=== PATIENT | male | born 1930 | race Caucasian/White ===

== ENCOUNTER 2016-10-07 19:33 | Inpatient (IN) | payer MEDICARE, OTHER ==
[2016-10-07] MEDS ORDERED: SODIUM CHLORIDE 0.9% 500 ML IV STA (20:38)
[2016-10-07] MEDS ORDERED: ACETAMINOPHEN TAB 500 MG TAB PO STA (20:38)
[2016-10-07] MEDS ORDERED: SODIUM CHLORIDE 0.9% 1,000 ML IV STA (20:38)
--- NOTE | 2016-10-07 20:42 | ED ---
General Adult HPI - General Source: patient, family, RN notes reviewed Mode of arrival: ambulatory Limitations: no limitations <Tj Vera - Last Filed: 10/08/16 00:39> <Brayan Jc - Last Filed: 10/08/16 06:24> - General Chief complaint: Nausea/Vomiting/Diarrhea Stated complaint: Abd Pain Time Seen by Provider: 10/07/16 20:34 - History of Present Illness Initial comments: Patient 86-year-old male who presents emergency room today with chief complaint of cough congestion over the past week. Does not that he's had fevers. States is not taking are Tylenol. Patient admits that is also had some nausea vomiting. Patient states she no longer feeling nauseated at this time. He does with sputum production with his cough. States his blood sugars and blood pressure is also been elevated at home. Patient denies any other complaints at this time. He denies any pain. Patient denies any recent shortness of breath, chest pain, back pain, numbness or tingling, dysuria or hematuria, constipation or diarrhea, headaches or visual changes, or any other complaints. (Tj Vera) - Related Data Home Medications Medication Instructions Recorded Confirmed Acetaminophen/Diphenhydramine 1 tab PO HS 10/07/16 10/07/16 [Tylenol PM 500-25mg] Clopidogrel Bisulfate [Plavix] 75 mg PO DAILY 10/07/16 10/07/16 Furosemide [Lasix] 40 mg PO DAILY 10/07/16 10/07/16 Gabapentin 600 mg PO TID 10/07/16 10/07/16 Insulin NPH Human Isophane 20 unit SQ BID 10/07/16 10/07/16 [NovoLIN N] LORazepam [Ativan] 1 mg PO HS 10/07/16 10/07/16 Losartan [Cozaar] 50 mg PO DAILY 10/07/16 10/07/16 Lovastatin [Mevacor] 40 mg PO DAILY 10/07/16 10/07/16 Potassium Chloride [Klor-Con 10] 10 meq PO BID 10/07/16 10/07/16 metFORMIN HCL [Glucophage] 500 mg PO BID 10/07/16 10/07/16 Allergies Allergy/AdvReac Type Severity Reaction Status Date / Time No Known Allergies Allergy Verified 10/07/16 21:53 Review of Systems ROS Other: All systems not noted in ROS Statement are negative. <Tj Vera - Last Filed: 10/08/16 00:39> ROS Other: All systems not noted in ROS Statement are negative. <HareshclaudiaBrayan Talya - Last Filed: 10/08/16 06:24> ROS Statement: Those systems with pertinent positive or pertinent negative responses have been documented in the HPI. Past Medical History Past Medical History: Diabetes Mellitus, Hypertension History of Any Multi-Drug Resistant Organisms: None Reported Past Surgical History: Bowel Resection, Prostate Surgery Additional Past Surgical History / Comment(s): brain tumor removed Past Psychological History: No Psychological Hx Reported Smoking Status: Never smoker Past Alcohol Use History: None Reported Past Drug Use History: None Reported <Tj Vera - Last Filed: 10/08/16 00:39> General Exam Limitations: no limitations <Tj Vera - Last Filed: 10/08/16 00:39> <HareshclaudiaBrayan Talya - Last Filed: 10/08/16 06:24> - General Exam Comments Initial Comments: General: The patient is awake and alert, in no distress, and does not appear acutely ill. Eye: Pupils are equal, round and reactive to light, extra-ocular movements are intact. No nystagmus. There is normal conjunctiva bilaterally. No signs of icterus. Ears, nose, mouth and throat: There are moist mucous membranes and no oral lesions. Neck: The neck is supple, there is no tenderness or JVD. Cardiovascular: There is a regular rate and rhythm. No murmur, rub or gallop is appreciated. Respiratory: Lungs are clear to auscultation, respirations are non-labored, breath sounds are equal. No wheezes, stridor, rales, or rhonchi. Gastrointestinal: Soft, non-distended, non-tender abdomen without masses or organomegaly noted. There is no rebound or guarding present. No CVA tenderness. Bowel sounds are unremarkable. Musculoskeletal: Normal ROM, no tenderness. Strength 5/5. Sensation intact. Pulses equal bilaterally 2+. Neurological: A&O x 3. CN II-XII intact, There are no obvious motor or sensory deficits. Coordination appears grossly intact. Speech is normal. Skin: Skin is warm and dry and no rashes or lesions are noted. Psychiatric: Cooperative, appropriate mood & affect, normal judgment. (Tj Vera) Medical Decision Making - Lab Data Result diagrams: 10/07/16 21:10 10/07/16 21:10 <Tj Vera - Last Filed: 10/08/16 00:39> - Lab Data Result diagrams: 10/07/16 21:10 10/07/16 21:10 <Brayan Jc - Last Filed: 10/08/16 06:24> - Medical Decision Making Patient reexamined at this time shows no signs of distress. Patient's labs been reviewed. His ultrasound reviewed and shows evidence for cholecystitis. Patient will be administered on antibiotics. Patient's wear the plan states understanding. (Tj Vera) 86-year-old male presenting with fever, nausea and some vomiting. Patient and his family does state he has been coughing ,cough is productive.. Chest x-ray shows no focal pneumonia. Temperature was 102.5. There is no right upper quadrant tenderness, however his liver enzymes and alkaline phosphatase are mildly elevated. Ultrasound is obtained to evaluate for gallbladder infection. There is cholelithiasis with gallbladder wall thickening, no pericholecystic fluid. Exam is not consistent with acute cholecystitis. No elevation in bilirubin, no concern for ascending cholangitis at this time. Given the history of fever and cough this may be early Pneumonia. Patient will be admitted with IV antibiotics and general surgery placed on consult. (Brayan Jc) - Lab Data Lab Results 10/07/16 10/07/16 10/07/16 Range/Units 21:10 21:10 21:10 WBC 11.2 H (3.8-10.6) k/uL RBC 4.05 L (4.30-5.90) m/uL Hgb 13.0 (13.0-17.5) gm/dL Hct 38.9 L (39.0-53.0) % MCV 96.1 (80.0-100.0) fL MCH 32.2 (25.0-35.0) pg MCHC 33.5 (31.0-37.0) g/dL RDW 13.3 (11.5-15.5) % Plt Count 294 (150-450) k/uL Neutrophils % 85 % Lymphocytes % 6 % Monocytes % 5 % Eosinophils % 0 % Basophils % 0 % Neutrophils # 9.6 H (1.3-7.7) k/uL Lymphocytes # 0.7 L (1.0-4.8) k/uL Monocytes # 0.6 (0-1.0) k/uL Eosinophils # 0.1 (0-0.7) k/uL Basophils # 0.0 (0-0.2) k/uL PT 10.6 (9.0-12.0) sec INR 1.0 (<1.2) APTT 20.4 L (22.0-30.0) sec Sodium 136 L (137-145) mmol/L Potassium 4.2 (3.5-5.1) mmol/L Chloride 98 (98-107) mmol/L Carbon Dioxide 24 (22-30) mmol/L Anion Gap 14 mmol/L BUN 23 H (9-20) mg/dL Creatinine 1.01 (0.66-1.25) mg/dL Est GFR (MDRD) Af Amer >60 (>60 ml/min/1.73 sqM) Est GFR (MDRD) Non-Af >60 (>60 ml/min/1.73 sqM) Glucose 235 H (74-99) mg/dL Calcium 9.2 (8.4-10.2) mg/dL Total Bilirubin 1.0 (0.2-1.3) mg/dL AST 275 H (17-59) U/L ALT 151 H (21-72) U/L Alkaline Phosphatase 167 H (38-126) U/L Total Protein 6.9 (6.3-8.2) g/dL Albumin 3.7 (3.5-5.0) g/dL Urine Color Urine Appearance (Clear) Urine pH (5.0-8.0) Ur Specific [place] (1.001-1.035) Urine Protein (Negative) Urine Glucose (UA) (Negative) Urine Ketones (Negative) Urine Blood (Negative) Urine Nitrite (Negative) Urine Bilirubin (Negative) Urine Urobilinogen (<2.0) mg/dL Ur Leukocyte Esterase (Negative) Urine RBC (0-5) /hpf Urine WBC (0-5) /hpf Hyaline Casts (0-2) /lpf Urine Mucus (None) /hpf Acetone, Qual Negative (Negative) 10/07/16 Range/Units 22:35 WBC (3.8-10.6) k/uL RBC (4.30-5.90) m/uL Hgb (13.0-17.5) gm/dL Hct (39.0-53.0) % MCV (80.0-100.0) fL MCH (25.0-35.0) pg MCHC (31.0-37.0) g/dL RDW (11.5-15.5) % Plt Count (150-450) k/uL Neutrophils % % Lymphocytes % % Monocytes % % Eosinophils % % Basophils % % Neutrophils # (1.3-7.7) k/uL Lymphocytes # (1.0-4.8) k/uL Monocytes # (0-1.0) k/uL Eosinophils # (0-0.7) k/uL Basophils # (0-0.2) k/uL PT (9.0-12.0) sec INR (<1.2) APTT (22.0-30.0) sec Sodium (137-145) mmol/L Potassium (3.5-5.1) mmol/L Chloride (98-107) mmol/L Carbon Dioxide (22-30) mmol/L Anion Gap mmol/L BUN (9-20) mg/dL Creatinine (0.66-1.25) mg/dL Est GFR (MDRD) Af Amer (>60 ml/min/1.73 sqM) Est GFR (MDRD) Non-Af (>60 ml/min/1.73 sqM) Glucose (74-99) mg/dL Calcium (8.4-10.2) mg/dL Total Bilirubin (0.2-1.3) mg/dL AST (17-59) U/L ALT (21-72) U/L Alkaline Phosphatase (38-126) U/L Total Protein (6.3-8.2) g/dL Albumin (3.5-5.0) g/dL Urine Color Yellow Urine Appearance Turbid (Clear) Urine pH 5.5 (5.0-8.0) Ur Specific [place] 1.016 (1.001-1.035) Urine Protein 1+ H (Negative) Urine Glucose (UA) Negative (Negative) Urine Ketones Negative (Negative) Urine Blood Small H (Negative) Urine Nitrite Negative (Negative) Urine Bilirubin Negative (Negative) Urine Urobilinogen 4.0 (<2.0) mg/dL Ur Leukocyte Esterase Negative (Negative) Urine RBC 1 (0-5) /hpf Urine WBC <1 (0-5) /hpf Hyaline Casts 1 (0-2) /lpf Urine Mucus Rare H (None) /hpf Acetone, Qual (Negative) Disposition Time of Disposition: 00:40 <Tj eVra - Last Filed: 10/08/16 00:39> <Brayan Jc - Last Filed: 10/08/16 06:24> Clinical Impression: Acute cholecystitis Disposition: ADMITTED IP TO THIS HOSP Condition: Stable
--- NOTE | 2016-10-07 21:15 | XR ---
EXAMINATION TYPE: XR chest 2V DATE OF EXAM: 10/07/2016 COMPARISON: NONE HISTORY: Nausea and dizziness TECHNIQUE: Frontal and lateral views of the chest are obtained. FINDINGS: Heart is normal. Thoracic aorta is atheromatous. Lungs are clear of infiltrate. There is n o heart failure. There is no pleural effusion. Bony thorax appears intact. IMPRESSION: No active cardiopulmonary disease.
[2016-10-07 21:30] LABS: Basophils % (A) 0 %; CH 32.6; CHCM 34.1; Eosinophils # (A) 0.1 k/uL (0-0.7); Eosinophils % (A) 0 %; HCT 38.9 % (39.0-53.0); HDW 2.34; Luc # (Auto) 0.35; Luc % (Auto) 3; Lymphocytes # (A) 0.7 k/uL (1.0-4.8); Lymphocytes % (A) 6 %; MCH 32.2 pg (25.0-35.0); MCHC 33.5 g/dL (31.0-37.0); MCV 96.1 fL (80.0-100.0); Mean Platelet Volume 8.1; Monocytes # (A) 0.6 k/uL (0-1.0); Monocytes % (A) 5 %; Neutrophils # (A) 9.6 k/uL (1.3-7.7); Neutrophils % (A) 85 %; RBC 4.05 m/uL (4.30-5.90); RDW 13.3 % (11.5-15.5); WBC 11.2 k/uL (3.8-10.6); WBC (Perox) 11.27
[2016-10-07 21:40] LABS: ALT 151 U/L (21-72); AST 275 U/L (17-59); Alkaline Phosphatase 167 U/L (38-126); Anion Gap 14 mmol/L; Blood Urea Nitrogen 23 mg/dL (9-20); Calcium 9.2 mg/dL (8.4-10.2); Carbon Dioxide 24 mmol/L (22-30); Chloride 98 mmol/L (98-107); Glucose 235 mg/dL (74-99); Non-African American GFR(MDRD) >60 (>60 ml/min/1.73 sqM); Potassium 4.2 mmol/L (3.5-5.1); Sodium 136 mmol/L (137-145); Total Protein 6.9 g/dL (6.3-8.2)
[2016-10-07 21:46] LABS: Prothrombin Time 10.6 sec (9.0-12.0)
[2016-10-07 21:47] LABS: Partial Thromboplastin Time 20.4 sec (22.0-30.0)
[2016-10-07 22:50] LABS: Appearance,Urine Turbid (Clear); Bilirubin,Urine Negative (Negative); Glucose,Urine (UA) Negative (Negative); Ketones,Urine Negative (Negative); Leukocyte Esterase,Urine Negative (Negative); Mucus,Urine Rare /hpf; Nitrite,Urine Negative (Negative); PH, Urine 5.5 (5.0-8.0); Particle Count 39182; Protein,Urine 1+ (Negative); RBC,Urine 1 /hpf (0-5); Specific Gravity,Urine 1.016 (1.001-1.035); UA Billing (MACRO vs. MICRO) MICRO; WBC,Urine <1 /hpf (0-5)
--- NOTE | 2016-10-08 00:28 | US ---
EXAM: US Abdomen Complete CLINICAL HISTORY: Reason: Pain TECHNIQUE: Real-time ultrasound of the abdomen (complete) with image documentation. COMPARISON: No relevant prior studies available. FINDINGS: Liver: Unremarkable. No mass. No intrahepatic bile duct dilation. Gallbladder: Distended GB with multiple gallstones. Gallbladder wall is thickened to 6 mm. No evidence of pericholecystic fluid. Common bile duct: No biliary dilatation. Common duct is 5 mm in diameter. No stones. Pancreas: Unremarkable as visualized. Kidneys: Right kidney contains a 5.7 cm simple cyst in the upper pole. No stones. No hydronephrosis. Spleen: Unremarkable. No splenomegaly. Aorta: Unremarkable. No aneurysm. Inferior vena cava: Unremarkable. Free fluid: No free fluid. IMPRESSION: Cholelithiasis with gallbladder wall thickening. No evidence of pericholecystic fluid or sonographic Flores sign. Findings are equivocal for cholecystitis. Correlate clinically. Need for HIDA scan may be determined clinically.
[2016-10-08] MEDS ORDERED: metroNIDAZOLE-NS PMX 500 MG in SALINE 1 100ML.BAG IVPB STA (00:39)
[2016-10-08] MEDS ORDERED: HYDROmorphone 1 MG/ML 1 ML SYRINGE IV PRN (00:41)
[2016-10-08] MEDS ORDERED: ONDANSETRON 4 MG/2 ML VIAL IVP PRN (00:41)
[2016-10-08] MEDS ORDERED: NALOXONE 0.4 MG/ML 1 ML VIAL IV PRN (00:41)
[2016-10-08 02:08] VITALS: BMI 23.9
[2016-10-08 03:14] LABS: Glucose,Whole Blood 161 mg/dL (75-99)
[2016-10-08] MEDS: ACETAMINOPHEN IV (For NPO) 1,000 MG in EMPTY BAG 1 BAG IVPB SCH ×3 (07:12→17:43)
[2016-10-08 07:35] LABS: Glucose,Whole Blood 138 mg/dL (75-99)
[2016-10-08] MEDS: INSULIN LISPRO (humaLOG) 300 UNIT/3 ML VIAL SQ SCH ×4 (08:05→21:01)
[2016-10-08 09:02] LABS: Hemoglobin A1C 7.1 % (4.2-6.1)
[2016-10-08] MEDS: metroNIDAZOLE-NS PMX 500 MG in SALINE 1 100ML.BAG IVPB SCH ×3 (09:11→23:15)
[2016-10-08 11:23] LABS: Glucose,Whole Blood 146 mg/dL (75-99)
--- NOTE | 2016-10-08 13:31 | P.HPIM ---
History of Present Illness H&P Date: 10/08/16 Chief Complaint: Fevers 86-year-old gentleman with history of CAD comes in the hospital with intractable abdominal pain nausea and inability to tolerate any liquids or solids for the last few days. States is good health 5 days ago suddenly noted to have chills fevers and intermittent episodes of abdominal pain. Patient was seen in the emergency room was noted to have a high fever and ultrasound of the abdomen was done which showed some inflammation around the gallbladder Patient has a history of prostate cancer and colon cancer status post resection Today patient states that he's been feeling significantly better denies having any abdominal pain except for his chronic pain around his incision site No chest pain or difficulty breathing urinary urgency or frequency is reported. In the ER patient was noted to have an elevated white count. Review of Systems All systems: negative (Noted in HPI) Past Medical History Past Medical History: Cancer, Diabetes Mellitus, Hearing Disorder / Deafness, Hypertension Additional Past Medical History / Comment(s): cholonocsopy , equilibrium off since brain surgery History of Any Multi-Drug Resistant Organisms: None Reported Past Surgical History: Bowel Resection, Prostate Surgery Additional Past Surgical History / Comment(s): brain tumor removed 1996. colon cancer with colon removal Past Anesthesia/Blood Transfusion Reactions: No Reported Reaction Past Psychological History: No Psychological Hx Reported Smoking Status: Never smoker Past Alcohol Use History: None Reported Past Drug Use History: None Reported - Past Family History Father History Unknown: Yes Medications and Allergies Home Medications Medication Instructions Recorded Confirmed Type Acetaminophen/Diphenhydramine 1 tab PO HS 10/07/16 10/07/16 History [Tylenol PM 500-25mg] Clopidogrel Bisulfate [Plavix] 75 mg PO DAILY 10/07/16 10/07/16 History Furosemide [Lasix] 40 mg PO DAILY 10/07/16 10/07/16 History Gabapentin 600 mg PO TID 10/07/16 10/07/16 History Insulin NPH Human Isophane 20 unit SQ BID 10/07/16 10/07/16 History [NovoLIN N] LORazepam [Ativan] 1 mg PO HS 10/07/16 10/07/16 History Losartan [Cozaar] 50 mg PO DAILY 10/07/16 10/07/16 History Lovastatin [Mevacor] 40 mg PO DAILY 10/07/16 10/07/16 History Potassium Chloride [Klor-Con 10] 10 meq PO BID 10/07/16 10/07/16 History metFORMIN HCL [Glucophage] 500 mg PO BID 10/07/16 10/07/16 History Allergies Allergy/AdvReac Type Severity Reaction Status Date / Time No Known Allergies Allergy Verified 10/07/16 21:53 Physical Exam Vitals: Vital Signs Temp Pulse Pulse Resp BP BP Pulse Ox 10/08/16 08:00 72 18 10/08/16 07:00 98.3 F 72 18 124/69 96 10/08/16 01:30 63 10/08/16 01:12 98.7 F 68 18 95/65 95 10/08/16 01:10 97.1 F L 64 16 93/55 93 L 10/08/16 00:42 98.4 F 70 18 95/54 94 L 10/07/16 22:40 16 10/07/16 19:38 102.5 F H 109 H 18 132/61 96 Intake and Output 10/07/16 10/08/16 10/08/16 22:59 06:59 14:59 Intake Total 500 625 Output Total 201 Balance 500 424 Intake: IV 500 [id number] 1,000 mg In 500 Sodium Chloride 0.9% 50 ml @ 100 mls/hr IVPB Q24HR GHAZALA Rx#:[id number] Intake, IV Titration 625 Amount Sodium Chloride 0.9% 1, 525 000 ml @ 75 mls/hr IV . [id number] STA Rx#:[id number]-NS PMX 500 100 mg In Saline 1 100ml.bag @ 100 mls/hr IVPB Q8HR GHAZALA Rx#:[id number] Output: Urine 200 Urine/Stool Mix 1 Other: Voiding Method Urinal Urinal Diaper # Voids 1 1 Weight 77.111 kg 75.75 kg Physical exam Gen. appearance oriented 3 in no distress Neck is supple no JVD Lungs good air entry clear to auscultation no rhonchi or wheezing Heart S1-S2 heard regular rate and rhythm no murmurs appreciated Abdomen is soft nontender no organomegaly bowel sounds are intact exam is pretty benign Neurologically cranial nerves II-12 grossly intact no focal motor or sensory deficits noted Skin no abnormalities appreciated Results CBC & Chem 7: 10/07/16 21:10 10/07/16 21:10 Labs: Abnormal Lab Results - Last 24 Hours (Table) 10/07/16 10/07/16 10/07/16 Range/Units 21:10 21:10 21:10 WBC 11.2 H (3.8-10.6) k/uL RBC 4.05 L (4.30-5.90) m/uL Hct 38.9 L (39.0-53.0) % Neutrophils # 9.6 H (1.3-7.7) k/uL Lymphocytes # 0.7 L (1.0-4.8) k/uL APTT 20.4 L (22.0-30.0) sec Sodium 136 L (137-145) mmol/L BUN 23 H (9-20) mg/dL Glucose 235 H (74-99) mg/dL POC Glucose (mg/dL) (75-99) mg/dL Hemoglobin A1c (4.2-6.1) % AST 275 H (17-59) U/L ALT 151 H (21-72) U/L Alkaline Phosphatase 167 H (38-126) U/L Urine Protein (Negative) Urine Blood (Negative) Urine Mucus (None) /hpf 10/07/16 10/07/16 10/08/16 Range/Units 21:10 22:35 03:12 WBC (3.8-10.6) k/uL RBC (4.30-5.90) m/uL Hct (39.0-53.0) % Neutrophils # (1.3-7.7) k/uL Lymphocytes # (1.0-4.8) k/uL APTT (22.0-30.0) sec Sodium (137-145) mmol/L BUN (9-20) mg/dL Glucose (74-99) mg/dL POC Glucose (mg/dL) 161 H (75-99) mg/dL Hemoglobin A1c 7.1 H (4.2-6.1) % AST (17-59) U/L ALT (21-72) U/L Alkaline Phosphatase (38-126) U/L Urine Protein 1+ H (Negative) Urine Blood Small H (Negative) Urine Mucus Rare H (None) /hpf 10/08/16 10/08/16 Range/Units 07:03 11:21 WBC (3.8-10.6) k/uL RBC (4.30-5.90) m/uL Hct (39.0-53.0) % Neutrophils # (1.3-7.7) k/uL Lymphocytes # (1.0-4.8) k/uL APTT (22.0-30.0) sec Sodium (137-145) mmol/L BUN (9-20) mg/dL Glucose (74-99) mg/dL POC Glucose (mg/dL) 138 H 146 H (75-99) mg/dL Hemoglobin A1c (4.2-6.1) % AST (17-59) U/L ALT (21-72) U/L Alkaline Phosphatase (38-126) U/L Urine Protein (Negative) Urine Blood (Negative) Urine Mucus (None) /hpf Thrombosis Risk Factor Assmnt - Choose All That Apply Any of the Below Risk Factors Present?: Yes Other Risk Factors: Yes Each Risk Factor Represents 2 Points: Malignancy Each Risk Factor Represents 3 Points: Age 75 years or older Other congenital or acquired thrombophilia - If yes, enter type in comment: No Thrombosis Risk Factor Assessment Total Risk Factor Score: 5 Thrombosis Risk Factor Assessment Level: High Risk Assessment and Plan Plan: #1. Fever of unknown origin suspect a viral etiology versus cholecystitis #2 history of CAD #3 diabetes most type II #4 essential hypertension #5 dyslipidemia #6. History of colon cancer #7 history of prostate cancer #8 dysplastic nevus Plan Patient be monitored clinically. We'll restart diet. Patient has been on Plavix we'll discontinue Plavix and start the patient on aspirin 81 mg Restart home medications Discussed the case with general surgeon patient may be considered to be treated conservatively as patient is already on Plavix may benefit from having a HIDA scan an outpatient basis and an nonemergent cholecystectomy to be done at that time.
[2016-10-08] MEDS: ASPIRIN 81 MG CHEW PO SCH (15:20)
[2016-10-08] MEDS: ATORVASTATIN 10 MG TAB PO SCH (15:20)
[2016-10-08] MEDS: metFORMIN 500 MG TAB PO SCH ×2 (15:20→17:42)
[2016-10-08] MEDS: LOSARTAN 50 MG TAB PO SCH (15:20)
[2016-10-08] MEDS: POTASSIUM CHLORIDE ER 10 MEQ TAB.ER.PRT PO SCH ×2 (15:20→21:01)
[2016-10-08] MEDS: GABAPENTIN 300 MG CAP PO SCH ×2 (15:24→21:01)
--- NOTE | 2016-10-08 15:53 | P.GSCN ---
History of Present Illness Consult date: 10/08/16 Reason for Consult: rule out cholecystitis History of present illness: 86-year-old male presents to the emergency department complaining of abdominal pain and nausea. He states that this pain started a few hours prior before presentation. he stated that the pain was mostly in the right upper quadrant. He states no emesis at this time. On current exam the patient states that his abdominal pain has resolved. Denies any current nausea. He is tolerating a clear liquid diet at this time. he denies any change in bowel function. No additional complaints at this time. he denies any fevers, chills, chest pain, shortness of breath at this time. Past Medical History Past Medical History: Cancer, Diabetes Mellitus, Hearing Disorder / Deafness, Hypertension Additional Past Medical History / Comment(s): cholonocsopy , equilibrium off since brain surgery History of Any Multi-Drug Resistant Organisms: None Reported Past Surgical History: Bowel Resection, Prostate Surgery Additional Past Surgical History / Comment(s): brain tumor removed 1996. colon cancer with colon removal Past Anesthesia/Blood Transfusion Reactions: No Reported Reaction Past Psychological History: No Psychological Hx Reported Smoking Status: Never smoker Past Alcohol Use History: None Reported Past Drug Use History: None Reported - Past Family History Father History Unknown: Yes Medications and Allergies Home Medications Medication Instructions Recorded Confirmed Type Acetaminophen/Diphenhydramine 1 tab PO HS 10/07/16 10/07/16 History [Tylenol PM 500-25mg] Clopidogrel Bisulfate [Plavix] 75 mg PO DAILY 10/07/16 10/07/16 History Furosemide [Lasix] 40 mg PO DAILY 10/07/16 10/07/16 History Gabapentin 600 mg PO TID 10/07/16 10/07/16 History Insulin NPH Human Isophane 20 unit SQ BID 10/07/16 10/07/16 History [NovoLIN N] LORazepam [Ativan] 1 mg PO HS 10/07/16 10/07/16 History Losartan [Cozaar] 50 mg PO DAILY 10/07/16 10/07/16 History Lovastatin [Mevacor] 40 mg PO DAILY 10/07/16 10/07/16 History Potassium Chloride [Klor-Con 10] 10 meq PO BID 10/07/16 10/07/16 History metFORMIN HCL [Glucophage] 500 mg PO BID 10/07/16 10/07/16 History Allergies Allergy/AdvReac Type Severity Reaction Status Date / Time No Known Allergies Allergy Verified 10/07/16 21:53 Surgical - Exam Osteopathic Statement: *. No significant issues noted on an osteopathic structural exam other than those noted in the History and Physical/Consult. Vital Signs Temp Pulse Resp BP Pulse Ox 102.5 F H 109 H 18 132/61 96 10/07/16 19:38 10/07/16 19:38 10/07/16 19:38 10/07/16 19:38 10/07/16 19:38 - General well nourished, no distress, no pain - Eyes PERRL, normal ocular movement - Neck no masses, trachea midline, no lymphadectomy - Respiratory normal expansion, normal respiratory effort, clear to auscultation - Cardiovascular Rhythm: regular Heart Sounds: normal: S1, S2 - Abdomen Abdomen: soft, non tender, no guarding, no rigid, no rebound, no distended - Integumentary no rash - Neurologic normal coordination, normal sensation - Musculoskeletal normal gait - Psychiatric oriented to time, oriented to person, oriented to place Results - Labs 10/07/16 21:10 10/07/16 21:10 Abnormal Lab Results - Last 24 Hours (Table) 10/07/16 10/07/16 10/07/16 Range/Units 21:10 21:10 21:10 WBC 11.2 H (3.8-10.6) k/uL RBC 4.05 L (4.30-5.90) m/uL Hct 38.9 L (39.0-53.0) % Neutrophils # 9.6 H (1.3-7.7) k/uL Lymphocytes # 0.7 L (1.0-4.8) k/uL APTT 20.4 L (22.0-30.0) sec Sodium 136 L (137-145) mmol/L BUN 23 H (9-20) mg/dL Glucose 235 H (74-99) mg/dL POC Glucose (mg/dL) (75-99) mg/dL Hemoglobin A1c (4.2-6.1) % AST 275 H (17-59) U/L ALT 151 H (21-72) U/L Alkaline Phosphatase 167 H (38-126) U/L Urine Protein (Negative) Urine Blood (Negative) Urine Mucus (None) /hpf 10/07/16 10/07/16 10/08/16 Range/Units 21:10 22:35 03:12 WBC (3.8-10.6) k/uL RBC (4.30-5.90) m/uL Hct (39.0-53.0) % Neutrophils # (1.3-7.7) k/uL Lymphocytes # (1.0-4.8) k/uL APTT (22.0-30.0) sec Sodium (137-145) mmol/L BUN (9-20) mg/dL Glucose (74-99) mg/dL POC Glucose (mg/dL) 161 H (75-99) mg/dL Hemoglobin A1c 7.1 H (4.2-6.1) % AST (17-59) U/L ALT (21-72) U/L Alkaline Phosphatase (38-126) U/L Urine Protein 1+ H (Negative) Urine Blood Small H (Negative) Urine Mucus Rare H (None) /hpf 10/08/16 10/08/16 Range/Units 07:03 11:21 WBC (3.8-10.6) k/uL RBC (4.30-5.90) m/uL Hct (39.0-53.0) % Neutrophils # (1.3-7.7) k/uL Lymphocytes # (1.0-4.8) k/uL APTT (22.0-30.0) sec Sodium (137-145) mmol/L BUN (9-20) mg/dL Glucose (74-99) mg/dL POC Glucose (mg/dL) 138 H 146 H (75-99) mg/dL Hemoglobin A1c (4.2-6.1) % AST (17-59) U/L ALT (21-72) U/L Alkaline Phosphatase (38-126) U/L Urine Protein (Negative) Urine Blood (Negative) Urine Mucus (None) /hpf Microbiology - Last 24 Hours (Table) 10/07/16 22:35 Urine Culture - Preliminary Urine,Voided Diabetes panel 10/07/16 10/07/16 Range/Units 21:10 21:10 Sodium 136 L (137-145) mmol/L Potassium 4.2 (3.5-5.1) mmol/L Chloride 98 (98-107) mmol/L Carbon Dioxide 24 (22-30) mmol/L BUN 23 H (9-20) mg/dL Creatinine 1.01 (0.66-1.25) mg/dL Glucose 235 H (74-99) mg/dL Hemoglobin A1c 7.1 H (4.2-6.1) % Calcium 9.2 (8.4-10.2) mg/dL AST 275 H (17-59) U/L ALT 151 H (21-72) U/L Alkaline Phosphatase 167 H (38-126) U/L Total Protein 6.9 (6.3-8.2) g/dL Albumin 3.7 (3.5-5.0) g/dL Calcium panel 10/07/16 Range/Units 21:10 Calcium 9.2 (8.4-10.2) mg/dL Albumin 3.7 (3.5-5.0) g/dL Pituitary panel 10/07/16 Range/Units 21:10 Sodium 136 L (137-145) mmol/L Potassium 4.2 (3.5-5.1) mmol/L Chloride 98 (98-107) mmol/L Carbon Dioxide 24 (22-30) mmol/L BUN 23 H (9-20) mg/dL Creatinine 1.01 (0.66-1.25) mg/dL Glucose 235 H (74-99) mg/dL Calcium 9.2 (8.4-10.2) mg/dL Adrenal panel 10/07/16 Range/Units 21:10 Sodium 136 L (137-145) mmol/L Potassium 4.2 (3.5-5.1) mmol/L Chloride 98 (98-107) mmol/L Carbon Dioxide 24 (22-30) mmol/L BUN 23 H (9-20) mg/dL Creatinine 1.01 (0.66-1.25) mg/dL Glucose 235 H (74-99) mg/dL Calcium 9.2 (8.4-10.2) mg/dL Total Bilirubin 1.0 (0.2-1.3) mg/dL AST 275 H (17-59) U/L ALT 151 H (21-72) U/L Alkaline Phosphatase 167 H (38-126) U/L Total Protein 6.9 (6.3-8.2) g/dL Albumin 3.7 (3.5-5.0) g/dL - Imaging US - abdomen: report reviewed (gallbladder ultrasound reviewed. Gallstones noted. Mild wall thickening noted at 6 mm. No pericholecystic fluid no evidence of inflammation.) Assessment and Plan (1) Acute cholecystitis Status: Acute Plan: 86-year-old male with right upper quadrant pain that has resolved. This is likely secondary to symptomatic cholelithiasis. at this point due to his resolve symptoms I recommend continued medical care with antibiotics. Discussed the case with admitting service and plan for outpatient HIDA if necessary. if at that point a obstruction is noted an elective cholecystectomy can be planned. At this point it is okay for the patient to begin a clear liquid diet and advance as tolerated. We will hold Plavix at this time due to possibility of surgery in the near future. Thank you for this consultation. I look forward to providing in this patient's care.
[2016-10-08 17:16] LABS: Glucose,Whole Blood 178 mg/dL (75-99)
[2016-10-08 20:48] LABS: Glucose,Whole Blood 148 mg/dL (75-99)
[2016-10-09 07:03] LABS: Glucose,Whole Blood 171 mg/dL (75-99)
[2016-10-09 07:45] VITALS: RESP 18
[2016-10-09 08:02] LABS: Basophils % (A) 0 %; CH 32.3; Eosinophils # (A) 0.1 k/uL (0-0.7); Eosinophils % (A) 1 %; HCT 32.8 % (39.0-53.0); HDW 2.32; HGB 10.4 gm/dL (13.0-17.5); Luc # (Auto) 0.41; Luc % (Auto) 4; Lymphocytes # (A) 1.2 k/uL (1.0-4.8); Lymphocytes % (A) 13 %; MCH 31.3 pg (25.0-35.0); MCHC 31.8 g/dL (31.0-37.0); MCV 98.5 fL (80.0-100.0); Mean Platelet Volume 7.9; Monocytes # (A) 0.6 k/uL (0-1.0); Monocytes % (A) 6 %; Neutrophils % (A) 75 %; RBC 3.33 m/uL (4.30-5.90); RDW 13.2 % (11.5-15.5); WBC 9.3 k/uL (3.8-10.6); WBC (Perox) 10.13
[2016-10-09 08:25] LABS: ALT 74 U/L (21-72); AST 55 U/L (17-59); Alkaline Phosphatase 100 U/L (38-126); Anion Gap 11 mmol/L; Blood Urea Nitrogen 18 mg/dL (9-20); Calcium 8.7 mg/dL (8.4-10.2); Carbon Dioxide 22 mmol/L (22-30); Chloride 102 mmol/L (98-107); Glucose 183 mg/dL (74-99); Non-African American GFR(MDRD) >60 (>60 ml/min/1.73 sqM); Potassium 4.2 mmol/L (3.5-5.1); Sodium 135 mmol/L (137-145); Total Bilirubin 0.6 mg/dL (0.2-1.3); Total Protein 5.5 g/dL (6.3-8.2)
[2016-10-09] MEDS: LOSARTAN 50 MG TAB PO SCH (08:42)
[2016-10-09] MEDS: GABAPENTIN 300 MG CAP PO SCH (08:43)
[2016-10-09] MEDS: ASPIRIN 81 MG CHEW PO SCH (08:43)
[2016-10-09] MEDS: POTASSIUM CHLORIDE ER 10 MEQ TAB.ER.PRT PO SCH (08:43)
[2016-10-09] MEDS: ATORVASTATIN 10 MG TAB PO SCH (08:43)
[2016-10-09] MEDS: INSULIN LISPRO (humaLOG) 300 UNIT/3 ML VIAL SQ SCH ×2 (08:43→13:01)
[2016-10-09] MEDS: metFORMIN 500 MG TAB PO SCH (08:43)
[2016-10-09 11:06] LABS: Glucose,Whole Blood 154 mg/dL (75-99)
[2016-10-09] MEDS: metroNIDAZOLE-NS PMX 500 MG in SALINE 1 100ML.BAG IVPB SCH (11:38)
--- NOTE | 2016-10-09 12:18 | P.PN ---
Subjective 86yo M was seen and examined at bedside. No acute events overnight. He states he tolerated his regular diet with no abdominal pain. No nausea and vomiting. He has no complaints. Denies fevers, chills, chest pain, SOB. Objective - Vital Signs Vital signs: Vital Signs Temp 98.9 F 10/09/16 07:00 Pulse 66 10/09/16 07:00 Resp 18 10/09/16 07:00 BP 119/61 10/09/16 07:00 Pulse Ox 92 L 10/09/16 07:00 Intake & Output 10/08/16 10/09/16 10/09/16 18:59 06:59 18:59 Intake Total 625 575 Output Total 201 200 250 Balance 424 375 -250 Intake: IV 50 cefTRIAXone 1,000 mg In 50 Sodium Chloride 0.9% 50 ml @ 100 mls/hr IVPB Q24HR [facility] Rx#:[id number] Intake, IV Titration 625 525 Amount Sodium Chloride 0.9% 1, 525 525 000 ml @ 75 mls/hr IV . [id number] [facility] Rx#:[id number] metroNIDAZOLE-NS PMX 500 100 mg In Saline 1 100ml.bag @ 100 mls/hr IVPB Q8HR [facility] Rx#:[id number] Output: Urine 200 200 250 Urine/Stool Mix 1 Other: Voiding Method Bedside Commode Bedside Commode Urinal Urinal Diaper Diaper # Voids 1 1 # Bowel Movements 1 - Constitutional General appearance: Present: cooperative, no acute distress - EENT Eyes: Present: EOMI, PERRLA ENT: Present: normal oropharynx - Neck Neck: Present: normal ROM - Respiratory Details: no difficulty with respiration Respiratory: left: CTA - Cardiovascular Rhythm: regular Heart sounds: normal: S1, S2 - Gastrointestinal General gastrointestinal: Present: normal bowel sounds. Absent: distended, hepatomegaly, organomegaly, tenderness - Neurologic Neurologic: Present: CNII-XII intact - Musculoskeletal Musculoskeletal: Present: gait normal. Absent: generalized weakness - Psychiatric Psychiatric: Present: A&O x's 3, intact judgment & insight - Labs CBC & Chem 7: 10/09/16 07:23 10/09/16 07:23 Labs: Abnormal Lab Results - Last 24 Hours (Table) 10/08/16 10/08/16 10/09/16 Range/Units 17:12 20:45 07:01 RBC (4.30-5.90) m/uL Hgb (13.0-17.5) gm/dL Hct (39.0-53.0) % Sodium (137-145) mmol/L Glucose (74-99) mg/dL POC Glucose (mg/dL) 178 H 148 H 171 H (75-99) mg/dL ALT (21-72) U/L Total Protein (6.3-8.2) g/dL Albumin (3.5-5.0) g/dL 10/09/16 10/09/16 10/09/16 Range/Units 07:23 07:23 11:00 RBC 3.33 L (4.30-5.90) m/uL Hgb 10.4 L (13.0-17.5) gm/dL Hct 32.8 L (39.0-53.0) % Sodium 135 L (137-145) mmol/L Glucose 183 H (74-99) mg/dL POC Glucose (mg/dL) 154 H (75-99) mg/dL ALT 74 H (21-72) U/L Total Protein 5.5 L (6.3-8.2) g/dL Albumin 2.9 L (3.5-5.0) g/dL Microbiology - Last 24 Hours (Table) 10/07/16 21:10 Blood Culture - Preliminary Blood No Growth after 24 hours 10/07/16 22:35 Urine Culture - Preliminary Urine,Voided Assessment and Plan (1) Acute cholecystitis Status: Acute Plan: - Reviewed labs, liver enzymes improving, ebcs improving - Continue abx - f/u outpatient to discuss HIDA and possible surgery - stable for DC surgically
--- NOTE | 2016-10-09 14:01 | P.DS ---
Providers Date of admission: 10/08/16 00:44 Attending physician: Jodee Dai Consults: 10/08/16 00:41 Consult Physician Stat Consulting Provider: Miguel Saez Consult Reason/Comments: Acute cholecystitis Do you want consulting provider notified?: Yes Primary care physician: Stated None Hospital Course: 86-year-old gentleman with history of CAD comes in the hospital with intractable abdominal pain nausea and inability to tolerate any liquids or solids for the last few days. States is good health 5 days ago suddenly noted to have chills fevers and intermittent episodes of abdominal pain. Patient was seen in the emergency room was noted to have a high fever and ultrasound of the abdomen was done which showed some inflammation around the gallbladder Patient has a history of prostate cancer and colon cancer status post resection Today patient states that he's been feeling significantly better denies having any abdominal pain except for his chronic pain around his incision site No chest pain or difficulty breathing urinary urgency or frequency is reported. In the ER patient was noted to have an elevated white count. Physical exam Gen. appearance oriented 3 in no distress Neck is supple no JVD Lungs good air entry clear to auscultation no rhonchi or wheezing Heart S1-S2 heard regular rate and rhythm no murmurs appreciated Abdomen is soft nontender no organomegaly bowel sounds are intact exam is pretty benign Neurologically cranial nerves II-12 grossly intact no focal motor or sensory deficits noted Skin no abnormalities appreciated Assessment and Plan Plan: #1. Fever of unknown origin suspect a viral etiology versus cholecystitis #2 history of CAD #3 diabetes mellitus type II #4 essential hypertension #5 dyslipidemia #6. History of colon cancer #7 history of prostate cancer #8 dysplastic nevus dc on aspirin 81mg, has had PCI over 15 yrs ago dc home on augmentin for 7 days followup with gen. surgery for out. pt HIDA and poss surgery thereafter Patient Condition at Discharge: Stable Plan - Discharge Summary New Discharge Prescriptions: New Aspirin [Children's Aspirin] 81 mg PO DAILY #30 tab.chew Amoxic-Pot Clav 875-125Mg [Augmentin 875-125] 1 tab PO Q12HR #14 tablet Continue metFORMIN HCL [Glucophage] 500 mg PO BID Losartan [Cozaar] 50 mg PO DAILY Acetaminophen/Diphenhydramine [Tylenol PM 500-25mg] 1 tab PO HS Potassium Chloride [Klor-Con 10] 10 meq PO BID Lovastatin [Mevacor] 40 mg PO DAILY Furosemide [Lasix] 40 mg PO DAILY LORazepam [Ativan] 1 mg PO HS Insulin NPH Human Isophane [NovoLIN N] 20 unit SQ BID Gabapentin 600 mg PO TID Discontinued Clopidogrel Bisulfate [Plavix] 75 mg PO DAILY Discharge Medication List Acetaminophen/Diphenhydramine [Tylenol PM 500-25mg] 1 tab PO HS 10/07/16 [ History] Furosemide [Lasix] 40 mg PO DAILY 10/07/16 [History] Gabapentin 600 mg PO TID 10/07/16 [History] Insulin NPH Human Isophane [NovoLIN N] 20 unit SQ BID 10/07/16 [History] LORazepam [Ativan] 1 mg PO HS 10/07/16 [History] Losartan [Cozaar] 50 mg PO DAILY 10/07/16 [History] Lovastatin [Mevacor] 40 mg PO DAILY 10/07/16 [History] Potassium Chloride [Klor-Con 10] 10 meq PO BID 10/07/16 [History] metFORMIN HCL [Glucophage] 500 mg PO BID 10/07/16 [History] Amoxic-Pot Clav 875-125Mg [Augmentin 875-125] 1 tab PO Q12HR #14 tablet [Rx] Aspirin [Children's Aspirin] 81 mg PO DAILY #30 tab.chew 10/09/16 [Rx] Follow up Appointment(s)/Referral(s): None,Stated [Primary Care Provider] - 1-2 days (patient encouraged to follow up with a primary physician when he chooses one) Miguel Saez DO [Doctor of Osteopathic Medicine] - 10/14/16 2:45 pm (To discuss HIDA and possible surgery for your gallbladder) Patient Instructions/Handouts: Aspirin (By mouth), Cholecystitis (GEN) Discharge Disposition: HOME SELF-CARE
[2016-10-09 14:55] VITALS: BP 128/64; PULSE 59; TEMP 98.2
[2016-10-10] MEDS ORDERED: metroNIDAZOLE 500 MG TAB PO SCH (09:00)
== END 2016-10-09 16:16 | disposition home health service (06) | DRG 446 ==
LOC: EC 19:33 → 5MS5E 10-08 00:44
PROVIDERS: ADMIT Hospitalist; ATTEND Hospitalist
DX: K80.00 Calculus of gallbladder with acute cholecystitis without obstruction (principal); E11.9 Type 2 diabetes mellitus without complications; I10 Essential (primary) hypertension; B34.9 Viral infection, unspecified; E78.5 Hyperlipidemia, unspecified; G89.29 Other chronic pain; H91.90 Unspecified hearing loss, unspecified ear; I25.10 Atherosclerotic heart disease of native coronary artery without angina pectoris; D23.9 Other benign neoplasm of skin, unspecified; Z79.4 Long term (current) use of insulin; Z79.899 Other long term (current) drug therapy; Z79.02 Long term (current) use of antithrombotics/antiplatelets; Z85.038 Personal history of other malignant neoplasm of large intestine; Z85.46 Personal history of malignant neoplasm of prostate
CPT/HCPCS: 36415; 71020; 76705; 80053; 81001; 82009; 83036; 85025; 85610; 85730; 87040; 87086; 96361; 96374; 99285

== ENCOUNTER 2016-10-17 06:36 | Inpatient (IN) | payer MEDICARE ==
[~2016-10-17 06:36] MED LIST: DEXAMETHASONE SOD PHOSPHATE 10 MG/ML 1 ML VIAL IV ONE; LIDOCAINE 1% 20 ML VIAL (10MG/ML) FOR IV START INTRADERMA PRN; MIDAZOLAM 2 MG/2 ML VIAL IV PRN; ONDANSETRON 4 MG/2 ML VIAL IVP ONE; Pre Op ABX Message 1 EACH MISC MISCELLANE ONE; SCOPOLAMINE 1.5MG/72HR PATCH TRANSDERM ONE
[2016-10-17 07:07] LABS: Glucose,Whole Blood 94 mg/dL (75-99)
[2016-10-17] MEDS: LACTATED RINGERS 1,000 ML IV SCH ×3 (07:13→16:55)
[2016-10-17] MEDS ORDERED: HEPARIN SODIUM,PORCINE 5,000 UNIT/ML 1 ML VIAL SQ STA (07:30)
[2016-10-17] MEDS ORDERED: BUPIVACAINE-EPI 0.5%-1:200,000 10 ML VIAL SQ ONE (07:32)
[2016-10-17] MEDS ORDERED: ePHEDrine SULFATE/0.9% NACL/PF 50 MG/5 ML SYRINGE IV ONE (07:32)
[2016-10-17] MEDS ORDERED: LIDOCAINE 1% INJ 10MG/ML (20 ML MDV) ONE (07:32)
[2016-10-17] MEDS ORDERED: GLYCOPYRROLATE 0.2 MG/ML 2 ML VIAL ONE (07:32)
[2016-10-17] MEDS ORDERED: SUCCINYLCHOLINE CHLORIDE 100 MG/5 ML SYR IV ONE (07:32)
[2016-10-17] MEDS ORDERED: ROCURONIUM BROMIDE 10 MG/ML 10 ML VIAL IV ONE (07:32)
[2016-10-17] MEDS ORDERED: HYDROmorphone (PF) 1 MG/ML ONE (07:32)
[2016-10-17] MEDS ORDERED: PROPOFOL 10 MG/ML 20 ML VIAL IV ONE (07:32)
[2016-10-17] MEDS ORDERED: NEOSTIGMINE 1 MG/ML 10 ML VIAL ONE (07:32)
[2016-10-17] MEDS ORDERED: fentaNYL (PF) 50 MCG/ML 2 ML AMP ONE (07:32)
[2016-10-17 07:38] LABS: Bilirubin, Delta 0.3 mg/dL (0.0-0.2); Total Bilirubin 0.5 mg/dL (0.2-1.3); Total Protein 6.7 g/dL (6.3-8.2)
[2016-10-17] MEDS ORDERED: SODIUM CHLORIDE 0.9% 50 ML with ceFAZolin 2,000 MG IV ONE ×2 (07:42)
[2016-10-17] MEDS ORDERED: LACTATED RINGERS 1,000 ML IV ONE ×3 (08:47→13:34)
[2016-10-17] MEDS: HYDROmorphone 1 MG/ML 1 ML SYRINGE IVP PRN ×4 (12:15→20:03)
[2016-10-17] MEDS ORDERED: ONDANSETRON 4 MG/2 ML VIAL IVP ONE (12:30)
[2016-10-17 13:01] LABS: Glucose,Whole Blood 172 mg/dL (75-99)
[2016-10-17 13:27] LABS: Glucose,Whole Blood 164 mg/dL (75-99)
[2016-10-17] MEDS ORDERED: ONDANSETRON 4 MG/2 ML VIAL IVP PRN (13:34)
[2016-10-17] MEDS ORDERED: NALOXONE 0.4 MG/ML 1 ML VIAL IV PRN (13:34)
[2016-10-17 14:22] LABS: Basophils % (A) 0 %; CH 30.5; CHCM 31.6; Eosinophils % (A) 0 %; HCT 35.8 % (39.0-53.0); HDW 2.31; HGB 11.7 gm/dL (13.0-17.5); Luc # (Auto) 0.25; Luc % (Auto) 1; Lymphocytes % (A) 4 %; MCH 31.9 pg (25.0-35.0); MCHC 32.8 g/dL (31.0-37.0); MCV 97.2 fL (80.0-100.0); Mean Platelet Volume 6.6; Monocytes # (A) 0.8 k/uL (0-1.0); Monocytes % (A) 3 %; Neutrophils # (A) 20.7 k/uL (1.3-7.7); Neutrophils % (A) 91 %; RBC 3.68 m/uL (4.30-5.90); RDW 12.4 % (11.5-15.5); WBC 22.8 k/uL (3.8-10.6); WBC (Perox) 22.45
--- NOTE | 2016-10-17 14:45 | P.CNPUL ---
History of Present Illness Consult date: 10/17/16 History of present illness: This is an 86-year-old male patient who presented to the emergency department approximately one week ago complaining of abdominal pain and nausea. The patient's pain was mostly in the right upper quadrant. On examination the patient was quite benign and she end up tolerating clear liquids well without any change in his bowel habits. Further investigation within ultrasound of the abdomen showed gallstones and mild gallbladder wall thickening without any pericholecystic fluid or evidence of inflammation. As such the patient was seen by general surgery and he was thought to have symptomatic cholelithiasis. The patient was started on medical treatment with antibiotics and the patient was discharged home, and the patient was brought back today for a cholecystectomy which turned out to be an open cholecystectomy. Postop, the patient was moved to the intensive care unit for further monitoring. He is awake. He is alert. He has a COURTNEY drain in the right upper quadrant. A Levy catheter is to be inserted. Hemodynamically stable. Review of Systems 4 point review of system was done and the positive findings are almost above history of present illness Past Medical History Past Medical History: Coronary Artery Disease (CAD), Cancer, Diabetes Mellitus, Deep Vein Thrombosis (DVT), Hearing Disorder / Deafness, Hypertension, Osteoarthritis (OA), Prostate Disorder Additional Past Medical History / Comment(s): Colon cancer 1997 post colectomy, prostate cancer treated by radiation therapy and local seed implants, brain tumor with previous [employer] surgery in 1996, peripheral neuropathy involving the lower extremities, cholelithiasis/symptomatic, coronary artery disease, diabetes mellitus, impaired hearing, osteoarthritis, hypertension, previous history of DVT currently on no anticoagulants. History of Any Multi-Drug Resistant Organisms: None Reported Past Surgical History: Bowel Resection, Heart Catheterization With Stent, Prostate Surgery Additional Past Surgical History / Comment(s): Cardiac catheterization with insertion of coronary stents, bowel resection for colon cancer, resection of brain tumor in 1996, insertion of prostate radiation seed for brachytherapy Past Anesthesia/Blood Transfusion Reactions: No Reported Reaction Date of Last Stent Placement:: 1997 Smoking Status: Never smoker - Past Family History Father History Unknown: Yes Medications and Allergies Home Medications Medication Instructions Recorded Confirmed Type Acetaminophen/Diphenhydramine 1 tab PO HS 10/07/16 10/17/16 History [Tylenol PM 500-25mg] Furosemide [Lasix] 40 mg PO DAILY 10/07/16 10/17/16 History Gabapentin 600 mg PO TID 10/07/16 10/17/16 History Insulin NPH Human Isophane 20 unit SQ BID 10/07/16 10/17/16 History [NovoLIN N] LORazepam [Ativan] 1 mg PO HS 10/07/16 10/17/16 History Losartan [Cozaar] 50 mg PO DAILY 10/07/16 10/17/16 History Lovastatin [Mevacor] 40 mg PO DAILY 10/07/16 10/17/16 History Potassium Chloride [Klor-Con 10] 10 meq PO BID 10/07/16 10/17/16 History metFORMIN HCL [Glucophage] 500 mg PO BID 10/07/16 10/17/16 History Amoxic-Pot Clav 875-125Mg 1 tab PO Q12HR #14 tablet 10/09/16 10/17/16 Rx [Augmentin 875-125] Aspirin [Children's Aspirin] 81 mg PO DAILY #30 tab.chew 10/09/16 10/17/16 Rx Clopidogrel Bisulfate [Plavix] 75 mg PO DAILY 10/15/16 10/17/16 History Allergies Allergy/AdvReac Type Severity Reaction Status Date / Time No Known Allergies Allergy Verified 10/17/16 06:50 Physical Exam Vitals: Vital Signs Temp Pulse Resp BP Pulse Ox 10/17/16 13:00 77 16 116/79 99 10/17/16 12:45 79 16 119/76 99 10/17/16 12:30 82 16 126/70 100 10/17/16 12:15 79 16 119/65 100 10/17/16 12:00 78 16 123/63 100 10/17/16 11:45 80 16 120/65 99 10/17/16 11:33 97.3 F L 77 14 119/68 98 10/17/16 07:31 98.4 F 69 18 132/72 98 Intake and Output 10/16/16 10/17/16 10/17/16 22:59 06:59 14:59 Intake Total 2350 Output Total 50 Balance 2300 Intake: IV 2350 Output: Estimated Blood Loss 50 Results The patient appeared well nourished and normally developed. Vital signs as documented. Head exam is unremarkable. No scleral icterus or corneal arcus noted. Neck is without jugular venous distension, thyromegaly, or carotid bruits. Carotid upstrokes are brisk bilaterally. Lungs are clear to auscultation and percussion. Cardiac exam reveals the PMI to be normally sized and situated. Rhythm is regular. First and second heart sounds normal. No murmurs, rubs or gallops. Abdominal exam reveals absent bowel sounds and the patient has a COURTNEY drain in the right upper quadrant. The surgical wound site over the right upper quadrant areas dry clean and intact. No direct tenderness. No rebound tenderness. No guarding. Organs cannot be accurately palpated to this point.. Extremities are nonedematous and both femoral and pedal pulses are normal. Patient is awake and alert and following commands and answering questions appropriately. - Laboratory Findings CBC and BMP: 10/17/16 14:05 Abnormal lab findings: Abnormal Labs 10/17/16 10/17/16 10/17/16 07:05 12:58 13:26 POC Glucose (mg/dL) 172 H 164 H Delta Bilirubin 0.3 H AST 78 H ALT 78 H Assessment and Plan Plan: Assessment 1 symptomatic cholelithiasis, status post open cholecystectomy and the patient is postop day #0. The patient was also found to have abdominal adhesions that were lysed during the surgery. Hemodynamically stable. Adequate pain control is been provided. 2 remote history of colon cancer back in 1997 post colectomy 3 prostate cancer was treated by brachytherapy 4 [employer] tumor status post brain tumor resection 1996 5 peripheral neuropathy 6 diabetes mellitus 7 coronary artery disease previous coronary intervention and stenting 8 impaired hearing 9 hypertension 10 previous history of DVT currently on no anticoagulants 11 degenerative arthritis Plan Continue IV fluids with lactated Ringer at the rate of 125 mL an hour. Dilaudid for pain control. Keep the patient nothing by mouth for now. IV Protonix for GI prophylaxis. Provide the patient incentive spirometer. Obtain labs including CBC and complete metabolic profile. Humalog insulin per sliding scale for blood sugar control. Rest of the outpatient medication will be stopped. We'll continue to follow make further recommendations based on his progress.
[2016-10-17 14:56] LABS: Anion Gap 14 mmol/L; Blood Urea Nitrogen 20 mg/dL (9-20); Calcium 9.3 mg/dL (8.4-10.2); Carbon Dioxide 18 mmol/L (22-30); Chloride 105 mmol/L (98-107); Glucose 183 mg/dL (74-99); Non-African American GFR(MDRD) >60 (>60 ml/min/1.73 sqM); Potassium 5.2 mmol/L (3.5-5.1); Sodium 137 mmol/L (137-145)
[2016-10-17 15:39] LABS: Glucose,Whole Blood 188 mg/dL (75-99)
[2016-10-17] MEDS: HEPARIN SODIUM,PORCINE 5,000 UNIT/ML 1 ML VIAL SQ SCH (15:39)
[2016-10-17] MEDS: INSULIN LISPRO (humaLOG) 300 UNIT/3 ML VIAL SQ SCH ×2 (15:39→18:08)
--- NOTE | 2016-10-17 17:46 | P.CONS ---
History of Present Illness - Reason for Consult Consult date: 10/17/16 blood sugar management - Chief Complaint post surgical patient - History of Present Illness 86-year-old male with past medical history significant for coronary artery disease status post stents, colon cancer, and prostate cancer. Patient is currently seen in the intensive care unit post open cholecystectomy medicine one was consult for diabetes management. Patient history goes back to one week ago when he presented to [facility] with acute complaint of abdominal pain he was evaluated then and was found to have cholelithiasis and thought to be symptomatic without clear evidence of acute cholecystitis. General surgery evaluated the patient's and recommendations were to treat conservatively and perform a HIDA scan as now patient for further recommendations. Upon follow-up general surgery recommended laparoscopic cholecystectomy. Patient is presented to the hospital electively this time for lap madisyn however in the OR patient was found to have a lot of adhesions from prior surgeries for which it was converted to open cholecystectomy and adhesolysis. Surgery seems to be uneventful with no immediate complications observed. Patient was admitted to the intensive care unit for closer monitoring postsurgery. Patient is currently seen in the intensive care unit he reports that he feels extremely tired postoperatively and due to receiving pain medications he asked to get some rest for now. However he reported that he follows up with Dr. Dickens his PCP, and he currently uses as a mixture of insulin and metformin at home for management of his diabetes. Otherwise patient is denying any chest pain or trouble breathing reports some abdominal pain at site of surgery. Patient is also complaining of discomfort due to the NG tube. Patient did not have advanced directives or a wishing well, however he was able to name his daughter Hollie Zavala to be has a advocating case he loses the capacity of making decisions. Patient condition was discussed with his nurse, case was also discussed with Dr. Romero. Review of Systems Constitutional: Patient reports no fever, no chills Eyes: Patient reports no visual changes, no eye pain ENT: Patient reports no ear pain. admits to chronic decrease hearing , now with sore throat and irritation from NGtube Cardiovascular: Patient reports no chest pain, no exertional dyspnea, no peripheral leg edema, no orthopnea Respiratory:Patient reports no cough, no wheezing, no shortness of breath Gastrointestinal: Patient reports no diarrhea, no constipation Genitourinary: Patient reports no dysuria, no hematuria. but admits to frequent urination Musculoskeletal: Patient reports no muscle pain, no joint pain Endocrine: Patient reports no heat intolerance, no cold intolerance, no excessive thirst Neurological: Patient reports no focal neurologic deficits, no weakness, no numbness, no tingling Hem/Lymphatic: Patient reports no bleeding tendency, no bruising, no swollen lymph glands Allergic/Immun: Patient reports no recent allergic reactions Skin: Patient reports no rashes, no pruritis, no ulcers Past Medical History Past Medical History: Coronary Artery Disease (CAD), Cancer, Diabetes Mellitus, Deep Vein Thrombosis (DVT), Hearing Disorder / Deafness, Hypertension, Osteoarthritis (OA), Prostate Disorder Additional Past Medical History / Comment(s): Colon cancer 1997 post colectomy, prostate cancer treated by radiation therapy and local seed implants, brain tumor with previous [employer] surgery in 1996, peripheral neuropathy involving the lower extremities, cholelithiasis/symptomatic, coronary artery disease, diabetes mellitus, impaired hearing, osteoarthritis, hypertension, previous history of DVT currently on no anticoagulants. History of Any Multi-Drug Resistant Organisms: None Reported Past Surgical History: Bowel Resection, Heart Catheterization With Stent, Prostate Surgery Additional Past Surgical History / Comment(s): Cardiac catheterization with insertion of coronary stents 15 years ago , bowel resection for colon cancer, resection of brain tumor in 1996, insertion of prostate radiation seed for brachytherapy Past Anesthesia/Blood Transfusion Reactions: No Reported Reaction Date of Last Stent Placement:: 1997 Smoking Status: Never smoker - Past Family History Father History Unknown: Yes Medications and Allergies Home Medications and Allergies Comment(s): reviewed Home Medications Medication Instructions Recorded Confirmed Type Acetaminophen/Diphenhydramine 1 tab PO HS 10/07/16 10/17/16 History [Tylenol PM 500-25mg] Furosemide [Lasix] 40 mg PO DAILY 10/07/16 10/17/16 History Gabapentin 600 mg PO TID 10/07/16 10/17/16 History Insulin NPH Human Isophane 20 unit SQ BID 10/07/16 10/17/16 History [NovoLIN N] LORazepam [Ativan] 1 mg PO HS 10/07/16 10/17/16 History Losartan [Cozaar] 50 mg PO DAILY 10/07/16 10/17/16 History Lovastatin [Mevacor] 40 mg PO DAILY 10/07/16 10/17/16 History Potassium Chloride [Klor-Con 10] 10 meq PO BID 10/07/16 10/17/16 History metFORMIN HCL [Glucophage] 500 mg PO BID 10/07/16 10/17/16 History Amoxic-Pot Clav 875-125Mg 1 tab PO Q12HR #14 tablet 10/09/16 10/17/16 Rx [Augmentin 875-125] Aspirin [Children's Aspirin] 81 mg PO DAILY #30 tab.chew 10/09/16 10/17/16 Rx Clopidogrel Bisulfate [Plavix] 75 mg PO DAILY 10/15/16 10/17/16 History Allergies Allergy/AdvReac Type Severity Reaction Status Date / Time No Known Allergies Allergy Verified 10/17/16 06:50 Physical Exam Vitals: Vital Signs Temp Pulse Resp BP Pulse Ox 10/17/16 13:00 77 16 116/79 99 10/17/16 12:45 79 16 119/76 99 10/17/16 12:30 82 16 126/70 100 10/17/16 12:15 79 16 119/65 100 10/17/16 12:00 78 16 123/63 100 10/17/16 11:45 80 16 120/65 99 10/17/16 11:33 97.3 F L 77 14 119/68 98 10/17/16 07:31 98.4 F 69 18 132/72 98 Intake and Output 10/17/16 10/17/16 10/17/16 06:59 14:59 22:59 Intake Total 2350 Output Total 50 Balance 2300 Intake: IV 2350 Output: Estimated Blood Loss 50 Constitutional: No acute distress, conversant, pleasant, NG tube in place to low intermittent wall suction Eyes: Anicteric sclerae, moist conjunctiva, no lid-lag Pupils equal 1-2 mm bilaterally (patient on narcotics IV) reactive to light ENMT: NC/AT Oropharynx with crusted blood, no active bleeding. Neck: Supple, FROM, no masses, or JVD No carotid bruits No thyromegaly Lungs: Good breath sounds, slightly diminished over the right lung base Normal respiratory effort, no accessory muscle use Cardiovascular: Heart regular in rate and rhythm, No murmurs, gallops, or rubs No peripheral edema Abdominal: Soft , slightly tender to deep palpation, COURTNEY drain in place, surgical dressing looks dry and clean. Bowel sounds are negative could not examine for hepatomegally or spleenomegally post surgical abdomen No palpable mass No abdominal wall hernia noted no potter catheter Skin: Normal temperature, tone, texture, turgor No induration No subcutaneous nodules No rash, lesions No ulcers Extremities: No digital cyanosis No clubbing Pedal pulses intact and symmetrical Radial pulses intact and symmetrical No calf tenderness Psychiatric: Alert and oriented to person, place Appropriate affect fair judgment Neuro Muscles Strength grossly intact throughout Sensation to light touch grossly present throughout No focal sensory deficits Lymphatics: no palpable cervical or supraclavicular , or inguinal lymph nodes Results Results: labs reviewed CBC & Chem 7: 10/17/16 14:05 10/17/16 14:05 Labs: Abnormal Lab Results - Last 24 Hours (Table) 10/17/16 10/17/16 10/17/16 Range/Units 07:05 12:58 13:26 WBC (3.8-10.6) k/uL RBC (4.30-5.90) m/uL Hgb (13.0-17.5) gm/dL Hct (39.0-53.0) % Plt Count (150-450) k/uL Neutrophils # (1.3-7.7) k/uL Potassium (3.5-5.1) mmol/L Carbon Dioxide (22-30) mmol/L Glucose (74-99) mg/dL POC Glucose (mg/dL) 172 H 164 H (75-99) mg/dL Delta Bilirubin 0.3 H (0.0-0.2) mg/dL AST 78 H (17-59) U/L ALT 78 H (21-72) U/L 10/17/16 10/17/16 Range/Units 14:05 14:05 WBC 22.8 H (3.8-10.6) k/uL RBC 3.68 L (4.30-5.90) m/uL Hgb 11.7 L (13.0-17.5) gm/dL Hct 35.8 L (39.0-53.0) % Plt Count 460 H (150-450) k/uL Neutrophils # 20.7 H (1.3-7.7) k/uL Potassium 5.2 H (3.5-5.1) mmol/L Carbon Dioxide 18 L (22-30) mmol/L Glucose 183 H (74-99) mg/dL POC Glucose (mg/dL) (75-99) mg/dL Delta Bilirubin (0.0-0.2) mg/dL AST (17-59) U/L ALT (21-72) U/L Assessment and Plan (1) Status post cholecystectomy Status: Acute (2) Diabetes mellitus Status: Acute (3) DVT prophylaxis Status: Acute (4) History of colon cancer Status: Acute (5) History of prostate cancer Status: Acute (6) CAD (coronary artery disease) Status: Acute (7) Hypertension Status: Acute Plan: post open madisyn POD # zero management per surgical team pain control drain care insert potter catheter to monitor I/Os hyperglycemia continue with insulin sliding scale q6 hours while NPO, and then ACHS when taking PO intake Hold syd acting insulin due to NPO status, then resume once patient starts PO intake Plavix and Aspirin on hold post operatively, resume when OK with surgery , last Coronary art stent was 15 years ago DVT PPX on heparin sc GI PPx with PPI blood pressure controlled Incentive spirometry monitor labs hemoglobin, renal and liver function Thank you for allowing us to participate in the care of this patient. We will continue to follow up along with your. Do not hesitate to contact us with questions. Someone can be reached from the [facility] [place] hospitalist group at all hours of the day at [phone].
[2016-10-17 18:03] LABS: Glucose,Whole Blood 182 mg/dL (75-99)
[2016-10-17] MEDS: metroNIDAZOLE-NS PMX 500 MG in SALINE 1 100ML.BAG IVPB SCH (18:37)
--- NOTE | 2016-10-17 18:48 | P.OP ---
Date of Procedure: 10/17/16 Preoperative Diagnosis: Chronic cholecystitis Postoperative Diagnosis: Chronic cholecystitis, purulent cholecystitis, cholecystogastric fistula Procedure(s) Performed: Laparoscopic cholecystectomy converted to open cholecystectomy, extensive lysis of adhesions, repair of gastrotomy with a modified Fareed patch Implants: None Anesthesia: DUANE Surgeon: Miguel Saez Senior Systems Developer #1: Po Umana Estimated Blood Loss (ml): 50 Pathology: other (Gallbladder) Condition: stable Disposition: ICU Indications for Procedure: This is an 86-year-old male that initially presented approximately 1 week ago to the emergency department complaining of abdominal pain. At this time he had an ultrasound performed that showed a gallbladder wall thickening with cholelithiasis. During his admission his abdominal pain improved and he was discharged with plan for outpatient laparoscopic cholecystectomy after cardiac clearance along with plan to hold anticoagulation. After stress test was performed, acceptable cardiac risk was deemed. Today the patient presents for laparoscopic cholecystectomy Operative Findings: 1. Extensive adhesions throughout abdominal cavity 2. Densely adhered gallbladder to abdominal wall, stomach and duodenum 3. Cholecystogastric fistula Description of Procedure: The patient was brought into the operating suite placed in supine position on the operating table. The patient underwent sedation by the anesthesia department and underwent endotracheal intubation. The patient was then prepped and draped in regular sterile fashion. A room timeout was performed and everybody was in agreement. A 5 mm incision was made in the left upper quadrant 2 fingerbreadths below the costal margin. The laparoscope was used to enter the abdomen using a Visiport. Once access was gained in to the abdomen pneumoperitoneum was achieved. The laparoscope was used to view the entire abdomen was clear that the patient had an extensive amount of adhesions of omentum, small bowel, colon, stomach to the abdominal wall. A second 5 mm port was then placed in the left lower quadrant. Extensive lysis of adhesion was performed using both sharp and electrocautery dissection. This revealed a right upper quadrant had a gallbladder, duodenum and stomach densely adhered to one another. Blunt dissection was used to attempt to dissect the gallbladder from these adhesions. The gallbladder was able to be removed from the duodenum. Attempt was made from the lateral to medial direction to free the gallbladder from its dense adhesion to the stomach. At this point it was noted that a fistula was possible. After attempts to free the gallbladder from its surrounding structures for over 2 hours it was decided to convert to an open procedure. A subcostal right abdominal incision was made. Dissection was carried to the fascia the fascia was incised dissection was carried to the peritoneum and the peritoneum was incised. This point the gallbladder was clearly visualized and was retracted laterally. Blunt dissection was used to free the gallbladder from its surrounding adhesions. It was clear that a fistula existed between the gallbladder and the stomach at this time. Dissection was made to transect this fistula. Dissection was carried towards the proximal gallbladder with a revelation of the cystic duct. This area was clamped and a 2-0 silk suture was used to tie off the cystic duct. The bladder was then handed off as specimen. The transection of the previous mentioned fistula revealed a gastrotomy. Multiple 2-0 silk sutures were used to primarily close the gastrotomy. A portion of omentum was then placed over the primary repair. The omentum was secured in place over the repair and Fareed patch fashion with 2-0 silk sutures. Site of the NG tube was confirmed. Hemostasis was maintained. Corey was used in the liver bed. COURTNEY drain was placed within this cavity. This was secured to one of the 5 mm port sites. The fascial layer was then closed in a running fashion using a PDS suture. Skin was closed using skin page. All skin incisions were then closed using skin page. The patient tolerated the procedure well was extubated and was sent to the ICU in stable condition.
[2016-10-17] MEDS ORDERED: SODIUM CHLORIDE 0.9% 1,000 ML IV ONE (23:10)
[2016-10-17] MEDS ORDERED: LACTATED RINGERS 1,000 ML IV SCH (23:15)
[2016-10-18] MEDS: HYDROmorphone 1 MG/ML 1 ML SYRINGE IVP PRN ×5 (00:02→23:59)
[2016-10-18] MEDS: HEPARIN SODIUM,PORCINE 5,000 UNIT/ML 1 ML VIAL SQ SCH ×4 (00:04→23:39)
[2016-10-18 00:07] LABS: Glucose,Whole Blood 201 mg/dL (75-99)
[2016-10-18] MEDS: INSULIN LISPRO (humaLOG) 300 UNIT/3 ML VIAL SQ SCH ×5 (00:07→23:39)
[2016-10-18] MEDS: metroNIDAZOLE-NS PMX 500 MG in SALINE 1 100ML.BAG IVPB SCH ×4 (00:21→23:41)
[2016-10-18 05:28] LABS: Basophils % (A) 0 %; CH 31.8; CHCM 32.7; Eosinophils % (A) 0 %; HCT 30.9 % (39.0-53.0); HDW 2.36; Luc % (Auto) 2; Lymphocytes # (A) 1.1 k/uL (1.0-4.8); Lymphocytes % (A) 6 %; MCH 30.8 pg (25.0-35.0); MCHC 31.6 g/dL (31.0-37.0); MCV 97.4 fL (80.0-100.0); Mean Platelet Volume 7.2; Monocytes # (A) 0.8 k/uL (0-1.0); Monocytes % (A) 4 %; Neutrophils # (A) 17.8 k/uL (1.3-7.7); Neutrophils % (A) 89 %; RBC 3.17 m/uL (4.30-5.90); RDW 13.1 % (11.5-15.5); WBC 20.1 k/uL (3.8-10.6); WBC (Perox) 20.58
[2016-10-18 05:34] LABS: HGB 9.8 gm/dL (13.0-17.5)
[2016-10-18 05:39] LABS: ALT 66 U/L (21-72); AST 82 U/L (17-59); Alkaline Phosphatase 61 U/L (38-126); Anion Gap 8 mmol/L; Bilirubin, Delta 0.2 mg/dL (0.0-0.2); Blood Urea Nitrogen 20 mg/dL (9-20); Calcium 8.9 mg/dL (8.4-10.2); Carbon Dioxide 25 mmol/L (22-30); Chloride 103 mmol/L (98-107); Glucose 190 mg/dL (74-99); Magnesium 1.5 mg/dL (1.6-2.3); Non-African American GFR(MDRD) >60 (>60 ml/min/1.73 sqM); Phosphorous 4.1 mg/dL (2.5-4.5); Sodium 136 mmol/L (137-145); Total Bilirubin 0.4 mg/dL (0.2-1.3); Total Protein 5.3 g/dL (6.3-8.2)
[2016-10-18 05:45] LABS: Potassium 5.5 mmol/L (3.5-5.1)
[2016-10-18 06:11] LABS: Glucose,Whole Blood 187 mg/dL (75-99)
[2016-10-18] MEDS ORDERED: Magnesium Replacement Protocol 1 EACH MISC MISCELLANE PRN (06:22)
[2016-10-18] MEDS: MAGNESIUM SULFATE-D5W PMX 1 GM in DEXTROSE/WATER 1 100ML.BAG IVPB SCH ×2 (06:54→09:51)
[2016-10-18] MEDS: SODIUM CHLORIDE 0.9% 1,000 ML IV SCH ×2 (07:17→15:55)
--- NOTE | 2016-10-18 07:28 | P.PN ---
Subjective Principal diagnosis: Chronic Cholecystitis Cholecystogastric fistula s/p Lap converted to open cholecystectomy, modified sonam patch repair Recent seen and examined at bedside. Nursing staff at bedside. Only acute issue overnight was decrease in urine output. The patient did respond to 1 L bolus. Pain is well-controlled. COURTNEY output of approximately 60 mL's - serosanguinous. Attempted to ambulate yesterday. He states he is still feeling low energy. He denies any bowel function. He denies any nausea or vomiting. NG tube is in place. Objective - Vital Signs Vital signs: Vital Signs Temp 98.3 F 10/18/16 04:00 Pulse 91 10/18/16 07:00 Resp 20 10/18/16 07:00 BP 133/75 10/18/16 07:00 Pulse Ox 94 L 10/18/16 07:00 Intake & Output 10/17/16 10/18/16 10/18/16 18:59 06:59 18:59 Intake Total 2850 2325 225 Output Total 400 455 55 Balance 2450 1870 170 Weight 76 kg 75.8 kg Intake: IV 2350 2225 225 Lactated Ringers 1,000 ml 1125 125 @ 125 mls/hr IV .Q8H ONE Rx#:[id number] Magnesium Sulfate-D5w Pmx 100 1 gm In Dextrose/Water 1 100ml.bag @ 100 mls/hr IVPB Q1H [facility] Rx#: [id number] Sodium Chloride 0.9% 1, 1000 000 ml @ 999 mls/hr IV . Q1H1M [facility] Rx#:[id number] metroNIDAZOLE-NS PMX 500 100 mg In Saline 1 100ml.bag @ 100 mls/hr IVPB Q8HR [facility] Rx#:[id number] Intake, IV Titration 500 100 Amount Lactated Ringers 1,000 ml 500 @ 125 mls/hr IV .Q8H [facility] Rx#:[id number] metroNIDAZOLE-NS PMX 500 100 mg In Saline 1 100ml.bag @ 100 mls/hr IVPB Q8HR [facility] Rx#:[id number] Output: Drainage 50 70 25 Right 50 70 25 Urine 300 385 30 Estimated Blood Loss 50 Other: Voiding Method Indwelling Catheter Indwelling Catheter - Constitutional General appearance: Present: average body habitus, cooperative, no acute distress - EENT EENT Comment(s): NG tube in place Eyes: Present: EOMI, PERRLA, normal appearance. Absent: scleral icterus ENT: Present: hearing grossly normal, normal oropharynx - Neck Neck: Present: normal ROM. Absent: lymphadenopathy - Respiratory Details: No difficulty with respiration - Cardiovascular Rhythm: regular Heart sounds: normal: S1, S2 - Gastrointestinal Gastrointestinal Comment(s): Incision sites clean dry and intact. Appropriate tenderness. Nondistended. General gastrointestinal: Present: decreased bowel sounds. Absent: distended - Integumentary Integumentary: Present: normal, normal turgor. Absent: cyanotic, flushed - Musculoskeletal Musculoskeletal: Present: generalized weakness - Psychiatric Psychiatric: Present: A&O x's 3, appropriate affect, intact judgment & insight - Labs CBC & Chem 7: 10/18/16 05:06 10/18/16 05:06 Labs: Abnormal Lab Results - Last 24 Hours (Table) 10/17/16 10/17/16 10/17/16 Range/Units 07:05 12:58 13:26 WBC (3.8-10.6) k/uL RBC (4.30-5.90) m/uL Hgb (13.0-17.5) gm/dL Hct (39.0-53.0) % Plt Count (150-450) k/uL Neutrophils # (1.3-7.7) k/uL Sodium (137-145) mmol/L Potassium (3.5-5.1) mmol/L Carbon Dioxide (22-30) mmol/L Glucose (74-99) mg/dL POC Glucose (mg/dL) 172 H 164 H (75-99) mg/dL Magnesium (1.6-2.3) mg/dL Delta Bilirubin 0.3 H (0.0-0.2) mg/dL AST 78 H (17-59) U/L ALT 78 H (21-72) U/L Total Protein (6.3-8.2) g/dL Albumin (3.5-5.0) g/dL 10/17/16 10/17/16 10/17/16 Range/Units 14:05 14:05 15:38 WBC 22.8 H (3.8-10.6) k/uL RBC 3.68 L (4.30-5.90) m/uL Hgb 11.7 L (13.0-17.5) gm/dL Hct 35.8 L (39.0-53.0) % Plt Count 460 H (150-450) k/uL Neutrophils # 20.7 H (1.3-7.7) k/uL Sodium (137-145) mmol/L Potassium 5.2 H (3.5-5.1) mmol/L Carbon Dioxide 18 L (22-30) mmol/L Glucose 183 H (74-99) mg/dL POC Glucose (mg/dL) 188 H (75-99) mg/dL Magnesium (1.6-2.3) mg/dL Delta Bilirubin (0.0-0.2) mg/dL AST (17-59) U/L ALT (21-72) U/L Total Protein (6.3-8.2) g/dL Albumin (3.5-5.0) g/dL 10/17/16 10/18/16 10/18/16 Range/Units 18:02 00:06 05:06 WBC 20.1 H (3.8-10.6) k/uL RBC 3.17 L (4.30-5.90) m/uL Hgb 9.8 L D (13.0-17.5) gm/dL Hct 30.9 L (39.0-53.0) % Plt Count 519 H (150-450) k/uL Neutrophils # 17.8 H (1.3-7.7) k/uL Sodium (137-145) mmol/L Potassium (3.5-5.1) mmol/L Carbon Dioxide (22-30) mmol/L Glucose (74-99) mg/dL POC Glucose (mg/dL) 182 H 201 H (75-99) mg/dL Magnesium (1.6-2.3) mg/dL Delta Bilirubin (0.0-0.2) mg/dL AST (17-59) U/L ALT (21-72) U/L Total Protein (6.3-8.2) g/dL Albumin (3.5-5.0) g/dL 10/18/16 10/18/16 Range/Units 05:06 06:08 WBC (3.8-10.6) k/uL RBC (4.30-5.90) m/uL Hgb (13.0-17.5) gm/dL Hct (39.0-53.0) % Plt Count (150-450) k/uL Neutrophils # (1.3-7.7) k/uL Sodium 136 L (137-145) mmol/L Potassium 5.5 H (3.5-5.1) mmol/L Carbon Dioxide (22-30) mmol/L Glucose 190 H (74-99) mg/dL POC Glucose (mg/dL) 187 H (75-99) mg/dL Magnesium 1.5 L (1.6-2.3) mg/dL Delta Bilirubin (0.0-0.2) mg/dL AST 82 H (17-59) U/L ALT (21-72) U/L Total Protein 5.3 L (6.3-8.2) g/dL Albumin 2.7 L (3.5-5.0) g/dL Assessment and Plan (1) Status post cholecystectomy Status: Acute Plan: Continue ICU care Continue NG tube Continue antibiotics Continue pulmonary toilet with incentive spirometry Continue Levy Continue IV fluids Continue nothing by mouth Out of bed to chair PT/OT
[2016-10-18] MEDS: PANTOPRAZOLE 40 MG/10 ML VIAL IV SCH (09:52)
[2016-10-18 12:20] LABS: Glucose,Whole Blood 210 mg/dL (75-99)
--- NOTE | 2016-10-18 14:44 | XR ---
EXAMINATION TYPE: XR chest 1V portable DATE OF EXAM: 10/18/2016 COMPARISON: 10/07/2016 HISTORY: Shortness of breath TECHNIQUE: Single frontal view of the chest is obtained. FINDINGS: NG tube noted. There are subsegmental changes at both lung bases with tiny effusion. No pn eumothorax. Atherosclerotic change of the aorta. There is to be a drain overlying the right upper bhanu drant abdomen with surgical page. IMPRESSION: 1. Bilateral lower lobe subsegmental atelectasis with tiny effusions. 2. Subcutaneous emphysema on the left with no sizable pneumothorax correlate clinically.
[2016-10-18 16:20] LABS: Appearance,Urine Clear (Clear); Bilirubin,Urine Negative (Negative); Glucose,Urine (UA) 3+ (Negative); Granular Casts,Urine 4 /lpf (0); Leukocyte Esterase,Urine Small (Negative); Mucus,Urine Rare /hpf; Nitrite,Urine Negative (Negative); PH, Urine 5.5 (5.0-8.0); Particle Count 7011; Protein,Urine 1+ (Negative); RBC,Urine 90 /hpf (0-5); Specific Gravity,Urine 1.024 (1.001-1.035); UA Billing (MACRO vs. MICRO) MICRO; Urobilinogen,Urine <2.0 mg/dL (<2.0); WBC,Urine 12 /hpf (0-5)
[2016-10-18 16:55] LABS: Ketones,Urine 2+ (Negative)
--- NOTE | 2016-10-18 17:28 | P.PN ---
Subjective This is an 86-year-old male patient who presented to the emergency department approximately one week ago complaining of abdominal pain and nausea. The patient's pain was mostly in the right upper quadrant. On examination the patient was quite benign and she end up tolerating clear liquids well without any change in his bowel habits. Further investigation within ultrasound of the abdomen showed gallstones and mild gallbladder wall thickening without any pericholecystic fluid or evidence of inflammation. As such the patient was seen by general surgery and he was thought to have symptomatic cholelithiasis. The patient was started on medical treatment with antibiotics and the patient was discharged home, and the patient was brought back today for a cholecystectomy which turned out to be an open cholecystectomy. Postop, the patient was moved to the intensive care unit for further monitoring. He is awake. He is alert. He has a COURTNEY drain in the right upper quadrant. A Levy catheter is to be inserted. Hemodynamically stable. The patient was seen again today 10/18/2016 in follow-up in the intensive care unit. He is awake and alert in no acute distress. He is status post laparoscopic cholecystectomy converted to open cholecystectomy, extensive lysis of adhesions, repair of gastrotomy with a modified Fareed patch. This is postoperative day #1. He is currently sitting up in the chair at the bedside. He denies any worsening shortness of breath, cough or congestion. His chest x- ray does show bilateral lower lobe subsegmental atelectasis with tiny effusions. There is also some subcutaneous emphysema on the left with no sizable pneumothorax. He is maintaining good O2 saturations in the mid 90s on 3 L/m per nasal cannula. He is afebrile. Hemodynamically stable. His abdominal dressing is dry and intact. The COURTNEY drain remains in place and there is some bile colored fluid noted in it. Objective - Vital Signs Vital signs: Vital Signs Temp 98.1 F 10/18/16 16:00 Pulse 88 10/18/16 17:00 Resp 20 10/18/16 17:00 BP 145/71 10/18/16 17:00 Pulse Ox 94 L 10/18/16 17:00 Intake & Output 10/17/16 10/18/16 10/18/16 18:59 06:59 18:59 Intake Total 2850 2325 1725 Output Total 400 455 395 Balance 2450 1870 1330 Weight 76 kg 75.8 kg Intake: IV 2350 2225 1725 Lactated Ringers 1,000 ml 1125 375 @ 125 mls/hr IV .Q8H [facility] Rx#:[id number] Magnesium Sulfate-D5w Pmx 200 1 gm In Dextrose/Water 1 100ml.bag @ 100 mls/hr IVPB Q1H [facility] Rx#: [id number] Sodium Chloride 0.9% 1, 1000 1000 000 ml @ 999 mls/hr IV . Q1H1M [facility] Rx#:[id number] cefTRIAXone 1,000 mg In 50 Sodium Chloride 0.9% 50 ml @ 100 mls/hr IVPB Q24HR [facility] Rx#:[id number] metroNIDAZOLE-NS PMX 500 100 100 mg In Saline 1 100ml.bag @ 100 mls/hr IVPB Q8HR [facility] Rx#:[id number] Intake, IV Titration 500 100 Amount Lactated Ringers 1,000 ml 500 @ 125 mls/hr IV .Q8H [facility] Rx#:[id number] metroNIDAZOLE-NS PMX 500 100 mg In Saline 1 100ml.bag @ 100 mls/hr IVPB Q8HR [facility] Rx#:[id number] Output: Drainage 50 70 60 Right 50 70 60 Urine 300 385 335 Estimated Blood Loss 50 Other: Voiding Method Indwelling Catheter Indwelling Catheter Indwelling Catheter - Exam The patient appeared well nourished and normally developed. Vital signs as documented. Head exam is unremarkable. No scleral icterus or corneal arcus noted. Neck is without jugular venous distension, thyromegaly, or carotid bruits. Carotid upstrokes are brisk bilaterally. Lungs are clear to auscultation and percussion. Cardiac exam reveals the PMI to be normally sized and situated. Rhythm is regular. First and second heart sounds normal. No murmurs, rubs or gallops. Abdominal exam reveals absent bowel sounds and the patient has a COURTNEY drain in the right upper quadrant. The surgical wound site over the right upper quadrant areas dry clean and intact. No direct tenderness. No rebound tenderness. No guarding. Organs cannot be accurately palpated to this point.. Extremities are nonedematous and both femoral and pedal pulses are normal. Patient is awake and alert and following commands and answering questions appropriately. - Labs CBC & Chem 7: 10/18/16 05:06 10/18/16 05:06 Labs: Abnormal Lab Results - Last 24 Hours (Table) 10/17/16 10/18/16 10/18/16 Range/Units 18:02 00:06 05:06 WBC 20.1 H (3.8-10.6) k/uL RBC 3.17 L (4.30-5.90) m/uL Hgb 9.8 L D (13.0-17.5) gm/dL Hct 30.9 L (39.0-53.0) % Plt Count 519 H (150-450) k/uL Neutrophils # 17.8 H (1.3-7.7) k/uL Sodium (137-145) mmol/L Potassium (3.5-5.1) mmol/L Glucose (74-99) mg/dL POC Glucose (mg/dL) 182 H 201 H (75-99) mg/dL Magnesium (1.6-2.3) mg/dL AST (17-59) U/L Total Protein (6.3-8.2) g/dL Albumin (3.5-5.0) g/dL Urine Protein (Negative) Urine Glucose (UA) (Negative) Urine Ketones (Negative) Urine Blood (Negative) Ur Leukocyte Esterase (Negative) Urine RBC (0-5) /hpf Urine WBC (0-5) /hpf Hyaline Casts (0-2) /lpf Urine Mucus (None) /hpf 10/18/16 10/18/16 10/18/16 Range/Units 05:06 06:08 12:18 WBC (3.8-10.6) k/uL RBC (4.30-5.90) m/uL Hgb (13.0-17.5) gm/dL Hct (39.0-53.0) % Plt Count (150-450) k/uL Neutrophils # (1.3-7.7) k/uL Sodium 136 L (137-145) mmol/L Potassium 5.5 H (3.5-5.1) mmol/L Glucose 190 H (74-99) mg/dL POC Glucose (mg/dL) 187 H 210 H (75-99) mg/dL Magnesium 1.5 L (1.6-2.3) mg/dL AST 82 H (17-59) U/L Total Protein 5.3 L (6.3-8.2) g/dL Albumin 2.7 L (3.5-5.0) g/dL Urine Protein (Negative) Urine Glucose (UA) (Negative) Urine Ketones (Negative) Urine Blood (Negative) Ur Leukocyte Esterase (Negative) Urine RBC (0-5) /hpf Urine WBC (0-5) /hpf Hyaline Casts (0-2) /lpf Urine Mucus (None) /hpf 10/18/16 Range/Units 15:50 WBC (3.8-10.6) k/uL RBC (4.30-5.90) m/uL Hgb (13.0-17.5) gm/dL Hct (39.0-53.0) % Plt Count (150-450) k/uL Neutrophils # (1.3-7.7) k/uL Sodium (137-145) mmol/L Potassium (3.5-5.1) mmol/L Glucose (74-99) mg/dL POC Glucose (mg/dL) (75-99) mg/dL Magnesium (1.6-2.3) mg/dL AST (17-59) U/L Total Protein (6.3-8.2) g/dL Albumin (3.5-5.0) g/dL Urine Protein 1+ H (Negative) Urine Glucose (UA) 3+ H (Negative) Urine Ketones 2+ H (Negative) Urine Blood Moderate H (Negative) Ur Leukocyte Esterase Small H (Negative) Urine RBC 90 H (0-5) /hpf Urine WBC 12 H (0-5) /hpf Hyaline Casts 4 H (0-2) /lpf Urine Mucus Rare H (None) /hpf Assessment and Plan Plan: Assessment 1 symptomatic cholelithiasis, status post laparoscopic cholecystectomy converted to open cholecystectomy, extensive lysis of adhesions, repair of gastrectomy with a modified Fareed patch. This is postoperative day #1. There is some noted biliary drainage in the COURTNEY drain some concern regarding possible biliary leak. 2 postoperative atelectasis as an expected outcome of surgery with some left chest subcutaneous emphysema of unclear etiology. 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 Romero. His chest x-ray and labs were reviewed. We will continue with his current medications including antibiotics in the form of ceftriaxone along with metronidazole. He remains on heparin subcutaneous for DVT prophylaxis. Continue Protonix for GI prophylaxis. His pain is well managed. He is working well with the incentive spirometer. We will increase his activity as tolerated. We'll continue to monitor him here closely for another 24 hours in the intensive care unit. We' ll continue to follow.
--- NOTE | 2016-10-18 17:38 | P.PN ---
Subjective Principal diagnosis: Diabetes &Medical management post cholecystectomy Day 3 Post Op Visit s/p Open cholecystectomy and adhesions lysis Allert ,complaining of incisional abdomenal pain. No reported fever,chills, chest pain or SOB.No arrhythmias on the monitor His I/O's , medications and labs were reviewed In summary , he is an 86-year-old male with past medical history significant for coronary artery disease status post stents under f/u in [place] , colon cancer 1997, and prostate cancer s/p seed radiation therapy. Patient is currently seen in the intensive care unit post open cholecystectomy medicine one was consult for diabetes management. Patient history goes back to one week ago when he presented to [facility] with acute complaint of abdominal pain he He was evaluated by general surgery who recommended laparoscopic cholecystectomy. However, in the OR patient was found to have a lot of adhesions from prior surgeries for which it was converted to open cholecystectomy and adhesolysis. Surgery seems to be uneventful with no immediate complications observed. Patient was admitted to the intensive care unit for closer monitoring post surgery. Patient is currently seen in the intensive care unit and he reports that he feels better today with some abdomenal pain . Otherwise patient is denying any chest pain or trouble breathing reports some abdominal pain at site of surgery. Patient is also complaining of discomfort due to the NG tube. Patient did not have advanced directives or a wishing well, however he was able to name his daughter Hollie ShahSauk to be has a advocating case he loses the capacity of making decisions. Patient condition was discussed with his nurse, case was also discussed with the patient. His WBC's count is high and will check for any other source of infection. Review of Systems Constitutional: Patient reports no fever, no chills Eyes: Patient reports no visual changes, no eye pain ENT: Patient reports no ear pain. admits to chronic decrease hearing , now with sore throat and irritation from NGtube Cardiovascular: Patient reports no chest pain, no exertional dyspnea, no peripheral leg edema, no orthopnea Respiratory:Patient reports no cough, no wheezing, no shortness of breath Gastrointestinal: Patient reports no diarrhea, no constipation Genitourinary: Patient reports no dysuria, no hematuria. but admits to frequent urination Musculoskeletal: Patient reports no muscle pain, no joint pain Endocrine: Patient reports no heat intolerance, no cold intolerance, no excessive thirst Neurological: Patient reports no focal neurologic deficits, no weakness, no numbness, no tingling Hem/Lymphatic: Patient reports no bleeding tendency, no bruising, no swollen lymph glands Allergic/Immun: Patient reports no recent allergic reactions Skin: Patient reports no rashes, no pruritis, no ulcers Objective - Vital Signs Vital signs: Vital Signs Temp 98.4 F 10/18/16 12:00 Pulse 88 10/18/16 15:00 Resp 16 10/18/16 15:00 BP 140/74 10/18/16 15:00 Pulse Ox 93 L 10/18/16 15:00 Intake & Output 10/17/16 10/18/16 10/18/16 18:59 06:59 18:59 Intake Total 2850 2325 1725 Output Total 400 455 395 Balance 2450 1870 1330 Weight 76 kg 75.8 kg Intake: IV 2350 2225 1725 Lactated Ringers 1,000 ml 1125 375 @ 125 mls/hr IV .Q8H [facility] Rx#:[id number] Magnesium Sulfate-D5w Pmx 200 1 gm In Dextrose/Water 1 100ml.bag @ 100 mls/hr IVPB Q1H [facility] Rx#: [id number] Sodium Chloride 0.9% 1, 1000 1000 000 ml @ 999 mls/hr IV . Q1H1M [facility] Rx#:[id number] cefTRIAXone 1,000 mg In 50 Sodium Chloride 0.9% 50 ml @ 100 mls/hr IVPB Q24HR [facility] Rx#:[id number] metroNIDAZOLE-NS PMX 500 100 100 mg In Saline 1 100ml.bag @ 100 mls/hr IVPB Q8HR [facility] Rx#:[id number] Intake, IV Titration 500 100 Amount Lactated Ringers 1,000 ml 500 @ 125 mls/hr IV .Q8H [facility] Rx#:[id number] metroNIDAZOLE-NS PMX 500 100 mg In Saline 1 100ml.bag @ 100 mls/hr IVPB Q8HR [facility] Rx#:[id number] Output: Drainage 50 70 60 Right 50 70 60 Urine 300 385 335 Estimated Blood Loss 50 Other: Voiding Method Indwelling Catheter Indwelling Catheter Indwelling Catheter - Exam Constitutional: No acute distress, conversant, pleasant Eyes: Anicteric sclerae, moist conjunctiva, no lid-lag PERRLA ENMT: NC/AT Oropharynx clear, no erythema, exudates Neck: Supple, FROM, no masses, or JVD No carotid bruits No thyromegaly Lungs:Clear to auscultion Clear to percussion Normal respiratory effort, no accessory muscle use Cardiovascular:Heart regular in rate and rhythm, No murmurs, gallops, or rubs No peripheral edema Abdominal: tender at site of Sx , no guarding, rebound or rigidity Abdomen moving with respiration. Diminished bowel sounds No hepatomegaly, No splenomegaly No palpable mass No abdominal wall hernia noted Skin: Normal temperature, tone, texture, turgor No induration No subcutaneous nodules No rash, lesions No ulcers Extremities: No digital cyanosis No clubbing Pedal pulses intact and symmetrical Radial pulses intact and symmetrical Normal gait and station No calf tenderness Psychiatric: Alert and oriented to person, place and time Appropriate affect Intact judgement Neuro: Muscles Strength 5/5 in all 4 extremities Sensation to light touch grossly present throughout Cranial nerves II-XII grossly intact No focal sensory deficits - Labs CBC & Chem 7: 10/18/16 05:06 10/18/16 05:06 Labs: Abnormal Lab Results - Last 24 Hours (Table) 10/17/16 10/18/16 10/18/16 Range/Units 18:02 00:06 05:06 WBC 20.1 H (3.8-10.6) k/uL RBC 3.17 L (4.30-5.90) m/uL Hgb 9.8 L D (13.0-17.5) gm/dL Hct 30.9 L (39.0-53.0) % Plt Count 519 H (150-450) k/uL Neutrophils # 17.8 H (1.3-7.7) k/uL Sodium (137-145) mmol/L Potassium (3.5-5.1) mmol/L Glucose (74-99) mg/dL POC Glucose (mg/dL) 182 H 201 H (75-99) mg/dL Magnesium (1.6-2.3) mg/dL AST (17-59) U/L Total Protein (6.3-8.2) g/dL Albumin (3.5-5.0) g/dL Urine Protein (Negative) Urine Glucose (UA) (Negative) Urine Ketones (Negative) Urine Blood (Negative) Ur Leukocyte Esterase (Negative) Urine RBC (0-5) /hpf Urine WBC (0-5) /hpf Hyaline Casts (0-2) /lpf Urine Mucus (None) /hpf 10/18/16 10/18/16 10/18/16 Range/Units 05:06 06:08 12:18 WBC (3.8-10.6) k/uL RBC (4.30-5.90) m/uL Hgb (13.0-17.5) gm/dL Hct (39.0-53.0) % Plt Count (150-450) k/uL Neutrophils # (1.3-7.7) k/uL Sodium 136 L (137-145) mmol/L Potassium 5.5 H (3.5-5.1) mmol/L Glucose 190 H (74-99) mg/dL POC Glucose (mg/dL) 187 H 210 H (75-99) mg/dL Magnesium 1.5 L (1.6-2.3) mg/dL AST 82 H (17-59) U/L Total Protein 5.3 L (6.3-8.2) g/dL Albumin 2.7 L (3.5-5.0) g/dL Urine Protein (Negative) Urine Glucose (UA) (Negative) Urine Ketones (Negative) Urine Blood (Negative) Ur Leukocyte Esterase (Negative) Urine RBC (0-5) /hpf Urine WBC (0-5) /hpf Hyaline Casts (0-2) /lpf Urine Mucus (None) /hpf 10/18/16 Range/Units 15:50 WBC (3.8-10.6) k/uL RBC (4.30-5.90) m/uL Hgb (13.0-17.5) gm/dL Hct (39.0-53.0) % Plt Count (150-450) k/uL Neutrophils # (1.3-7.7) k/uL Sodium (137-145) mmol/L Potassium (3.5-5.1) mmol/L Glucose (74-99) mg/dL POC Glucose (mg/dL) (75-99) mg/dL Magnesium (1.6-2.3) mg/dL AST (17-59) U/L Total Protein (6.3-8.2) g/dL Albumin (3.5-5.0) g/dL Urine Protein 1+ H (Negative) Urine Glucose (UA) 3+ H (Negative) Urine Ketones 2+ H (Negative) Urine Blood Moderate H (Negative) Ur Leukocyte Esterase Small H (Negative) Urine RBC 90 H (0-5) /hpf Urine WBC 12 H (0-5) /hpf Hyaline Casts 4 H (0-2) /lpf Urine Mucus Rare H (None) /hpf Assessment and Plan (1) CAD (coronary artery disease) Narrative/Plan: Normal CAD status post stents 12 years ago 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 [place] He was on Plavix and aspirin as antiplatelet therapy and will need a cardiology consultation for further advice initiating these medications also to establish with a armor reconnaissance vehicle driver Will obtain an echocardiogram to assess left ventricular function Avoid overhydration and monitor fluid intake and output Pro BNP CXR requested Status: Chronic (2) DVT prophylaxis Status: Acute (3) Diabetes mellitus Narrative/Plan: Blood sugar is under reasonable control on insulin and metformin We will continue blood sugar monitoring and insulin sliding scale Status: Acute (4) History of colon cancer Narrative/Plan: reated and in remission since 1997 Status: Resolved (5) History of prostate cancer Narrative/Plan: Status post seed radiation therapy in remission Status: Resolved (6) Hypertension Narrative/Plan: Under good control We will continue current therapy Status: Acute (7) Status post cholecystectomy Narrative/Plan: Postoperative day 3 after open cholecystectomy 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 labs Status: Acute Time with Patient: Less than 30
[2016-10-18 18:51] LABS: Glucose,Whole Blood 209 mg/dL (75-99)
[2016-10-18] MEDS ORDERED: SODIUM CHLORIDE 0.9% 1,000 ML IV ONE (22:14)
[2016-10-18 23:23] LABS: Glucose,Whole Blood 181 mg/dL (75-99)
[2016-10-19] MEDS: SODIUM CHLORIDE 0.9% 1,000 ML IV SCH ×2 (03:23→05:50)
[2016-10-19] MEDS: HYDROmorphone 1 MG/ML 1 ML SYRINGE IVP PRN (03:23)
[2016-10-19] MEDS ORDERED: SODIUM CHLORIDE 0.9% 1,000 ML IV ONE (04:01)
[2016-10-19 04:51] LABS: Basophils % (A) 0 %; CH 31.5; CHCM 32.1; Eosinophils % (A) 0 %; HCT 26.6 % (39.0-53.0); HDW 2.37; HGB 8.5 gm/dL (13.0-17.5); Luc # (Auto) 0.28; Luc % (Auto) 2; Lymphocytes % (A) 6 %; MCH 31.4 pg (25.0-35.0); MCHC 31.9 g/dL (31.0-37.0); MCV 98.5 fL (80.0-100.0); Mean Platelet Volume 7.5; Monocytes # (A) 0.6 k/uL (0-1.0); Monocytes % (A) 4 %; Neutrophils % (A) 89 %; RDW 12.9 % (11.5-15.5); WBC 17.9 k/uL (3.8-10.6); WBC (Perox) 18.41
[2016-10-19 05:03] LABS: ALT 57 U/L (21-72); AST 47 U/L (17-59); Alkaline Phosphatase 60 U/L (38-126); Anion Gap 7 mmol/L; Bilirubin, Delta 0.2 mg/dL (0.0-0.2); Blood Urea Nitrogen 16 mg/dL (9-20); Calcium 8.2 mg/dL (8.4-10.2); Carbon Dioxide 24 mmol/L (22-30); Chloride 107 mmol/L (98-107); Glucose 184 mg/dL (74-99); Magnesium 1.9 mg/dL (1.6-2.3); Non-African American GFR(MDRD) >60 (>60 ml/min/1.73 sqM); Phosphorous 2.6 mg/dL (2.5-4.5); Potassium 4.9 mmol/L (3.5-5.1); Sodium 138 mmol/L (137-145); Total Bilirubin 0.2 mg/dL (0.2-1.3); Total Protein 4.8 g/dL (6.3-8.2)
[2016-10-19 05:44] LABS: Glucose,Whole Blood 165 mg/dL (75-99)
[2016-10-19] MEDS: INSULIN LISPRO (humaLOG) 300 UNIT/3 ML VIAL SQ SCH ×4 (05:49→23:58)
[2016-10-19] MEDS: MAGNESIUM SULFATE-D5W PMX 1 GM in DEXTROSE/WATER 1 100ML.BAG IVPB SCH ×2 (05:49→06:50)
--- NOTE | 2016-10-19 07:16 | XR ---
EXAMINATION TYPE: XR chest 1V portable DATE OF EXAM: 10/19/2016 CLINICAL HISTORY: Difficulty breathing and CHF progress study. TECHNIQUE: Single AP portable upright view of the chest is obtained. COMPARISON: Chest x-ray from one day earlier FINDINGS: A nasogastric tube is stable in appearance. Cardiac silhouette size is stable and upper li mits of normal with atherosclerotic and ectatic thoracic aorta. There is chronic parenchymal change w ith developing right basilar atelectasis and/or infiltrate. Left lung is predominantly clear currentl y. No large pleural effusion or pneumothorax seen bilaterally. Subcutaneous emphysema near left scapu la is redemonstrated. Osseous structures are intact. IMPRESSION: More prominent patchy right basilar atelectasis and/or infiltrate. Stable left-sided subc utaneous emphysema noted.
[2016-10-19] MEDS: LACTATED RINGERS 1,000 ML IV SCH ×2 (07:17→21:01)
[2016-10-19] MEDS: HEPARIN SODIUM,PORCINE 5,000 UNIT/ML 1 ML VIAL SQ SCH ×3 (09:19→23:58)
[2016-10-19] MEDS: PANTOPRAZOLE 40 MG/10 ML VIAL IV SCH (09:23)
[2016-10-19] MEDS: metroNIDAZOLE-NS PMX 500 MG in SALINE 1 100ML.BAG IVPB SCH ×3 (09:41→23:58)
[2016-10-19] MEDS: FLUCONAZOLE IN NACL,ISO-OSM 400 MG in SALINE 1 200ML.BAG IVPB SCH (11:00)
--- NOTE | 2016-10-19 11:42 | XR ---
EXAMINATION TYPE: XR chest 1V portable DATE OF EXAM: 10/19/2016 CLINICAL HISTORY: Central line placement TECHNIQUE: Single AP portable frontal view of the chest is obtained. COMPARISON: Chest x-ray from earlier today FINDINGS: There is new left-sided subclavian central venous catheter with tip in SVC. There is stabl e nasogastric tube. Cardiac silhouette size is stable and upper limits of normal with atherosclerotic thoracic aorta. There is chronic parenchymal change with patchy bibasilar atelectasis and/or infiltr ate. Small right pleural effusion may be present. No sizable pneumothorax is seen after central line placement. Osseous structures are intact. Subcutaneous emphysema near left scapula is redemonstrated. IMPRESSION: No sizable pneumothorax after central line placement.
--- NOTE | 2016-10-19 12:34 | P.PN ---
Subjective This is an 86-year-old male patient who presented to the emergency department approximately one week ago complaining of abdominal pain and nausea. The patient's pain was mostly in the right upper quadrant. On examination the patient was quite benign and she end up tolerating clear liquids well without any change in his bowel habits. Further investigation within ultrasound of the abdomen showed gallstones and mild gallbladder wall thickening without any pericholecystic fluid or evidence of inflammation. As such the patient was seen by general surgery and he was thought to have symptomatic cholelithiasis. The patient was started on medical treatment with antibiotics and the patient was discharged home, and the patient was brought back today for a cholecystectomy which turned out to be an open cholecystectomy. Postop, the patient was moved to the intensive care unit for further monitoring. He is awake. He is alert. He has a COURTNEY drain in the right upper quadrant. A Levy catheter is to be inserted. Hemodynamically stable. The patient was seen again today 10/18/2016 in follow-up in the intensive care unit. He is awake and alert in no acute distress. He is status post laparoscopic cholecystectomy converted to open cholecystectomy, extensive lysis of adhesions, repair of gastrotomy with a modified Fareed patch. This is postoperative day #1. He is currently sitting up in the chair at the bedside. He denies any worsening shortness of breath, cough or congestion. His chest x- ray does show bilateral lower lobe subsegmental atelectasis with tiny effusions. There is also some subcutaneous emphysema on the left with no sizable pneumothorax. He is maintaining good O2 saturations in the mid 90s on 3 L/m per nasal cannula. He is afebrile. Hemodynamically stable. His abdominal dressing is dry and intact. The COURTNEY drain remains in place and there is some bile colored fluid noted in it. On 2016 the patient is being seen in follow-up. The patient is post open cholecystectomy, lysis of adhesions, repair of a gastric wall with a modified Fareed patch. The patient is postop day #2. The COURTNEY drain is putting out bilious material and this has been confirmed on several occasions. Based on this a biliary leak is suspected. Despite this, the liver function tests remains within normal limits. The patient is not acting toxic. No nausea no vomiting. NG tube is in place and output is minimal. No flatus or bowel movements yet. No abdominal pain or distention. No tenderness. The patient had some limited change in mental status yesterday however this morning it is much more alert and awake. The patient is also receiving Dilaudid for pain control. The patient is on combination of Rocephin and Flagyl. The patient is hemodynamically stable. The patient experienced some lower urine output earlier which improved with fluids and the patient was given a total of 2 L of IV fluid boluses yesterday. He is on a lactated Ringer solution. Objective - Vital Signs Vital signs: Vital Signs Temp 98 F 10/19/16 12:00 Pulse 88 10/19/16 12:00 Resp 12 10/19/16 12:00 BP 136/76 10/19/16 12:00 Pulse Ox 96 10/19/16 12:00 Intake & Output 10/18/16 10/19/16 10/19/16 18:59 06:59 18:59 Intake Total 1850 3300 350 Output Total 470 495 210 Balance 1380 2805 140 Weight 76.1 kg Intake: IV 1850 3300 350 Lactated Ringers 1,000 ml 375 @ 125 mls/hr IV .Q8H [facility] Rx#:[id number] Lactated Ringers 1,000 ml 300 @ 75 mls/hr IV .[id number] [facility] Rx#:[id number] Magnesium Sulfate-D5w Pmx 200 1 gm In Dextrose/Water 1 100ml.bag @ 100 mls/hr IVPB Q1H [facility] Rx#: [id number] Magnesium Sulfate-D5w Pmx 200 1 gm In Dextrose/Water 1 100ml.bag @ 100 mls/hr IVPB Q1H [facility] Rx#: [id number] Sodium Chloride 0.9% 1, 500 000 ml @ 125 mls/hr IV . Q8H [facility] Rx#:[id number] Sodium Chloride 0.9% 1, 1125 500 000 ml @ 999 mls/hr IV . Q1H1M [facility] Rx#:[id number] Sodium Chloride 0.9% 1, 1000 000 ml @ 999 mls/hr IV . Q1H1M [facility] Rx#:[id number] Sodium Chloride 0.9% 1, 1000 000 ml @ 999 mls/hr IV . Q1H1M [facility] Rx#:[id number] cefTRIAXone 1,000 mg In 50 50 Sodium Chloride 0.9% 50 ml @ 100 mls/hr IVPB Q24HR [facility] Rx#:[id number] metroNIDAZOLE-NS PMX 500 100 100 mg In Saline 1 100ml.bag @ 100 mls/hr IVPB Q8HR [facility] Rx#:[id number] Output: Drainage 95 120 40 Right 95 Right Abdomen 120 40 Urine 375 375 170 Other: Voiding Method Indwelling Catheter Indwelling Catheter Indwelling Catheter - Exam Head exam was generally normal. There was no scleral icterus or corneal arcus. Mucous membranes were moist.Neck was supple and without jugular venous distension, thyromegaly, or carotid bruits. Carotids were easily palpable bilaterally. There was no adenopathy. Lung sounds are diminished otherwise clear.Lungs were clear to auscultation and percussion, and with normal diaphragmatic excursion. No wheezes or rales were noted. Cardiac exam revealed the PMI to be normally situated and sized. The rhythm was regular and no extrasystoles were noted during several minutes of auscultation. The first and second heart sounds were normal and physiologic splitting of the second heart sound was noted. There were no murmurs, rubs, clicks, or gallops. Abdomen is soft. No direct tenderness no rebound tenderness. No guarding. Bowel sounds are hypoactive. COURTNEY drain is in place. Output has been about 80 mL since earlier this morning. Bowel sounds are hypoactive.Examination of the extremities revealed easily palpable radial, femoral and pedal pulses. There was no cyanosis, clubbing or edema. Neurologically the patient is or 85 and there is no focal neurological deficit. - Labs CBC & Chem 7: 10/19/16 04:20 10/19/16 04:20 Labs: Abnormal Lab Results - Last 24 Hours (Table) 10/18/16 10/18/16 10/18/16 Range/Units 15:50 18:50 23:20 WBC (3.8-10.6) k/uL RBC (4.30-5.90) m/uL Hgb (13.0-17.5) gm/dL Hct (39.0-53.0) % Neutrophils # (1.3-7.7) k/uL Glucose (74-99) mg/dL POC Glucose (mg/dL) 209 H 181 H (75-99) mg/dL Calcium (8.4-10.2) mg/dL Total Protein (6.3-8.2) g/dL Albumin (3.5-5.0) g/dL Urine Protein 1+ H (Negative) Urine Glucose (UA) 3+ H (Negative) Urine Ketones 2+ H (Negative) Urine Blood Moderate H (Negative) Ur Leukocyte Esterase Small H (Negative) Urine RBC 90 H (0-5) /hpf Urine WBC 12 H (0-5) /hpf Hyaline Casts 4 H (0-2) /lpf Urine Mucus Rare H (None) /hpf 10/19/16 10/19/16 10/19/16 Range/Units 04:20 04:20 05:42 WBC 17.9 H (3.8-10.6) k/uL RBC 2.70 L (4.30-5.90) m/uL Hgb 8.5 L (13.0-17.5) gm/dL Hct 26.6 L (39.0-53.0) % Neutrophils # 16.0 H (1.3-7.7) k/uL Glucose 184 H (74-99) mg/dL POC Glucose (mg/dL) 165 H (75-99) mg/dL Calcium 8.2 L (8.4-10.2) mg/dL Total Protein 4.8 L (6.3-8.2) g/dL Albumin 2.3 L (3.5-5.0) g/dL Urine Protein (Negative) Urine Glucose (UA) (Negative) Urine Ketones (Negative) Urine Blood (Negative) Ur Leukocyte Esterase (Negative) Urine RBC (0-5) /hpf Urine WBC (0-5) /hpf Hyaline Casts (0-2) /lpf Urine Mucus (None) /hpf Assessment and Plan Plan: Assessment 1 symptomatic cholelithiasis, status post open cholecystectomy and the patient is postop day #2. 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 NG tube is in place. Hemodynamically stable however there is increased up with of bilious liquid from the COURTNEY drain. Rule out underlying biliary leak. 2 remote history of colon cancer back in 1997 post colectomy 3 prostate cancer was treated by brachytherapy 4 [employer] tumor status post brain tumor resection 1996 5 peripheral neuropathy 6 diabetes mellitus 7 coronary artery disease previous coronary intervention and stenting 8 impaired hearing 9 hypertension 10 previous history of DVT currently on no anticoagulants 11 degenerative arthritis 12 leukocytosis secondary to above 13 NPO the patient has an NG tube in place for now. Plan Continue IV fluids with lactated Ringer at the rate of 75 mL an hour. Continue Rocephin. Continue Flagyl. Diflucan was added due to concern of gastric perforation. We will incidental triple-lumen catheter and initiate TPN for nutritional support. We will obtain a HIDA scan with concern of the biliary leak. We'll consult GI. Surgeries on the case. We'll continue to follow this patient closely and monitor the output from the COURTNEY drain. Is a high concern of a biliary leak. We'll follow.
--- NOTE | 2016-10-19 12:41 | P.PN ---
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 Patient did well overnight no complaints he sitting up in his chair today minimal abdominal pain. He has no nausea vomiting. Afebrile. He has no other complaints at this time. He did begin to have a bilious drainage from his COURTNEY drain yesterday afternoon and evening which is continued today. Objective - Vital Signs Vital signs: Vital Signs Temp 98 F 10/19/16 12:00 Pulse 88 10/19/16 12:00 Resp 12 10/19/16 12:00 BP 136/76 10/19/16 12:00 Pulse Ox 96 10/19/16 12:00 Intake & Output 10/18/16 10/19/16 10/19/16 18:59 06:59 18:59 Intake Total 1850 3300 350 Output Total 470 495 210 Balance 1380 2805 140 Weight 76.1 kg Intake: IV 1850 3300 350 Lactated Ringers 1,000 ml 375 @ 125 mls/hr IV .Q8H [facility] Rx#:[id number] Lactated Ringers 1,000 ml 300 @ 75 mls/hr IV .[id number] [facility] Rx#:[id number] Magnesium Sulfate-D5w Pmx 200 1 gm In Dextrose/Water 1 100ml.bag @ 100 mls/hr IVPB Q1H [facility] Rx#: [id number] Magnesium Sulfate-D5w Pmx 200 1 gm In Dextrose/Water 1 100ml.bag @ 100 mls/hr IVPB Q1H [facility] Rx#: [id number] Sodium Chloride 0.9% 1, 500 000 ml @ 125 mls/hr IV . Q8H [facility] Rx#:[id number] Sodium Chloride 0.9% 1, 1125 500 000 ml @ 999 mls/hr IV . Q1H1M [facility] Rx#:[id number] Sodium Chloride 0.9% 1, 1000 000 ml @ 999 mls/hr IV . Q1H1M [facility] Rx#:[id number] Sodium Chloride 0.9% 1, 1000 000 ml @ 999 mls/hr IV . Q1H1M [facility] Rx#:[id number] cefTRIAXone 1,000 mg In 50 50 Sodium Chloride 0.9% 50 ml @ 100 mls/hr IVPB Q24HR [facility] Rx#:[id number] metroNIDAZOLE-NS PMX 500 100 100 mg In Saline 1 100ml.bag @ 100 mls/hr IVPB Q8HR [facility] Rx#:[id number] Output: Drainage 95 120 40 Right 95 Right Abdomen 120 40 Urine 375 375 170 Other: Voiding Method Indwelling Catheter Indwelling Catheter Indwelling Catheter - Constitutional General appearance: Present: average body habitus, cooperative - Respiratory Details: Nonlabored breathing. - Cardiovascular Rhythm: regular - Gastrointestinal Gastrointestinal Comment(s): Abdomen is soft nontender nondistended. Incisions are clean dry and intact. COURTNEY drain has bilious output in the COURTNEY. - Integumentary Integumentary Comment(s): No clubbing cyanosis edema. - Psychiatric Psychiatric: Present: A&O x's 3 - Labs CBC & Chem 7: 10/19/16 04:20 10/19/16 04:20 Labs: Abnormal Lab Results - Last 24 Hours (Table) 10/18/16 10/18/16 10/18/16 Range/Units 15:50 18:50 23:20 WBC (3.8-10.6) k/uL RBC (4.30-5.90) m/uL Hgb (13.0-17.5) gm/dL Hct (39.0-53.0) % Neutrophils # (1.3-7.7) k/uL Glucose (74-99) mg/dL POC Glucose (mg/dL) 209 H 181 H (75-99) mg/dL Calcium (8.4-10.2) mg/dL Total Protein (6.3-8.2) g/dL Albumin (3.5-5.0) g/dL Urine Protein 1+ H (Negative) Urine Glucose (UA) 3+ H (Negative) Urine Ketones 2+ H (Negative) Urine Blood Moderate H (Negative) Ur Leukocyte Esterase Small H (Negative) Urine RBC 90 H (0-5) /hpf Urine WBC 12 H (0-5) /hpf Hyaline Casts 4 H (0-2) /lpf Urine Mucus Rare H (None) /hpf 10/19/16 10/19/16 10/19/16 Range/Units 04:20 04:20 05:42 WBC 17.9 H (3.8-10.6) k/uL RBC 2.70 L (4.30-5.90) m/uL Hgb 8.5 L (13.0-17.5) gm/dL Hct 26.6 L (39.0-53.0) % Neutrophils # 16.0 H (1.3-7.7) k/uL Glucose 184 H (74-99) mg/dL POC Glucose (mg/dL) 165 H (75-99) mg/dL Calcium 8.2 L (8.4-10.2) mg/dL Total Protein 4.8 L (6.3-8.2) g/dL Albumin 2.3 L (3.5-5.0) g/dL Urine Protein (Negative) Urine Glucose (UA) (Negative) Urine Ketones (Negative) Urine Blood (Negative) Ur Leukocyte Esterase (Negative) Urine RBC (0-5) /hpf Urine WBC (0-5) /hpf Hyaline Casts (0-2) /lpf Urine Mucus (None) /hpf Assessment and Plan Plan: Assessment and plan: Postop day 2 from 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 Patient began having bilious output of his COURTNEY drain yesterday afternoon. He is currently stable at this time and given the amount of inflammation and poor nutritional status this finding was expected. At this time it is unclear whether the bile was draining from the gastric repair or possibly a duct of Luschka or the biliary tree. We will obtain a HIDA scan to further evaluate the biliary tree. The COURTNEY drain will remain as it is controlling the bilious output. The patient is on Rocephin and Flagyl for antibiotic coverage and Diflucan was added for prophylaxis if it is a gastric leak. HIDA is negative for any leak we' ll obtain upper GI exam. If the HIDA scan is positive I would recommend controlling the drainage with the COURTNEY drain and waiting for ERCP secondary to the recent gastric repair. This plan was discussed with surgical phlebotomist prn along with placing central access for TPN. Time with Patient: Greater than 30
--- NOTE | 2016-10-19 13:40 | NM ---
"EXAMINATION TYPE: NM hepatobiliary wo EF DATE OF EXAM: 10/19/2016 COMPARISON: Limited Abdominal ultrasound October 07, 2016 HISTORY: Pain rule out biliary leak after open cholecystectomy October 17. Patient has bilious drainin g COURTNEY drainage catheter. TECHNIQUE: After the intravenous administration of 5.3 mCi Tc 99m Mebrofenin hepatobiliary scintigrap hy is performed. Immediate images post injection. FINDINGS: There is satisfactory excretion of tracer by the liver. The small bowel activity is noted within 25 m inutes. Gallbladder uptake is not identified consistent with history of cholecystectomy. On more elvi yed phased images seen best on 45 to 60 minute images there is linear uptake extending inferiorly to the right consistent with abnormal uptake through COURTNEY drainage catheter. No free spillage of contrast into peritoneal cavity is identified. IMPRESSION: Abnormal study with radiotracer uptake into COURTNEY drainage catheter confirmed. A Yellow message has been communicated to Tonya Romero via the [employer] | Critical Result s ystem on 10/19/2016 1:37 PM, Message ID [id number]."
--- NOTE | 2016-10-19 13:59 | P.PN ---
Subjective Principal diagnosis: Diabetes &Medical management post cholecystectomy Day 4 Post Op Visit s/p Open cholecystectomy and adhesions lysis Allert ,complaining of incisional abdomenal pain. No reported fever,chills, chest pain or SOB.No arrhythmias on the monitor The COURTNEY drain is putting out bilious material with suspected biliary leak. HIDA scan is being arranged . No toxic symptoms No nausea no vomiting. NG tube is in place and output is minimal. Denied passing flatus or bowel movements . The patient had some limited change in mental status yesterday however this morning it is much more alert and awake. The patient is also receiving Dilaudid for pain control. The patient is on combination of Rocephin and Flagyl. The patient experienced some lower urine output earlier which improved with fluids and the patient was given a total of 2 L of IV fluid boluses yesterday. He is on a lactated Ringer solution. His I/O's , medications and labs were reviewed U/A suggested ? UTI and +ve Ketones His TPM feedind will be innitiated today His Blood sugar control is adequate WBC count declined In summary , he is an 86-year-old male with past medical history significant for coronary artery disease status post stents under f/u in [place] , colon cancer 1997, and prostate cancer s/p seed radiation therapy. Patient is currently seen in the intensive care unit post open cholecystectomy medicine one was consult for diabetes management. Patient history goes back to one week ago when he presented to [facility] with acute complaint of abdominal pain he He was evaluated by general surgery who recommended laparoscopic cholecystectomy. However, in the OR patient was found to have a lot of adhesions from prior surgeries for which it was converted to open cholecystectomy and adhesolysis. Surgery seems to be uneventful with no immediate complications observed. Patient was admitted to the intensive care unit for closer monitoring post surgery. Patient is currently seen in the intensive care unit and he reports that he feels better today with some abdomenal pain . Otherwise patient is denying any chest pain or trouble breathing reports some abdominal pain at site of surgery. Patient is also complaining of discomfort due to the NG tube. Patient did not have advanced directives or a wishing well, however he was able to name his daughter Hollie ShahClarendon to be has a advocating case he loses the capacity of making decisions. Patient condition was discussed with his nurse, case was also discussed with the patient. Review of Systems Constitutional: Patient reports no fever, no chills Eyes: Patient reports no visual changes, no eye pain ENT: Patient reports no ear pain. admits to chronic decrease hearing , now with sore throat and irritation from NGtube Cardiovascular: Patient reports no chest pain, no exertional dyspnea, no peripheral leg edema, no orthopnea Respiratory:Patient reports no cough, no wheezing, no shortness of breath Gastrointestinal: Patient reports no diarrhea, no constipation Genitourinary: Patient reports no dysuria, no hematuria. but admits to frequent urination Musculoskeletal: Patient reports no muscle pain, no joint pain Endocrine: Patient reports no heat intolerance, no cold intolerance, no excessive thirst Neurological: Patient reports no focal neurologic deficits, no weakness, no numbness, no tingling Hem/Lymphatic: Patient reports no bleeding tendency, no bruising, no swollen lymph glands Allergic/Immun: Patient reports no recent allergic reactions Skin: Patient reports no rashes, no pruritis, no ulcers Objective - Vital Signs Vital signs: Vital Signs Temp 98 F 10/19/16 12:00 Pulse 88 10/19/16 12:00 Resp 12 10/19/16 12:22 BP 136/76 10/19/16 12:00 Pulse Ox 96 10/19/16 12:00 Intake & Output 10/18/16 10/19/16 10/19/16 18:59 06:59 18:59 Intake Total 1850 3300 425 Output Total 470 495 275 Balance 1380 2805 150 Weight 76.1 kg Intake: IV 1850 3300 425 Lactated Ringers 1,000 ml 375 @ 125 mls/hr IV .Q8H [facility] Rx#:[id number] Lactated Ringers 1,000 ml 375 @ 75 mls/hr IV .[id number] [facility] Rx#:[id number] Magnesium Sulfate-D5w Pmx 200 1 gm In Dextrose/Water 1 100ml.bag @ 100 mls/hr IVPB Q1H [facility] Rx#: [id number] Magnesium Sulfate-D5w Pmx 200 1 gm In Dextrose/Water 1 100ml.bag @ 100 mls/hr IVPB Q1H [facility] Rx#: [id number] Sodium Chloride 0.9% 1, 500 000 ml @ 125 mls/hr IV . Q8H [facility] Rx#:[id number] Sodium Chloride 0.9% 1, 1125 500 000 ml @ 999 mls/hr IV . Q1H1M [facility] Rx#:[id number] Sodium Chloride 0.9% 1, 1000 000 ml @ 999 mls/hr IV . Q1H1M [facility] Rx#:[id number] Sodium Chloride 0.9% 1, 1000 000 ml @ 999 mls/hr IV . Q1H1M [facility] Rx#:[id number] cefTRIAXone 1,000 mg In 50 50 Sodium Chloride 0.9% 50 ml @ 100 mls/hr IVPB Q24HR [facility] Rx#:[id number] metroNIDAZOLE-NS PMX 500 100 100 mg In Saline 1 100ml.bag @ 100 mls/hr IVPB Q8HR [facility] Rx#:[id number] Output: Drainage 95 120 40 Right 95 Right Abdomen 120 40 Urine 375 375 235 Other: Voiding Method Indwelling Catheter Indwelling Catheter Indwelling Catheter - Exam Constitutional: No acute distress, conversant, pleasant Eyes: Anicteric sclerae, moist conjunctiva, no lid-lag PERRLA ENMT: NC/AT Oropharynx clear, no erythema, exudates Neck: Supple, FROM, no masses, or JVD No carotid bruits No thyromegaly Lungs:Clear to auscultion Clear to percussion Normal respiratory effort, no accessory muscle use Cardiovascular:Heart regular in rate and rhythm, No murmurs, gallops, or rubs No peripheral edema Abdominal: tender at site of Sx , no guarding, rebound or rigidity Abdomen moving with respiration. Diminished bowel sounds No hepatomegaly, No splenomegaly No palpable mass No abdominal wall hernia noted Skin: Normal temperature, tone, texture, turgor No induration No subcutaneous nodules No rash, lesions No ulcers Extremities: No digital cyanosis No clubbing Pedal pulses intact and symmetrical Radial pulses intact and symmetrical Normal gait and station No calf tenderness Psychiatric: Alert and oriented to person, place and time Appropriate affect Intact judgement Neuro: Muscles Strength 5/5 in all 4 extremities Sensation to light touch grossly present throughout Cranial nerves II-XII grossly intact No focal sensory deficits - Labs CBC & Chem 7: 10/19/16 04:20 10/19/16 04:20 Labs: Abnormal Lab Results - Last 24 Hours (Table) 10/18/16 10/18/16 10/18/16 Range/Units 15:50 18:50 23:20 WBC (3.8-10.6) k/uL RBC (4.30-5.90) m/uL Hgb (13.0-17.5) gm/dL Hct (39.0-53.0) % Neutrophils # (1.3-7.7) k/uL Glucose (74-99) mg/dL POC Glucose (mg/dL) 209 H 181 H (75-99) mg/dL Calcium (8.4-10.2) mg/dL Total Protein (6.3-8.2) g/dL Albumin (3.5-5.0) g/dL Urine Protein 1+ H (Negative) Urine Glucose (UA) 3+ H (Negative) Urine Ketones 2+ H (Negative) Urine Blood Moderate H (Negative) Ur Leukocyte Esterase Small H (Negative) Urine RBC 90 H (0-5) /hpf Urine WBC 12 H (0-5) /hpf Hyaline Casts 4 H (0-2) /lpf Urine Mucus Rare H (None) /hpf 10/19/16 10/19/16 10/19/16 Range/Units 04:20 04:20 05:42 WBC 17.9 H (3.8-10.6) k/uL RBC 2.70 L (4.30-5.90) m/uL Hgb 8.5 L (13.0-17.5) gm/dL Hct 26.6 L (39.0-53.0) % Neutrophils # 16.0 H (1.3-7.7) k/uL Glucose 184 H (74-99) mg/dL POC Glucose (mg/dL) 165 H (75-99) mg/dL Calcium 8.2 L (8.4-10.2) mg/dL Total Protein 4.8 L (6.3-8.2) g/dL Albumin 2.3 L (3.5-5.0) g/dL Urine Protein (Negative) Urine Glucose (UA) (Negative) Urine Ketones (Negative) Urine Blood (Negative) Ur Leukocyte Esterase (Negative) Urine RBC (0-5) /hpf Urine WBC (0-5) /hpf Hyaline Casts (0-2) /lpf Urine Mucus (None) /hpf Assessment and Plan (1) CAD (coronary artery disease) Narrative/Plan: Normal CAD status post stents 12 years ago 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 [place] He was on Plavix and aspirin as antiplatelet therapy and will need a cardiology consultation for further advice initiating these medications also to establish with a motel operator Will obtain an echocardiogram to assess left ventricular function Avoid overhydration and monitor fluid intake and output CXR : Clear Status: Chronic (2) DVT prophylaxis Status: Acute (3) Diabetes mellitus Narrative/Plan: Blood sugar is under reasonable control on insulin and metformin U/A was +ve for ketones : will check sKetones We will continue blood sugar monitoring and insulin sliding scale Status: Acute (4) History of colon cancer Narrative/Plan: reated and in remission since 1997 Status: Resolved (5) History of prostate cancer Narrative/Plan: Status post seed radiation therapy in remission Status: Resolved (6) Hypertension Narrative/Plan: Under good control We will continue current therapy Status: Acute (7) Status post cholecystectomy Narrative/Plan: Postoperative day 4 after open cholecystectomy 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 UTI , on appropriate AB's will send urine for C/S Status: Acute Plan: Will evaluate for DKA Propably ketones are related to no nutrition TPN started today Check sKetones will f/u Time with Patient: Less than 30
[2016-10-19] MEDS ORDERED: FUROSEMIDE 10 MG/ML 2 ML VIAL IV ONE (14:00)
[2016-10-19 14:12] LABS: Glucose,Whole Blood 221 mg/dL (75-99)
[2016-10-19] MEDS: cloNIDine 0.1 MG/24HR PATCH 1 PATCH PATCH TRANSDERM SCH (14:13)
--- NOTE | 2016-10-19 15:02 | P.PN ---
Progress Note - Text Discussed findings of HIDA with radiologist, as expected the COURTNEY shows bile draining. There is no free collection in the abdomen so the COURTNEY is adequately draining the bile. Source of bile leak is unknown at this time, bile enters the small bowel on HIDA at 20-25 minutes and does not enter drain until 40-45 minutes. Due to recent gastric repair I would not recommend ERCP at this time. Continue to drain with COURTNEY and start TPN for nutrition. If still draining in several days will plan on upper GI to better localize leak and rule out gastric source.
--- NOTE | 2016-10-19 16:26 | CONS ---
CONSULTATION Mr. Zain Lou is an 86-year-old gentleman who has a history of gallstone disease and had cholecystitis and was brought in for surgery. At this time he is pain free. No angina-like symptoms. No undue shortness of breath. Sitting up comfortably in a chair, n.p.o. with NG tube. His blood pressure is high at 194 mmHg. Pulseless. REVIEW OF SYSTEMS: Currently no fevers, chills, or rigors. No cough expectoration. He has no nausea or vomiting. He does have back pain. No hematuria or dysuria. No recent strokes or seizures. PAST HISTORY: Diabetes, hypertension, coronary artery disease, coronary stenting almost 15 years back. SOCIAL HISTORY: Nonsmoker. No alcohol use. MEDICATIONS: Medications at home include Plavix, Lasix, gabapentin, insulin, losartan, lovastatin, potassium and metformin. ALLERGIES: No known drug allergies. PHYSICAL EXAMINATION: On examination, his blood pressure is elevated at 140 mmHg systolic. Pulse rate in the 70s. He is in sinus rhythm. Head and neck examination are normal. Heart sounds were soft. No murmurs or gallops. Breath sounds are reduced bilaterally. No crackles. Extremities are warm. No edema. IMPRESSION: 1. Known coronary artery disease status post coronary stenting almost 15 years back on Plavix and aspirin. 2. Hypertension. Blood pressure is elevated at this time. He has been unable to take his medications. 3. Diabetes on insulin. SUGGEST: While he is n.p.o. I would treated him with clonidine patch and once he is able to take oral he can start his home medications which include Plavix, Lasix, losartan, lovastatin and oral potassium. 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 I will also get a 12-lead ECG on him and a 2D echo. MMODL / IJN: [id number] /
--- NOTE | 2016-10-19 17:20 | PCN ---
PROCEDURE NOTE TRIPLE LUMEN CATHETER PLACEMENT: INDICATION: Hemodynamic monitoring/Intravenous access. Indication for the insertion of the line is IV access, TPN. DESCRIPTION OF THE PROCEDURE: Time-out was completed verifying correct patient, procedure, site, positioning, and implant(s) or special equipment if applicable. The patient was placed in a dependent position appropriate for triple lumen catheter placement based on the vein to be cannulated. The patients right neck was prepped and draped in sterile fashion. 1% Lidocaine was used to anesthetize the surrounding skin area. A triple lumen 9F Cordis catheter was introduced into the internal jugular vein using Seldinger technique. The catheter was threaded smoothly over the guide wire and appropriate blood return was obtained. Each lumen of the catheter was evacuated of air and flushed with sterile saline. The catheter was then sutured in place to the skin and a sterile dressing applied. Perfusion to the extremity distal to the point of catheter insertion was checked and found to be adequate. This procedure was done on the right side. No bedside complications. No bleeding. No pneumothorax. MMODL / IJN: [id number] /
[2016-10-19 17:57] LABS: Glucose,Whole Blood 186 mg/dL (75-99)
[2016-10-19 23:54] LABS: Glucose,Whole Blood 154 mg/dL (75-99)
[2016-10-20 04:35] LABS: Basophils % (A) 0 %; CH 30.1; CHCM 31.7; Eosinophils % (A) 0 %; HCT 25.7 % (39.0-53.0); HDW 2.45; HGB 8.3 gm/dL (13.0-17.5); Hypochromasia Slight; Luc % (Auto) 1; Lymphocytes # (A) 1.1 k/uL (1.0-4.8); Lymphocytes % (A) 7 %; MCHC 32.4 g/dL (31.0-37.0); MCV 95.5 fL (80.0-100.0); Mean Platelet Volume 6.7; Monocytes # (A) 0.5 k/uL (0-1.0); Monocytes % (A) 3 %; Neutrophils # (A) 14.5 k/uL (1.3-7.7); Neutrophils % (A) 89 %; RBC 2.69 m/uL (4.30-5.90); RDW 12.6 % (11.5-15.5); WBC 16.3 k/uL (3.8-10.6); WBC (Perox) 16.54
[2016-10-20 04:48] LABS: ALT 46 U/L (21-72); AST 35 U/L (17-59); Alkaline Phosphatase 67 U/L (38-126); Anion Gap 11 mmol/L; Bilirubin, Delta 0.3 mg/dL (0.0-0.2); Blood Urea Nitrogen 14 mg/dL (9-20); Calcium 8.3 mg/dL (8.4-10.2); Carbon Dioxide 21 mmol/L (22-30); Chloride 107 mmol/L (98-107); Glucose 160 mg/dL (74-99); Magnesium 1.9 mg/dL (1.6-2.3); Non-African American GFR(MDRD) >60 (>60 ml/min/1.73 sqM); Phosphorous 2.3 mg/dL (2.5-4.5); Potassium 3.8 mmol/L (3.5-5.1); Sodium 139 mmol/L (137-145); Total Bilirubin 0.4 mg/dL (0.2-1.3)
[2016-10-20] MEDS ORDERED: Phosphorus Replacement Protoco 1 EACH MISC MISCELLANE PRN (05:20)
[2016-10-20] MEDS ORDERED: POTASSIUM PHOSPHATE 10 MMOL in SODIUM CHLORIDE 0.9% 100 ML IV ONE (05:20)
[2016-10-20 05:43] LABS: Glucose,Whole Blood 148 mg/dL (75-99)
[2016-10-20] MEDS: INSULIN LISPRO (humaLOG) 300 UNIT/3 ML VIAL SQ SCH ×4 (05:57→23:33)
[2016-10-20] MEDS: MAGNESIUM SULFATE-D5W PMX 1 GM in DEXTROSE/WATER 1 100ML.BAG IVPB SCH ×2 (05:57→07:00)
--- NOTE | 2016-10-20 07:44 | XR ---
EXAMINATION TYPE: XR chest 1V portable DATE OF EXAM: 10/20/2016 CLINICAL HISTORY: Difficulty breathing progress study. TECHNIQUE: Single AP portable upright view of the chest is obtained. COMPARISON: Chest x-ray from one day earlier and older studies. FINDINGS: There is stable nasogastric tube and left-sided subclavian central venous catheter. Cardia c silhouette size is stable and upper limits of normal with atherosclerotic thoracic aorta. There is chronic parenchymal change with patchy bibasilar atelectasis. No new infiltrate is seen. Small right pleural effusion may be present and is felt stable. Osseous structures are intact. Subcutaneous emphy sema near left scapula remains present. IMPRESSION: Overall stable findings, chronic parenchymal change with suspected small bilateral pleu ral effusions and patchy bibasilar atelectasis all redemonstrated.
[2016-10-20] MEDS: PANTOPRAZOLE 40 MG/10 ML VIAL IV SCH (08:34)
[2016-10-20] MEDS: HEPARIN SODIUM,PORCINE 5,000 UNIT/ML 1 ML VIAL SQ SCH ×3 (08:34→23:28)
[2016-10-20] MEDS: metroNIDAZOLE-NS PMX 500 MG in SALINE 1 100ML.BAG IVPB SCH ×3 (08:34→23:28)
--- NOTE | 2016-10-20 09:17 | P.PN ---
Subjective This is an 86-year-old male patient who presented to the emergency department approximately one week ago complaining of abdominal pain and nausea. The patient's pain was mostly in the right upper quadrant. On examination the patient was quite benign and she end up tolerating clear liquids well without any change in his bowel habits. Further investigation within ultrasound of the abdomen showed gallstones and mild gallbladder wall thickening without any pericholecystic fluid or evidence of inflammation. As such the patient was seen by general surgery and he was thought to have symptomatic cholelithiasis. The patient was started on medical treatment with antibiotics and the patient was discharged home, and the patient was brought back today for a cholecystectomy which turned out to be an open cholecystectomy. Postop, the patient was moved to the intensive care unit for further monitoring. He is awake. He is alert. He has a COURTNEY drain in the right upper quadrant. A Levy catheter is to be inserted. Hemodynamically stable. The patient was seen again today 10/18/2016 in follow-up in the intensive care unit. He is awake and alert in no acute distress. He is status post laparoscopic cholecystectomy converted to open cholecystectomy, extensive lysis of adhesions, repair of gastrotomy with a modified Fareed patch. This is postoperative day #1. He is currently sitting up in the chair at the bedside. He denies any worsening shortness of breath, cough or congestion. His chest x- ray does show bilateral lower lobe subsegmental atelectasis with tiny effusions. There is also some subcutaneous emphysema on the left with no sizable pneumothorax. He is maintaining good O2 saturations in the mid 90s on 3 L/m per nasal cannula. He is afebrile. Hemodynamically stable. His abdominal dressing is dry and intact. The COURTNEY drain remains in place and there is some bile colored fluid noted in it. On 10/19/2016 the patient is being seen in follow-up. The patient is post open cholecystectomy, lysis of adhesions, repair of a gastric wall with a modified Fareed patch. The patient is postop day #2. The COURTNEY drain is putting out bilious material and this has been confirmed on several occasions. Based on this a biliary leak is suspected. Despite this, the liver function tests remains within normal limits. The patient is not acting toxic. No nausea no vomiting. NG tube is in place and output is minimal. No flatus or bowel movements yet. No abdominal pain or distention. No tenderness. The patient had some limited change in mental status yesterday however this morning it is much more alert and awake. The patient is also receiving Dilaudid for pain control. The patient is on combination of Rocephin and Flagyl. The patient is hemodynamically stable. The patient experienced some lower urine output earlier which improved with fluids and the patient was given a total of 2 L of IV fluid boluses yesterday. He is on a lactated Ringer solution. On 10/20/2016 the patient is being seen in follow-up. The patient has post open cholecystectomy and the patient is postop day #3. There is an obvious biliary leak as the patient has produced around 480 mL of drainage since yesterday from the COURTNEY drain. The HIDA scan was completed and there is evidence of tracer uptake within the COURTNEY drain consistent with a biliary leak. Gen. surgery and gastroesophageal are both aware. ERCP will be indicated later stage once the patient is further recovered and the Fareed patch that was placed on the stomach is well-healed. The patient has an NG tube in place. Output is minimal. Liver function tests are not elevated. A triple lumen catheter was inserted and the patient was started on a TPN for nutritional support. Electrodes are all stable. Function is stable. The patient is afebrile. The patient is covered with broad-spectrum antibiotics with a combination of Rocephin, metronidazole and Diflucan. No bowel activity yet. Urine output is adequate for now. The patient is also on IV fluids with lactated Ringer at the rate of 75 mL an hour. Objective - Vital Signs Vital signs: Vital Signs Temp 98.8 F 10/20/16 08:00 Pulse 82 10/20/16 08:00 Resp 22 10/20/16 08:00 BP 163/87 10/20/16 08:00 Pulse Ox 95 10/20/16 08:00 Intake & Output 10/19/16 10/20/16 10/20/16 18:59 06:59 18:59 Intake Total 1195 1300 170 Output Total 1445 995 150 Balance -250 305 20 Weight 73.2 kg Intake: IV 1195 1300 170 0.9 120 200 20 Lactated Ringers 1,000 ml 825 900 @ 75 mls/hr IV .[id number] [facility] Rx#:[id number] Magnesium Sulfate-D5w Pmx 100 100 1 gm In Dextrose/Water 1 100ml.bag @ 100 mls/hr IVPB Q1H [facility] Rx#: [id number] Potassium Phosphate 10 50 mmol In Sodium Chloride 0 .9% 100 ml @ 50 mls/hr IV ONCE ONE Rx#:[id number] cefTRIAXone 1,000 mg In 50 Sodium Chloride 0.9% 50 ml @ 100 mls/hr IVPB Q24HR [facility] Rx#:[id number] metroNIDAZOLE-NS PMX 500 200 100 mg In Saline 1 100ml.bag @ 100 mls/hr IVPB Q8HR [facility] Rx#:[id number] Output: Drainage 400 430 Right Abdomen 400 430 Urine 1045 565 150 Other: Voiding Method Indwelling Catheter Indwelling Catheter - Exam Head exam was generally normal. There was no scleral icterus or corneal arcus. Mucous membranes were moist.Neck was supple and without jugular venous distension, thyromegaly, or carotid bruits. Carotids were easily palpable bilaterally. There was no adenopathy. Lung sounds are diminished otherwise clear.Lungs were clear to auscultation and percussion, and with normal diaphragmatic excursion. No wheezes or rales were noted. Cardiac exam revealed the PMI to be normally situated and sized. The rhythm was regular and no extrasystoles were noted during several minutes of auscultation. The first and second heart sounds were normal and physiologic splitting of the second heart sound was noted. There were no murmurs, rubs, clicks, or gallops. Abdomen is soft. No direct tenderness no rebound tenderness. No guarding. Bowel sounds are hypoactive. COURTNEY drain is in place. Output has been about 480 mL from the COURTNEY drain.. Bowel sounds are hypoactive.Examination of the extremities revealed easily palpable radial, femoral and pedal pulses. There was no cyanosis, clubbing or edema. Neurologically the patient is or 0A3 and there is no focal neurological deficit. - Labs CBC & Chem 7: 10/20/16 04:15 10/20/16 04:15 Labs: Abnormal Lab Results - Last 24 Hours (Table) 10/19/16 10/19/16 10/19/16 Range/Units 14:11 17:56 23:53 WBC (3.8-10.6) k/uL RBC (4.30-5.90) m/uL Hgb (13.0-17.5) gm/dL Hct (39.0-53.0) % Neutrophils # (1.3-7.7) k/uL Carbon Dioxide (22-30) mmol/L Creatinine (0.66-1.25) mg/dL Glucose (74-99) mg/dL POC Glucose (mg/dL) 221 H 186 H 154 H (75-99) mg/dL Calcium (8.4-10.2) mg/dL Phosphorus (2.5-4.5) mg/dL Delta Bilirubin (0.0-0.2) mg/dL Total Protein (6.3-8.2) g/dL Albumin (3.5-5.0) g/dL 10/20/16 10/20/16 10/20/16 Range/Units 04:15 04:15 05:41 WBC 16.3 H (3.8-10.6) k/uL RBC 2.69 L (4.30-5.90) m/uL Hgb 8.3 L (13.0-17.5) gm/dL Hct 25.7 L (39.0-53.0) % Neutrophils # 14.5 H (1.3-7.7) k/uL Carbon Dioxide 21 L (22-30) mmol/L Creatinine 0.60 L (0.66-1.25) mg/dL Glucose 160 H (74-99) mg/dL POC Glucose (mg/dL) 148 H (75-99) mg/dL Calcium 8.3 L (8.4-10.2) mg/dL Phosphorus 2.3 L (2.5-4.5) mg/dL Delta Bilirubin 0.3 H (0.0-0.2) mg/dL Total Protein 5.0 L (6.3-8.2) g/dL Albumin 2.4 L (3.5-5.0) g/dL Assessment and Plan Plan: Assessment 1 symptomatic cholelithiasis, status post open cholecystectomy and the patient is postop day #3. 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 NG tube is in place. The HIDA scan is considerable biliary leak. ERCP Will follow at the later stage. Despite the biliary, the patient is hemodynamically stable, no signs of any toxicity or abdominal pain or into abdominal sepsis at this point. Surgical wound site is clean. 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 Plan Continue IV fluids with lactated Ringer at the rate of 75 mL an hour. Continue Rocephin, Flagyl and Diflucan. Keep the NG tube in place. Initiate TPN for nutritional support. Monitor electrolytes. Monitor hemodynamics. Incentive spirometer. ERCP at a later stage. We'll follow. May transfer to a surgical floor if the patient continues to be stable.
[2016-10-20] MEDS: FLUCONAZOLE IN NACL,ISO-OSM 400 MG in SALINE 1 200ML.BAG IVPB SCH (10:11)
--- NOTE | 2016-10-20 12:11 | P.PN ---
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 Patient did well overnight no complaints. Still having bilious output out of his COURTNEY drain. No fevers or chills. He denies having any abdominal pain. Objective - Vital Signs Vital signs: Vital Signs Temp 98.2 F 10/20/16 11:14 Pulse 100 10/20/16 11:14 Resp 16 10/20/16 11:14 BP 182/90 10/20/16 11:14 Pulse Ox 96 10/20/16 11:14 Intake & Output 10/19/16 10/20/16 10/20/16 18:59 06:59 18:59 Intake Total 1195 1300 360 Output Total 1445 995 470 Balance -250 305 -110 Weight 73.2 kg 76.1 kg Intake: IV 1195 1300 360 0.9 120 200 60 Lactated Ringers 1,000 ml 825 900 150 @ 40 mls/hr IV .Q24H [facility] Rx#:[id number] Magnesium Sulfate-D5w Pmx 100 100 1 gm In Dextrose/Water 1 100ml.bag @ 100 mls/hr IVPB Q1H [facility] Rx#: [id number] Potassium Phosphate 10 50 mmol In Sodium Chloride 0 .9% 100 ml @ 50 mls/hr IV ONCE ONE Rx#:[id number] cefTRIAXone 1,000 mg In 50 Sodium Chloride 0.9% 50 ml @ 100 mls/hr IVPB Q24HR [facility] Rx#:[id number] metroNIDAZOLE-NS PMX 500 200 100 mg In Saline 1 100ml.bag @ 100 mls/hr IVPB Q8HR [facility] Rx#:[id number] Output: Drainage 400 430 120 Right Abdomen 400 430 120 Urine 1045 565 350 Other: Voiding Method Indwelling Catheter Indwelling Catheter Indwelling Catheter - Constitutional General appearance: Present: cooperative - EENT Eyes: Present: anicteric sclerae - Respiratory Details: Nonlabored breathing. - Cardiovascular Rhythm: regular - Gastrointestinal Gastrointestinal Comment(s): Soft and nondistended nontender. Incisions clean dry and intact. COURTNEY drain with bilious output. - Psychiatric Psychiatric: Present: A&O x's 3 - Labs CBC & Chem 7: 10/20/16 04:15 10/20/16 04:15 Labs: Abnormal Lab Results - Last 24 Hours (Table) 10/19/16 10/19/16 10/19/16 Range/Units 14:11 17:56 23:53 WBC (3.8-10.6) k/uL RBC (4.30-5.90) m/uL Hgb (13.0-17.5) gm/dL Hct (39.0-53.0) % Neutrophils # (1.3-7.7) k/uL Carbon Dioxide (22-30) mmol/L Creatinine (0.66-1.25) mg/dL Glucose (74-99) mg/dL POC Glucose (mg/dL) 221 H 186 H 154 H (75-99) mg/dL Calcium (8.4-10.2) mg/dL Phosphorus (2.5-4.5) mg/dL Delta Bilirubin (0.0-0.2) mg/dL Total Protein (6.3-8.2) g/dL Albumin (3.5-5.0) g/dL 10/20/16 10/20/16 10/20/16 Range/Units 04:15 04:15 05:41 WBC 16.3 H (3.8-10.6) k/uL RBC 2.69 L (4.30-5.90) m/uL Hgb 8.3 L (13.0-17.5) gm/dL Hct 25.7 L (39.0-53.0) % Neutrophils # 14.5 H (1.3-7.7) k/uL Carbon Dioxide 21 L (22-30) mmol/L Creatinine 0.60 L (0.66-1.25) mg/dL Glucose 160 H (74-99) mg/dL POC Glucose (mg/dL) 148 H (75-99) mg/dL Calcium 8.3 L (8.4-10.2) mg/dL Phosphorus 2.3 L (2.5-4.5) mg/dL Delta Bilirubin 0.3 H (0.0-0.2) mg/dL Total Protein 5.0 L (6.3-8.2) g/dL Albumin 2.4 L (3.5-5.0) g/dL - Imaging and Cardiology Chest x-ray: report reviewed, image reviewed Assessment and Plan Plan: Assessment and plan: Postop day 3 from 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 Patient has continued output out of COURTNEY drain which is bilious. HIDA scan yesterday showed uptake into COURTNEY drain. Plan is to obtain Gastrografin upper GI to verify no leak from gastric repair tomorrow. Maintain NG tube and COURTNEY drain. HIDA scan showed no collection of bile outside of the biliary tree indicating that the COURTNEY drain was draining all of the leaked bile and preventing biloma. Had a lengthy discussion with Dr. Zuluaga regarding timing of ERCP. With respect to the recent gastric repair we will maintain COURTNEY drain which is controlling the leak and performed ERCP when the gastric repair stabilized. The patient had central line placed and TPN was started today. This is all discussed with the patient at length and he stated that he understood and agreed with the plan.
[2016-10-20] MEDS: LACTATED RINGERS 1,000 ML IV SCH ×3 (13:19→23:28)
[2016-10-20 13:25] LABS: Glucose,Whole Blood 180 mg/dL (75-99)
[2016-10-20] MEDS ORDERED: LACTATED RINGERS 1,000 ML IV ONE (13:30)
[2016-10-20] MEDS: MVI, ADULT NO.4 WITH VIT K 10 ML, TRACE (CONC-1ML/DOSE) 1 ML in AMINO ACID 5%-D15W+LYTE... IV SCH ×3 (13:30)
--- NOTE | 2016-10-20 14:53 | P.PN ---
Subjective Principal diagnosis: Diabetes &Medical management post cholecystectomy Day 5 Post Op Visit s/p Open cholecystectomy and adhesions lysis Alert ,complaining of incisional abdomenal pain. No reported fever,chills,chest pain or SOB.No arrhythmias on the monitor The COURTNEY drain is putting out bilious material with biliary leak. No toxic symptoms . C/O nausea But no no vomiting. NG tube is in place and output is minimal. Denied passing flatus or bowel movements . Not Confused today . On Dilaudid for pain control. The patient is on combination of Rocephin and Flagyl. His I/O's , medications and labs were reviewed U/A suggested ? UTI and +ve Ketones Blood ketones were positive but with normal Anion Gap ,most likely related to starvation and TPN started I will increase IV fluids today His Blood sugar control is adequate WBC count declined In summary , he is an 86-year-old male with past medical history significant for coronary artery disease status post stents under f/u in [place] , colon cancer 1997, and prostate cancer s/p seed radiation therapy. Patient is currently seen in the intensive care unit post open cholecystectomy medicine one was consult for diabetes management. Patient history goes back to one week ago when he presented to [facility] with acute complaint of abdominal pain he He was evaluated by general surgery who recommended laparoscopic cholecystectomy. However, in the OR patient was found to have a lot of adhesions from prior surgeries for which it was converted to open cholecystectomy and adhesolysis. Surgery seems to be uneventful with no immediate complications observed. Patient was admitted to the intensive care unit for closer monitoring post surgery. Patient is currently seen in the intensive care unit and he reports that he feels better today with some abdomenal pain . Otherwise patient is denying any chest pain or trouble breathing reports some abdominal pain at site of surgery. Patient is also complaining of discomfort due to the NG tube. Patient did not have advanced directives or a wishing well, however he was able to name his daughter Hollie [place] to be has a advocating case he loses the capacity of making decisions. Patient condition was discussed with his nurse, case was also discussed with the patient. Review of Systems Constitutional: Patient reports no fever, no chills Eyes: Patient reports no visual changes, no eye pain ENT: Patient reports no ear pain. admits to chronic decrease hearing , now with sore throat and irritation from NGtube Cardiovascular: Patient reports no chest pain, no exertional dyspnea, no peripheral leg edema, no orthopnea Respiratory:Patient reports no cough, no wheezing, no shortness of breath Gastrointestinal: Patient reports no diarrhea, no constipation Genitourinary: Patient reports no dysuria, no hematuria. but admits to frequent urination Musculoskeletal: Patient reports no muscle pain, no joint pain Endocrine: Patient reports no heat intolerance, no cold intolerance, no excessive thirst Neurological: Patient reports no focal neurologic deficits, no weakness, no numbness, no tingling Hem/Lymphatic: Patient reports no bleeding tendency, no bruising, no swollen lymph glands Allergic/Immun: Patient reports no recent allergic reactions Skin: Patient reports no rashes, no pruritis, no ulcers Objective - Vital Signs Vital signs: Vital Signs Temp 97.8 F 10/20/16 14:41 Pulse 75 10/20/16 14:41 Resp 16 10/20/16 14:41 BP 185/86 10/20/16 14:41 Pulse Ox 93 L 10/20/16 14:41 Intake & Output 10/19/16 10/20/16 10/20/16 18:59 06:59 18:59 Intake Total 1195 1300 440 Output Total 1445 995 470 Balance -250 305 -30 Weight 73.2 kg 76.1 kg Intake: IV 1195 1300 440 0.9 120 200 60 Lactated Ringers 1,000 ml 825 900 230 @ 40 mls/hr IV .Q24H [facility] Rx#:[id number] Magnesium Sulfate-D5w Pmx 100 100 1 gm In Dextrose/Water 1 100ml.bag @ 100 mls/hr IVPB Q1H [facility] Rx#: [id number] Potassium Phosphate 10 50 mmol In Sodium Chloride 0 .9% 100 ml @ 50 mls/hr IV ONCE ONE Rx#:[id number] cefTRIAXone 1,000 mg In 50 Sodium Chloride 0.9% 50 ml @ 100 mls/hr IVPB Q24HR [facility] Rx#:[id number] metroNIDAZOLE-NS PMX 500 200 100 mg In Saline 1 100ml.bag @ 100 mls/hr IVPB Q8HR [facility] Rx#:[id number] Output: Drainage 400 430 120 Right Abdomen 400 430 120 Urine 1045 565 350 Other: Voiding Method Indwelling Catheter Indwelling Catheter Indwelling Catheter - Exam Constitutional: No acute distress, conversant, pleasant Eyes: Anicteric sclerae, moist conjunctiva, no lid-lag PERRLA ENMT: NC/AT Oropharynx clear, no erythema, exudates Neck: Supple, FROM, no masses, or JVD No carotid bruits No thyromegaly Lungs:Clear to auscultion Clear to percussion Normal respiratory effort, no accessory muscle use Cardiovascular:Heart regular in rate and rhythm, No murmurs, gallops, or rubs No peripheral edema Abdominal: tender at site of Sx , no guarding, rebound or rigidity Abdomen moving with respiration. Diminished bowel sounds No hepatomegaly, No splenomegaly No palpable mass No abdominal wall hernia noted COURTNEY drain : significant Bile drainage Skin: Normal temperature, tone, texture, turgor No induration No subcutaneous nodules No rash, lesions No ulcers Extremities: No digital cyanosis No clubbing Pedal pulses intact and symmetrical Radial pulses intact and symmetrical Normal gait and station No calf tenderness Psychiatric: Alert and oriented to person, place and time Appropriate affect Intact judgement Neuro: Muscles Strength 5/5 in all 4 extremities Sensation to light touch grossly present throughout Cranial nerves II-XII grossly intact No focal sensory deficits - Labs CBC & Chem 7: 10/20/16 04:15 10/20/16 04:15 Labs: Abnormal Lab Results - Last 24 Hours (Table) 10/19/16 10/19/16 10/20/16 Range/Units 17:56 23:53 04:15 WBC (3.8-10.6) k/uL RBC (4.30-5.90) m/uL Hgb (13.0-17.5) gm/dL Hct (39.0-53.0) % Neutrophils # (1.3-7.7) k/uL Carbon Dioxide 21 L (22-30) mmol/L Creatinine 0.60 L (0.66-1.25) mg/dL Glucose 160 H (74-99) mg/dL POC Glucose (mg/dL) 186 H 154 H (75-99) mg/dL Calcium 8.3 L (8.4-10.2) mg/dL Phosphorus 2.3 L (2.5-4.5) mg/dL Delta Bilirubin 0.3 H (0.0-0.2) mg/dL Total Protein 5.0 L (6.3-8.2) g/dL Albumin 2.4 L (3.5-5.0) g/dL 10/20/16 10/20/16 10/20/16 Range/Units 04:15 05:41 13:24 WBC 16.3 H (3.8-10.6) k/uL RBC 2.69 L (4.30-5.90) m/uL Hgb 8.3 L (13.0-17.5) gm/dL Hct 25.7 L (39.0-53.0) % Neutrophils # 14.5 H (1.3-7.7) k/uL Carbon Dioxide (22-30) mmol/L Creatinine (0.66-1.25) mg/dL Glucose (74-99) mg/dL POC Glucose (mg/dL) 148 H 180 H (75-99) mg/dL Calcium (8.4-10.2) mg/dL Phosphorus (2.5-4.5) mg/dL Delta Bilirubin (0.0-0.2) mg/dL Total Protein (6.3-8.2) g/dL Albumin (3.5-5.0) g/dL Assessment and Plan (1) CAD (coronary artery disease) Narrative/Plan: Normal CAD status post stents 12 years ago on the floor by a section leader and machine 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 in [place] He was on Plavix and aspirin as antiplatelet therapy and will need a cardiology consultation for further advice initiating these medications also to establish with a section leader and machine setter Will obtain an echocardiogram to assess left ventricular function Avoid overhydration and monitor fluid intake and output CXR : Clear Status: Chronic (2) DVT prophylaxis Status: Acute (3) Diabetes mellitus Narrative/Plan: Blood sugar is under reasonable control on insulin and metformin U/A was +ve for ketones : Blood ketones were positive but with normal Anion Gap ,most likely related to starvation and TPN started I will increase IV fluids today His Blood sugar control is adequate WBC count declined We will continue blood sugar monitoring and insulin sliding scale Status: Acute (4) History of colon cancer Narrative/Plan: reated and in remission since 1997 Status: Resolved (5) History of prostate cancer Narrative/Plan: Status post seed radiation therapy in remission Status: Resolved (6) Hypertension Narrative/Plan: Under good control We will continue current therapy Status: Acute (7) Status post cholecystectomy Narrative/Plan: Postoperative day 4 after open cholecystectomy Found to have madisyn- gastric fistula and adhesions status post lysis Blood ketones were positive but with normal Anion Gap ,most likely related to starvation and TPN started I will increase IV fluids today His Blood sugar control is adequate WBC count declined TPN will be started Status: Acute (8) Leukoaraiosis Narrative/Plan: Etiology is probably reactive to surgery Need to rule out other etiologies like infection will get a urine analysis and a chest x-ray he is currently on Rocephin and Flagyl as antibiotics CXR : Negative U/A : ? UTI , on appropriate AB's urine for C/S : Pending results Status: Acute Plan: Blood ketones were positive but with normal Anion Gap ,most likely related to starvation and TPN started I will increase IV fluids today His Blood sugar control is adequate WBC count declined Propably ketones are related to no nutrition TPN started will f/u
--- NOTE | 2016-10-20 15:09 | CONS ---
CONSULTATION DATE OF SERVICE: 10/20/2016 REASON FOR CONSULTATION: Post cholecystectomy bile leak. HISTORY OF PRESENT ILLNESS: The patient is an 86-year-old pleasant white male who was admitted to the hospital with acute onset of severe epigastric pain and subsequently was diagnosed with cholelithiasis. 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 He underwent open cholecystectomy with repair of gastric fistula. He had a COURTNEY drain placed and postop day #2 he started having significant amount of bile drainage from the COURTNEY drain. He had a HIDA scan done yesterday that did show evidence of a bile leak and hence we are consulted for possible ERCP. The patient remains in the ICU. He denies any complaints. He still has some abdominal pain. Has an NG tube in place. Currently remains n.p.o. No fever, chills or night sweats. PAST MEDICAL HISTORY: Is significant for diabetes mellitus, hypertension, hypercholesterolemia, coronary artery disease. MEDICATIONS AT HOME: Glucophage, potassium chloride, Mevacor, Cozaar, Ativan, NovoLog, gabapentin, Lasix, Plavix, aspirin and Tylenol. ALLERGIES: None. SOCIAL HISTORY: No smoking or alcohol use. REVIEW OF SYSTEMS: CARDIOPULMONARY: No chest pain, shortness of breath. GENITOURINARY: No dysuria, no hematuria. MUSCULOSKELETAL: Unremarkable. SKIN: Unremarkable. ENDOCRINE; Unremarkable. PSYCHIATRIC: Unremarkable. NEUROLOGIC: Unremarkable. ENT: Vision unremarkable. CONSTITUTIONAL: No recent weight loss. PAST SURGICAL HISTORY: Colon cancer for which he underwent colon resection in 1997, history of prostate cancer treated by radiation, coronary artery disease status post stent placement. PHYSICAL EXAMINATION: He appears comfortable. No apparent distress. VITAL SIGNS: Stable. Blood pressure is 163/87, pulse rate 82, temperature 98.8. HEENT: Unremarkable. Conjunctivae pink. Sclerae anicteric. Oral cavity, no lesions. NECK: No JVD or lymph node enlargement. CHEST: Clear to auscultation. HEART: Regular rate and rhythm. ABDOMEN: Soft, it was slightly distended. There was tenderness at the site of surgery. Bowel sounds are positive. No organomegaly. EXTREMITIES: No pedal edema. SKIN: No rashes. NEURO: He is alert and oriented x3. No focal deficits. The COURTNEY drain in right lower quadrant had a total of 480 mL of the bile output in the last 24 hours. LABORATORY DATA: Labs from today, WBC 16.3, hemoglobin 8.3, platelets are normal. Basic metabolic panel is within normal limits. IMPRESSION: This is a patient who presented to the hospital with symptomatic cholelithiasis. He is status post open cholecystectomy and was noted to have cholecystogastric fistula for which he underwent repair of the gastric fistula as well as cholecystectomy. Presently in the ICU. Postop day #3. Has a COURTNEY drain in place which has significant bile leak and has approximately 480 mL of bilious material from the COURTNEY drain. HIDA scan done yesterday does confirm the presence of bile leak. The patient clinically remained stable. Presently on broad-spectrum antibiotics and doing well. RECOMMENDATIONS: I had a lengthy discussion with Dr. Arias about further management. At this time, given the recent surgery with repair of the cholecystogastric fistula, he may not be a candidate for an ERCP at this time. I will continue with conservative approach with broad-spectrum antibiotics and monitor the COURTNEY drain very closely. In the next 3-4 days if he continues to have a persistent drain, we can initially proceed with a Gastrografin scan to see if there is any evidence of leak at the site of the gastric fistula repair and if there is any concern ERCP safely at that time. We will follow him closely in the hospital setting. Thank you for the consultation. LIZETT / MARCO A: [phone] /
[2016-10-20] MEDS: HYDROmorphone 1 MG/ML 1 ML SYRINGE IVP PRN ×2 (15:56→23:37)
[2016-10-20 18:27] LABS: Glucose,Whole Blood 230 mg/dL (75-99)
[2016-10-20 23:49] LABS: Glucose,Whole Blood 217 mg/dL (75-99)
--- NOTE | 2016-10-21 03:19 | P.PN ---
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 Patient did well overnight no complaints. Still having bilious output out of his COURTNEY drain. No fevers or chills. He denies having any abdominal pain.resting well on floor out of ICU Objective - Vital Signs Vital signs: Vital Signs Temp 97.9 F 10/20/16 23:12 Pulse 78 10/20/16 23:12 Resp 16 10/20/16 23:12 BP 152/76 10/20/16 23:12 Pulse Ox 92 L 10/20/16 23:12 Intake & Output 10/20/16 10/20/16 10/21/16 06:59 18:59 06:59 Intake Total 1300 440 325 Output Total 995 590 820 Balance 305 -150 -495 Weight 73.2 kg 76.1 kg Intake: IV 1300 440 0.9 200 60 Lactated Ringers 1,000 ml 900 230 @ 40 mls/hr IV .Q24H G[facility]A Rx#:[id number] Magnesium Sulfate-D5w Pmx 100 100 1 gm In Dextrose/Water 1 100ml.bag @ 100 mls/hr IVPB Q1H G[facility]A Rx#: [id number] Potassium Phosphate 10 50 mmol In Sodium Chloride 0 .9% 100 ml @ 50 mls/hr IV ONCE ONE Rx#:[id number] metroNIDAZOLE-NS PMX 500 100 mg In Saline 1 100ml.bag @ 100 mls/hr IVPB Q8HR G[facility]A Rx#:[id number] Intake, IV Titration 325 Amount Lactated Ringers 1,000 ml 250 @ 100 mls/hr IV .Q10H ONE Rx#:[id number] Mvi, Adult No.4 with Vit 75 K 10 ml Trace (Conc-1Ml/ Dose) 1 ml In Amino Acid 5%-D15w+Lytes*E* 1,000 ml @ 100 mls/hr IV .BY DURATION GHAZALA Rx#: [id number] Output: Drainage 430 240 120 Right Abdomen 430 240 120 Urine 565 350 700 Other: Voiding Method Indwelling Catheter Indwelling Catheter Indwelling Catheter - Constitutional General appearance: Present: cooperative, no acute distress - EENT Eyes: Present: PERRLA - Respiratory Details: CTA B - Cardiovascular Rhythm: regular - Gastrointestinal Gastrointestinal Comment(s): S/NT/ND incisions C/D/I COURTNEY drain is bilious output - Integumentary Integumentary: Absent: calor, cellulitis, cyanotic - Psychiatric Psychiatric: Present: A&O x's 3 - Labs CBC & Chem 7: 10/20/16 04:15 10/20/16 04:15 Labs: Abnormal Lab Results - Last 24 Hours (Table) 10/20/16 10/20/16 10/20/16 Range/Units 04:15 04:15 05:41 WBC 16.3 H (3.8-10.6) k/uL RBC 2.69 L (4.30-5.90) m/uL Hgb 8.3 L (13.0-17.5) gm/dL Hct 25.7 L (39.0-53.0) % Neutrophils # 14.5 H (1.3-7.7) k/uL Carbon Dioxide 21 L (22-30) mmol/L Creatinine 0.60 L (0.66-1.25) mg/dL Glucose 160 H (74-99) mg/dL POC Glucose (mg/dL) 148 H (75-99) mg/dL Calcium 8.3 L (8.4-10.2) mg/dL Phosphorus 2.3 L (2.5-4.5) mg/dL Delta Bilirubin 0.3 H (0.0-0.2) mg/dL Total Protein 5.0 L (6.3-8.2) g/dL Albumin 2.4 L (3.5-5.0) g/dL 10/20/16 10/20/16 10/20/16 Range/Units 13:24 18:24 23:32 WBC (3.8-10.6) k/uL RBC (4.30-5.90) m/uL Hgb (13.0-17.5) gm/dL Hct (39.0-53.0) % Neutrophils # (1.3-7.7) k/uL Carbon Dioxide (22-30) mmol/L Creatinine (0.66-1.25) mg/dL Glucose (74-99) mg/dL POC Glucose (mg/dL) 180 H 230 H 217 H (75-99) mg/dL Calcium (8.4-10.2) mg/dL Phosphorus (2.5-4.5) mg/dL Delta Bilirubin (0.0-0.2) mg/dL Total Protein (6.3-8.2) g/dL Albumin (3.5-5.0) g/dL Microbiology - Last 24 Hours (Table) 10/19/16 13:39 Urine Culture - Preliminary Urine,Catheterized Assessment and Plan Plan: Assessment and plan: Postop day 4 from 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 Will consider gastrographin upper GI today. Cont COURTNEY/NGT/IV ABX Continue TPN
[2016-10-21] MEDS: INSULIN LISPRO (humaLOG) 300 UNIT/3 ML VIAL SQ SCH ×3 (05:56→18:13)
[2016-10-21 06:06] LABS: Glucose,Whole Blood 237 mg/dL (75-99)
[2016-10-21 07:02] LABS: CH 30.3; CHCM 31.3; HCT 27.2 % (39.0-53.0); HDW 2.53; HGB 8.6 gm/dL (13.0-17.5); Hypochromasia Slight; MCH 30.7 pg (25.0-35.0); MCHC 31.6 g/dL (31.0-37.0); MCV 97.2 fL (80.0-100.0); Mean Platelet Volume 7.1; RDW 12.8 % (11.5-15.5); WBC 10.5 k/uL (3.8-10.6)
[2016-10-21 07:16] LABS: ALT 39 U/L (21-72); AST 22 U/L (17-59); Alkaline Phosphatase 57 U/L (38-126); Anion Gap 7 mmol/L; Bilirubin, Delta 0.2 mg/dL (0.0-0.2); Blood Urea Nitrogen 14 mg/dL (9-20); Calcium 8.4 mg/dL (8.4-10.2); Carbon Dioxide 29 mmol/L (22-30); Chloride 104 mmol/L (98-107); Glucose 233 mg/dL (74-99); Non-African American GFR(MDRD) >60 (>60 ml/min/1.73 sqM); Phosphorous 2.2 mg/dL (2.5-4.5); Potassium 3.9 mmol/L (3.5-5.1); Sodium 140 mmol/L (137-145); Total Bilirubin 0.3 mg/dL (0.2-1.3); Total Protein 4.9 g/dL (6.3-8.2)
[2016-10-21] MEDS: HYDROmorphone 1 MG/ML 1 ML SYRINGE IVP PRN ×2 (08:44→16:18)
[2016-10-21] MEDS: HEPARIN SODIUM,PORCINE 5,000 UNIT/ML 1 ML VIAL SQ SCH ×2 (08:49→16:10)
[2016-10-21] MEDS: PANTOPRAZOLE 40 MG/10 ML VIAL IV SCH (08:50)
[2016-10-21] MEDS: metroNIDAZOLE-NS PMX 500 MG in SALINE 1 100ML.BAG IVPB SCH ×2 (08:50→16:18)
[2016-10-21] MEDS: FLUCONAZOLE IN NACL,ISO-OSM 400 MG in SALINE 1 200ML.BAG IVPB SCH (10:30)
--- NOTE | 2016-10-21 10:54 | P.PN ---
Subjective This is a pleasant 86-year-old gentleman with history of gallstone disease and cholecystitis was brought in for surgery. He has been nothing by mouth with an NG tube. Cardiology was consulted for blood pressure control. He was started on clonidine patch and blood pressure is better controlled 140s to 150 systolic. Upon examination he is resting in bed he denies current complaints of chest discomfort. Denies shortness of breath or chest pain. Objective - Vital Signs Vital signs: Vital Signs Temp 98.1 F 10/21/16 07:00 Pulse 96 10/21/16 07:00 Resp 16 10/21/16 07:00 BP 155/74 10/21/16 07:00 Pulse Ox 92 L 10/21/16 07:00 Intake & Output 10/20/16 10/21/16 10/21/16 18:59 06:59 18:59 Intake Total 440 325 Output Total 590 1390 Balance -150 -1065 Weight 76.1 kg Intake: IV 440 0.9 60 Lactated Ringers 1,000 ml 230 @ 40 mls/hr IV .Q24H [facility] Rx#:[id number] Magnesium Sulfate-D5w Pmx 100 1 gm In Dextrose/Water 1 100ml.bag @ 100 mls/hr IVPB Q1H [facility] Rx#: [id number] Potassium Phosphate 10 50 mmol In Sodium Chloride 0 .9% 100 ml @ 50 mls/hr IV ONCE ONE Rx#:[id number] Intake, IV Titration 325 Amount Lactated Ringers 1,000 ml 250 @ 100 mls/hr IV .Q10H ONE Rx#:[id number] Mvi, Adult No.4 with Vit 75 K 10 ml Trace (Conc-1Ml/ Dose) 1 ml In Amino Acid 5%-D15w+Lytes*E* 1,000 ml @ 100 mls/hr IV .BY DURATION GHAZALA Rx#: [id number] Oral 0 Output: Gastric Drainage 50 Drainage 240 240 Right Abdomen 240 240 Urine 350 1100 Other: Voiding Method Indwelling Catheter Indwelling Catheter - Exam PHYSICAL EXAMINATION: HEENT: Head is atraumatic, normocephalic. Pupils equal, round. Neck is supple. There is no elevated jugular venous pressure. HEART EXAMINATION: Heart sounds regular, S1 and S2 normal. No murmur or gallop heard. CHEST EXAMINATION: Lungs are clear to auscultation and precussion. No chest wall tenderness is noted on palpation or with deep breathing. ABDOMEN: Soft, nontender. Bowel sounds are hypoactive. No organomegaly noted. COURTNEY drain and NG tube noted. EXTREMITIES: 2+ peripheral pulses with no evidence of peripheral edema and no calf tenderness noted. NEUROLOGIC patient is awake, alert and oriented x3. . - Labs CBC & Chem 7: 10/21/16 06:23 10/21/16 06:23 Labs: Abnormal Lab Results - Last 24 Hours (Table) 10/20/16 10/20/16 10/20/16 Range/Units 13:24 18:24 23:32 RBC (4.30-5.90) m/uL Hgb (13.0-17.5) gm/dL Hct (39.0-53.0) % Creatinine (0.66-1.25) mg/dL Glucose (74-99) mg/dL POC Glucose (mg/dL) 180 H 230 H 217 H (75-99) mg/dL Phosphorus (2.5-4.5) mg/dL Total Protein (6.3-8.2) g/dL Albumin (3.5-5.0) g/dL 10/21/16 10/21/16 10/21/16 Range/Units 05:52 06:23 06:23 RBC 2.80 L (4.30-5.90) m/uL Hgb 8.6 L (13.0-17.5) gm/dL Hct 27.2 L (39.0-53.0) % Creatinine 0.60 L (0.66-1.25) mg/dL Glucose 233 H (74-99) mg/dL POC Glucose (mg/dL) 237 H (75-99) mg/dL Phosphorus 2.2 L (2.5-4.5) mg/dL Total Protein 4.9 L (6.3-8.2) g/dL Albumin 2.4 L (3.5-5.0) g/dL Microbiology - Last 24 Hours (Table) 10/19/16 13:39 Urine Culture - Preliminary Urine,Catheterized Assessment and Plan Plan: Assessment and plan #1 history of CAD status post coronary stenting 15 years ago #2 hypertension #3 diabetes #4 status post cholecystectomy gastric fistula repair with cholecystectomy From cardiology's perspective, continue clonidine patch will patient is nothing by mouth. Once patient is able to take oral we will see resume his home medications. 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 Patient was seen and examined.
[2016-10-21] MEDS ORDERED: POTASSIUM PHOSPHATE 10 MMOL in SODIUM CHLORIDE 0.9% 250 ML IV ONE (11:00)
[2016-10-21] MEDS: MAGNESIUM SULFATE-D5W PMX 1 GM in DEXTROSE/WATER 1 100ML.BAG IVPB SCH ×2 (12:24→13:20)
[2016-10-21] MEDS: FAT EMULSION 20% 250 ML IV SCH (12:45)
[2016-10-21 12:46] LABS: Glucose,Whole Blood 248 mg/dL (75-99)
--- NOTE | 2016-10-21 14:20 | ECHOF ---
Referral Reason:cad, htn MEASUREMENTS -------- HEIGHT: 177.8 cm WEIGHT: 75.7 kg BP: 136/76 RVIDd: 3.2 cm (< 3.3) IVSd: 0.9 cm (0.6 - 1.1) LVIDd: 3.9 cm (3.9 - 5.3) LVPWd: 1.2 cm (0.6 - 1.1) EDV(Teich): 66 ml IVSs: 1.4 cm LVIDs: 2.3 cm LVPWs: 1.7 cm %IVS Thck: 54 % ESV(Teich): 17 ml EF(Teich): 74 % %FS: 42 % SV(Teich): 49 ml LA Diam: 3.1 cm (2.7 - 3.8) LALs A4C: 5.8 cm LAAs A4C: 20.2 cm LAESV A-L A4C: 60 ml LAESV MOD A4C: 55 ml LALs A2C: 5.8 cm LAAs A2C: 17.4 cm LAESV A-L A2C: 45 ml LAESV MOD A2C: 42 ml LAESV(A-L): 52 ml LAESV Index (A-L): 26.66 ml/m Ao Diam: 3.4 cm (2.0 - 3.7) AV Cusp: 1.8 cm (1.5 - 2.6) MV EXCURSION: 15.488 mm (> 18.000) MV EF SLOPE: 46 mm/s (70 - 150) EPSS: 0.8 cm MV E Franky: 0.67 m/s MV DecT: 416 ms MV Dec Dillingham: 1.6 m/s MV A Franky: 1.03 m/s MV E/A Ratio: 0.65 MV PHT: 121 ms E/E': 9.64 E': 0.07 m/s AV Vmax: 1.52 m/s AV maxP.25 mmHg TR Vmax: 2.56 m/s TR maxP.23 mmHg RAP: 5.00 mmHg RVSP: 31.23 mmHg FINDINGS -------- Sinus rhythm. This was a technically good study. The left ventricular size is normal. There is borderline concentric left ventricular hypertrophy. Overall left ventricular systolic function is normal with, an EF between 55 - 60 %. The right ventricle is normal in size and function. Normal LA size by volume 22+/-6 ml/m2. The right atrium is normal in size. The aortic valve was not well visualized. Mild mitral regurgitation is present. Mild tricuspid regurgitation present. Right ventricular systolic pressure is normal at < 35 mmHg. The pulmonic valve was not well visualized. The aortic root size is normal. There is no pericardial effusion. CONCLUSIONS -------- 1. Sinus rhythm. 2. Mild mitral regurgitation is present. 3. Mild tricuspid regurgitation present. 4. Right ventricular systolic pressure is normal at < 35 mmHg. 5. The pulmonic valve was not well visualized. 6. The aortic root size is normal. 7. There is no pericardial effusion. 8. This was a technically good study. 9. The left ventricular size is normal. 10. There is borderline concentric left ventricular hypertrophy. 11. Overall left ventricular systolic function is normal with, an EF between 55 - 60 %. 12. The right ventricle is normal in size and function. 13. Normal LA size by volume 22+/-6 ml/m2. 14. The right atrium is normal in size. 15. The aortic valve was not well visualized. AUT[employer]BI[employer] BODY REPAIRER HELPER: Alina Perez RDCS
[2016-10-21] MEDS: 1: AMINO ACID 5%-D15W+LYTES*E* 1,000 ML 2: MVI, ADULT NO.4 WITH VIT K 10 ML, TRACE (CON IV SCH ×3 (14:39)
--- NOTE | 2016-10-21 15:13 | P.PN ---
Subjective This is an 86-year-old male patient who presented to the emergency department approximately one week ago complaining of abdominal pain and nausea. The patient's pain was mostly in the right upper quadrant. On examination the patient was quite benign and she end up tolerating clear liquids well without any change in his bowel habits. Further investigation within ultrasound of the abdomen showed gallstones and mild gallbladder wall thickening without any pericholecystic fluid or evidence of inflammation. As such the patient was seen by general surgery and he was thought to have symptomatic cholelithiasis. The patient was started on medical treatment with antibiotics and the patient was discharged home, and the patient was brought back today for a cholecystectomy which turned out to be an open cholecystectomy. Postop, the patient was moved to the intensive care unit for further monitoring. He is awake. He is alert. He has a COURTNEY drain in the right upper quadrant. A Levy catheter is to be inserted. Hemodynamically stable. The patient was seen again today 10/18/2016 in follow-up in the intensive care unit. He is awake and alert in no acute distress. He is status post laparoscopic cholecystectomy converted to open cholecystectomy, extensive lysis of adhesions, repair of gastrotomy with a modified Fareed patch. This is postoperative day #1. He is currently sitting up in the chair at the bedside. He denies any worsening shortness of breath, cough or congestion. His chest x- ray does show bilateral lower lobe subsegmental atelectasis with tiny effusions. There is also some subcutaneous emphysema on the left with no sizable pneumothorax. He is maintaining good O2 saturations in the mid 90s on 3 L/m per nasal cannula. He is afebrile. Hemodynamically stable. His abdominal dressing is dry and intact. The COURTNEY drain remains in place and there is some bile colored fluid noted in it. On 10/19/2016 the patient is being seen in follow-up. The patient is post open cholecystectomy, lysis of adhesions, repair of a gastric wall with a modified Fareed patch. The patient is postop day #2. The COURTNEY drain is putting out bilious material and this has been confirmed on several occasions. Based on this a biliary leak is suspected. Despite this, the liver function tests remains within normal limits. The patient is not acting toxic. No nausea no vomiting. NG tube is in place and output is minimal. No flatus or bowel movements yet. No abdominal pain or distention. No tenderness. The patient had some limited change in mental status yesterday however this morning it is much more alert and awake. The patient is also receiving Dilaudid for pain control. The patient is on combination of Rocephin and Flagyl. The patient is hemodynamically stable. The patient experienced some lower urine output earlier which improved with fluids and the patient was given a total of 2 L of IV fluid boluses yesterday. He is on a lactated Ringer solution. On 10/20/2016 the patient is being seen in follow-up. The patient has post open cholecystectomy and the patient is postop day #3. There is an obvious biliary leak as the patient has produced around 480 mL of drainage since yesterday from the COURTNEY drain. The HIDA scan was completed and there is evidence of tracer uptake within the COURTNEY drain consistent with a biliary leak. Gen. surgery and gastroesophageal are both aware. ERCP will be indicated later stage once the patient is further recovered and the Fareed patch that was placed on the stomach is well-healed. The patient has an NG tube in place. Output is minimal. Liver function tests are not elevated. A triple lumen catheter was inserted and the patient was started on a TPN for nutritional support. Electrodes are all stable. Function is stable. The patient is afebrile. The patient is covered with broad-spectrum antibiotics with a combination of Rocephin, metronidazole and Diflucan. No bowel activity yet. Urine output is adequate for now. The patient is also on IV fluids with lactated Ringer at the rate of 75 mL an hour. On 10/21/2016 the patient is postop day #4. She is on TPN for nutritional support. His COURTNEY drain is still draining bilious material in the order of 400 mL and this is considered to be consistent with biliary leak. No abdominal distention. No abdominal pain. No flatus. NG tube is in place. Resting comfortably in the chair. No nausea. No change in mental status to no fever or chills. He is on IV fluids lactated Ringer at the rate of 40 mL an hour. Objective - Vital Signs Vital signs: Vital Signs Temp 98.1 F 10/21/16 07:00 Pulse 100 10/21/16 08:00 Resp 16 10/21/16 08:00 BP 155/74 10/21/16 07:00 Pulse Ox 92 L 10/21/16 07:00 Intake & Output 10/20/16 10/21/16 10/21/16 18:59 06:59 18:59 Intake Total 440 325 500 Output Total 590 1390 175 Balance -150 -1065 325 Weight 76.1 kg Intake: IV 440 500 0.9 60 200 Lactated Ringers 1,000 ml 230 100 @ 40 mls/hr IV .Q24H [facility] Rx#:[id number] Magnesium Sulfate-D5w Pmx 100 1 gm In Dextrose/Water 1 100ml.bag @ 100 mls/hr IVPB Q1H [facility] Rx#: [id number] Potassium Phosphate 10 50 mmol In Sodium Chloride 0 .9% 100 ml @ 50 mls/hr IV ONCE ONE Rx#:[id number] cefTRIAXone 1,000 mg In 100 Sodium Chloride 0.9% 50 ml @ 100 mls/hr IVPB Q24HR [facility] Rx#:[id number] metroNIDAZOLE-NS PMX 500 100 mg In Saline 1 100ml.bag @ 100 mls/hr IVPB Q8HR [facility] Rx#:[id number] Intake, IV Titration 325 Amount Lactated Ringers 1,000 ml 250 @ 100 mls/hr IV .Q10H ONE Rx#:[id number] Mvi, Adult No.4 with Vit 75 K 10 ml Trace (Conc-1Ml/ Dose) 1 ml In Amino Acid 5%-D15w+Lytes*E* 1,000 ml @ 100 mls/hr IV .BY DURATION [facility]A Rx#: [id number] Oral 0 0 Output: Gastric Drainage 50 Drainage 240 240 175 Right Abdomen 240 240 175 Urine 350 1100 Other: Voiding Method Indwelling Catheter Indwelling Catheter Indwelling Catheter - Exam Head exam was generally normal. There was no scleral icterus or corneal arcus. Mucous membranes were moist.Neck was supple and without jugular venous distension, thyromegaly, or carotid bruits. Carotids were easily palpable bilaterally. There was no adenopathy. Lung sounds are diminished otherwise clear.Lungs were clear to auscultation and percussion, and with normal diaphragmatic excursion. No wheezes or rales were noted. Cardiac exam revealed the PMI to be normally situated and sized. The rhythm was regular and no extrasystoles were noted during several minutes of auscultation. The first and second heart sounds were normal and physiologic splitting of the second heart sound was noted. There were no murmurs, rubs, clicks, or gallops. Abdomen is soft. No direct tenderness no rebound tenderness. No guarding. Bowel sounds are hypoactive. COURTNEY drain is in place. Output has been about 480 mL from the COURTNEY drain.. Bowel sounds are hypoactive.Examination of the extremities revealed easily palpable radial, femoral and pedal pulses. There was no cyanosis, clubbing or edema. Neurologically the patient is or 0A3 and there is no focal neurological deficit. - Labs CBC & Chem 7: 10/21/16 06:23 10/21/16 06:23 Labs: Abnormal Lab Results - Last 24 Hours (Table) 10/20/16 10/20/16 10/21/16 Range/Units 18:24 23:32 05:52 RBC (4.30-5.90) m/uL Hgb (13.0-17.5) gm/dL Hct (39.0-53.0) % Creatinine (0.66-1.25) mg/dL Glucose (74-99) mg/dL POC Glucose (mg/dL) 230 H 217 H 237 H (75-99) mg/dL Phosphorus (2.5-4.5) mg/dL Total Protein (6.3-8.2) g/dL Albumin (3.5-5.0) g/dL 10/21/16 10/21/16 10/21/16 Range/Units 06:23 06:23 12:40 RBC 2.80 L (4.30-5.90) m/uL Hgb 8.6 L (13.0-17.5) gm/dL Hct 27.2 L (39.0-53.0) % Creatinine 0.60 L (0.66-1.25) mg/dL Glucose 233 H (74-99) mg/dL POC Glucose (mg/dL) 248 H (75-99) mg/dL Phosphorus 2.2 L (2.5-4.5) mg/dL Total Protein 4.9 L (6.3-8.2) g/dL Albumin 2.4 L (3.5-5.0) g/dL Microbiology - Last 24 Hours (Table) 10/19/16 13:39 Urine Culture - Final Urine,Catheterized Assessment and Plan Plan: Assessment 1 symptomatic cholelithiasis, status post open cholecystectomy and the patient is postop day #4. 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 NG tube is in place. The HIDA scan is considerable biliary leak. ERCP Will follow at the later stage. Despite the biliary, the patient is hemodynamically stable, no signs of any toxicity or abdominal pain or into abdominal sepsis at this point. Surgical wound site is clean. The patient is being followed up by general surgery. The patient on a surgical floor. He got moved out of the intensive care unit yesterday. 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 14 TPN for nutritional support Plan Continue IV fluids with lactated Ringer at the rate of 40mL an hour. Continue Rocephin, Flagyl and Diflucan. Keep the NG tube in place. Continue TPN for nutritional support. Monitor electrolytes. Monitor hemodynamics. Incentive spirometer. ERCP at a later stage. We'll follow.
--- NOTE | 2016-10-21 16:01 | PN ---
PROGRESS NOTE REQUESTING PHYSICIAN: Dr. 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 He has a COURTNEY drain in place that as having significant bile leak for the last 2 days. In the last 24 hours the total output was 480 mL. He does complain of some abdominal pain. He reports no fever, chills or night sweats. PHYSICAL EXAMINATION: Appears comfortable in no apparent distress. VITAL SIGNS: Stable. Blood pressure is 152/76, pulse is 78, temperature 97.9. HEENT examination is unremarkable. Conjunctivae pink. Sclerae anicteric. Oral cavity no lesions. Neck: No jugular venous distention or lymph node enlargement. Chest was clear to auscultation. HEART: Regular rate and rhythm. ABDOMEN: Soft. Tenderness in right upper quadrant. Bowel sounds are positive. No organomegaly. EXTREMITIES: No pedal edema. SKIN: No rashes. NEUROLOGIC: Alert and oriented x3. No focal deficits. LAB: WBC 10.5, hemoglobin 8.6, platelets are 416, AST, ALT and T bilirubin and alkaline phosphatase are within normal limits. 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 He has been having significant amount of bile leak and in the last 24 hours had approximately 480 mL of bilious material through the COURTNEY drain. He did have a HIDA scan that confirmed the presence of bile leak. Remains on broad-spectrum antibiotics and clinically is doing well and recovering gradually. RECOMMENDATIONS: 1. Continue with symptomatic and supportive care. 2. Continue antibiotics. 3. We will discuss with Dr. Saez tomorrow regarding further management. I think it would be appropriate to obtain an upper GI series/Gastrografin study to ensure complete healing of the gastric fistula prior proceeding to proceeding with an ERCP. For now we will follow him closely. Thank you for this consultation. MMODL / IJN: [id number] /
--- NOTE | 2016-10-21 16:05 | P.PN ---
Subjective Principal diagnosis: Diabetes &Medical management post cholecystectomy Day 6 Post Op Visit s/p Open cholecystectomy and adhesions lysis Alert ,complaining of incisional abdomenal pain. No reported fever,chills,chest pain or SOB.No arrhythmias on the monitor The COURTNEY drain is putting out bilious material with biliary leak. No toxic symptoms . He on TPN for nutritional support. His COURTNEY drain is still draining bilious material in the order of 400 mL and this is considered to be consistent with biliary leak. No abdominal distention. No abdominal pain. No flatus. NG tube is in place. Resting comfortably in the chair. No nausea. No change in mental status to no fever or chills. He is on IV fluids lactated Ringer at the rate of 40 mL an hour. The patient is on combination of Rocephin and Flagyl. His I/O's , medications and labs were reviewed U/A suggested ? UTI and +ve Ketones Blood ketones were positive but with normal Anion Gap ,most likely related to starvation and TPN started Still on IV fluids today His Blood sugar control is adequate but higher than yesterday due to TPN WBC count normalized In summary , he is an 86-year-old male with past medical history significant for coronary artery disease status post stents under f/u in [place] , colon cancer 1997, and prostate cancer s/p seed radiation therapy. Patient is currently seen in the intensive care unit post open cholecystectomy medicine one was consult for diabetes management. Patient history goes back to one week ago when he presented to [facility] with acute complaint of abdominal pain he He was evaluated by general surgery who recommended laparoscopic cholecystectomy. However, in the OR patient was found to have a lot of adhesions from prior surgeries for which it was converted to open cholecystectomy and adhesolysis. Surgery seems to be uneventful with no immediate complications observed. Patient was admitted to the intensive care unit for closer monitoring post surgery. Patient is currently seen in the intensive care unit and he reports that he feels better today with some abdomenal pain . Otherwise patient is denying any chest pain or trouble breathing reports some abdominal pain at site of surgery. Patient is also complaining of discomfort due to the NG tube. Patient did not have advanced directives or a wishing well, however he was able to name his daughter Hollie Tazewell to be has a advocating case he loses the capacity of making decisions. Patient condition was discussed with his nurse, case was also discussed with the patient. Review of Systems Constitutional: Patient reports no fever, no chills Eyes: Patient reports no visual changes, no eye pain ENT: Patient reports no ear pain. admits to chronic decrease hearing , now with sore throat and irritation from NGtube Cardiovascular: Patient reports no chest pain, no exertional dyspnea, no peripheral leg edema, no orthopnea Respiratory:Patient reports no cough, no wheezing, no shortness of breath Gastrointestinal: Patient reports no diarrhea, no constipation Genitourinary: Patient reports no dysuria, no hematuria. but admits to frequent urination Musculoskeletal: Patient reports no muscle pain, no joint pain Endocrine: Patient reports no heat intolerance, no cold intolerance, no excessive thirst Neurological: Patient reports no focal neurologic deficits, no weakness, no numbness, no tingling Hem/Lymphatic: Patient reports no bleeding tendency, no bruising, no swollen lymph glands Allergic/Immun: Patient reports no recent allergic reactions Skin: Patient reports no rashes, no pruritis, no ulcers Objective - Vital Signs Vital signs: Vital Signs Temp 98.1 F 10/21/16 07:00 Pulse 100 10/21/16 08:00 Resp 16 10/21/16 08:00 BP 155/74 10/21/16 07:00 Pulse Ox 92 L 10/21/16 07:00 Intake & Output 10/20/16 10/21/16 10/21/16 18:59 06:59 18:59 Intake Total 440 325 500 Output Total 590 1390 225 Balance -150 -1065 275 Weight 76.1 kg Intake: IV 440 500 0.9 60 200 Lactated Ringers 1,000 ml 230 100 @ 40 mls/hr IV .Q24H GHAZALA Rx#:[id number] Magnesium Sulfate-D5w Pmx 100 1 gm In Dextrose/Water 1 100ml.bag @ 100 mls/hr IVPB Q1H GHAZALA Rx#: [id number] Potassium Phosphate 10 50 mmol In Sodium Chloride 0 .9% 100 ml @ 50 mls/hr IV ONCE ONE Rx#:[id number] cefTRIAXone 1,000 mg In 100 Sodium Chloride 0.9% 50 ml @ 100 mls/hr IVPB Q24HR GHAZALA Rx#:[id number] metroNIDAZOLE-NS PMX 500 100 mg In Saline 1 100ml.bag @ 100 mls/hr IVPB Q8HR G[facility]A Rx#:[id number] Intake, IV Titration 325 Amount Lactated Ringers 1,000 ml 250 @ 100 mls/hr IV .Q10H ONE Rx#:[id number] Mvi, Adult No.4 with Vit 75 K 10 ml Trace (Conc-1Ml/ Dose) 1 ml In Amino Acid 5%-D15w+Lytes*E* 1,000 ml @ 100 mls/hr IV .[facility] Rx#: [id number] Oral 0 0 Output: Gastric Drainage 50 Drainage 240 240 225 Right Abdomen 240 240 225 Urine 350 1100 Other: Voiding Method Indwelling Catheter Indwelling Catheter Indwelling Catheter - Exam Constitutional: No acute distress, conversant, pleasant Eyes: Anicteric sclerae, moist conjunctiva, no lid-lag PERRLA ENMT: NC/AT Oropharynx clear, no erythema, exudates Neck: Supple, FROM, no masses, or JVD No carotid bruits No thyromegaly Lungs:Clear to auscultion Clear to percussion Normal respiratory effort, no accessory muscle use Cardiovascular:Heart regular in rate and rhythm, No murmurs, gallops, or rubs No peripheral edema Abdominal: tender at site of Sx , no guarding, rebound or rigidity Abdomen moving with respiration. Diminished bowel sounds No hepatomegaly, No splenomegaly No palpable mass No abdominal wall hernia noted COURTNEY drain : significant Bile drainage Skin: Normal temperature, tone, texture, turgor No induration No subcutaneous nodules No rash, lesions No ulcers Extremities: No digital cyanosis No clubbing Pedal pulses intact and symmetrical Radial pulses intact and symmetrical Normal gait and station No calf tenderness Psychiatric: Alert and oriented to person, place and time Appropriate affect Intact judgement Neuro: Muscles Strength 5/5 in all 4 extremities Sensation to light touch grossly present throughout Cranial nerves II-XII grossly intact No focal sensory deficits - Labs CBC & Chem 7: 10/21/16 06:23 10/21/16 06:23 Labs: Abnormal Lab Results - Last 24 Hours (Table) 10/20/16 10/20/16 10/21/16 Range/Units 18:24 23:32 05:52 RBC (4.30-5.90) m/uL Hgb (13.0-17.5) gm/dL Hct (39.0-53.0) % Creatinine (0.66-1.25) mg/dL Glucose (74-99) mg/dL POC Glucose (mg/dL) 230 H 217 H 237 H (75-99) mg/dL Phosphorus (2.5-4.5) mg/dL Total Protein (6.3-8.2) g/dL Albumin (3.5-5.0) g/dL 10/21/16 10/21/16 10/21/16 Range/Units 06:23 06:23 12:40 RBC 2.80 L (4.30-5.90) m/uL Hgb 8.6 L (13.0-17.5) gm/dL Hct 27.2 L (39.0-53.0) % Creatinine 0.60 L (0.66-1.25) mg/dL Glucose 233 H (74-99) mg/dL POC Glucose (mg/dL) 248 H (75-99) mg/dL Phosphorus 2.2 L (2.5-4.5) mg/dL Total Protein 4.9 L (6.3-8.2) g/dL Albumin 2.4 L (3.5-5.0) g/dL Microbiology - Last 24 Hours (Table) 10/19/16 13:39 Urine Culture - Final Urine,Catheterized Assessment and Plan (1) CAD (coronary artery disease) Narrative/Plan: Normal CAD status post stents 12 years ago on the floor by a science specialist in [place] He was on Plavix and aspirin as antiplatelet therapy and will need a cardiology consultation for further advice initiating these medications also to establish with a science specialist Will obtain an echocardiogram to assess left ventricular function Avoid overhydration and monitor fluid intake and output CXR : Clear Status: Chronic (2) DVT prophylaxis Status: Acute (3) Diabetes mellitus Narrative/Plan: Blood sugar is under reasonable control on insulin and metformin U/A was +ve for ketones : Blood ketones were positive but with normal Anion Gap ,most likely related to starvation and TPN started I will increase IV fluids today His Blood sugar control is adequate WBC count declined We will continue blood sugar monitoring and insulin sliding scale Status: Acute (4) History of colon cancer Narrative/Plan: reated and in remission since 1997 Status: Resolved (5) History of prostate cancer Narrative/Plan: Status post seed radiation therapy in remission Status: Resolved (6) Hypertension Status: Acute (7) Status post cholecystectomy Narrative/Plan: Postoperative day 5 after open cholecystectomy Found to have madisyn- gastric fistula and adhesions status post lysis Blood ketones were positive but with normal Anion Gap ,most likely related to starvation and TPN started I will increase IV fluids today His Blood sugar control is adequate WBC count declined TPN was started Repeat s Ketones in am Status: Acute (8) Leukoaraiosis Narrative/Plan: Etiology is probably reactive to surgery Need to rule out other etiologies like infection will get a urine analysis and a chest x-ray he is currently on Rocephin and Flagyl as antibiotics CXR : Negative U/A : ? UTI , on appropriate AB's urine for C/S : Negative Resolved WBC is WNL today Status: Acute Plan: Blood ketones were positive but with normal Anion Gap ,most likely related to starvation and TPN started I will increase IV fluids today His Blood sugar control is adequate WBC count declined Propably ketones are related to no nutrition TPN started Bile leak ? need for ERCP : Under surghical Care will f/u Time with Patient: Less than 30
[2016-10-21 18:09] LABS: Glucose,Whole Blood 267 mg/dL (75-99)
[2016-10-21 18:45] LABS: Magnesium 2.2 mg/dL (1.6-2.3); Potassium 3.8 mmol/L (3.5-5.1)
[2016-10-22 00:23] LABS: Glucose,Whole Blood 236 mg/dL (75-99)
[2016-10-22] MEDS: HYDROmorphone 1 MG/ML 1 ML SYRINGE IVP PRN ×2 (00:25→15:15)
[2016-10-22] MEDS: metroNIDAZOLE-NS PMX 500 MG in SALINE 1 100ML.BAG IVPB SCH ×3 (00:39→15:07)
[2016-10-22] MEDS: LACTATED RINGERS 1,000 ML IV SCH ×2 (00:39→13:45)
[2016-10-22] MEDS: HEPARIN SODIUM,PORCINE 5,000 UNIT/ML 1 ML VIAL SQ SCH ×3 (00:42→15:07)
[2016-10-22] MEDS: INSULIN LISPRO (humaLOG) 300 UNIT/3 ML VIAL SQ SCH ×5 (00:47→23:55)
[2016-10-22 06:03] LABS: Glucose,Whole Blood 210 mg/dL (75-99)
[2016-10-22 07:41] LABS: ALT 27 U/L (21-72); AST 24 U/L (17-59); Alkaline Phosphatase 45 U/L (38-126); Anion Gap 4 mmol/L; Bilirubin, Delta 0.3 mg/dL (0.0-0.2); Blood Urea Nitrogen 14 mg/dL (9-20); Calcium 8.1 mg/dL (8.4-10.2); Carbon Dioxide 29 mmol/L (22-30); Chloride 105 mmol/L (98-107); Glucose 210 mg/dL (74-99); Non-African American GFR(MDRD) >60 (>60 ml/min/1.73 sqM); Sodium 138 mmol/L (137-145); Total Bilirubin 0.4 mg/dL (0.2-1.3); Total Protein 4.9 g/dL (6.3-8.2)
[2016-10-22] MEDS: MVI, ADULT NO.4 WITH VIT K 10 ML, TRACE (CONC-1ML/DOSE) 1 ML in AMINO ACID 5%-D15W+LYTE... IV SCH ×3 (07:45)
[2016-10-22] MEDS: PANTOPRAZOLE 40 MG/10 ML VIAL IV SCH (07:45)
[2016-10-22 07:46] LABS: Potassium 4.1 mmol/L (3.5-5.1)
[2016-10-22 08:26] LABS: Phosphorous 2.4 mg/dL (2.5-4.5)
[2016-10-22 08:27] LABS: Magnesium 2.1 mg/dL (1.6-2.3)
[2016-10-22] MEDS ORDERED: POTASSIUM PHOSPHATE 10 MMOL in SODIUM CHLORIDE 0.9% 100 ML IV ONE (09:02)
[2016-10-22] MEDS: FLUCONAZOLE IN NACL,ISO-OSM 400 MG in SALINE 1 200ML.BAG IVPB SCH (09:45)
--- NOTE | 2016-10-22 09:56 | P.PN ---
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 COURTNEY draining bilious fluid. Upper GI series completed this morning results are pending. COURTNEY output greater than 400 mL 24 hours. Minimal abdominal discomfort. Afebrile. LFTs stable. Total bilirubin 0.4. Objective - Vital Signs Vital signs: Vital Signs Temp 97.6 F 10/22/16 07:00 Pulse 80 10/22/16 07:00 Resp 18 10/22/16 07:00 BP 172/78 10/22/16 07:00 Pulse Ox 90 L 10/22/16 07:35 Intake & Output 10/21/16 10/22/16 10/22/16 18:59 06:59 18:59 Intake Total 500 900 Output Total 345 1795 Balance 155 -895 Weight 76.1 kg Intake: IV 500 420 0.9 200 Lactated Ringers 1,000 ml 100 320 @ 40 mls/hr IV .Q24H [facility]A Rx#:[id number] cefTRIAXone 1,000 mg In 100 Sodium Chloride 0.9% 50 ml @ 100 mls/hr IVPB Q24HR G[facility]A Rx#:[id number] metroNIDAZOLE-NS PMX 500 100 100 mg In Saline 1 100ml.bag @ 100 mls/hr IVPB Q8HR G[facility]A Rx#:[id number] Intake, IV Titration 480 Amount Mvi, Adult No.4 with Vit 480 K 10 ml Trace (Conc-1Ml/ Dose) 1 ml In Amino Acid 5%-D15w+Lytes*E* 1,000 ml @ 30 mls/hr IV .Q24H [facility]A Rx#:[id number] Oral 0 Output: Gastric Drainage 30 200 Drainage 315 245 Right Abdomen 315 245 Urine 1350 Other: Voiding Method Indwelling Catheter Indwelling Catheter # Bowel Movements 0 - Exam General appearance: The patient is alert, oriented, in no acute distress. HET: Head is normocephalic and atraumatic. Pupils are equal and reactive. Oropharynx is clear without lesions. NGT pale bilious watery fluid. Neck: Supple without lymphadenopathy. Trachea midline. Heart: S1 S2. Regular rate and rhythm. Lungs: CTA bilaterally fine bibasilar crackles. Abdomen: Soft, COURTNEY with bilious fluid. Chevron incision page without erythema drainage. Mild tender RUQ, nondistended with bowel sounds. No peritoneal signs. No palpable organomegaly or masses. Extremities: Normal skin color and turgor. No cyanosis, rash, ulceration, clubbing, or edema. Radial and pedal pulses are 2/4 bilaterally. Levy chase urine. Neurological: No focal deficits. Strength and sensation are grossly intact. - Labs CBC & Chem 7: 10/21/16 06:23 10/22/16 06:56 Labs: Abnormal Lab Results - Last 24 Hours (Table) 10/21/16 10/21/16 10/22/16 Range/Units 12:40 18:08 00:21 Creatinine (0.66-1.25) mg/dL Glucose (74-99) mg/dL POC Glucose (mg/dL) 248 H 267 H 236 H (75-99) mg/dL Calcium (8.4-10.2) mg/dL Phosphorus (2.5-4.5) mg/dL Delta Bilirubin (0.0-0.2) mg/dL Total Protein (6.3-8.2) g/dL Albumin (3.5-5.0) g/dL 10/22/16 10/22/16 10/22/16 Range/Units 06:00 06:56 06:56 Creatinine 0.51 L (0.66-1.25) mg/dL Glucose 210 H (74-99) mg/dL POC Glucose (mg/dL) 210 H (75-99) mg/dL Calcium 8.1 L (8.4-10.2) mg/dL Phosphorus 2.4 L (2.5-4.5) mg/dL Delta Bilirubin 0.3 H (0.0-0.2) mg/dL Total Protein 4.9 L (6.3-8.2) g/dL Albumin 2.3 L (3.5-5.0) g/dL Microbiology - Last 24 Hours (Table) 10/19/16 13:39 Urine Culture - Final Urine,Catheterized Assessment and Plan (1) Bile leak Narrative/Plan: Status post open cholecystectomy cholecystogastric fistula status post repair Status: Acute Plan: . Continue with IV antibiotics. 2. Repeat upper GI results and discuss with general surgery. Possible ERCP biliary stent placement 24-48 hours if no evidence of extravasation. Assessment and plan a care discussed with Dr. Zuluaga
--- NOTE | 2016-10-22 10:21 | XR ---
EXAMINATION TYPE: XR chest 1V DATE OF EXAM: 10/22/2016 COMPARISON: Prior chest x-ray 10/20/2016 HISTORY: Shortness of breath TECHNIQUE: Single frontal view of the chest is obtained. FINDINGS: Left subclavian central venous catheter is stable, distal tip overlying the region of the superior vena cava. NG tube is in place, distal tip is overlying the midline likely within the stomac h. Surgical page present in the right upper quadrant. There are overlying cardiac leads. No eviden t pneumothorax, blunting of the costophrenic angle likely indicative of a small right pleural effusio n. Cardiac mediastinal silhouette, pulmonary vascularity and corey are stable. IMPRESSION: Small right pleural effusion. Tube and line as described.
[2016-10-22] MEDS: NITROGLYCERIN OINT 1 INCH/GM PACKET TOPICAL SCH ×2 (10:46→16:13)
--- NOTE | 2016-10-22 10:54 | FL ---
EXAMINATION TYPE: FL UGI DATE OF EXAM: 10/22/2016 COMPARISON: NONE HISTORY: Stomach perforation TECHNIQUE: A single contrast UGI study is performed. FINDINGS: Esophagus dilates to normal caliber. Contrast extends to the stomach in a normal manner. Na sogastric tube is present. Stomach is incompletely distended. Some mild fold hypertrophy is not exclu ded. Some extravasation of contrast adjacent to the Kevin-Chávez drain appears to be present. This is bes t visualized image 17 and 18. Contrast passes into the duodenum without hesitancy. Overhead radiograph was obtained demonstrating contrast extending towards the gall bladder bed fossa region. Report was called to the floor by Dr. Mcclain by telephone 1040 hours 10/22/2016 IMPRESSIONS: 1. Extravasation of contrast in what appears to be the level of the duodenal bulb or distal antrum of the stomach adjacent to the COURTNEY drain. 2. No additional areas of contrast extravasation.
[2016-10-22] MEDS ORDERED: METHYLENE BLUE 10 MG/ML 1 ML VIAL IRRIGATION ONE (11:49)
[2016-10-22 12:49] LABS: Glucose,Whole Blood 255 mg/dL (75-99)
[2016-10-22] MEDS ORDERED: hydrALAZINE HCL 20 MG/ML 1 ML VIAL IVP PRN (12:57)
--- NOTE | 2016-10-22 13:12 | P.PN ---
Subjective Principal diagnosis: Diabetes &Medical management post cholecystectomy Day 6 Post Op Visit s/p Open cholecystectomy and adhesions lysis No reported fever,chills,chest pain or SOB.No arrhythmias on the monitor The COURTNEY drain is still draining bilious material with biliary leak. No toxic symptoms . He on TPN for nutritional support. No abdominal distention or pain. No flatus. NG tube is in place. No nausea/ vomitting No change in mental status to no fever or chills. The patient is on combination of Rocephin and Flagyl. His I/O's , medications and labs were reviewed U/A suggested ? UTI and +ve Ketones Blood ketones were positive but with normal Anion Gap ,most likely related to starvation and TPN started Still on IV fluids today at total 70 ml/hr His Blood sugar control is adequate ,on TPN WBC count normalized In summary , he is an 86-year-old male with past medical history significant for coronary artery disease status post stents under f/u in [place] , colon cancer 1997, and prostate cancer s/p seed radiation therapy. Patient is currently seen in the intensive care unit post open cholecystectomy medicine one was consult for diabetes management. Patient history goes back to one week ago when he presented to [facility] with acute complaint of abdominal pain he He was evaluated by general surgery who recommended laparoscopic cholecystectomy. However, in the OR patient was found to have a lot of adhesions from prior surgeries for which it was converted to open cholecystectomy and adhesolysis. Surgery seems to be uneventful with no immediate complications observed. Patient was admitted to the intensive care unit for closer monitoring post surgery. Patient is currently seen in the intensive care unit and he reports that he feels better today with some abdomenal pain . Otherwise patient is denying any chest pain or trouble breathing reports some abdominal pain at site of surgery. Patient is also complaining of discomfort due to the NG tube. Patient did not have advanced directives or a wishing well, however he was able to name his daughter Hollie Fremont to be has a advocating case he loses the capacity of making decisions. Patient condition was discussed with his nurse, case was also discussed with the patient. Review of Systems Constitutional: Patient reports no fever, no chills Eyes: Patient reports no visual changes, no eye pain ENT: Patient reports no ear pain. admits to chronic decrease hearing , now with sore throat and irritation from NGtube Cardiovascular: Patient reports no chest pain, no exertional dyspnea, no peripheral leg edema, no orthopnea Respiratory:Patient reports no cough, no wheezing, no shortness of breath Gastrointestinal: Patient reports no diarrhea, no constipation Genitourinary: Patient reports no dysuria, no hematuria. but admits to frequent urination Musculoskeletal: Patient reports no muscle pain, no joint pain Endocrine: Patient reports no heat intolerance, no cold intolerance, no excessive thirst Neurological: Patient reports no focal neurologic deficits, no weakness, no numbness, no tingling Hem/Lymphatic: Patient reports no bleeding tendency, no bruising, no swollen lymph glands Allergic/Immun: Patient reports no recent allergic reactions Skin: Patient reports no rashes, no pruritis, no ulcers Objective - Vital Signs Vital signs: Vital Signs Temp 97.9 F 10/22/16 09:00 Pulse 75 10/22/16 09:00 Resp 18 10/22/16 09:00 BP 176/93 10/22/16 09:00 Pulse Ox 96 10/22/16 09:00 Intake & Output 10/21/16 10/22/16 10/22/16 18:59 06:59 18:59 Intake Total 500 900 Output Total 345 1795 235 Balance 155 -895 -235 Weight 76.1 kg Intake: IV 500 420 0.9 200 Lactated Ringers 1,000 ml 100 320 @ 40 mls/hr IV .Q24H GHAZALA Rx#:[id number] cefTRIAXone 1,000 mg In 100 Sodium Chloride 0.9% 50 ml @ 100 mls/hr IVPB Q24HR G[facility]A Rx#:[id number] metroNIDAZOLE-NS PMX 500 100 100 mg In Saline 1 100ml.bag @ 100 mls/hr IVPB Q8HR G[facility]A Rx#:[id number] Intake, IV Titration 480 Amount Mvi, Adult No.4 with Vit 480 K 10 ml Trace (Conc-1Ml/ Dose) 1 ml In Amino Acid 5%-D15w+Lytes*E* 1,000 ml @ 30 mls/hr IV .Q24H GHAZALA Rx#:[id number] Oral 0 Output: Gastric Drainage 30 200 Drainage 315 245 235 Right Abdomen 315 245 235 Urine 1350 Other: Voiding Method Indwelling Catheter Indwelling Catheter Indwelling Catheter # Bowel Movements 0 - Exam Constitutional: No acute distress, conversant, pleasant Eyes: Anicteric sclerae, moist conjunctiva, no lid-lag PERRLA ENMT: NC/AT Oropharynx clear, no erythema, exudates Neck: Supple, FROM, no masses, or JVD No carotid bruits No thyromegaly Lungs:Clear to auscultion Clear to percussion Normal respiratory effort, no accessory muscle use Cardiovascular:Heart regular in rate and rhythm, No murmurs, gallops, or rubs No peripheral edema Abdominal: tender at site of Sx , no guarding, rebound or rigidity Abdomen moving with respiration. Diminished bowel sounds No hepatomegaly, No splenomegaly No palpable mass No abdominal wall hernia noted COURTNEY drain : significant Bile drainage Skin: Normal temperature, tone, texture, turgor No induration No subcutaneous nodules No rash, lesions No ulcers Extremities: No digital cyanosis No clubbing Pedal pulses intact and symmetrical Radial pulses intact and symmetrical Normal gait and station No calf tenderness Psychiatric: Alert and oriented to person, place and time Appropriate affect Intact judgement Neuro: Muscles Strength 5/5 in all 4 extremities Sensation to light touch grossly present throughout Cranial nerves II-XII grossly intact No focal sensory deficits - Labs CBC & Chem 7: 10/21/16 06:23 10/22/16 06:56 Labs: Abnormal Lab Results - Last 24 Hours (Table) 10/21/16 10/22/16 10/22/16 Range/Units 18:08 00:21 06:00 Creatinine (0.66-1.25) mg/dL Glucose (74-99) mg/dL POC Glucose (mg/dL) 267 H 236 H 210 H (75-99) mg/dL Calcium (8.4-10.2) mg/dL Phosphorus (2.5-4.5) mg/dL Delta Bilirubin (0.0-0.2) mg/dL Total Protein (6.3-8.2) g/dL Albumin (3.5-5.0) g/dL 10/22/16 10/22/16 10/22/16 Range/Units 06:56 06:56 12:45 Creatinine 0.51 L (0.66-1.25) mg/dL Glucose 210 H (74-99) mg/dL POC Glucose (mg/dL) 255 H (75-99) mg/dL Calcium 8.1 L (8.4-10.2) mg/dL Phosphorus 2.4 L (2.5-4.5) mg/dL Delta Bilirubin 0.3 H (0.0-0.2) mg/dL Total Protein 4.9 L (6.3-8.2) g/dL Albumin 2.3 L (3.5-5.0) g/dL Microbiology - Last 24 Hours (Table) 10/19/16 13:39 Urine Culture - Final Urine,Catheterized Assessment and Plan (1) CAD (coronary artery disease) Narrative/Plan: Normal CAD status post stents 12 years ago on the floor by a hairspring vibrator in [place] He was on Plavix and aspirin as antiplatelet therapy . cardiology consultation for further advice initiating these medications also to establish with a hairspring vibrator : Reviewed echocardiogram : Normal left ventricular systolic function Avoid overhydration and monitor fluid intake and output CXR : Clear Status: Chronic (2) DVT prophylaxis Status: Acute (3) Diabetes mellitus Narrative/Plan: Blood sugar is under reasonable control on insulin and metformin U/A was +ve for ketones : Blood ketones were positive but with normal Anion Gap ,most likely related to starvation and TPN started S. Acetone today was Negative His Blood sugar control is adequate WBC count normalized We will continue blood sugar monitoring and insulin sliding scale Status: Acute (4) History of colon cancer Narrative/Plan: reated and in remission since 1997 Status: Resolved (5) History of prostate cancer Narrative/Plan: Status post seed radiation therapy in remission Status: Resolved (6) Hypertension Narrative/Plan: Under good control We will continue current therapy Status: Acute (7) Status post cholecystectomy Narrative/Plan: Postoperative day 5 after open cholecystectomy Found to have madisyn- gastric fistula and adhesions status post lysis WBC count declined TPN was started He had billous leak Upper GI series are being done today Under surgical care Medically stable Status: Acute (8) Leukoaraiosis Narrative/Plan: Etiology is probably reactive to surgery Need to rule out other etiologies like infection will get a urine analysis and a chest x-ray he is currently on Rocephin and Flagyl as antibiotics CXR : Negative U/A : ? UTI , on appropriate AB's urine for C/S : Negative Resolved WBC is WNL Status: Acute Plan: Blood ketones were negative today His Blood sugar control is adequate WBC count declined Propably ketones are related to no nutrition TPN started Bile leak , GI series ongoing today , ? need for ERCP : Under surghical Care will f/u
--- NOTE | 2016-10-22 13:33 | P.PN ---
Subjective This is an 86-year-old male patient who presented to the emergency department approximately one week ago complaining of abdominal pain and nausea. The patient's pain was mostly in the right upper quadrant. On examination the patient was quite benign and she end up tolerating clear liquids well without any change in his bowel habits. Further investigation within ultrasound of the abdomen showed gallstones and mild gallbladder wall thickening without any pericholecystic fluid or evidence of inflammation. As such the patient was seen by general surgery and he was thought to have symptomatic cholelithiasis. The patient was started on medical treatment with antibiotics and the patient was discharged home, and the patient was brought back today for a cholecystectomy which turned out to be an open cholecystectomy. Postop, the patient was moved to the intensive care unit for further monitoring. He is awake. He is alert. He has a COURTNEY drain in the right upper quadrant. A Levy catheter is to be inserted. Hemodynamically stable. The patient was seen again today 10/18/2016 in follow-up in the intensive care unit. He is awake and alert in no acute distress. He is status post laparoscopic cholecystectomy converted to open cholecystectomy, extensive lysis of adhesions, repair of gastrotomy with a modified Fareed patch. This is postoperative day #1. He is currently sitting up in the chair at the bedside. He denies any worsening shortness of breath, cough or congestion. His chest x- ray does show bilateral lower lobe subsegmental atelectasis with tiny effusions. There is also some subcutaneous emphysema on the left with no sizable pneumothorax. He is maintaining good O2 saturations in the mid 90s on 3 L/m per nasal cannula. He is afebrile. Hemodynamically stable. His abdominal dressing is dry and intact. The COURTNEY drain remains in place and there is some bile colored fluid noted in it. On 10/19/2016 the patient is being seen in follow-up. The patient is post open cholecystectomy, lysis of adhesions, repair of a gastric wall with a modified Fareed patch. The patient is postop day #2. The COURTNEY drain is putting out bilious material and this has been confirmed on several occasions. Based on this a biliary leak is suspected. Despite this, the liver function tests remains within normal limits. The patient is not acting toxic. No nausea no vomiting. NG tube is in place and output is minimal. No flatus or bowel movements yet. No abdominal pain or distention. No tenderness. The patient had some limited change in mental status yesterday however this morning it is much more alert and awake. The patient is also receiving Dilaudid for pain control. The patient is on combination of Rocephin and Flagyl. The patient is hemodynamically stable. The patient experienced some lower urine output earlier which improved with fluids and the patient was given a total of 2 L of IV fluid boluses yesterday. He is on a lactated Ringer solution. On 10/20/2016 the patient is being seen in follow-up. The patient has post open cholecystectomy and the patient is postop day #3. There is an obvious biliary leak as the patient has produced around 480 mL of drainage since yesterday from the COURTNEY drain. The HIDA scan was completed and there is evidence of tracer uptake within the COURTNEY drain consistent with a biliary leak. Gen. surgery and gastroesophageal are both aware. ERCP will be indicated later stage once the patient is further recovered and the Fareed patch that was placed on the stomach is well-healed. The patient has an NG tube in place. Output is minimal. Liver function tests are not elevated. A triple lumen catheter was inserted and the patient was started on a TPN for nutritional support. Electrodes are all stable. Function is stable. The patient is afebrile. The patient is covered with broad-spectrum antibiotics with a combination of Rocephin, metronidazole and Diflucan. No bowel activity yet. Urine output is adequate for now. The patient is also on IV fluids with lactated Ringer at the rate of 75 mL an hour. On 10/21/2016 the patient is postop day #4. She is on TPN for nutritional support. His COURTNEY drain is still draining bilious material in the order of 400 mL and this is considered to be consistent with biliary leak. No abdominal distention. No abdominal pain. No flatus. NG tube is in place. Resting comfortably in the chair. No nausea. No change in mental status to no fever or chills. He is on IV fluids lactated Ringer at the rate of 40 mL an hour. Patient is seen again today 10/22/2016 in follow-up on the regular surgical floor. This is postoperative day #5. He is currently resting fairly comfortably in bed. He denies any worsening shortness of breath. He does have a productive cough of pale yellow sputum. Today's chest x-ray reveals a small right pleural effusion. He is working well with the incentive spirometer. Nasogastric tube remains in place. He remains on TPN for nutritional support. Abdominal dressing is dry and intact. The COURTNEY drain continues to drain a significant amount of biliary substance. He was greater than 400 mL's out in the past 24 hours. An upper GI series this morning revealed extravasation of contrast at the level of the duodenal bulb or distal antrum of the stomach adjacent to the COURTNEY drain. No plans for ERCP at this time. He remains on ceftriaxone along with fluconazole and metronidazole per surgical services. Objective - Vital Signs Vital signs: Vital Signs Temp 97.9 F 10/22/16 09:00 Pulse 75 10/22/16 09:00 Resp 18 10/22/16 09:00 BP 176/93 10/22/16 09:00 Pulse Ox 96 10/22/16 09:00 Intake & Output 10/21/16 10/22/16 10/22/16 18:59 06:59 18:59 Intake Total 500 900 Output Total 345 1795 235 Balance 155 -895 -235 Weight 76.1 kg Intake: IV 500 420 0.9 200 Lactated Ringers 1,000 ml 100 320 @ 40 mls/hr IV .Q24H [facility] Rx#:[id number] cefTRIAXone 1,000 mg In 100 Sodium Chloride 0.9% 50 ml @ 100 mls/hr IVPB Q24HR [facility] Rx#:[id number] metroNIDAZOLE-NS PMX 500 100 100 mg In Saline 1 100ml.bag @ 100 mls/hr IVPB Q8HR [facility] Rx#:[id number] Intake, IV Titration 480 Amount Mvi, Adult No.4 with Vit 480 K 10 ml Trace (Conc-1Ml/ Dose) 1 ml In Amino Acid 5%-D15w+Lytes*E* 1,000 ml @ 30 mls/hr IV .Q24H [facility] Rx#:[id number] Oral 0 Output: Gastric Drainage 30 200 Drainage 315 245 235 Right Abdomen 315 245 235 Urine 1350 Other: Voiding Method Indwelling Catheter Indwelling Catheter Indwelling Catheter # Bowel Movements 0 - Exam Head exam was generally normal. There was no scleral icterus or corneal arcus. Mucous membranes were moist.Neck was supple and without jugular venous distension, thyromegaly, or carotid bruits. Carotids were easily palpable bilaterally. There was no adenopathy. Lung sounds are diminished otherwise clear.Lungs were clear to auscultation and percussion, and with normal diaphragmatic excursion. No wheezes or rales were noted. Cardiac exam revealed the PMI to be normally situated and sized. The rhythm was regular and no extrasystoles were noted during several minutes of auscultation. The first and second heart sounds were normal and physiologic splitting of the second heart sound was noted. There were no murmurs, rubs, clicks, or gallops. Abdomen is soft. No direct tenderness no rebound tenderness. No guarding. Bowel sounds are hypoactive. COURTNEY drain is in place. Output has been about 400 mL from the COURTNEY drain. Bowel sounds are hypoactive.Examination of the extremities revealed easily palpable radial, femoral and pedal pulses. There was no cyanosis, clubbing or edema. Neurologically the patient is or 0A3 and there is no focal neurological deficit. - Labs CBC & Chem 7: 10/21/16 06:23 10/22/16 06:56 Labs: Abnormal Lab Results - Last 24 Hours (Table) 10/21/16 10/22/16 10/22/16 Range/Units 18:08 00:21 06:00 Creatinine (0.66-1.25) mg/dL Glucose (74-99) mg/dL POC Glucose (mg/dL) 267 H 236 H 210 H (75-99) mg/dL Calcium (8.4-10.2) mg/dL Phosphorus (2.5-4.5) mg/dL Delta Bilirubin (0.0-0.2) mg/dL Total Protein (6.3-8.2) g/dL Albumin (3.5-5.0) g/dL 10/22/16 10/22/16 10/22/16 Range/Units 06:56 06:56 12:45 Creatinine 0.51 L (0.66-1.25) mg/dL Glucose 210 H (74-99) mg/dL POC Glucose (mg/dL) 255 H (75-99) mg/dL Calcium 8.1 L (8.4-10.2) mg/dL Phosphorus 2.4 L (2.5-4.5) mg/dL Delta Bilirubin 0.3 H (0.0-0.2) mg/dL Total Protein 4.9 L (6.3-8.2) g/dL Albumin 2.3 L (3.5-5.0) g/dL Microbiology - Last 24 Hours (Table) 10/19/16 13:39 Urine Culture - Final Urine,Catheterized Assessment and Plan Plan: Assessment 1 symptomatic cholelithiasis, status post laparoscopic cholecystectomy converted to open cholecystectomy, extensive lysis of adhesions, repair of gastrectomy with a modified Fareed patch. This is postoperative day #5. There is continued billous drainage from the COURTNEY drain. Upper GI series does reveal extravasation of contrast to what appears to be the level of the duodenal bulb or distal antrum of the stomach adjacent to the COURTNEY drain. 2 postoperative atelectasis as an expected outcome of surgery with some left chest subcutaneous emphysema of unclear etiology. 3 prostate cancer was treated by brachytherapy 4 [employer] tumor status post brain tumor resection 1996 5 peripheral neuropathy 6 diabetes mellitus 7 coronary artery disease previous coronary intervention and stenting 8 impaired hearing 9 hypertension 10 previous history of DVT currently on no anticoagulants 11 degenerative arthritis Plan The patient was seen and evaluated by Dr. Horner. His chest x-ray and labs were reviewed. Upper GI series reviewed. GI services is on the case. No plans for ERCP at this time. Nasogastric tube remains in place. COURTNEY drain remains in place. We will continue with his current medications including antibiotics in the form of ceftriaxone along with metronidazole and fluconazole per surgical services. He remains on heparin subcutaneous for DVT prophylaxis. Continue Protonix for GI prophylaxis. His pain is well managed. He is working well with the incentive spirometer. We will increase his activity as tolerated. We'll continue to follow.
--- NOTE | 2016-10-22 13:53 | P.PN ---
Subjective This is a pleasant 86-year-old gentleman who is postoperative cholecystectomy day #5. He had severe gallbladder disease with multiple adhesions and required an open procedure rather than laparoscopic. He is currently NPO with an NG tube in place. Surgery and GI are working together to rule out a bililary leak. He will possibly undergo a procedure this week to correct this. We are following this patient for optimal blood pressure control while he is NPO. Clonidine patch has been added to his regimen and is currently not working as effectively as we would like. He complains of increased abdominal pain at this time and prefers to lay flat for comfort. He c/o shortness of breath with exertion and is requiring oxygen at this time. Objective - Vital Signs Vital signs: Vital Signs Temp 97.9 F 10/22/16 09:00 Pulse 75 10/22/16 09:00 Resp 18 10/22/16 09:00 BP 176/93 10/22/16 09:00 Pulse Ox 96 10/22/16 09:00 Intake & Output 10/21/16 10/22/16 10/22/16 18:59 06:59 18:59 Intake Total 500 900 Output Total 345 1795 235 Balance 155 -895 -235 Weight 76.1 kg Intake: IV 500 420 0.9 200 Lactated Ringers 1,000 ml 100 320 @ 40 mls/hr IV .Q24H [facility] Rx#:[id number] cefTRIAXone 1,000 mg In 100 Sodium Chloride 0.9% 50 ml @ 100 mls/hr IVPB Q24HR [facility] Rx#:[id number] metroNIDAZOLE-NS PMX 500 100 100 mg In Saline 1 100ml.bag @ 100 mls/hr IVPB Q8HR [facility] Rx#:[id number] Intake, IV Titration 480 Amount Mvi, Adult No.4 with Vit 480 K 10 ml Trace (Conc-1Ml/ Dose) 1 ml In Amino Acid 5%-D15w+Lytes*E* 1,000 ml @ 30 mls/hr IV .Q24H [facility] Rx#:[id number] Oral 0 Output: Gastric Drainage 30 200 Drainage 315 245 235 Right Abdomen 315 245 235 Urine 1350 Other: Voiding Method Indwelling Catheter Indwelling Catheter Indwelling Catheter # Bowel Movements 0 - Exam GENERAL: Well-appearing, well-nourished and in no acute distress. NECK: Supple with mild JVD, no thyromegaly. LUNGS: Fine bibasilar rales, right greater than left. Respirations equal and unlabored. No wheezes or rhonchi. HEART: Regular rate and rhythm without murmurs, rubs or gallops. S1 and S2 heard. EXTREMITIES: Normal range of motion with mild bilateral lower extremity edema. No clubbing or cyanosis. Peripheral pulses intact and strong. - Labs CBC & Chem 7: 10/21/16 06:23 10/22/16 06:56 Labs: Abnormal Lab Results - Last 24 Hours (Table) 10/21/16 10/22/16 10/22/16 Range/Units 18:08 00:21 06:00 Creatinine (0.66-1.25) mg/dL Glucose (74-99) mg/dL POC Glucose (mg/dL) 267 H 236 H 210 H (75-99) mg/dL Calcium (8.4-10.2) mg/dL Phosphorus (2.5-4.5) mg/dL Delta Bilirubin (0.0-0.2) mg/dL Total Protein (6.3-8.2) g/dL Albumin (3.5-5.0) g/dL 10/22/16 10/22/16 10/22/16 Range/Units 06:56 06:56 12:45 Creatinine 0.51 L (0.66-1.25) mg/dL Glucose 210 H (74-99) mg/dL POC Glucose (mg/dL) 255 H (75-99) mg/dL Calcium 8.1 L (8.4-10.2) mg/dL Phosphorus 2.4 L (2.5-4.5) mg/dL Delta Bilirubin 0.3 H (0.0-0.2) mg/dL Total Protein 4.9 L (6.3-8.2) g/dL Albumin 2.3 L (3.5-5.0) g/dL Microbiology - Last 24 Hours (Table) 10/19/16 13:39 Urine Culture - Final Urine,Catheterized Assessment and Plan Plan: ASSESSMENT 1. Essential hypertension, uncontrolled in post-operative phase 2. Status post cholecystectomy with gastric fistula and repair 3. History of CAD with stenting 15 years ago in [place] 4. Diabetes mellitus 5. PLAN Add nitroglycerin patch and PRN hydralazine to better control blood pressure. Obtain chest xray to assess for heart failure. Recommend cautious fluid administration with TPN and antibiotics, LR may be discontinued. Nurse Practitioner note has been reviewed, I agree with a documented findings and plan of care. Patient was seen and examined.
[2016-10-22] MEDS: 1: AMINO ACID 5%-D15W+LYTES*E* 1,000 ML 2: MVI, ADULT NO.4 WITH VIT K 10 ML, TRACE (CON IV SCH ×9 (15:07→23:59)
[2016-10-22] MEDS ORDERED: LORazepam 2 MG/ML SYRINGE IV PRN (15:30)
--- NOTE | 2016-10-22 15:40 | P.PN ---
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 Nursing staff at bedside. Pain is well- controlled. COURTNEY output of approximately 130 mL's - bilious overnight. Up to chair yesterday. He states he is still feeling low energy. He denies any bowel function. He denies any nausea or vomiting. NG tube is in place. Objective - Vital Signs Vital signs: Vital Signs Temp 98.0 F 10/22/16 01:01 Pulse 74 10/22/16 01:01 Resp 17 10/22/16 01:01 BP 150/74 10/22/16 01:01 Pulse Ox 93 L 10/22/16 01:01 Intake & Output 10/21/16 10/21/16 10/22/16 06:59 18:59 06:59 Intake Total 325 500 240 Output Total 1390 345 785 Balance -1065 155 -545 Weight 76.1 kg Intake: IV 500 0.9 200 Lactated Ringers 1,000 ml 100 @ 40 mls/hr IV .Q24H [facility] Rx#:[id number] cefTRIAXone 1,000 mg In 100 Sodium Chloride 0.9% 50 ml @ 100 mls/hr IVPB Q24HR [facility] Rx#:[id number] metroNIDAZOLE-NS PMX 500 100 mg In Saline 1 100ml.bag @ 100 mls/hr IVPB Q8HR [facility] Rx#:[id number] Intake, IV Titration 325 240 Amount Lactated Ringers 1,000 ml 250 @ 100 mls/hr IV .Q10H [facility] Rx#:[id number] Mvi, Adult No.4 with Vit 75 K 10 ml Trace (Conc-1Ml/ Dose) 1 ml In Amino Acid 5%-D15w+Lytes*E* 1,000 ml @ 100 mls/hr IV .BY DURATION [facility] Rx#: [id number] Mvi, Adult No.4 with Vit 240 K 10 ml Trace (Conc-1Ml/ Dose) 1 ml In Amino Acid 5%-D15w+Lytes*E* 1,000 ml @ 30 mls/hr IV .Q24H [facility] Rx#:[id number] Oral 0 0 Output: Gastric Drainage 50 30 Drainage 240 315 85 Right Abdomen 240 315 85 Urine 1100 700 Other: Voiding Method Indwelling Catheter Indwelling Catheter Indwelling Catheter # Bowel Movements 0 - Constitutional General appearance: Present: cooperative, no acute distress. Absent: disheveled - EENT Eyes: Present: EOMI, PERRLA. Absent: scleral icterus ENT: Present: hearing grossly normal - Neck Neck: Present: normal ROM. Absent: lymphadenopathy - Respiratory Details: No difficulty with respirations - Cardiovascular Rhythm: regular Heart sounds: normal: S1, S2 - Gastrointestinal General gastrointestinal: Present: decreased bowel sounds, soft. Absent: distended, tenderness - Integumentary Integumentary: Present: normal turgor - Musculoskeletal Musculoskeletal: Present: generalized weakness - Psychiatric Psychiatric: Present: A&O x's 3, appropriate affect, intact judgment & insight - Labs CBC & Chem 7: 10/21/16 06:23 10/22/16 06:56 Labs: Abnormal Lab Results - Last 24 Hours (Table) 10/21/16 10/21/16 10/21/16 Range/Units 06:23 06:23 12:40 RBC 2.80 L (4.30-5.90) m/uL Hgb 8.6 L (13.0-17.5) gm/dL Hct 27.2 L (39.0-53.0) % Creatinine 0.60 L (0.66-1.25) mg/dL Glucose 233 H (74-99) mg/dL POC Glucose (mg/dL) 248 H (75-99) mg/dL Phosphorus 2.2 L (2.5-4.5) mg/dL Total Protein 4.9 L (6.3-8.2) g/dL Albumin 2.4 L (3.5-5.0) g/dL 10/21/16 10/22/16 10/22/16 Range/Units 18:08 00:21 06:00 RBC (4.30-5.90) m/uL Hgb (13.0-17.5) gm/dL Hct (39.0-53.0) % Creatinine (0.66-1.25) mg/dL Glucose (74-99) mg/dL POC Glucose (mg/dL) 267 H 236 H 210 H (75-99) mg/dL Phosphorus (2.5-4.5) mg/dL Total Protein (6.3-8.2) g/dL Albumin (3.5-5.0) g/dL Microbiology - Last 24 Hours (Table) 10/19/16 13:39 Urine Culture - Final Urine,Catheterized Assessment and Plan (1) Status post cholecystectomy Status: Acute Plan: Discussed the case with the patient and the patient's daughter, Hollie. Multiple studies have been conducted over the past 72 hours. HIDA scan revealed abnormal uptake by the COURTNEY drain, however with ease of entry into the duodenum within 25 minutes. Upper GI was performed this a.m. that reveals an extravasation most likely from the gastrotomy repair site. A bedside methylene blue test was performed which entails the patient drinking methylene blue mixed with water. Within 3 minutes the methylene blue was visible within the COURTNEY drain. With these results it seems that the biliary system is intact and the gastrotomy is leaking. At this time I will continue the NG tube, continue antibiotics, continue Levy, continue TPN and nothing by mouth at this time and treat as a gastric leak. The patient and his daughter, Hollie, agree with this plan.
[2016-10-22 18:10] LABS: Glucose,Whole Blood 205 mg/dL (75-99)
[2016-10-22 23:51] LABS: Glucose,Whole Blood 327 mg/dL (75-99)
[2016-10-23] MEDS ORDERED: OCTREOTIDE 200 MCG/ML 5 ML VIAL IVP SCH
[2016-10-23] MEDS: HEPARIN SODIUM,PORCINE 5,000 UNIT/ML 1 ML VIAL SQ SCH ×4 (00:05→23:18)
[2016-10-23] MEDS: metroNIDAZOLE-NS PMX 500 MG in SALINE 1 100ML.BAG IVPB SCH ×4 (00:05→23:21)
[2016-10-23] MEDS: OCTREOTIDE 100 MCG/ML INJ IVP SCH ×4 (00:10→23:12)
[2016-10-23] MEDS: 1: AMINO ACID 5%-D15W+LYTES*E* 1,000 ML 2: MVI, ADULT NO.4 WITH VIT K 10 ML, TRACE (CON IV SCH ×6 (04:05→14:11)
[2016-10-23 06:11] LABS: Glucose,Whole Blood 303 mg/dL (75-99)
[2016-10-23] MEDS: HYDROmorphone 1 MG/ML 1 ML SYRINGE IVP PRN ×2 (06:13→20:57)
[2016-10-23] MEDS: INSULIN LISPRO (humaLOG) 300 UNIT/3 ML VIAL SQ SCH ×4 (06:14→23:17)
[2016-10-23 06:57] LABS: Basophils % (A) 0 %; CH 30.5; CHCM 31.7; Eosinophils # (A) 0.1 k/uL (0-0.7); Eosinophils % (A) 1 %; HCT 25.6 % (39.0-53.0); HDW 2.63; HGB 8.3 gm/dL (13.0-17.5); Hypochromasia Slight; Luc # (Auto) 0.18; Luc % (Auto) 2; Lymphocytes # (A) 1.1 k/uL (1.0-4.8); Lymphocytes % (A) 12 %; MCH 31.3 pg (25.0-35.0); MCHC 32.4 g/dL (31.0-37.0); MCV 96.5 fL (80.0-100.0); Mean Platelet Volume 7.8; Monocytes # (A) 0.4 k/uL (0-1.0); Monocytes % (A) 5 %; Neutrophils # (A) 6.7 k/uL (1.3-7.7); Neutrophils % (A) 79 %; RBC 2.65 m/uL (4.30-5.90); RDW 13.8 % (11.5-15.5); WBC 8.4 k/uL (3.8-10.6); WBC (Perox) 9.05
[2016-10-23 07:11] LABS: ALT 29 U/L (21-72); AST 18 U/L (17-59); Alkaline Phosphatase 46 U/L (38-126); Anion Gap 6 mmol/L; Bilirubin, Delta 0.1 mg/dL (0.0-0.2); Blood Urea Nitrogen 14 mg/dL (9-20); Calcium 7.9 mg/dL (8.4-10.2); Carbon Dioxide 29 mmol/L (22-30); Chloride 103 mmol/L (98-107); Glucose 327 mg/dL (74-99); Non-African American GFR(MDRD) >60 (>60 ml/min/1.73 sqM); Potassium 3.9 mmol/L (3.5-5.1); Sodium 138 mmol/L (137-145); Total Bilirubin 0.2 mg/dL (0.2-1.3); Total Protein 4.5 g/dL (6.3-8.2)
[2016-10-23] MEDS ORDERED: BENZOCAINE SPRAY 1 SPRAY CAN ONE (08:08)
--- NOTE | 2016-10-23 08:40 | P.PN ---
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 Nursing staff at bedside. Pain is well- controlled. COURTNEY output of approximately 135 mL's - bilious overnight. Day shift was above 400cc. Up to chair yesterday. He states he passed flatus. He denies any nausea or vomiting. NG tube is in place. Objective - Vital Signs Vital signs: Vital Signs Temp 97.9 F 10/23/16 07:00 Pulse 62 10/23/16 07:00 Resp 18 10/23/16 07:00 BP 152/75 10/23/16 07:00 Pulse Ox 94 L 10/23/16 07:00 Intake & Output 10/22/16 10/23/16 10/23/16 18:59 06:59 18:59 Intake Total 900 1683.333 Output Total 655 2535 Balance 245 -851.667 Weight 76.1 kg Intake: IV 400 1220 0.9 200 Lactated Ringers 1,000 ml 320 @ 40 mls/hr IV .Q24H [facility] Rx#:[id number] TPN 800 cefTRIAXone 1,000 mg In 100 Sodium Chloride 0.9% 50 ml @ 100 mls/hr IVPB Q24HR [facility] Rx#:[id number] metroNIDAZOLE-NS PMX 500 100 100 mg In Saline 1 100ml.bag @ 100 mls/hr IVPB Q8HR [facility] Rx#:[id number] Intake, IV Titration 500 413.333 Amount Amino Acid 5%-D15w+Lytes* 300 E* 1,000 ml @ 100 mls/hr IV .BY DURATION [facility] Rx#: [id number] Mvi, Adult No.4 with Vit 413.333 K 10 ml Trace (Conc-1Ml/ Dose) 1 ml In Amino Acid 5%-D15w+Lytes*E* 1,000 ml @ 100 mls/hr IV .BY DURATION [facility] Rx#: [id number] Potassium Phosphate 10 100 mmol In Sodium Chloride 0 .9% 100 ml @ 50 mls/hr IV ONCE ONE Rx#:[id number] metroNIDAZOLE-NS PMX 500 100 mg In Saline 1 100ml.bag @ 100 mls/hr IVPB Q8HR [facility] Rx#:[id number] Oral 0 50 Output: Gastric Drainage 200 150 Drainage 455 385 Right Abdomen 455 385 Urine 2000 Other: Voiding Method Indwelling Catheter # Bowel Movements 0 - Constitutional General appearance: Present: cooperative, no acute distress - EENT Eyes: Present: EOMI, PERRLA ENT: Present: hearing grossly normal - Neck Neck: Present: normal ROM - Respiratory Details: No difficulty with respiration. - Cardiovascular Rhythm: regular Heart sounds: normal: S1, S2 - Gastrointestinal Gastrointestinal Comment(s): COURTNEY drain in place General gastrointestinal: Present: soft. Absent: distended, tenderness - Integumentary Integumentary: Present: normal turgor - Musculoskeletal Musculoskeletal: Present: generalized weakness - Psychiatric Psychiatric: Present: A&O x's 3, appropriate affect - Labs CBC & Chem 7: 10/23/16 06:43 10/23/16 06:43 Labs: Abnormal Lab Results - Last 24 Hours (Table) 10/22/16 10/22/16 10/22/16 Range/Units 12:45 18:07 23:50 RBC (4.30-5.90) m/uL Hgb (13.0-17.5) gm/dL Hct (39.0-53.0) % Creatinine (0.66-1.25) mg/dL Glucose (74-99) mg/dL POC Glucose (mg/dL) 255 H 205 H 327 H (75-99) mg/dL Calcium (8.4-10.2) mg/dL Total Protein (6.3-8.2) g/dL Albumin (3.5-5.0) g/dL 10/23/16 10/23/16 10/23/16 Range/Units 06:07 06:43 06:43 RBC 2.65 L (4.30-5.90) m/uL Hgb 8.3 L (13.0-17.5) gm/dL Hct 25.6 L (39.0-53.0) % Creatinine 0.57 L (0.66-1.25) mg/dL Glucose 327 H (74-99) mg/dL POC Glucose (mg/dL) 303 H (75-99) mg/dL Calcium 7.9 L (8.4-10.2) mg/dL Total Protein 4.5 L (6.3-8.2) g/dL Albumin 2.1 L (3.5-5.0) g/dL Assessment and Plan (1) Status post cholecystectomy Status: Acute Plan: Due to multiple tests that required oral intake yesterday, COURTNEY output above 400cc during day shift. Overnight COURTNEY output of 135cc. Added octreotide to decrease bilious output - after studies completed yesterday , more likely gastric leak Continue management with NPO/TPN/NGT. Appreciate medicine recs on glucose control. Discontinue Levy catheter today. Discussed the case with the patient and his daughter ,Sofia.
[2016-10-23] MEDS: NITROGLYCERIN OINT 1 INCH/GM PACKET TOPICAL SCH ×4 (09:05→23:18)
[2016-10-23] MEDS: PANTOPRAZOLE 40 MG/10 ML VIAL IV SCH (09:49)
--- NOTE | 2016-10-23 11:33 | P.PN ---
Subjective Principal diagnosis: Biliary leak Feels better today. Upper GI yesterday reported gastric leak. NG tube. TPN. Nothing by mouth. General surgery following closely. Methylene blue ink bedside exam yesterday. Methylene blue/bilious fluid in COURTNEY bulb. Afebrile. Objective - Vital Signs Vital signs: Vital Signs Temp 98 F 10/23/16 11:08 Pulse 69 10/23/16 11:08 Resp 18 10/23/16 11:08 BP 133/66 10/23/16 11:08 Pulse Ox 94 L 10/23/16 11:08 Intake & Output 10/22/16 10/23/16 10/23/16 18:59 06:59 18:59 Intake Total 900 1683.333 Output Total 655 2535 425 Balance 245 -851.667 -425 Weight 76.1 kg Intake: IV 400 1220 0.9 200 Lactated Ringers 1,000 ml 320 @ 40 mls/hr IV .Q24H [facility] Rx#:[id number] TPN 800 cefTRIAXone 1,000 mg In 100 Sodium Chloride 0.9% 50 ml @ 100 mls/hr IVPB Q24HR [facility] Rx#:[id number] metroNIDAZOLE-NS PMX 500 100 100 mg In Saline 1 100ml.bag @ 100 mls/hr IVPB Q8HR [facility] Rx#:[id number] Intake, IV Titration 500 413.333 Amount Amino Acid 5%-D15w+Lytes* 300 E* 1,000 ml @ 100 mls/hr IV .BY DURATION [facility] Rx#: [id number] Mvi, Adult No.4 with Vit 413.333 K 10 ml Trace (Conc-1Ml/ Dose) 1 ml In Amino Acid 5%-D15w+Lytes*E* 1,000 ml @ 100 mls/hr IV .BY DURATION [facility] Rx#: [id number] Potassium Phosphate 10 100 mmol In Sodium Chloride 0 .9% 100 ml @ 50 mls/hr IV ONCE ONE Rx#:[id number] metroNIDAZOLE-NS PMX 500 100 mg In Saline 1 100ml.bag @ 100 mls/hr IVPB Q8HR [facility] Rx#:[id number] Oral 0 50 Output: Gastric Drainage 200 150 Drainage 455 385 25 Right Abdomen 455 385 25 Urine 2000 400 Uretheral (Levy) 400 Other: Voiding Method Indwelling Catheter Toilet # Voids 1 # Bowel Movements 0 - Exam General appearance: The patient is alert, oriented, in no acute distress. HET: Head is normocephalic and atraumatic. Pupils are equal and reactive. Oropharynx is clear without lesions. NGT pale bilious watery fluid. Neck: Supple without lymphadenopathy. Trachea midline. Heart: S1 S2. Regular rate and rhythm. Lungs: CTA bilaterally fine bibasilar crackles. Abdomen: Soft, COURTNEY with methylene blue stained bilious fluid. Chevron incision page without erythema drainage. Mild tender RUQ, nondistended with bowel sounds. No peritoneal signs. No palpable organomegaly or masses. Extremities: Normal skin color and turgor. No cyanosis, rash, ulceration, clubbing, or edema. Radial and pedal pulses are 2/4 bilaterally. Levy chase urine. Neurological: No focal deficits. Strength and sensation are grossly intact. - Labs CBC & Chem 7: 10/23/16 06:43 10/23/16 06:43 Labs: Abnormal Lab Results - Last 24 Hours (Table) 10/22/16 10/22/16 10/22/16 Range/Units 12:45 18:07 23:50 RBC (4.30-5.90) m/uL Hgb (13.0-17.5) gm/dL Hct (39.0-53.0) % Creatinine (0.66-1.25) mg/dL Glucose (74-99) mg/dL POC Glucose (mg/dL) 255 H 205 H 327 H (75-99) mg/dL Calcium (8.4-10.2) mg/dL Total Protein (6.3-8.2) g/dL Albumin (3.5-5.0) g/dL 10/23/16 10/23/16 10/23/16 Range/Units 06:07 06:43 06:43 RBC 2.65 L (4.30-5.90) m/uL Hgb 8.3 L (13.0-17.5) gm/dL Hct 25.6 L (39.0-53.0) % Creatinine 0.57 L (0.66-1.25) mg/dL Glucose 327 H (74-99) mg/dL POC Glucose (mg/dL) 303 H (75-99) mg/dL Calcium 7.9 L (8.4-10.2) mg/dL Total Protein 4.5 L (6.3-8.2) g/dL Albumin 2.1 L (3.5-5.0) g/dL Assessment and Plan (1) Bile leak Narrative/Plan: Status post open cholecystectomy cholecystogastric fistula status post repair upper GI reported extravasation. Status: Acute Plan: 1. General surgery management. 2. ERCP not planned at this time. Continue supportive measures. We'll continue to follow. Assessment and plan a care discussed with Dr. Zuluaga
[2016-10-23 11:42] LABS: Glucose,Whole Blood 319 mg/dL (75-99)
--- NOTE | 2016-10-23 11:56 | P.PN ---
Subjective This is an 86-year-old male patient who presented to the emergency department approximately one week ago complaining of abdominal pain and nausea. The patient's pain was mostly in the right upper quadrant. On examination the patient was quite benign and she end up tolerating clear liquids well without any change in his bowel habits. Further investigation within ultrasound of the abdomen showed gallstones and mild gallbladder wall thickening without any pericholecystic fluid or evidence of inflammation. As such the patient was seen by general surgery and he was thought to have symptomatic cholelithiasis. The patient was started on medical treatment with antibiotics and the patient was discharged home, and the patient was brought back today for a cholecystectomy which turned out to be an open cholecystectomy. Postop, the patient was moved to the intensive care unit for further monitoring. He is awake. He is alert. He has a COURTNEY drain in the right upper quadrant. A Levy catheter is to be inserted. Hemodynamically stable. The patient was seen again today 10/18/2016 in follow-up in the intensive care unit. He is awake and alert in no acute distress. He is status post laparoscopic cholecystectomy converted to open cholecystectomy, extensive lysis of adhesions, repair of gastrotomy with a modified Fareed patch. This is postoperative day #1. He is currently sitting up in the chair at the bedside. He denies any worsening shortness of breath, cough or congestion. His chest x- ray does show bilateral lower lobe subsegmental atelectasis with tiny effusions. There is also some subcutaneous emphysema on the left with no sizable pneumothorax. He is maintaining good O2 saturations in the mid 90s on 3 L/m per nasal cannula. He is afebrile. Hemodynamically stable. His abdominal dressing is dry and intact. The COURTNEY drain remains in place and there is some bile colored fluid noted in it. On 10/19/2016 the patient is being seen in follow-up. The patient is post open cholecystectomy, lysis of adhesions, repair of a gastric wall with a modified Fareed patch. The patient is postop day #2. The COURTNEY drain is putting out bilious material and this has been confirmed on several occasions. Based on this a biliary leak is suspected. Despite this, the liver function tests remains within normal limits. The patient is not acting toxic. No nausea no vomiting. NG tube is in place and output is minimal. No flatus or bowel movements yet. No abdominal pain or distention. No tenderness. The patient had some limited change in mental status yesterday however this morning it is much more alert and awake. The patient is also receiving Dilaudid for pain control. The patient is on combination of Rocephin and Flagyl. The patient is hemodynamically stable. The patient experienced some lower urine output earlier which improved with fluids and the patient was given a total of 2 L of IV fluid boluses yesterday. He is on a lactated Ringer solution. On 10/20/2016 the patient is being seen in follow-up. The patient has post open cholecystectomy and the patient is postop day #3. There is an obvious biliary leak as the patient has produced around 480 mL of drainage since yesterday from the COURTNEY drain. The HIDA scan was completed and there is evidence of tracer uptake within the COURTNEY drain consistent with a biliary leak. Gen. surgery and gastroesophageal are both aware. ERCP will be indicated later stage once the patient is further recovered and the Fareed patch that was placed on the stomach is well-healed. The patient has an NG tube in place. Output is minimal. Liver function tests are not elevated. A triple lumen catheter was inserted and the patient was started on a TPN for nutritional support. Electrodes are all stable. Function is stable. The patient is afebrile. The patient is covered with broad-spectrum antibiotics with a combination of Rocephin, metronidazole and Diflucan. No bowel activity yet. Urine output is adequate for now. The patient is also on IV fluids with lactated Ringer at the rate of 75 mL an hour. On 10/21/2016 the patient is postop day #4. She is on TPN for nutritional support. His COURTNEY drain is still draining bilious material in the order of 400 mL and this is considered to be consistent with biliary leak. No abdominal distention. No abdominal pain. No flatus. NG tube is in place. Resting comfortably in the chair. No nausea. No change in mental status to no fever or chills. He is on IV fluids lactated Ringer at the rate of 40 mL an hour. Patient is seen again today 10/22/2016 in follow-up on the regular surgical floor. This is postoperative day #5. He is currently resting fairly comfortably in bed. He denies any worsening shortness of breath. He does have a productive cough of pale yellow sputum. Today's chest x-ray reveals a small right pleural effusion. He is working well with the incentive spirometer. Nasogastric tube remains in place. He remains on TPN for nutritional support. Abdominal dressing is dry and intact. The COURTNEY drain continues to drain a significant amount of biliary substance. He was greater than 400 mL's out in the past 24 hours. An upper GI series this morning revealed extravasation of contrast at the level of the duodenal bulb or distal antrum of the stomach adjacent to the COURTNEY drain. No plans for ERCP at this time. He remains on ceftriaxone along with fluconazole and metronidazole per surgical services. The patient was seen again today 10/23/2016 in follow-up on the surgical floor. He is currently sitting up in a chair at the bedside. He is awake and alert in no acute distress. He denies any worsening shortness of breath, cough or congestion. He is maintaining O2 saturations in the 90s on room air. Afebrile. No leukocytosis. Hemoglobin 8.3. He's been hemodynamically stable. He was found to have a gastric leak. The bilious drainage is approximately 135 mL. He's been initiated on octreotide. He denies any worsening abdominal discomfort. His abdomen remains soft. He is passing flatus. He is being nourished with TPN/lipids. He remains nothing by mouth with NG tube in place. Objective - Vital Signs Vital signs: Vital Signs Temp 98 F 10/23/16 11:08 Pulse 69 10/23/16 11:08 Resp 18 10/23/16 11:08 BP 133/66 10/23/16 11:08 Pulse Ox 94 L 10/23/16 11:08 Intake & Output 10/22/16 10/23/16 10/23/16 18:59 06:59 18:59 Intake Total 900 1683.333 Output Total 655 7065 425 Balance 245 -851.667 -425 Weight 76.1 kg Intake: IV 400 1220 0.9 200 Lactated Ringers 1,000 ml 320 @ 40 mls/hr IV .Q24H [facility] Rx#:[id number] TPN 800 cefTRIAXone 1,000 mg In 100 Sodium Chloride 0.9% 50 ml @ 100 mls/hr IVPB Q24HR [facility] Rx#:[id number] metroNIDAZOLE-NS PMX 500 100 100 mg In Saline 1 100ml.bag @ 100 mls/hr IVPB Q8HR [facility] Rx#:[id number] Intake, IV Titration 500 413.333 Amount Amino Acid 5%-D15w+Lytes* 300 E* 1,000 ml @ 100 mls/hr IV .BY DURATION [facility] Rx#: [id number] Mvi, Adult No.4 with Vit 413.333 K 10 ml Trace (Conc-1Ml/ Dose) 1 ml In Amino Acid 5%-D15w+Lytes*E* 1,000 ml @ 100 mls/hr IV .BY DURATION [facility] Rx#: [id number] Potassium Phosphate 10 100 mmol In Sodium Chloride 0 .9% 100 ml @ 50 mls/hr IV ONCE ONE Rx#:[id number] metroNIDAZOLE-NS PMX 500 100 mg In Saline 1 100ml.bag @ 100 mls/hr IVPB Q8HR [facility] Rx#:[id number] Oral 0 50 Output: Gastric Drainage 200 150 Drainage 455 385 25 Right Abdomen 455 385 25 Urine 2000 400 Uretheral (Levy) 400 Other: Voiding Method Indwelling Catheter Toilet # Voids 1 # Bowel Movements 0 - Exam Head exam was generally normal. Nasogastric tube secured in place. There was no scleral icterus or corneal arcus. Mucous membranes were moist. Neck was supple and without jugular venous distension, thyromegaly, or carotid bruits. Carotids were easily palpable bilaterally. There was no adenopathy. Lung sounds are diminished otherwise clear. No wheezes or rales were noted. Cardiac exam revealed the PMI to be normally situated and sized. The rhythm was regular and no extrasystoles were noted during several minutes of auscultation. The first and second heart sounds were normal and physiologic splitting of the second heart sound was noted. There were no murmurs, rubs, clicks, or gallops. Abdomen is soft. No direct tenderness no rebound tenderness. No guarding. Bowel sounds are hypoactive. Incision clean dry well approximated. COURTNEY drain is in place. Output has been about 135 mL from the COURTNEY drain. Bowel sounds are hypoactive. Examination of the extremities revealed easily palpable radial, femoral and pedal pulses. There was no cyanosis, clubbing or edema. Neurologically the patient is or 0A3 and there is no focal neurological deficit. - Labs CBC & Chem 7: 10/23/16 06:43 10/23/16 06:43 Labs: Abnormal Lab Results - Last 24 Hours (Table) 10/22/16 10/22/16 10/22/16 Range/Units 12:45 18:07 23:50 RBC (4.30-5.90) m/uL Hgb (13.0-17.5) gm/dL Hct (39.0-53.0) % Creatinine (0.66-1.25) mg/dL Glucose (74-99) mg/dL POC Glucose (mg/dL) 255 H 205 H 327 H (75-99) mg/dL Calcium (8.4-10.2) mg/dL Total Protein (6.3-8.2) g/dL Albumin (3.5-5.0) g/dL 10/23/16 10/23/16 10/23/16 Range/Units 06:07 06:43 06:43 RBC 2.65 L (4.30-5.90) m/uL Hgb 8.3 L (13.0-17.5) gm/dL Hct 25.6 L (39.0-53.0) % Creatinine 0.57 L (0.66-1.25) mg/dL Glucose 327 H (74-99) mg/dL POC Glucose (mg/dL) 303 H (75-99) mg/dL Calcium 7.9 L (8.4-10.2) mg/dL Total Protein 4.5 L (6.3-8.2) g/dL Albumin 2.1 L (3.5-5.0) g/dL 10/23/16 Range/Units 11:40 RBC (4.30-5.90) m/uL Hgb (13.0-17.5) gm/dL Hct (39.0-53.0) % Creatinine (0.66-1.25) mg/dL Glucose (74-99) mg/dL POC Glucose (mg/dL) 319 H (75-99) mg/dL Calcium (8.4-10.2) mg/dL Total Protein (6.3-8.2) g/dL Albumin (3.5-5.0) g/dL Assessment and Plan Plan: Assessment 1 symptomatic cholelithiasis, status post laparoscopic cholecystectomy converted to open cholecystectomy, extensive lysis of adhesions, repair of gastrectomy with a modified Fareed patch. This is postoperative day #6. There is continued billous drainage from the COURTNEY drain. Upper GI series does reveal extravasation of contrast to what appears to be the level of the duodenal bulb or distal antrum of the stomach adjacent to the COURTNEY drain. Octreotide has been added. 2 postoperative atelectasis as an expected outcome of surgery with some left chest subcutaneous emphysema of unclear etiology. 3 prostate cancer was treated by brachytherapy 4 [employer] tumor status post brain tumor resection 1996 5 peripheral neuropathy 6 diabetes mellitus 7 coronary artery disease previous coronary intervention and stenting 8 impaired hearing 9 hypertension 10 previous history of DVT currently on no anticoagulants 11 degenerative arthritis Plan The patient was seen and evaluated by Dr. Horner. He is stable from the pulmonary standpoint. Yesterday chest x-ray revealed a small right pleural effusion him on no other acute pulmonary processes. We've again encouraged the increased use of the incentive spirometer and cough and deep breathing exercises. He remains on heparin subcutaneous for DVT prophylaxis. Continue Protonix for GI prophylaxis. His pain is well managed. We will increase his activity as tolerated. We'll continue to follow.
--- NOTE | 2016-10-23 12:01 | P.PN ---
Subjective Principal diagnosis: Diabetes &Medical management post cholecystectomy Day 6 Post Op Visit s/p Open cholecystectomy and adhesions lysis, complicated by biliary leak No reported fever,chills,chest pain or SOB.No arrhythmias on the monitor His blood sugar are high today and will add insulin by pahrmacy to TPN The COURTNEY drain continues to drain a significant amount of biliary substance. He was greater than 400 mL's out in the past 24 hours. An upper GI series this morning revealed extravasation of contrast at the level of the duodenal bulb or distal antrum of the stomach adjacent to the COURTNEY drain. No plans for ERCP at this time. He remains on ceftriaxone along with fluconazole and metronidazole per surgical services. No toxic symptoms . He passed flatus No abdominal distention or pain. No flatus. NG tube is in place. No nausea / vomitting No change in mental status to no fever or chills. His I/O's , medications and labs were reviewed U/A suggested ? UTI and +ve Ketones Blood ketones were positive but with normal Anion Gap ,most likely related to starvation and TPN started Still on IV fluids today at total 70 ml/hr His Blood sugar control is adequate ,on TPN WBC count normalized In summary , he is an 86-year-old male with past medical history significant for coronary artery disease status post stents under f/u in [place] , colon cancer 1997, and prostate cancer s/p seed radiation therapy. Patient is currently seen in the intensive care unit post open cholecystectomy medicine one was consult for diabetes management. Patient history goes back to one week ago when he presented to [facility] with acute complaint of abdominal pain he He was evaluated by general surgery who recommended laparoscopic cholecystectomy. However, in the OR patient was found to have a lot of adhesions from prior surgeries for which it was converted to open cholecystectomy and adhesolysis. Surgery seems to be uneventful with no immediate complications observed. Patient was admitted to the intensive care unit for closer monitoring post surgery. Patient is currently seen in the intensive care unit and he reports that he feels better today with some abdomenal pain . Otherwise patient is denying any chest pain or trouble breathing reports some abdominal pain at site of surgery. Patient is also complaining of discomfort due to the NG tube. Patient did not have advanced directives or a wishing well, however he was able to name his daughter Hollie Big Stone to be has a advocating case he loses the capacity of making decisions. Patient condition was discussed with his nurse, case was also discussed with the patient. Review of Systems Constitutional: Patient reports no fever, no chills Eyes: Patient reports no visual changes, no eye pain ENT: Patient reports no ear pain. admits to chronic decrease hearing , now with sore throat and irritation from NGtube Cardiovascular: Patient reports no chest pain, no exertional dyspnea, no peripheral leg edema, no orthopnea Respiratory:Patient reports no cough, no wheezing, no shortness of breath Gastrointestinal: Patient reports no diarrhea, no constipation Genitourinary: Patient reports no dysuria, no hematuria. but admits to frequent urination Musculoskeletal: Patient reports no muscle pain, no joint pain Endocrine: Patient reports no heat intolerance, no cold intolerance, no excessive thirst Neurological: Patient reports no focal neurologic deficits, no weakness, no numbness, no tingling Hem/Lymphatic: Patient reports no bleeding tendency, no bruising, no swollen lymph glands Allergic/Immun: Patient reports no recent allergic reactions Skin: Patient reports no rashes, no pruritis, no ulcers Objective - Vital Signs Vital signs: Vital Signs Temp 97.9 F 10/23/16 07:00 Pulse 62 10/23/16 07:00 Resp 18 10/23/16 07:00 BP 152/75 10/23/16 07:00 Pulse Ox 94 L 10/23/16 07:00 Intake & Output 10/22/16 10/23/16 10/23/16 18:59 06:59 18:59 Intake Total 900 1683.333 Output Total 655 2535 425 Balance 245 -851.667 -425 Weight 76.1 kg Intake: IV 400 1220 0.9 200 Lactated Ringers 1,000 ml 320 @ 40 mls/hr IV .Q24H [facility] Rx#:[id number] TPN 800 cefTRIAXone 1,000 mg In 100 Sodium Chloride 0.9% 50 ml @ 100 mls/hr IVPB Q24HR [facility] Rx#:[id number] metroNIDAZOLE-NS PMX 500 100 100 mg In Saline 1 100ml.bag @ 100 mls/hr IVPB Q8HR [facility] Rx#:[id number] Intake, IV Titration 500 413.333 Amount Amino Acid 5%-D15w+Lytes* 300 E* 1,000 ml @ 100 mls/hr IV .BY DURATION [facility] Rx#: [id number] Mvi, Adult No.4 with Vit 413.333 K 10 ml Trace (Conc-1Ml/ Dose) 1 ml In Amino Acid 5%-D15w+Lytes*E* 1,000 ml @ 100 mls/hr IV .BY DURATION [facility] Rx#: [id number] Potassium Phosphate 10 100 mmol In Sodium Chloride 0 .9% 100 ml @ 50 mls/hr IV ONCE ONE Rx#:[id number] metroNIDAZOLE-NS PMX 500 100 mg In Saline 1 100ml.bag @ 100 mls/hr IVPB Q8HR [facility] Rx#:[id number] Oral 0 50 Output: Gastric Drainage 200 150 Drainage 455 385 25 Right Abdomen 455 385 25 Urine 2000 400 Uretheral (Levy) 400 Other: Voiding Method Indwelling Catheter # Bowel Movements 0 - Exam Constitutional: No acute distress, conversant, pleasant Eyes: Anicteric sclerae, moist conjunctiva, no lid-lag PERRLA ENMT: NC/AT Oropharynx clear, no erythema, exudates Neck: Supple, FROM, no masses, or JVD No carotid bruits No thyromegaly Lungs:Clear to auscultion Clear to percussion Normal respiratory effort, no accessory muscle use Cardiovascular:Heart regular in rate and rhythm, No murmurs, gallops, or rubs No peripheral edema Abdominal: tender at site of Sx , no guarding, rebound or rigidity Abdomen moving with respiration. Active bowel sounds No hepatomegaly, No splenomegaly No palpable mass No abdominal wall hernia noted COURTNEY drain : significant Bile drainage Skin: Normal temperature, tone, texture, turgor No induration No subcutaneous nodules No rash, lesions No ulcers Extremities: No digital cyanosis No clubbing Pedal pulses intact and symmetrical Radial pulses intact and symmetrical Normal gait and station No calf tenderness Psychiatric: Alert and oriented to person, place and time Appropriate affect Intact judgement Neuro: Muscles Strength 5/5 in all 4 extremities Sensation to light touch grossly present throughout Cranial nerves II-XII grossly intact No focal sensory deficits - Labs CBC & Chem 7: 10/23/16 06:43 10/23/16 06:43 Labs: Abnormal Lab Results - Last 24 Hours (Table) 10/22/16 10/22/16 10/22/16 Range/Units 12:45 18:07 23:50 RBC (4.30-5.90) m/uL Hgb (13.0-17.5) gm/dL Hct (39.0-53.0) % Creatinine (0.66-1.25) mg/dL Glucose (74-99) mg/dL POC Glucose (mg/dL) 255 H 205 H 327 H (75-99) mg/dL Calcium (8.4-10.2) mg/dL Total Protein (6.3-8.2) g/dL Albumin (3.5-5.0) g/dL 10/23/16 10/23/16 10/23/16 Range/Units 06:07 06:43 06:43 RBC 2.65 L (4.30-5.90) m/uL Hgb 8.3 L (13.0-17.5) gm/dL Hct 25.6 L (39.0-53.0) % Creatinine 0.57 L (0.66-1.25) mg/dL Glucose 327 H (74-99) mg/dL POC Glucose (mg/dL) 303 H (75-99) mg/dL Calcium 7.9 L (8.4-10.2) mg/dL Total Protein 4.5 L (6.3-8.2) g/dL Albumin 2.1 L (3.5-5.0) g/dL Assessment and Plan (1) CAD (coronary artery disease) Narrative/Plan: Normal CAD status post stents 12 years ago on the floor by a sales professional in [place] He was on Plavix and aspirin as antiplatelet therapy . cardiology consultation for further advice initiating these medications also to establish with a sales professional : Reviewed Echocardiogram : Normal left ventricular systolic function Avoid overhydration and monitor fluid intake and output CXR : Clear Stable, asymptomatic Status: Chronic (2) DVT prophylaxis Status: Acute (3) Diabetes mellitus Narrative/Plan: Blood ketones were positive but with normal Anion Gap ,most likely related to starvation and TPN started S. Acetone today was Negative His Blood sugar control is poor today B.Sugar > 300 Will add Insulin to TPN Consider lantus Insulin pm dose We will continue blood sugar monitoring and insulin sliding scale Status: Acute (4) History of colon cancer Narrative/Plan: reated and in remission since 1997 Status: Resolved (5) History of prostate cancer Narrative/Plan: Status post seed radiation therapy in remission Status: Resolved (6) Hypertension Narrative/Plan: Under fair control No active CHF clinicallly cardiology f/u appreciated , added NTG patch CXR : Negative We will continue current therapy Status: Acute (7) Status post cholecystectomy Narrative/Plan: Postoperative day 6 after open cholecystectomy 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 He was greater than 400 mL's out in the past 24 hours. An upper GI series this morning revealed extravasation of contrast at the level of the duodenal bulb or distal antrum of the stomach adjacent to the COURTNEY drain. No plans for ERCP at this time. Will continue on ceftriaxone along with fluconazole and metronidazole per surgical services. Status: Acute (8) Leukoaraiosis Narrative/Plan: Etiology is probably reactive to surgery Need to rule out other etiologies like infection will get a urine analysis and a chest x-ray he is currently on Rocephin and Flagyl as antibiotics CXR : Negative U/A : ? UTI , on appropriate AB's urine for C/S : Negative Resolved WBC is WNL Status: Resolved Plan: Blood ketones were negative today His Blood sugar control is adequate WBC count declined Propably ketones are related to no nutrition TPN started Bile leak , GI series ongoing today , ? need for ERCP : Under surghical Care will f/u
[2016-10-23] MEDS: FLUCONAZOLE IN NACL,ISO-OSM 400 MG in SALINE 1 200ML.BAG IVPB SCH (12:15)
[2016-10-23] MEDS: FAT EMULSION 20% 250 ML IV SCH (13:35)
[2016-10-23 14:12] LABS: Magnesium 1.9 mg/dL (1.6-2.3); Phosphorous 3.3 mg/dL (2.5-4.5)
--- NOTE | 2016-10-23 14:38 | P.PN ---
Subjective This is a pleasant 86-year-old gentleman who is postoperative cholecystectomy day #6. He had severe gallbladder disease with multiple adhesions and required an open procedure rather than laparoscopic. Yesterday he was found to have a biliary leak. He is currently NPO with an NG tube in place. We are following this patient for optimal blood pressure control while he is NPO. Nitroglycerin ointment has been added to his daily regimen as well as PRN hydralazine. His blood pressures have been under better control over the previous 24 hrs. Objective - Vital Signs Vital signs: Vital Signs Temp 98 F 10/23/16 11:08 Pulse 69 10/23/16 11:08 Resp 18 10/23/16 11:08 BP 133/66 10/23/16 11:08 Pulse Ox 94 L 10/23/16 11:08 Intake & Output 10/22/16 10/23/16 10/23/16 18:59 06:59 18:59 Intake Total 900 8299.856 7962 Output Total 655 2535 425 Balance 245 -851.667 586 Weight 76.1 kg Intake: IV 400 1220 0.9 200 Lactated Ringers 1,000 ml 320 @ 40 mls/hr IV .Q24H [facility] Rx#:[id number] TPN 800 cefTRIAXone 1,000 mg In 100 Sodium Chloride 0.9% 50 ml @ 100 mls/hr IVPB Q24HR [facility] Rx#:[id number] metroNIDAZOLE-NS PMX 500 100 100 mg In Saline 1 100ml.bag @ 100 mls/hr IVPB Q8HR [facility] Rx#:[id number] Intake, IV Titration 500 923.200 9688 Amount Amino Acid 5%-D15w+Lytes* 300 E* 1,000 ml @ 100 mls/hr IV .BY DURATION [facility] Rx#: [id number] Mvi, Adult No.4 with Vit 259.239 6024 K 10 ml Trace (Conc-1Ml/ Dose) 1 ml In Amino Acid 5%-D15w+Lytes*E* 1,000 ml @ 100 mls/hr IV .BY DURATION [facility] Rx#: [id number] Potassium Phosphate 10 100 mmol In Sodium Chloride 0 .9% 100 ml @ 50 mls/hr IV ONCE ONE Rx#:[id number] metroNIDAZOLE-NS PMX 500 100 mg In Saline 1 100ml.bag @ 100 mls/hr IVPB Q8HR [facility] Rx#:[id number] Oral 0 50 Output: Gastric Drainage 200 150 Drainage 455 385 25 Right Abdomen 455 385 25 Urine 2000 400 Uretheral (Levy) 400 Other: Voiding Method Indwelling Catheter Toilet # Voids 1 # Bowel Movements 0 - Exam GENERAL: Well-appearing, well-nourished and in no acute distress. NECK: Supple with no JVD, no thyromegaly. LUNGS: Clear to auscultation b/l. Respirations equal and unlabored. No wheezes , rales or rhonchi. HEART: Regular rate and rhythm without murmurs, rubs or gallops. S1 and S2 heard. EXTREMITIES: Normal range of motion with mild bilateral lower extremity edema. No clubbing or cyanosis. Peripheral pulses intact and strong. - Labs CBC & Chem 7: 10/23/16 06:43 10/23/16 06:43 Labs: Abnormal Lab Results - Last 24 Hours (Table) 10/22/16 10/22/16 10/23/16 Range/Units 18:07 23:50 06:07 RBC (4.30-5.90) m/uL Hgb (13.0-17.5) gm/dL Hct (39.0-53.0) % Creatinine (0.66-1.25) mg/dL Glucose (74-99) mg/dL POC Glucose (mg/dL) 205 H 327 H 303 H (75-99) mg/dL Calcium (8.4-10.2) mg/dL Total Protein (6.3-8.2) g/dL Albumin (3.5-5.0) g/dL 10/23/16 10/23/16 10/23/16 Range/Units 06:43 06:43 11:40 RBC 2.65 L (4.30-5.90) m/uL Hgb 8.3 L (13.0-17.5) gm/dL Hct 25.6 L (39.0-53.0) % Creatinine 0.57 L (0.66-1.25) mg/dL Glucose 327 H (74-99) mg/dL POC Glucose (mg/dL) 319 H (75-99) mg/dL Calcium 7.9 L (8.4-10.2) mg/dL Total Protein 4.5 L (6.3-8.2) g/dL Albumin 2.1 L (3.5-5.0) g/dL Assessment and Plan Plan: ASSESSMENT 1. Essential hypertension, uncontrolled in post-operative phase 2. Status post cholecystectomy with gastric fistula and repair 3. History of CAD with stenting 15 years ago in [place] 4. Diabetes mellitus 5. PLAN Continue current medication regimen. Once the pt is again tolerating oral intake he will transition back to his home medications for blood pressure control. Please feel free to call should you need further assistance. We will see the patient on an as needed basis. Nurse Practitioner note has been reviewed, I agree with a documented findings and plan of care. Patient was seen and examined.
[2016-10-23] MEDS: MAGNESIUM SULFATE-D5W PMX 1 GM in DEXTROSE/WATER 1 100ML.BAG IVPB SCH ×2 (18:16→20:58)
[2016-10-23 18:28] LABS: Glucose,Whole Blood 335 mg/dL (75-99)
[2016-10-23] MEDS ORDERED: BENZOCAINE SPRAY 1 SPRAY CAN MUCOUS MEM PRN (18:31)
[2016-10-23] MEDS: INSULIN GLARGINE 100 UNIT/ML 10 ML VIAL SQ SCH (20:58)
[2016-10-23 23:30] LABS: Glucose,Whole Blood 347 mg/dL (75-99)
[2016-10-24] MEDS: 1: AMINO ACID 5%-D15W+LYTES*E* 1,000 ML 2: MVI, ADULT NO.4 WITH VIT K 10 ML, TRACE (CON IV SCH ×6 (01:25→09:42)
[2016-10-24] MEDS: INSULIN LISPRO (humaLOG) 300 UNIT/3 ML VIAL SQ SCH ×3 (05:24→18:29)
[2016-10-24 05:41] LABS: Glucose,Whole Blood 323 mg/dL (75-99)
[2016-10-24 07:07] LABS: Basophils % (A) 0 %; CH 30.3; CHCM 31.5; Eosinophils # (A) 0.2 k/uL (0-0.7); Eosinophils % (A) 2 %; HCT 27.6 % (39.0-53.0); HDW 2.71; Hypochromasia Slight; Luc % (Auto) 2; Lymphocytes # (A) 1.3 k/uL (1.0-4.8); Lymphocytes % (A) 14 %; MCH 31.6 pg (25.0-35.0); MCHC 32.7 g/dL (31.0-37.0); MCV 96.8 fL (80.0-100.0); Mean Platelet Volume 7.5; Monocytes # (A) 0.5 k/uL (0-1.0); Monocytes % (A) 5 %; Neutrophils # (A) 7.6 k/uL (1.3-7.7); Neutrophils % (A) 77 %; RBC 2.85 m/uL (4.30-5.90); WBC 9.9 k/uL (3.8-10.6); WBC (Perox) 10.18
[2016-10-24 07:29] LABS: ALT 26 U/L (21-72); AST 18 U/L (17-59); Alkaline Phosphatase 47 U/L (38-126); Anion Gap 6 mmol/L; Bilirubin, Delta 0.2 mg/dL (0.0-0.2); Blood Urea Nitrogen 16 mg/dL (9-20); Carbon Dioxide 29 mmol/L (22-30); Chloride 103 mmol/L (98-107); Glucose 277 mg/dL (74-99); Magnesium 2.1 mg/dL (1.6-2.3); Non-African American GFR(MDRD) >60 (>60 ml/min/1.73 sqM); Phosphorous 3.1 mg/dL (2.5-4.5); Sodium 138 mmol/L (137-145); Total Bilirubin 0.2 mg/dL (0.2-1.3); Total Protein 4.7 g/dL (6.3-8.2)
[2016-10-24] MEDS: LACTATED RINGERS 1,000 ML IV SCH (07:55)
[2016-10-24] MEDS: PANTOPRAZOLE 40 MG/10 ML VIAL IV SCH (07:57)
[2016-10-24] MEDS: NITROGLYCERIN OINT 1 INCH/GM PACKET TOPICAL SCH ×2 (07:57→16:31)
[2016-10-24] MEDS: HEPARIN SODIUM,PORCINE 5,000 UNIT/ML 1 ML VIAL SQ SCH ×2 (07:57→16:31)
[2016-10-24] MEDS: metroNIDAZOLE-NS PMX 500 MG in SALINE 1 100ML.BAG IVPB SCH ×2 (07:57→16:31)
--- NOTE | 2016-10-24 08:37 | P.PN ---
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 Nursing staff at bedside. Pain is well- controlled. COURTNEY output of approximately 160 mL's - bilious over last 24 hours. Up to chair yesterday for most of the day and ambulated. Denies bowel function over the past 24h. He denies any nausea or vomiting. NG tube is in place. Objective - Vital Signs Vital signs: Vital Signs Temp 98.2 F 10/24/16 07:24 Pulse 69 10/24/16 07:24 Resp 16 10/24/16 01:48 BP 149/78 10/24/16 07:24 Pulse Ox 98 10/24/16 08:03 Intake & Output 10/23/16 10/24/16 10/24/16 18:59 06:59 18:59 Intake Total 3131 520 Output Total 1275 150 Balance 1856 370 Weight 76.1 kg Intake: IV 1120 320 Lactated Ringers 1,000 ml 320 320 @ 40 mls/hr IV .Q24H [facility] Rx#:[id number] TPN 800 Intake, IV Titration 2010 200 Amount Amino Acid 5%-D15w+Lytes* 1000 E* 1,000 ml @ 100 mls/hr IV .BY DURATION [facility] Rx#: [id number] Magnesium Sulfate-D5w Pmx 200 1 gm In Dextrose/Water 1 100ml.bag @ 100 mls/hr IVPB Q1H [facility] Rx#: [id number] Mvi, Adult No.4 with Vit 1011 K 10 ml Trace (Conc-1Ml/ Dose) 1 ml In Amino Acid 5%-D15w+Lytes*E* 1,000 ml @ 100 mls/hr IV .BY DURATION [facility] Rx#: [id number] Output: Drainage 75 150 Right Abdomen 75 150 Urine 1200 Uretheral (Levy) 400 Other: Voiding Method Toilet # Voids 1 - Constitutional General appearance: Present: cooperative, no acute distress - EENT Eyes: Present: anicteric sclerae, EOMI, PERRLA ENT: Present: hearing grossly normal - Neck Neck: Present: normal ROM - Respiratory Details: No Difficulty with respiration - Cardiovascular Rhythm: regular Heart sounds: normal: S1, S2 - Gastrointestinal Gastrointestinal Comment(s): Incision sites clean dry and intact, COURTNEY drain in place General gastrointestinal: Present: soft. Absent: distended, tenderness - Integumentary Integumentary: Present: normal turgor - Musculoskeletal Musculoskeletal: Present: generalized weakness - Psychiatric Psychiatric: Present: A&O x's 3 - Labs CBC & Chem 7: 10/24/16 06:45 10/24/16 06:45 Labs: Abnormal Lab Results - Last 24 Hours (Table) 10/23/16 10/23/16 10/23/16 Range/Units 11:40 18:24 23:16 RBC (4.30-5.90) m/uL Hgb (13.0-17.5) gm/dL Hct (39.0-53.0) % Creatinine (0.66-1.25) mg/dL Glucose (74-99) mg/dL POC Glucose (mg/dL) 319 H 335 H 347 H (75-99) mg/dL Calcium (8.4-10.2) mg/dL Total Protein (6.3-8.2) g/dL Albumin (3.5-5.0) g/dL 10/24/16 10/24/16 10/24/16 Range/Units 05:23 06:45 06:45 RBC 2.85 L (4.30-5.90) m/uL Hgb 9.0 L (13.0-17.5) gm/dL Hct 27.6 L (39.0-53.0) % Creatinine 0.60 L (0.66-1.25) mg/dL Glucose 277 H (74-99) mg/dL POC Glucose (mg/dL) 323 H (75-99) mg/dL Calcium 8.0 L (8.4-10.2) mg/dL Total Protein 4.7 L (6.3-8.2) g/dL Albumin 2.2 L (3.5-5.0) g/dL Assessment and Plan (1) Status post cholecystectomy Status: Acute Plan: Over last 24h COURTNEY output of 160cc. Greatly decreased from previous 24h. Still bilious. Continueoctreotide to decrease bilious output Continue management with NPO/TPN/NGT. Appreciate medicine recs on glucose control. Plan to replace subclavian central venous catheter with PICC line Patient is continuing to improve, discussed case with patient's family
[2016-10-24] MEDS: OCTREOTIDE 100 MCG/ML INJ IVP SCH ×2 (09:43→17:24)
--- NOTE | 2016-10-24 09:57 | P.PN ---
Subjective Principal diagnosis: s/p cholecystectomy Diabetes &Medical management post cholecystectomy POD#7 s/p Open cholecystectomy and adhesions lysis, complicated by biliary leak No abdominal distention or pain. No flatus. NG tube is in place. No nausea / vomiting, positive flatus, ambulates. NPO, on TPN and IV a/b. I/O's , medications and labs were reviewed His Blood sugar control is adequate ,on TPN WBC count normalized In summary , he is an 86-year-old male with past medical history significant for coronary artery disease status post stents under f/u in [place] , colon cancer 1997, and prostate cancer s/p seed radiation therapy. Patient is currently seen in the intensive care unit post open cholecystectomy medicine one was consult for diabetes management. Patient history goes back to one week ago when he presented to [facility] with acute complaint of abdominal pain he He was evaluated by general surgery who recommended laparoscopic cholecystectomy. However, in the OR patient was found to have a lot of adhesions from prior surgeries for which it was converted to open cholecystectomy and adhesolysis. He was found to have a fistula goiing to stomach. Surgery seems to be uneventful with no immediate complications observed. Patient was admitted to the intensive care unit for closer monitoring post surgery, now on medical/surgical floor. Objective - Vital Signs Vital signs: Vital Signs Temp 98.2 F 10/24/16 07:24 Pulse 69 10/24/16 07:24 Resp 16 10/24/16 01:48 BP 149/78 10/24/16 07:24 Pulse Ox 98 10/24/16 08:03 Intake & Output 10/23/16 10/24/16 10/24/16 18:59 06:59 18:59 Intake Total 3131 520 Output Total 1275 150 Balance 1856 370 Weight 76.1 kg Intake: IV 1120 320 Lactated Ringers 1,000 ml 320 320 @ 40 mls/hr IV .Q24H [facility] Rx#:[id number] TPN 800 Intake, IV Titration 2010 200 Amount Amino Acid 5%-D15w+Lytes* 1000 E* 1,000 ml @ 100 mls/hr IV .BY DURATION [facility] Rx#: [id number] Magnesium Sulfate-D5w Pmx 200 1 gm In Dextrose/Water 1 100ml.bag @ 100 mls/hr IVPB Q1H [facility] Rx#: [id number] Mvi, Adult No.4 with Vit 1011 K 10 ml Trace (Conc-1Ml/ Dose) 1 ml In Amino Acid 5%-D15w+Lytes*E* 1,000 ml @ 100 mls/hr IV .BY DURATION [facility] Rx#: [id number] Output: Drainage 75 150 Right Abdomen 75 150 Urine 1200 Uretheral (Levy) 400 Other: Voiding Method Toilet # Voids 1 - Constitutional General appearance: Present: average body habitus, cooperative, no acute distress - EENT Eyes: Present: EOMI, normal appearance - Neck Neck: Present: normal ROM. Absent: lymphadenopathy, rigidity, thyromegaly - Respiratory Respiratory: bilateral: CTA - Cardiovascular Rhythm: regular Heart sounds: normal: S1, S2 Abnormal Heart Sounds: Absent: systolic murmur, diastolic murmur, rub, S3 Gallop , S4 Gallop, click - Gastrointestinal General gastrointestinal: Present: normal bowel sounds, soft. Absent: tenderness - Integumentary Integumentary: Present: normal, normal turgor - Neurologic Neurologic: Present: CNII-XII intact. Absent: focal deficits - Psychiatric Psychiatric: Present: A&O x's 3, appropriate affect - Labs CBC & Chem 7: 10/24/16 06:45 10/24/16 06:45 Labs: Abnormal Lab Results - Last 24 Hours (Table) 10/23/16 10/23/16 10/23/16 Range/Units 11:40 18:24 23:16 RBC (4.30-5.90) m/uL Hgb (13.0-17.5) gm/dL Hct (39.0-53.0) % Creatinine (0.66-1.25) mg/dL Glucose (74-99) mg/dL POC Glucose (mg/dL) 319 H 335 H 347 H (75-99) mg/dL Calcium (8.4-10.2) mg/dL Total Protein (6.3-8.2) g/dL Albumin (3.5-5.0) g/dL 10/24/16 10/24/16 10/24/16 Range/Units 05:23 06:45 06:45 RBC 2.85 L (4.30-5.90) m/uL Hgb 9.0 L (13.0-17.5) gm/dL Hct 27.6 L (39.0-53.0) % Creatinine 0.60 L (0.66-1.25) mg/dL Glucose 277 H (74-99) mg/dL POC Glucose (mg/dL) 323 H (75-99) mg/dL Calcium 8.0 L (8.4-10.2) mg/dL Total Protein 4.7 L (6.3-8.2) g/dL Albumin 2.2 L (3.5-5.0) g/dL Assessment and Plan (1) Bile leak Status: Acute (2) Diabetes mellitus Status: Acute (3) Hypertension Status: Acute (4) Status post cholecystectomy Status: Acute (5) Acute cholecystitis Status: Acute (6) CAD (coronary artery disease) Status: Chronic Plan: Assessment and Plan: 1. Acute cholecystitis, s/p cholecystectomy with madisyn-gastric fistula and adhesions s/p lysis. POD#7. NPO, IVF, NGT, TPN. COURTNEY drain in place. Continue present treatment, discussed with Dr. Saez. 2. Hx of CAD, s/p stents placement years ago. Cardiology on board. continue current medications. 3. DM2-insulin sliding scale added yesterday, continue and monitor BG. 4. HTN-continue Hydralazine and Clonidine. 5. Hx of colon cancer-in remission. 6. Hx of prostate cancer, s/op seed radiation, in remission. 7. DVT prophylaxis.
[2016-10-24] MEDS: FLUCONAZOLE IN NACL,ISO-OSM 400 MG in SALINE 1 200ML.BAG IVPB SCH (11:10)
[2016-10-24 12:50] LABS: Glucose,Whole Blood 334 mg/dL (75-99)
[2016-10-24] MEDS: HYDROmorphone 1 MG/ML 1 ML SYRINGE IVP PRN (13:50)
--- NOTE | 2016-10-24 13:56 | P.PN ---
Subjective This is an 86-year-old male patient who presented to the emergency department approximately one week ago complaining of abdominal pain and nausea. The patient's pain was mostly in the right upper quadrant. On examination the patient was quite benign and she end up tolerating clear liquids well without any change in his bowel habits. Further investigation within ultrasound of the abdomen showed gallstones and mild gallbladder wall thickening without any pericholecystic fluid or evidence of inflammation. As such the patient was seen by general surgery and he was thought to have symptomatic cholelithiasis. The patient was started on medical treatment with antibiotics and the patient was discharged home, and the patient was brought back today for a cholecystectomy which turned out to be an open cholecystectomy. Postop, the patient was moved to the intensive care unit for further monitoring. He is awake. He is alert. He has a COURTNEY drain in the right upper quadrant. A Levy catheter is to be inserted. Hemodynamically stable. The patient was seen again today 10/18/2016 in follow-up in the intensive care unit. He is awake and alert in no acute distress. He is status post laparoscopic cholecystectomy converted to open cholecystectomy, extensive lysis of adhesions, repair of gastrotomy with a modified Fareed patch. This is postoperative day #1. He is currently sitting up in the chair at the bedside. He denies any worsening shortness of breath, cough or congestion. His chest x- ray does show bilateral lower lobe subsegmental atelectasis with tiny effusions. There is also some subcutaneous emphysema on the left with no sizable pneumothorax. He is maintaining good O2 saturations in the mid 90s on 3 L/m per nasal cannula. He is afebrile. Hemodynamically stable. His abdominal dressing is dry and intact. The COURTNEY drain remains in place and there is some bile colored fluid noted in it. On 10/19/2016 the patient is being seen in follow-up. The patient is post open cholecystectomy, lysis of adhesions, repair of a gastric wall with a modified Fareed patch. The patient is postop day #2. The COURTNEY drain is putting out bilious material and this has been confirmed on several occasions. Based on this a biliary leak is suspected. Despite this, the liver function tests remains within normal limits. The patient is not acting toxic. No nausea no vomiting. NG tube is in place and output is minimal. No flatus or bowel movements yet. No abdominal pain or distention. No tenderness. The patient had some limited change in mental status yesterday however this morning it is much more alert and awake. The patient is also receiving Dilaudid for pain control. The patient is on combination of Rocephin and Flagyl. The patient is hemodynamically stable. The patient experienced some lower urine output earlier which improved with fluids and the patient was given a total of 2 L of IV fluid boluses yesterday. He is on a lactated Ringer solution. On 10/20/2016 the patient is being seen in follow-up. The patient has post open cholecystectomy and the patient is postop day #3. There is an obvious biliary leak as the patient has produced around 480 mL of drainage since yesterday from the COURTNEY drain. The HIDA scan was completed and there is evidence of tracer uptake within the COURTNEY drain consistent with a biliary leak. Gen. surgery and gastroesophageal are both aware. ERCP will be indicated later stage once the patient is further recovered and the Farede patch that was placed on the stomach is well-healed. The patient has an NG tube in place. Output is minimal. Liver function tests are not elevated. A triple lumen catheter was inserted and the patient was started on a TPN for nutritional support. Electrodes are all stable. Function is stable. The patient is afebrile. The patient is covered with broad-spectrum antibiotics with a combination of Rocephin, metronidazole and Diflucan. No bowel activity yet. Urine output is adequate for now. The patient is also on IV fluids with lactated Ringer at the rate of 75 mL an hour. On 10/21/2016 the patient is postop day #4. She is on TPN for nutritional support. His COURTNEY drain is still draining bilious material in the order of 400 mL and this is considered to be consistent with biliary leak. No abdominal distention. No abdominal pain. No flatus. NG tube is in place. Resting comfortably in the chair. No nausea. No change in mental status to no fever or chills. He is on IV fluids lactated Ringer at the rate of 40 mL an hour. Patient is seen again today 10/22/2016 in follow-up on the regular surgical floor. This is postoperative day #5. He is currently resting fairly comfortably in bed. He denies any worsening shortness of breath. He does have a productive cough of pale yellow sputum. Today's chest x-ray reveals a small right pleural effusion. He is working well with the incentive spirometer. Nasogastric tube remains in place. He remains on TPN for nutritional support. Abdominal dressing is dry and intact. The COURTNEY drain continues to drain a significant amount of biliary substance. He was greater than 400 mL's out in the past 24 hours. An upper GI series this morning revealed extravasation of contrast at the level of the duodenal bulb or distal antrum of the stomach adjacent to the COURTNEY drain. No plans for ERCP at this time. He remains on ceftriaxone along with fluconazole and metronidazole per surgical services. The patient was seen again today 10/23/2016 in follow-up on the surgical floor. He is currently sitting up in a chair at the bedside. He is awake and alert in no acute distress. He denies any worsening shortness of breath, cough or congestion. He is maintaining O2 saturations in the 90s on room air. Afebrile. No leukocytosis. Hemoglobin 8.3. He's been hemodynamically stable. He was found to have a gastric leak. The bilious drainage is approximately 135 mL. He's been initiated on octreotide. He denies any worsening abdominal discomfort. His abdomen remains soft. He is passing flatus. He is being nourished with TPN/lipids. He remains nothing by mouth with NG tube in place. The patient is seen again today 10/24/2016 in follow-up on the surgical floor, postoperative day #7. He is currently sitting up in a chair at the bedside. He is awake and alert in no acute distress. He states his pain is well controlled. He denies any worsening shortness of breath, cough or congestion. He is currently maintaining good O2 saturations in the high 90s on 3 L/m per nasal cannula. His nasogastric tube remains in place, clamped. COURTNEY drain in place. He has not had a bowel movement thus far. He remains nothing by mouth. He is being nourished via TPN/lipids. No leukocytosis. Hemoglobin 9.0. Electrolytes and renal profile within normal limits. Objective - Vital Signs Vital signs: Vital Signs Temp 98.2 F 10/24/16 07:24 Pulse 69 10/24/16 07:24 Resp 16 10/24/16 01:48 BP 149/78 10/24/16 07:24 Pulse Ox 98 10/24/16 08:03 Intake & Output 10/23/16 10/24/16 10/24/16 18:59 06:59 18:59 Intake Total 3131 520 828.333 Output Total 1275 150 10 Balance 1856 370 818.333 Weight 76.1 kg Intake: IV 1120 320 Lactated Ringers 1,000 ml 320 320 @ 40 mls/hr IV .Q24H GHAZALA Rx#:[id number] TPN 800 Intake, IV Titration 2010 200 828.333 Amount Amino Acid 5%-D15w+Lytes* 1000 828.333 E* 1,000 ml @ 100 mls/hr IV .BY DURATION GHAZALA Rx#: [id number] Magnesium Sulfate-D5w Pmx 200 1 gm In Dextrose/Water 1 100ml.bag @ 100 mls/hr IVPB Q1H GHAZALA Rx#: [id number] Mvi, Adult No.4 with Vit 1011 K 10 ml Trace (Conc-1Ml/ Dose) 1 ml In Amino Acid 5%-D15w+Lytes*E* 1,000 ml @ 100 mls/hr IV .BY DURATION GHAZALA Rx#: [id number] Output: Drainage 75 150 10 Right Abdomen 75 150 10 Urine 1200 Uretheral (Levy) 400 Other: Voiding Method Toilet # Voids 1 - Exam Head exam was generally normal. Nasogastric tube secured in place. There was no scleral icterus or corneal arcus. Mucous membranes were moist. Neck was supple and without jugular venous distension, thyromegaly, or carotid bruits. Carotids were easily palpable bilaterally. There was no adenopathy. Lung sounds are diminished otherwise clear. No wheezes or rales were noted. Cardiac exam revealed the PMI to be normally situated and sized. The rhythm was regular and no extrasystoles were noted during several minutes of auscultation. The first and second heart sounds were normal and physiologic splitting of the second heart sound was noted. There were no murmurs, rubs, clicks, or gallops. Abdomen is soft. No direct tenderness no rebound tenderness. No guarding. Bowel sounds are hypoactive. Incision clean dry well approximated. COURTNEY drain is in place. Bilious output has been about 160 mL from the COURTNEY drain the past 24 hours. Bowel sounds are hypoactive. Examination of the extremities revealed easily palpable radial, femoral and pedal pulses. There was no cyanosis, clubbing or edema. Neurologically the patient is or AO3 and there is no focal neurological deficit. - Labs CBC & Chem 7: 10/24/16 06:45 10/24/16 06:45 Labs: Abnormal Lab Results - Last 24 Hours (Table) 10/23/16 10/23/16 10/24/16 Range/Units 18:24 23:16 05:23 RBC (4.30-5.90) m/uL Hgb (13.0-17.5) gm/dL Hct (39.0-53.0) % Creatinine (0.66-1.25) mg/dL Glucose (74-99) mg/dL POC Glucose (mg/dL) 335 H 347 H 323 H (75-99) mg/dL Calcium (8.4-10.2) mg/dL Total Protein (6.3-8.2) g/dL Albumin (3.5-5.0) g/dL 10/24/16 10/24/16 10/24/16 Range/Units 06:45 06:45 12:46 RBC 2.85 L (4.30-5.90) m/uL Hgb 9.0 L (13.0-17.5) gm/dL Hct 27.6 L (39.0-53.0) % Creatinine 0.60 L (0.66-1.25) mg/dL Glucose 277 H (74-99) mg/dL POC Glucose (mg/dL) 334 H (75-99) mg/dL Calcium 8.0 L (8.4-10.2) mg/dL Total Protein 4.7 L (6.3-8.2) g/dL Albumin 2.2 L (3.5-5.0) g/dL Assessment and Plan Plan: Assessment 1 symptomatic cholelithiasis, status post laparoscopic cholecystectomy converted to open cholecystectomy, extensive lysis of adhesions, repair of gastrectomy with a modified Fareed patch. This is postoperative day #7. There is continued billous drainage from the COURTNEY drain. Upper GI series does reveal extravasation of contrast to what appears to be the level of the duodenal bulb or distal antrum of the stomach adjacent to the COURTNEY drain. Octreotide had been added. 2 postoperative atelectasis as an expected outcome of surgery with some left chest subcutaneous emphysema of unclear etiology. 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 Horner. We've again encouraged the increased use of the incentive spirometer and cough and deep breathing exercises. He remains on heparin subcutaneous for DVT prophylaxis. Continue Protonix for GI prophylaxis. His pain is well managed. We will increase his activity as tolerated. We'll continue to follow.
[2016-10-24 18:23] LABS: Glucose,Whole Blood 308 mg/dL (75-99)
[2016-10-24] MEDS: INSULIN GLARGINE 100 UNIT/ML 10 ML VIAL SQ SCH (20:18)
[2016-10-25] MEDS: HEPARIN SODIUM,PORCINE 5,000 UNIT/ML 1 ML VIAL SQ SCH ×3 (00:16→16:37)
[2016-10-25] MEDS: INSULIN LISPRO (humaLOG) 300 UNIT/3 ML VIAL SQ SCH ×4 (00:16→17:47)
[2016-10-25] MEDS: NITROGLYCERIN OINT 1 INCH/GM PACKET TOPICAL SCH ×3 (00:16→17:47)
[2016-10-25] MEDS: metroNIDAZOLE-NS PMX 500 MG in SALINE 1 100ML.BAG IVPB SCH ×3 (00:17→16:36)
[2016-10-25] MEDS: OCTREOTIDE 100 MCG/ML INJ IVP SCH ×3 (00:17→17:46)
[2016-10-25 00:21] LABS: Glucose,Whole Blood 371 mg/dL (75-99)
[2016-10-25 05:32] LABS: Glucose,Whole Blood 296 mg/dL (75-99)
[2016-10-25] MEDS: 1: AMINO ACID 5%-D15W+LYTES*E* 1,000 ML 2: MVI, ADULT NO.4 WITH VIT K 10 ML, TRACE (CON IV SCH ×9 (05:44→15:08)
[2016-10-25 08:00] LABS: ALT 24 U/L (21-72); AST 16 U/L (17-59); Alkaline Phosphatase 47 U/L (38-126); Anion Gap 4 mmol/L; Bilirubin, Delta 0.1 mg/dL (0.0-0.2); Blood Urea Nitrogen 17 mg/dL (9-20); Calcium 7.8 mg/dL (8.4-10.2); Carbon Dioxide 31 mmol/L (22-30); Chloride 103 mmol/L (98-107); Glucose 248 mg/dL (74-99); Non-African American GFR(MDRD) >60 (>60 ml/min/1.73 sqM); Phosphorous 2.9 mg/dL (2.5-4.5); Potassium 4.4 mmol/L (3.5-5.1); Sodium 138 mmol/L (137-145); Total Bilirubin 0.2 mg/dL (0.2-1.3); Total Protein 4.6 g/dL (6.3-8.2)
[2016-10-25 08:20] LABS: Basophils % (A) 0 %; CH 30.6; CHCM 31.4; Eosinophils # (A) 0.3 k/uL (0-0.7); Eosinophils % (A) 2 %; HCT 27.6 % (39.0-53.0); HDW 2.73; HGB 8.8 gm/dL (13.0-17.5); Hypochromasia Slight; Luc # (Auto) 0.23; Luc % (Auto) 2; Lymphocytes # (A) 1.5 k/uL (1.0-4.8); Lymphocytes % (A) 14 %; MCH 31.4 pg (25.0-35.0); MCV 98.3 fL (80.0-100.0); Macrocytosis Slight; Mean Platelet Volume 7.9; Monocytes # (A) 0.5 k/uL (0-1.0); Monocytes % (A) 5 %; Neutrophils % (A) 76 %; RBC 2.81 m/uL (4.30-5.90); RDW 15.6 % (11.5-15.5); WBC 10.5 k/uL (3.8-10.6); WBC (Perox) 10.78
[2016-10-25] MEDS: PANTOPRAZOLE 40 MG/10 ML VIAL IV SCH (09:11)
[2016-10-25] MEDS ORDERED: INSULIN GLARGINE 100 UNIT/ML 10 ML VIAL SQ SCH (09:22)
[2016-10-25] MEDS ORDERED: INSULIN LISPRO (humaLOG) 300 UNIT/3 ML VIAL SQ SCH (09:30)
--- NOTE | 2016-10-25 10:16 | P.PN ---
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 No abdominal distention or pain. NG tube is in place, draining less. COURTNEY drain 110 cc, drainage is slowing down. No nausea/ vomiting, positive flatus, ambulated yesterday, sitting up in the chair today. Patient states he is feeling better. NPO, on TPN and IV a/b. BG is not well controlled. Objective - Vital Signs Vital signs: Vital Signs Temp 97.8 F 10/25/16 07:00 Pulse 94 10/25/16 07:00 Resp 18 10/25/16 07:00 BP 157/79 10/25/16 07:00 Pulse Ox 94 L 10/25/16 07:00 Intake & Output 10/24/16 10/25/16 10/25/16 18:59 06:59 18:59 Intake Total 323.467 9490 Output Total 590 710 830 Balance 056.382 4518 -830 Weight 80.2 kg Intake: IV 1120 0.9 800 Lactated Ringers 1,000 ml 320 @ 40 mls/hr IV .Q24H GHAZALA Rx#:[id number] Intake, IV Titration 071.519 1556 Amount Amino Acid 5%-D15w+Lytes* 965.903 1644 E* 1,000 ml @ 100 mls/hr IV .BY DURATION GHAZALA Rx#: [id number] Oral 50 Output: Drainage 190 110 30 Right Abdomen 190 110 30 Urine 400 600 800 Other: # Voids 1 3 - Exam General-no acute distress, sitting up in the chair. NGT in place. HEENT: normochephalic and atraumatic, sclerae anicteric, oral mucosa dry. Neck supple, no thyromegaly of lymphadenopathy, no JVD. Trachea midline. CV: normal S1/S2, RRR Chest: clear to auscultation b/l, good respiratory effort, no w/r/c Abdomen: soft, ND, positive BS in all 4 quadrants. Extr: no edema, clubbing or cyanosis, no calf tenderness. Skin: warm, dry and intact. - Labs CBC & Chem 7: 10/25/16 07:17 10/25/16 07:17 Labs: Abnormal Lab Results - Last 24 Hours (Table) 10/24/16 10/24/16 10/24/16 Range/Units 12:46 18:20 23:58 RBC (4.30-5.90) m/uL Hgb (13.0-17.5) gm/dL Hct (39.0-53.0) % RDW (11.5-15.5) % Neutrophils # (1.3-7.7) k/uL Carbon Dioxide (22-30) mmol/L Creatinine (0.66-1.25) mg/dL Glucose (74-99) mg/dL POC Glucose (mg/dL) 334 H 308 H 371 H (75-99) mg/dL Calcium (8.4-10.2) mg/dL AST (17-59) U/L Total Protein (6.3-8.2) g/dL Albumin (3.5-5.0) g/dL 10/25/16 10/25/16 10/25/16 Range/Units 05:26 07:17 07:17 RBC 2.81 L (4.30-5.90) m/uL Hgb 8.8 L (13.0-17.5) gm/dL Hct 27.6 L (39.0-53.0) % RDW 15.6 H (11.5-15.5) % Neutrophils # 8.0 H (1.3-7.7) k/uL Carbon Dioxide 31 H (22-30) mmol/L Creatinine 0.61 L (0.66-1.25) mg/dL Glucose 248 H (74-99) mg/dL POC Glucose (mg/dL) 296 H (75-99) mg/dL Calcium 7.8 L (8.4-10.2) mg/dL AST 16 L (17-59) U/L Total Protein 4.6 L (6.3-8.2) g/dL Albumin 2.1 L (3.5-5.0) g/dL Assessment and Plan (1) Bile leak Status: Acute (2) Diabetes mellitus Status: Acute (3) Hypertension Status: Acute (4) Status post cholecystectomy Status: Acute (5) Acute cholecystitis Status: Acute (6) CAD (coronary artery disease) Status: Chronic Plan: Assessment and plan: 1.cholelithiasis, status post laparoscopic cholecystectomy converted to open cholecystectomy with finding of madisyn-gastric fistula, gastrectomy with a modified Fareed patch and lysis of adhesions. POD#8. NPO, NGT in place, on TPN and IV a/b and Diflucan. 2. DM2-uncontrolled, will increase dose of basal insulin and switch ISS to higher coverage, monitor BG. 3. HX of CAD, stable. 4. PCM-continue TPN. 5. HTN-controlled, continue current meds. 6. DVT prophylaxis-per primary, patient has SCDs.
[2016-10-25 11:17] LABS: Glucose,Whole Blood 343 mg/dL (75-99)
[2016-10-25] MEDS: FAT EMULSION 20% 250 ML IV SCH (12:17)
[2016-10-25] MEDS: FLUCONAZOLE IN NACL,ISO-OSM 400 MG in SALINE 1 200ML.BAG IVPB SCH (12:17)
[2016-10-25] MEDS ORDERED: LIDOCAINE 2% INJ 20 MG/ML SQ ONE (13:32)
[2016-10-25 13:58] VITALS: BMI 25.3
--- NOTE | 2016-10-25 14:25 | P.PN ---
Subjective This is an 86-year-old male patient who presented to the emergency department approximately one week ago complaining of abdominal pain and nausea. The patient's pain was mostly in the right upper quadrant. On examination the patient was quite benign and she end up tolerating clear liquids well without any change in his bowel habits. Further investigation within ultrasound of the abdomen showed gallstones and mild gallbladder wall thickening without any pericholecystic fluid or evidence of inflammation. As such the patient was seen by general surgery and he was thought to have symptomatic cholelithiasis. The patient was started on medical treatment with antibiotics and the patient was discharged home, and the patient was brought back today for a cholecystectomy which turned out to be an open cholecystectomy. Postop, the patient was moved to the intensive care unit for further monitoring. He is awake. He is alert. He has a COURTNEY drain in the right upper quadrant. A Levy catheter is to be inserted. Hemodynamically stable. The patient was seen again today 10/18/2016 in follow-up in the intensive care unit. He is awake and alert in no acute distress. He is status post laparoscopic cholecystectomy converted to open cholecystectomy, extensive lysis of adhesions, repair of gastrotomy with a modified Fareed patch. This is postoperative day #1. He is currently sitting up in the chair at the bedside. He denies any worsening shortness of breath, cough or congestion. His chest x- ray does show bilateral lower lobe subsegmental atelectasis with tiny effusions. There is also some subcutaneous emphysema on the left with no sizable pneumothorax. He is maintaining good O2 saturations in the mid 90s on 3 L/m per nasal cannula. He is afebrile. Hemodynamically stable. His abdominal dressing is dry and intact. The COURTNEY drain remains in place and there is some bile colored fluid noted in it. On 10/19/2016 the patient is being seen in follow-up. The patient is post open cholecystectomy, lysis of adhesions, repair of a gastric wall with a modified Fareed patch. The patient is postop day #2. The COURTNEY drain is putting out bilious material and this has been confirmed on several occasions. Based on this a biliary leak is suspected. Despite this, the liver function tests remains within normal limits. The patient is not acting toxic. No nausea no vomiting. NG tube is in place and output is minimal. No flatus or bowel movements yet. No abdominal pain or distention. No tenderness. The patient had some limited change in mental status yesterday however this morning it is much more alert and awake. The patient is also receiving Dilaudid for pain control. The patient is on combination of Rocephin and Flagyl. The patient is hemodynamically stable. The patient experienced some lower urine output earlier which improved with fluids and the patient was given a total of 2 L of IV fluid boluses yesterday. He is on a lactated Ringer solution. On 10/20/2016 the patient is being seen in follow-up. The patient has post open cholecystectomy and the patient is postop day #3. There is an obvious biliary leak as the patient has produced around 480 mL of drainage since yesterday from the COURTNEY drain. The HIDA scan was completed and there is evidence of tracer uptake within the COURTNEY drain consistent with a biliary leak. Gen. surgery and gastroesophageal are both aware. ERCP will be indicated later stage once the patient is further recovered and the Fareed patch that was placed on the stomach is well-healed. The patient has an NG tube in place. Output is minimal. Liver function tests are not elevated. A triple lumen catheter was inserted and the patient was started on a TPN for nutritional support. Electrodes are all stable. Function is stable. The patient is afebrile. The patient is covered with broad-spectrum antibiotics with a combination of Rocephin, metronidazole and Diflucan. No bowel activity yet. Urine output is adequate for now. The patient is also on IV fluids with lactated Ringer at the rate of 75 mL an hour. On 10/21/2016 the patient is postop day #4. She is on TPN for nutritional support. His COURTNEY drain is still draining bilious material in the order of 400 mL and this is considered to be consistent with biliary leak. No abdominal distention. No abdominal pain. No flatus. NG tube is in place. Resting comfortably in the chair. No nausea. No change in mental status to no fever or chills. He is on IV fluids lactated Ringer at the rate of 40 mL an hour. Patient is seen again today 10/22/2016 in follow-up on the regular surgical floor. This is postoperative day #5. He is currently resting fairly comfortably in bed. He denies any worsening shortness of breath. He does have a productive cough of pale yellow sputum. Today's chest x-ray reveals a small right pleural effusion. He is working well with the incentive spirometer. Nasogastric tube remains in place. He remains on TPN for nutritional support. Abdominal dressing is dry and intact. The COURTNEY drain continues to drain a significant amount of biliary substance. He was greater than 400 mL's out in the past 24 hours. An upper GI series this morning revealed extravasation of contrast at the level of the duodenal bulb or distal antrum of the stomach adjacent to the COURTNEY drain. No plans for ERCP at this time. He remains on ceftriaxone along with fluconazole and metronidazole per surgical services. The patient was seen again today 10/23/2016 in follow-up on the surgical floor. He is currently sitting up in a chair at the bedside. He is awake and alert in no acute distress. He denies any worsening shortness of breath, cough or congestion. He is maintaining O2 saturations in the 90s on room air. Afebrile. No leukocytosis. Hemoglobin 8.3. He's been hemodynamically stable. He was found to have a gastric leak. The bilious drainage is approximately 135 mL. He's been initiated on octreotide. He denies any worsening abdominal discomfort. His abdomen remains soft. He is passing flatus. He is being nourished with TPN/lipids. He remains nothing by mouth with NG tube in place. The patient is seen again today 10/24/2016 in follow-up on the surgical floor, postoperative day #7. He is currently sitting up in a chair at the bedside. He is awake and alert in no acute distress. He states his pain is well controlled. He denies any worsening shortness of breath, cough or congestion. He is currently maintaining good O2 saturations in the high 90s on 3 L/m per nasal cannula. His nasogastric tube remains in place, clamped. COURTNEY drain in place. He has not had a bowel movement thus far. He remains nothing by mouth. He is being nourished via TPN/lipids. No leukocytosis. Hemoglobin 9.0. Electrolytes and renal profile within normal limits. The patient is seen again today 10/25/2016 in follow-up on the surgical floor. This is postoperative day #8. He is currently sitting up in a chair at the bedside. He is awake and alert in no acute distress. He denies any worsening shortness of breath, cough or congestion. He is maintaining good O2 saturations in the mid 90s on room air. Afebrile. He's been hemodynamically stable. Hemoglobin stable at 8.8. He continues to have drainage from the COURTNEY currently at about 110 MLS. Nasogastric tube remains in place. He is being nourished with TPN. Is to receive a PICC line today. Objective - Vital Signs Vital signs: Vital Signs Temp 97.8 F 10/25/16 07:00 Pulse 100 10/25/16 08:00 Resp 18 10/25/16 08:00 BP 157/79 10/25/16 07:00 Pulse Ox 94 L 10/25/16 07:00 Intake & Output 10/24/16 10/25/16 10/25/16 18:59 06:59 18:59 Intake Total 794.809 6681 Output Total 857 136 6337 Balance 587.551 7944 -1080 Weight 80.2 kg Intake: IV 1120 0.9 800 Lactated Ringers 1,000 ml 320 @ 40 mls/hr IV .Q24H [facility] Rx#:[id number] Intake, IV Titration 485.441 4953 Amount Amino Acid 5%-D15w+Lytes* 997.753 4853 E* 1,000 ml @ 100 mls/hr IV .BY DURATION [facility] Rx#: [id number] Oral 50 Output: Drainage 190 110 30 Right Abdomen 190 110 30 Urine 995 328 3765 Other: Voiding Method Urinal # Voids 1 3 - Exam Head exam was generally normal. Nasogastric tube secured in place. There was no scleral icterus or corneal arcus. Mucous membranes were moist. Neck was supple and without jugular venous distension, thyromegaly, or carotid bruits. Carotids were easily palpable bilaterally. There was no adenopathy. Lung sounds are diminished otherwise clear. No wheezes or rales were noted. Cardiac exam revealed the PMI to be normally situated and sized. The rhythm was regular and no extrasystoles were noted during several minutes of auscultation. The first and second heart sounds were normal and physiologic splitting of the second heart sound was noted. There were no murmurs, rubs, clicks, or gallops. Abdomen is soft. No direct tenderness no rebound tenderness. No guarding. Bowel sounds are hypoactive. Incision clean dry well approximated. COURTNEY drain is in place. Bilious output has been about 160 mL from the COURTNEY drain the past 24 hours. Bowel sounds are hypoactive. Examination of the extremities revealed easily palpable radial, femoral and pedal pulses. There was no cyanosis, clubbing or edema. Neurologically the patient is or AO3 and there is no focal neurological deficit. - Labs CBC & Chem 7: 10/25/16 07:17 10/25/16 07:17 Labs: Abnormal Lab Results - Last 24 Hours (Table) 10/24/16 10/24/16 10/25/16 Range/Units 18:20 23:58 05:26 RBC (4.30-5.90) m/uL Hgb (13.0-17.5) gm/dL Hct (39.0-53.0) % RDW (11.5-15.5) % Neutrophils # (1.3-7.7) k/uL Carbon Dioxide (22-30) mmol/L Creatinine (0.66-1.25) mg/dL Glucose (74-99) mg/dL POC Glucose (mg/dL) 308 H 371 H 296 H (75-99) mg/dL Calcium (8.4-10.2) mg/dL AST (17-59) U/L Total Protein (6.3-8.2) g/dL Albumin (3.5-5.0) g/dL 10/25/16 10/25/16 10/25/16 Range/Units 07:17 07:17 11:13 RBC 2.81 L (4.30-5.90) m/uL Hgb 8.8 L (13.0-17.5) gm/dL Hct 27.6 L (39.0-53.0) % RDW 15.6 H (11.5-15.5) % Neutrophils # 8.0 H (1.3-7.7) k/uL Carbon Dioxide 31 H (22-30) mmol/L Creatinine 0.61 L (0.66-1.25) mg/dL Glucose 248 H (74-99) mg/dL POC Glucose (mg/dL) 343 H (75-99) mg/dL Calcium 7.8 L (8.4-10.2) mg/dL AST 16 L (17-59) U/L Total Protein 4.6 L (6.3-8.2) g/dL Albumin 2.1 L (3.5-5.0) g/dL Assessment and Plan Plan: Assessment 1 symptomatic cholelithiasis, status post laparoscopic cholecystectomy converted to open cholecystectomy, extensive lysis of adhesions, repair of gastrectomy with a modified Fraeed patch. This is postoperative day #8. There is continued billous drainage from the COURTNEY drain. Upper GI series does reveal extravasation of contrast to what appears to be the level of the duodenal bulb or distal antrum of the stomach adjacent to the COURTNEY drain. Octreotide had been added. 2 postoperative atelectasis as an expected outcome of surgery with some left chest subcutaneous emphysema of unclear etiology. 3 prostate cancer was treated by brachytherapy 4 [employer] tumor status post brain tumor resection 1996 5 peripheral neuropathy 6 diabetes mellitus 7 coronary artery disease previous coronary intervention and stenting 8 impaired hearing 9 hypertension 10 previous history of DVT currently on no anticoagulants 11 degenerative arthritis Plan The patient was seen and evaluated by Dr. Horner. The patient remains stable from the pulmonary standpoint. We've again encouraged the increased use of the incentive spirometer and cough and deep breathing exercises. He remains on heparin subcutaneous for DVT prophylaxis. Continue Protonix for GI prophylaxis. His pain is well managed. Plan is for PICC line insertion today. He remains on TPN. We will increase his activity as tolerated. We'll continue to follow.
--- NOTE | 2016-10-25 14:40 | IR ---
EXAMINATION TYPE: IR cvc insert >=5 years DATE OF EXAM: 10/25/2016 COMPARISON: NONE CLINICAL HISTORY: Bile leak Needs long-term intravenous access for total parenteral nutrition, therap y. PROCEDURE: After informed consent, the skin overlying the right basilic vein was localized with ultrasound and n oted to be compressible and patent. An ultrasound image was obtained and submitted on the patient's chart. The overlying skin was prepped and draped and Lidocaine was used for local anesthesia. A ski n matheus was made with a scalpel. Access was gained to the vein under ultrasound guidance with a 21 ga uge needle and a 0.018 inch wire was advanced. Access site was dilated with Peel-Away sheath and cat heter tailored to the appropriate length and advanced such that the distal tip is at the cavoatrial j unction. Spot image was obtained verifying placement. Catheter was fixed to the skin with suture an d a sterile dressing was placed following hemostasis. Catheter was aspirated and flushed with saline . Patient was discharged in stable condition without complication. Maximal barrier technique is util ized. Ultrasound image is documented on the chart. Ultrasound used with sterile technique. Fluoro time and fluoroscopic images submitted to document procedure: 1.1 minutes fluoroscopy time, 10 8 intraoperative C-arm images document the procedure IMPRESSION: STATUS POST ULTRASOUND AND FLUOROSCOPIC GUIDED PICC LINE PLACEMENT, READY FOR USE. THIS PROCEDURE WAS PERFORMED BY THE UNDERSIGNED.
--- NOTE | 2016-10-25 16:31 | P.PN ---
Subjective Patient seen and examined at bedside. Nursing staff at bedside. Pain is well- controlled. COURTNEY output of approximately 70mL's - bilious over last 12 hours. Output continues to decrease. Ambulated and has been up to chair. Denies bowel function over the past 24h. He denies any nausea or vomiting. NG tube is in place. Objective - Vital Signs Vital signs: Vital Signs Temp 97.7 F 10/25/16 14:29 Pulse 66 10/25/16 14:29 Resp 16 10/25/16 14:29 BP 169/85 10/25/16 14:29 Pulse Ox 94 L 10/25/16 14:29 Intake & Output 10/24/16 10/25/16 10/25/16 18:59 06:59 18:59 Intake Total 307.070 6485 1990 Output Total 674 150 2597 Balance 689.619 4847 580 Weight 80.2 kg Intake: IV 1120 1050 0.9 800 Fluconazole in NaCl,Iso- 200 Osm 400 mg In Saline 1 200ml.bag @ 100 mls/hr IVPB DAILY [facility] Rx#: [id number] Lactated Ringers 1,000 ml 320 @ 40 mls/hr IV .Q24H [facility] Rx#:[id number] TPN 800 cefTRIAXone 1,000 mg In 50 Sodium Chloride 0.9% 50 ml @ 100 mls/hr IVPB Q24HR [facility] Rx#:[id number] Intake, IV Titration 336.752 3734 940 Amount Amino Acid 5%-D15w+Lytes* 067.013 6224 940 E* 1,000 ml @ 100 mls/hr IV .BY DURATION [facility] Rx#: [id number] Oral 50 Output: Drainage 190 110 110 Right Abdomen 190 110 110 Urine 324 382 0939 Other: Voiding Method Urinal # Voids 1 3 - Constitutional General appearance: Present: cooperative, no acute distress - EENT Eyes: Present: EOMI, PERRLA ENT: Present: hearing grossly normal - Neck Neck: Present: normal ROM - Respiratory Details: No difficulty with respiration - Cardiovascular Rhythm: regular Heart sounds: normal: S1, S2 - Gastrointestinal Gastrointestinal Comment(s): Soft, nontender, nondistended, incisions clean dry and intact, COURTNEY in place, NG tube in place - Integumentary Integumentary: Present: normal turgor - Musculoskeletal Musculoskeletal: Present: generalized weakness - Psychiatric Psychiatric: Present: A&O x's 3, appropriate affect - Labs CBC & Chem 7: 10/25/16 07:17 10/25/16 07:17 Labs: Abnormal Lab Results - Last 24 Hours (Table) 10/24/16 10/24/16 10/25/16 Range/Units 18:20 23:58 05:26 RBC (4.30-5.90) m/uL Hgb (13.0-17.5) gm/dL Hct (39.0-53.0) % RDW (11.5-15.5) % Neutrophils # (1.3-7.7) k/uL Carbon Dioxide (22-30) mmol/L Creatinine (0.66-1.25) mg/dL Glucose (74-99) mg/dL POC Glucose (mg/dL) 308 H 371 H 296 H (75-99) mg/dL Calcium (8.4-10.2) mg/dL AST (17-59) U/L Total Protein (6.3-8.2) g/dL Albumin (3.5-5.0) g/dL 10/25/16 10/25/16 10/25/16 Range/Units 07:17 07:17 11:13 RBC 2.81 L (4.30-5.90) m/uL Hgb 8.8 L (13.0-17.5) gm/dL Hct 27.6 L (39.0-53.0) % RDW 15.6 H (11.5-15.5) % Neutrophils # 8.0 H (1.3-7.7) k/uL Carbon Dioxide 31 H (22-30) mmol/L Creatinine 0.61 L (0.66-1.25) mg/dL Glucose 248 H (74-99) mg/dL POC Glucose (mg/dL) 343 H (75-99) mg/dL Calcium 7.8 L (8.4-10.2) mg/dL AST 16 L (17-59) U/L Total Protein 4.6 L (6.3-8.2) g/dL Albumin 2.1 L (3.5-5.0) g/dL Assessment and Plan (1) Status post cholecystectomy Status: Acute Plan: Over last 12h COURTNEY output of 70cc. Decreased from past 24 hours. Still bilious. Continue octreotide to decrease bilious output Continue management with NPO/TPN/NGT. Continue to sit in chair and continue to ambulate Appreciate medicine changes on glucose control. PICC line placed today Patient is continuing to improve, discussed case with patient's daughter, Hollie
[2016-10-25] MEDS: LACTATED RINGERS 1,000 ML IV SCH (16:58)
[2016-10-25 17:24] LABS: Glucose,Whole Blood 292 mg/dL (75-99)
[2016-10-25] MEDS: HYDROmorphone 1 MG/ML 1 ML SYRINGE IVP PRN (17:50)
[2016-10-25 23:59] LABS: Glucose,Whole Blood 324 mg/dL (75-99)
[2016-10-26] MEDS: NITROGLYCERIN OINT 1 INCH/GM PACKET TOPICAL SCH ×4 (00:01→23:45)
[2016-10-26] MEDS: INSULIN LISPRO (humaLOG) 300 UNIT/3 ML VIAL SQ SCH ×5 (00:01→23:44)
[2016-10-26] MEDS: HEPARIN SODIUM,PORCINE 5,000 UNIT/ML 1 ML VIAL SQ SCH ×4 (00:01→23:45)
[2016-10-26] MEDS: OCTREOTIDE 100 MCG/ML INJ IVP SCH ×4 (00:01→23:46)
[2016-10-26] MEDS: LACTATED RINGERS 1,000 ML IV SCH (00:05)
[2016-10-26] MEDS: 1: AMINO ACID 5%-D15W+LYTES*E* 1,000 ML 2: MVI, ADULT NO.4 WITH VIT K 10 ML, TRACE (CON IV SCH ×9 (00:23→19:39)
[2016-10-26] MEDS: metroNIDAZOLE-NS PMX 500 MG in SALINE 1 100ML.BAG IVPB SCH ×4 (01:10→23:46)
[2016-10-26 03:05] LABS: Basophils # (A) 0.1 k/uL (0-0.2); Basophils % (A) 0 %; CH 30.5; CHCM 31.2; Eosinophils # (A) 0.3 k/uL (0-0.7); Eosinophils % (A) 3 %; HCT 26.4 % (39.0-53.0); HDW 2.73; HGB 8.6 gm/dL (13.0-17.5); Hypochromasia Slight; Luc # (Auto) 0.33; Luc % (Auto) 3; Lymphocytes # (A) 1.9 k/uL (1.0-4.8); Lymphocytes % (A) 17 %; MCH 32.1 pg (25.0-35.0); MCHC 32.6 g/dL (31.0-37.0); MCV 98.6 fL (80.0-100.0); Macrocytosis Slight; Mean Platelet Volume 7.7; Monocytes # (A) 0.5 k/uL (0-1.0); Monocytes % (A) 4 %; Neutrophils # (A) 8.2 k/uL (1.3-7.7); Neutrophils % (A) 73 %; RBC 2.68 m/uL (4.30-5.90); RDW 15.7 % (11.5-15.5); WBC 11.3 k/uL (3.8-10.6); WBC (Perox) 11.48
[2016-10-26 03:37] LABS: ALT 22 U/L (21-72); AST 23 U/L (17-59); Alkaline Phosphatase 46 U/L (38-126); Anion Gap 4 mmol/L; Bilirubin, Delta 0.2 mg/dL (0.0-0.2); Blood Urea Nitrogen 17 mg/dL (9-20); Calcium 7.6 mg/dL (8.4-10.2); Carbon Dioxide 28 mmol/L (22-30); Chloride 101 mmol/L (98-107); Glucose 263 mg/dL (74-99); Magnesium 1.8 mg/dL (1.6-2.3); Non-African American GFR(MDRD) >60 (>60 ml/min/1.73 sqM); Potassium 4.2 mmol/L (3.5-5.1); Sodium 133 mmol/L (137-145); Total Bilirubin 0.2 mg/dL (0.2-1.3); Total Protein 4.6 g/dL (6.3-8.2)
[2016-10-26 05:43] LABS: Glucose,Whole Blood 276 mg/dL (75-99)
[2016-10-26] MEDS ORDERED: INSULIN GLARGINE 100 UNIT/ML 10 ML VIAL SQ ONE (07:15)
[2016-10-26] MEDS: PANTOPRAZOLE 40 MG/10 ML VIAL IV SCH (08:50)
--- NOTE | 2016-10-26 08:52 | P.PN ---
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 Nursing staff at bedside. Pain is well- controlled. COURTNEY output of approximately 80mL's - bilious over last 12 hours. Output per 24h 150mL. Currently up in chair. States he is having flatus. He denies any nausea or vomiting. NG tube fell out this AM per pt and nursing staff. Complains of a productive cough. Objective - Vital Signs Vital signs: Vital Signs Temp 98.4 F 10/26/16 07:00 Pulse 64 10/26/16 07:00 Resp 16 10/26/16 07:00 BP 165/86 10/26/16 07:00 Pulse Ox 96 10/26/16 07:00 Intake & Output 10/25/16 10/26/16 10/26/16 18:59 06:59 18:59 Intake Total 19890 Output Total 1410 80 Balance 580 1800 Weight 80.2 kg Intake: IV 1050 1820 Fluconazole in NaCl,Iso- 200 Osm 400 mg In Saline 1 200ml.bag @ 100 mls/hr IVPB DAILY [facility] Rx#: [id number] Lactated Ringers 1,000 ml 120 @ 40 mls/hr IV .Q24H [facility] Rx#:[id number] TPN 800 1600 cefTRIAXone 1,000 mg In 50 Sodium Chloride 0.9% 50 ml @ 100 mls/hr IVPB Q24HR [facility] Rx#:[id number] metroNIDAZOLE-NS PMX 500 100 mg In Saline 1 100ml.bag @ 100 mls/hr IVPB Q8HR [facility] Rx#:[id number] Intake, IV Titration 940 60 Amount Amino Acid 5%-D15w+Lytes* 940 E* 1,000 ml @ 100 mls/hr IV .BY DURATION [facility] Rx#: [id number] Fat Emulsion 20% 250 ml @ 60 20.833 mls/hr IV MoWeFr [facility] Rx#:[id number] Output: Drainage 110 80 Right Abdomen 110 80 Urine 1300 Other: Voiding Method Urinal Urinal # Voids 1 # Bowel Movements 0 - Constitutional General appearance: Present: cooperative, no acute distress, thin - EENT Eyes: Present: EOMI, PERRLA ENT: Present: hearing grossly normal - Neck Neck: Present: normal ROM - Respiratory Details: No difficulty with respiration - Cardiovascular Rhythm: regular Heart sounds: normal: S1, S2 - Gastrointestinal Gastrointestinal Comment(s): Soft, nontender, nondistended, no rebound, no guarding, COURTNEY in place - Integumentary Integumentary: Present: normal turgor - Musculoskeletal Musculoskeletal: Present: generalized weakness - Psychiatric Psychiatric: Present: A&O x's 3, appropriate affect - Labs CBC & Chem 7: 10/26/16 02:45 10/26/16 02:45 Labs: Abnormal Lab Results - Last 24 Hours (Table) 10/25/16 10/25/16 10/25/16 Range/Units 11:13 17:11 23:57 WBC (3.8-10.6) k/uL RBC (4.30-5.90) m/uL Hgb (13.0-17.5) gm/dL Hct (39.0-53.0) % RDW (11.5-15.5) % Neutrophils # (1.3-7.7) k/uL Sodium (137-145) mmol/L Creatinine (0.66-1.25) mg/dL Glucose (74-99) mg/dL POC Glucose (mg/dL) 343 H 292 H 324 H (75-99) mg/dL Calcium (8.4-10.2) mg/dL Total Protein (6.3-8.2) g/dL Albumin (3.5-5.0) g/dL 10/26/16 10/26/16 10/26/16 Range/Units 02:45 02:45 05:39 WBC 11.3 H (3.8-10.6) k/uL RBC 2.68 L (4.30-5.90) m/uL Hgb 8.6 L (13.0-17.5) gm/dL Hct 26.4 L (39.0-53.0) % RDW 15.7 H (11.5-15.5) % Neutrophils # 8.2 H (1.3-7.7) k/uL Sodium 133 L (137-145) mmol/L Creatinine 0.60 L (0.66-1.25) mg/dL Glucose 263 H (74-99) mg/dL POC Glucose (mg/dL) 276 H (75-99) mg/dL Calcium 7.6 L (8.4-10.2) mg/dL Total Protein 4.6 L (6.3-8.2) g/dL Albumin 2.0 L (3.5-5.0) g/dL Assessment and Plan (1) Status post cholecystectomy Status: Acute Plan: Over last 12h COURTNEY output of 80cc. 150cc from past 24 hours. Still bilious. Continue octreotide to decrease bilious output NGT has fallen out, pt uncomfortable with replacement, will leave out for today and evaluate COURTNEY output. Continue management with NPO/TPN. Continue to sit in chair and continue to ambulate Appreciate medicine changes on glucose control. PICC line in place Patient is continuing to improve, discussed case with patient's daughter, Hollie
[2016-10-26] MEDS ORDERED: OCTREOTIDE 200 MCG/ML 5 ML VIAL IVP ONE (09:30)
[2016-10-26] MEDS: FLUCONAZOLE IN NACL,ISO-OSM 400 MG in SALINE 1 200ML.BAG IVPB SCH (10:46)
--- NOTE | 2016-10-26 11:15 | P.PN ---
Subjective Principal diagnosis: s/p cholecystectomy Diabetes &Medical management post cholecystectomy POD#9 s/p Open cholecystectomy choledochogastric fistula. NG tube removed by patient this morning. COURTNEY drain 80 cc in the past 24 hours. Positive flatus, no BM yet. Ambulates. NPO, on TPN and IV a/b. Objective - Vital Signs Vital signs: Vital Signs Temp 98.4 F 10/26/16 07:00 Pulse 64 10/26/16 07:00 Resp 16 10/26/16 07:00 BP 165/86 10/26/16 07:00 Pulse Ox 96 10/26/16 07:00 Intake & Output 10/25/16 10/26/16 10/26/16 18:59 06:59 18:59 Intake Total 1989 2880 Output Total 1410 80 Balance 580 2800 Weight 80.2 kg Intake: IV 1050 1820 Fluconazole in NaCl,Iso- 200 Osm 400 mg In Saline 1 200ml.bag @ 100 mls/hr IVPB DAILY [facility] Rx#: [id number] Lactated Ringers 1,000 ml 120 @ 40 mls/hr IV .Q24H [facility] Rx#:[id number] TPN 800 1600 cefTRIAXone 1,000 mg In 50 Sodium Chloride 0.9% 50 ml @ 100 mls/hr IVPB Q24HR [facility] Rx#:[id number] metroNIDAZOLE-NS PMX 500 100 mg In Saline 1 100ml.bag @ 100 mls/hr IVPB Q8HR [facility] Rx#:[id number] Intake, IV Titration 940 1060 Amount Amino Acid 5%-D15w+Lytes* 940 1000 E* 1,000 ml @ 100 mls/hr IV .BY DURATION [facility] Rx#: [id number] Fat Emulsion 20% 250 ml @ 60 20.833 mls/hr IV MoWeFr [facility] Rx#:[id number] Output: Drainage 110 80 Right Abdomen 110 80 Urine 1300 Other: Voiding Method Urinal Urinal # Voids 1 # Bowel Movements 0 - Exam General-no acute distress, up in the chair. HEENT: normochephalic and atraumatic, sclerae anicteric, EOMI. Neck supple, no thyromegaly of lymphadenopathy. CV: normal S1/S2, RRR Chest: clear to auscultation b/l Abdomen: soft, ND, NT, positive BS Extr: no edema, clubbing or cyanosis, FROM. Skin: warm, dry and intact. - Labs CBC & Chem 7: 10/26/16 02:45 10/26/16 02:45 Labs: Abnormal Lab Results - Last 24 Hours (Table) 10/25/16 10/25/16 10/25/16 Range/Units 11:13 17:11 23:57 WBC (3.8-10.6) k/uL RBC (4.30-5.90) m/uL Hgb (13.0-17.5) gm/dL Hct (39.0-53.0) % RDW (11.5-15.5) % Neutrophils # (1.3-7.7) k/uL Sodium (137-145) mmol/L Creatinine (0.66-1.25) mg/dL Glucose (74-99) mg/dL POC Glucose (mg/dL) 343 H 292 H 324 H (75-99) mg/dL Calcium (8.4-10.2) mg/dL Total Protein (6.3-8.2) g/dL Albumin (3.5-5.0) g/dL 10/26/16 10/26/16 10/26/16 Range/Units 02:45 02:45 05:39 WBC 11.3 H (3.8-10.6) k/uL RBC 2.68 L (4.30-5.90) m/uL Hgb 8.6 L (13.0-17.5) gm/dL Hct 26.4 L (39.0-53.0) % RDW 15.7 H (11.5-15.5) % Neutrophils # 8.2 H (1.3-7.7) k/uL Sodium 133 L (137-145) mmol/L Creatinine 0.60 L (0.66-1.25) mg/dL Glucose 263 H (74-99) mg/dL POC Glucose (mg/dL) 276 H (75-99) mg/dL Calcium 7.6 L (8.4-10.2) mg/dL Total Protein 4.6 L (6.3-8.2) g/dL Albumin 2.0 L (3.5-5.0) g/dL Assessment and Plan (1) Bile leak Status: Acute (2) Diabetes mellitus Status: Acute (3) Hypertension Status: Acute (4) Status post cholecystectomy Status: Acute (5) Acute cholecystitis Status: Acute (6) CAD (coronary artery disease) Status: Chronic Plan: Assessment and plan: 1.cholelithiasis/chronic cholecystitis, s/p open cholecystectomy. POD#9. NPO, c/w TPN, IV a/b. 2. DM2-uncontrolled, BG in 260s, will increase Lantus to 14U qHS. 3. CAD, stable. 4. PCM-on TPN. 5. HTN-controlled. 6. DVT prophylaxis-per primary.
--- NOTE | 2016-10-26 11:42 | XR ---
EXAMINATION TYPE: XR chest 1V portable DATE OF EXAM: 10/26/2016 HISTORY: pneumonia. REFERENCE: Previous study dated 10/22/2016. FINDINGS: The patient is NG tube and left subclavian catheter been removed. There is slight enlargement of the patient's left-sided pleural effusion. The right-sided effusion is unchanged. Heart size upper limits of normal. There is increasing opacity adjacent to the right hear t border. This may represent a lower lobe infiltrate. IMPRESSION: 1. SMALL, BILATERAL EFFUSIONS, GREATER ON THE LEFT THAN THE RIGHT. 2. BORDERLINE CARDIOMEGALY. 3. I CANNOT EXCLUDE A DEVELOPING RIGHT LOWER LOBE INFILTRATE.
[2016-10-26] MEDS: MAGNESIUM SULFATE-D5W PMX 1 GM in DEXTROSE/WATER 1 100ML.BAG IVPB SCH ×2 (12:53→15:18)
[2016-10-26 13:31] LABS: Glucose,Whole Blood 293 mg/dL (75-99)
--- NOTE | 2016-10-26 13:48 | P.PN ---
Subjective This is an 86-year-old male patient who presented to the emergency department approximately one week ago complaining of abdominal pain and nausea. The patient's pain was mostly in the right upper quadrant. On examination the patient was quite benign and she end up tolerating clear liquids well without any change in his bowel habits. Further investigation within ultrasound of the abdomen showed gallstones and mild gallbladder wall thickening without any pericholecystic fluid or evidence of inflammation. As such the patient was seen by general surgery and he was thought to have symptomatic cholelithiasis. The patient was started on medical treatment with antibiotics and the patient was discharged home, and the patient was brought back today for a cholecystectomy which turned out to be an open cholecystectomy. Postop, the patient was moved to the intensive care unit for further monitoring. He is awake. He is alert. He has a COURTNEY drain in the right upper quadrant. A Levy catheter is to be inserted. Hemodynamically stable. The patient was seen again today 10/18/2016 in follow-up in the intensive care unit. He is awake and alert in no acute distress. He is status post laparoscopic cholecystectomy converted to open cholecystectomy, extensive lysis of adhesions, repair of gastrotomy with a modified Fareed patch. This is postoperative day #1. He is currently sitting up in the chair at the bedside. He denies any worsening shortness of breath, cough or congestion. His chest x- ray does show bilateral lower lobe subsegmental atelectasis with tiny effusions. There is also some subcutaneous emphysema on the left with no sizable pneumothorax. He is maintaining good O2 saturations in the mid 90s on 3 L/m per nasal cannula. He is afebrile. Hemodynamically stable. His abdominal dressing is dry and intact. The COURTNEY drain remains in place and there is some bile colored fluid noted in it. On 10/19/2016 the patient is being seen in follow-up. The patient is post open cholecystectomy, lysis of adhesions, repair of a gastric wall with a modified Fareed patch. The patient is postop day #2. The COURTNEY drain is putting out bilious material and this has been confirmed on several occasions. Based on this a biliary leak is suspected. Despite this, the liver function tests remains within normal limits. The patient is not acting toxic. No nausea no vomiting. NG tube is in place and output is minimal. No flatus or bowel movements yet. No abdominal pain or distention. No tenderness. The patient had some limited change in mental status yesterday however this morning it is much more alert and awake. The patient is also receiving Dilaudid for pain control. The patient is on combination of Rocephin and Flagyl. The patient is hemodynamically stable. The patient experienced some lower urine output earlier which improved with fluids and the patient was given a total of 2 L of IV fluid boluses yesterday. He is on a lactated Ringer solution. On 10/20/2016 the patient is being seen in follow-up. The patient has post open cholecystectomy and the patient is postop day #3. There is an obvious biliary leak as the patient has produced around 480 mL of drainage since yesterday from the COURTNEY drain. The HIDA scan was completed and there is evidence of tracer uptake within the COURTNEY drain consistent with a biliary leak. Gen. surgery and gastroesophageal are both aware. ERCP will be indicated later stage once the patient is further recovered and the Fareed patch that was placed on the stomach is well-healed. The patient has an NG tube in place. Output is minimal. Liver function tests are not elevated. A triple lumen catheter was inserted and the patient was started on a TPN for nutritional support. Electrodes are all stable. Function is stable. The patient is afebrile. The patient is covered with broad-spectrum antibiotics with a combination of Rocephin, metronidazole and Diflucan. No bowel activity yet. Urine output is adequate for now. The patient is also on IV fluids with lactated Ringer at the rate of 75 mL an hour. On 10/21/2016 the patient is postop day #4. She is on TPN for nutritional support. His COURTNEY drain is still draining bilious material in the order of 400 mL and this is considered to be consistent with biliary leak. No abdominal distention. No abdominal pain. No flatus. NG tube is in place. Resting comfortably in the chair. No nausea. No change in mental status to no fever or chills. He is on IV fluids lactated Ringer at the rate of 40 mL an hour. Patient is seen again today 10/22/2016 in follow-up on the regular surgical floor. This is postoperative day #5. He is currently resting fairly comfortably in bed. He denies any worsening shortness of breath. He does have a productive cough of pale yellow sputum. Today's chest x-ray reveals a small right pleural effusion. He is working well with the incentive spirometer. Nasogastric tube remains in place. He remains on TPN for nutritional support. Abdominal dressing is dry and intact. The COURTNEY drain continues to drain a significant amount of biliary substance. He was greater than 400 mL's out in the past 24 hours. An upper GI series this morning revealed extravasation of contrast at the level of the duodenal bulb or distal antrum of the stomach adjacent to the COURTNEY drain. No plans for ERCP at this time. He remains on ceftriaxone along with fluconazole and metronidazole per surgical services. The patient was seen again today 10/23/2016 in follow-up on the surgical floor. He is currently sitting up in a chair at the bedside. He is awake and alert in no acute distress. He denies any worsening shortness of breath, cough or congestion. He is maintaining O2 saturations in the 90s on room air. Afebrile. No leukocytosis. Hemoglobin 8.3. He's been hemodynamically stable. He was found to have a gastric leak. The bilious drainage is approximately 135 mL. He's been initiated on octreotide. He denies any worsening abdominal discomfort. His abdomen remains soft. He is passing flatus. He is being nourished with TPN/lipids. He remains nothing by mouth with NG tube in place. The patient is seen again today 10/24/2016 in follow-up on the surgical floor, postoperative day #7. He is currently sitting up in a chair at the bedside. He is awake and alert in no acute distress. He states his pain is well controlled. He denies any worsening shortness of breath, cough or congestion. He is currently maintaining good O2 saturations in the high 90s on 3 L/m per nasal cannula. His nasogastric tube remains in place, clamped. COURTNEY drain in place. He has not had a bowel movement thus far. He remains nothing by mouth. He is being nourished via TPN/lipids. No leukocytosis. Hemoglobin 9.0. Electrolytes and renal profile within normal limits. The patient is seen again today 10/25/2016 in follow-up on the surgical floor. This is postoperative day #8. He is currently sitting up in a chair at the bedside. He is awake and alert in no acute distress. He denies any worsening shortness of breath, cough or congestion. He is maintaining good O2 saturations in the mid 90s on room air. Afebrile. He's been hemodynamically stable. Hemoglobin stable at 8.8. He continues to have drainage from the COURTNEY currently at about 110 MLS. Nasogastric tube remains in place. He is being nourished with TPN. Is to receive a PICC line today. He is seen again today 10/26/2016 in follow-up on the surgical floor. This is postoperative day #9. He is currently sitting up in his chair at the bedside. He is awake and alert in no acute distress. He denies any worsening shortness of breath. He has a loose nonproductive cough. No chills or night sweats. His chest x-rays continues to show some small bilateral effusions left greater than right. There is some basilar atelectasis as well. Borderline cardiomegaly. He is maintaining O2 saturations in the upper 90s on 3 L/m per nasal cannula. He remains afebrile. White count 11.3. Hemoglobin 8.6. Unfortunately the patient inadvertently pulled out his nasogastric tube. Surgical services are aware. The plan is to leave it out and see how he does. He is passing flatus. No BM. COURTNEY drain continues with bilious fluid. He remains on octreotide. Objective - Vital Signs Vital signs: Vital Signs Temp 98.4 F 10/26/16 07:00 Pulse 64 10/26/16 08:00 Resp 16 10/26/16 08:00 BP 165/86 10/26/16 07:00 Pulse Ox 96 10/26/16 07:00 Intake & Output 10/25/16 10/26/16 10/26/16 18:59 06:59 18:59 Intake Total 19890 Output Total 1410 80 150 Balance 580 2800 -150 Weight 80.2 kg 80.2 kg Intake: IV 1050 1820 Fluconazole in NaCl,Iso- 200 Osm 400 mg In Saline 1 200ml.bag @ 100 mls/hr IVPB DAILY [facility] Rx#: [id number] Lactated Ringers 1,000 ml 120 @ 40 mls/hr IV .Q24H [facility] Rx#:[id number] TPN 800 1600 cefTRIAXone 1,000 mg In 50 Sodium Chloride 0.9% 50 ml @ 100 mls/hr IVPB Q24HR [facility] Rx#:[id number] metroNIDAZOLE-NS PMX 500 100 mg In Saline 1 100ml.bag @ 100 mls/hr IVPB Q8HR [facility] Rx#:[id number] Intake, IV Titration 940 1060 Amount Amino Acid 5%-D15w+Lytes* 940 1000 E* 1,000 ml @ 100 mls/hr IV .BY DURATION [facility] Rx#: [id number] Fat Emulsion 20% 250 ml @ 60 20.833 mls/hr IV MoWeFr [facility] Rx#:[id number] Output: Drainage 110 80 Right Abdomen 110 80 Urine 1300 150 Other: Voiding Method Urinal Urinal Urinal # Voids 1 # Bowel Movements 0 0 - Exam Head exam was generally normal. Nasogastric tube secured in place. There was no scleral icterus or corneal arcus. Mucous membranes were moist. Neck was supple and without jugular venous distension, thyromegaly, or carotid bruits. Carotids were easily palpable bilaterally. There was no adenopathy. Lung sounds are diminished otherwise clear. No wheezes or rales were noted. Cardiac exam revealed the PMI to be normally situated and sized. The rhythm was regular and no extrasystoles were noted during several minutes of auscultation. The first and second heart sounds were normal and physiologic splitting of the second heart sound was noted. There were no murmurs, rubs, clicks, or gallops. Abdomen is soft. No direct tenderness no rebound tenderness. No guarding. Bowel sounds are hypoactive. Incision clean dry well approximated. COURTNEY drain is in place. Bilious output has been about 160 mL from the COURTNEY drain the past 24 hours. Bowel sounds are hypoactive. Examination of the extremities revealed easily palpable radial, femoral and pedal pulses. There was no cyanosis, clubbing or edema. Neurologically the patient is or AO3 and there is no focal neurological deficit. - Labs CBC & Chem 7: 10/26/16 02:45 10/26/16 02:45 Labs: Abnormal Lab Results - Last 24 Hours (Table) 10/25/16 10/25/16 10/26/16 Range/Units 17:11 23:57 02:45 WBC 11.3 H (3.8-10.6) k/uL RBC 2.68 L (4.30-5.90) m/uL Hgb 8.6 L (13.0-17.5) gm/dL Hct 26.4 L (39.0-53.0) % RDW 15.7 H (11.5-15.5) % Neutrophils # 8.2 H (1.3-7.7) k/uL Sodium (137-145) mmol/L Creatinine (0.66-1.25) mg/dL Glucose (74-99) mg/dL POC Glucose (mg/dL) 292 H 324 H (75-99) mg/dL Calcium (8.4-10.2) mg/dL Total Protein (6.3-8.2) g/dL Albumin (3.5-5.0) g/dL 10/26/16 10/26/16 10/26/16 Range/Units 02:45 05:39 13:11 WBC (3.8-10.6) k/uL RBC (4.30-5.90) m/uL Hgb (13.0-17.5) gm/dL Hct (39.0-53.0) % RDW (11.5-15.5) % Neutrophils # (1.3-7.7) k/uL Sodium 133 L (137-145) mmol/L Creatinine 0.60 L (0.66-1.25) mg/dL Glucose 263 H (74-99) mg/dL POC Glucose (mg/dL) 276 H 293 H (75-99) mg/dL Calcium 7.6 L (8.4-10.2) mg/dL Total Protein 4.6 L (6.3-8.2) g/dL Albumin 2.0 L (3.5-5.0) g/dL Assessment and Plan Plan: Assessment 1 symptomatic cholelithiasis, status post laparoscopic cholecystectomy converted to open cholecystectomy, extensive lysis of adhesions, repair of gastrectomy with a modified Fareed patch. This is postoperative day #9. There is continued billous drainage from the COURTNEY drain. Upper GI series does reveal extravasation of contrast to what appears to be the level of the duodenal bulb or distal antrum of the stomach adjacent to the COURTNEY drain. Octreotide had been added. 2 postoperative atelectasis as an expected outcome of surgery with some left chest subcutaneous emphysema of unclear etiology. 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 Horner. His chest x-ray and labs were reviewed. The patient remains stable from the pulmonary standpoint. We' ve again encouraged the increased use of the incentive spirometer and cough and deep breathing exercises. He remains on ceftriaxone. He remains on heparin subcutaneous for DVT prophylaxis. Continue Protonix for GI prophylaxis. His pain is well managed. He remains on TPN. We will increase his activity as tolerated. We'll continue to follow.
[2016-10-26] MEDS: cloNIDine 0.1 MG/24HR PATCH 1 PATCH PATCH TRANSDERM SCH (15:19)
[2016-10-26 18:30] LABS: Glucose,Whole Blood 371 mg/dL (75-99)
[2016-10-26] MEDS: INSULIN GLARGINE 100 UNIT/ML 10 ML VIAL SQ SCH (20:43)
[2016-10-26] MEDS: HYDROmorphone 1 MG/ML 1 ML SYRINGE IVP PRN (20:45)
[2016-10-26 23:30] LABS: Glucose,Whole Blood 186 mg/dL (75-99)
[2016-10-27] MEDS: INSULIN LISPRO (humaLOG) 300 UNIT/3 ML VIAL SQ SCH ×5 (05:18→23:43)
[2016-10-27 05:23] LABS: Glucose,Whole Blood 415 mg/dL (75-99)
[2016-10-27] MEDS: 1: AMINO ACID 5%-D15W+LYTES*E* 1,000 ML 2: MVI, ADULT NO.4 WITH VIT K 10 ML, TRACE (CON IV SCH ×6 (06:32→17:42)
[2016-10-27 07:15] LABS: Anisocytosis Slight; Basophils # (A) 0.1 k/uL (0-0.2); Basophils % (A) 1 %; CH 31.4; CHCM 32.1; Eosinophils # (A) 0.2 k/uL (0-0.7); Eosinophils % (A) 2 %; HCT 29.4 % (39.0-53.0); HGB 9.2 gm/dL (13.0-17.5); Hypochromasia Slight; Luc # (Auto) 0.19; Luc % (Auto) 2; Lymphocytes # (A) 1.7 k/uL (1.0-4.8); Lymphocytes % (A) 17 %; MCHC 31.4 g/dL (31.0-37.0); MCV 98.7 fL (80.0-100.0); Macrocytosis Slight; Mean Platelet Volume 9.5; Monocytes # (A) 0.5 k/uL (0-1.0); Monocytes % (A) 5 %; Neutrophils # (A) 7.7 k/uL (1.3-7.7); Neutrophils % (A) 74 %; RBC 2.98 m/uL (4.30-5.90); WBC 10.3 k/uL (3.8-10.6); WBC (Perox) 11.21
[2016-10-27 07:35] LABS: ALT 24 U/L (21-72); AST 19 U/L (17-59); Alkaline Phosphatase 52 U/L (38-126); Anion Gap 5 mmol/L; Bilirubin, Delta 0.3 mg/dL (0.0-0.2); Blood Urea Nitrogen 18 mg/dL (9-20); Calcium 7.7 mg/dL (8.4-10.2); Carbon Dioxide 28 mmol/L (22-30); Chloride 99 mmol/L (98-107); Glucose 201 mg/dL (74-99); Non-African American GFR(MDRD) >60 (>60 ml/min/1.73 sqM); Potassium 3.9 mmol/L (3.5-5.1); Sodium 132 mmol/L (137-145); Total Bilirubin 0.3 mg/dL (0.2-1.3); Total Protein 4.9 g/dL (6.3-8.2)
[2016-10-27] MEDS: LACTATED RINGERS 1,000 ML IV SCH (08:19)
[2016-10-27] MEDS: FLUCONAZOLE IN NACL,ISO-OSM 400 MG in SALINE 1 200ML.BAG IVPB SCH (08:21)
[2016-10-27] MEDS: HEPARIN SODIUM,PORCINE 5,000 UNIT/ML 1 ML VIAL SQ SCH ×3 (08:21→23:43)
[2016-10-27] MEDS: NITROGLYCERIN OINT 1 INCH/GM PACKET TOPICAL SCH ×3 (08:26→23:44)
[2016-10-27] MEDS: OCTREOTIDE 100 MCG/ML INJ IVP SCH ×3 (08:26→23:44)
[2016-10-27] MEDS: PANTOPRAZOLE 40 MG/10 ML VIAL IV SCH (08:27)
[2016-10-27 08:50] LABS: Glucose,Whole Blood 210 mg/dL (75-99)
[2016-10-27] MEDS: metroNIDAZOLE-NS PMX 500 MG in SALINE 1 100ML.BAG IVPB SCH ×3 (10:15→23:43)
--- NOTE | 2016-10-27 10:23 | P.PN ---
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 He states he is doing well. He denies any nausea and vomiting. He states he has been passing flatus. He denies any bowel movements. He is up in the chair at this time and has ambulated. Objective - Vital Signs Vital signs: Vital Signs Temp 98.1 F 10/27/16 07:00 Pulse 58 L 10/27/16 07:00 Resp 16 10/27/16 07:00 BP 143/69 10/27/16 07:00 Pulse Ox 94 L 10/27/16 07:00 Intake & Output 10/26/16 10/27/16 10/27/16 18:59 06:59 18:59 Intake Total 1011 3240 Output Total 510 85 235 Balance 501 3155 -235 Weight 80.2 kg Intake: Intake, IV Titration 1011 1640 Amount Amino Acid 5%-D15w+Lytes* 1000 E* 1,000 ml @ 100 mls/hr IV .BY DURATION [facility] Rx#: [id number] Lactated Ringers 1,000 ml 640 @ 40 mls/hr IV .Q24H [facility] Rx#:[id number] Mvi, Adult No.4 with Vit 1011 K 10 ml Trace (Conc-1Ml/ Dose) 1 ml In Amino Acid 5%-D15w+Lytes*E* 1,000 ml @ 100 mls/hr IV .BY DURATION [facility] Rx#: [id number] TPN/PPN 1600 Fluconazole in NaCl,Iso- 800 Osm 400 mg In Saline 1 200ml.bag @ 100 mls/hr IVPB DAILY [facility] Rx#: [id number] TPN 800 Output: Drainage 60 85 15 Right Abdomen 60 85 15 Urine 450 220 Other: Voiding Method Urinal # Bowel Movements 0 - Constitutional General appearance: Present: cooperative, no acute distress - EENT Eyes: Present: EOMI, PERRLA ENT: Present: hearing grossly normal - Neck Neck: Present: normal ROM - Respiratory Details: No difficulty with respiration - Cardiovascular Rhythm: regular Heart sounds: normal: S1, S2 - Gastrointestinal Gastrointestinal Comment(s): Soft, nontender, nondistended, no rebound, no guarding, incision sites clean dry and intact, COURTNEY drain in place - Integumentary Integumentary: Present: normal turgor - Musculoskeletal Musculoskeletal: Present: generalized weakness - Psychiatric Psychiatric: Present: A&O x's 3, appropriate affect - Labs CBC & Chem 7: 10/27/16 07:01 10/27/16 07:01 Labs: Abnormal Lab Results - Last 24 Hours (Table) 10/26/16 10/26/16 10/26/16 Range/Units 13:11 18:17 23:27 RBC (4.30-5.90) m/uL Hgb (13.0-17.5) gm/dL Hct (39.0-53.0) % RDW (11.5-15.5) % Sodium (137-145) mmol/L Creatinine (0.66-1.25) mg/dL Glucose (74-99) mg/dL POC Glucose (mg/dL) 293 H 371 H 186 H (75-99) mg/dL Calcium (8.4-10.2) mg/dL Delta Bilirubin (0.0-0.2) mg/dL Total Protein (6.3-8.2) g/dL Albumin (3.5-5.0) g/dL 10/27/16 10/27/16 10/27/16 Range/Units 05:15 07:01 07:01 RBC 2.98 L (4.30-5.90) m/uL Hgb 9.2 L (13.0-17.5) gm/dL Hct 29.4 L (39.0-53.0) % RDW 17.0 H (11.5-15.5) % Sodium 132 L (137-145) mmol/L Creatinine 0.60 L (0.66-1.25) mg/dL Glucose 201 H (74-99) mg/dL POC Glucose (mg/dL) 415 H (75-99) mg/dL Calcium 7.7 L (8.4-10.2) mg/dL Delta Bilirubin 0.3 H (0.0-0.2) mg/dL Total Protein 4.9 L (6.3-8.2) g/dL Albumin 2.1 L (3.5-5.0) g/dL 10/27/16 Range/Units 08:48 RBC (4.30-5.90) m/uL Hgb (13.0-17.5) gm/dL Hct (39.0-53.0) % RDW (11.5-15.5) % Sodium (137-145) mmol/L Creatinine (0.66-1.25) mg/dL Glucose (74-99) mg/dL POC Glucose (mg/dL) 210 H (75-99) mg/dL Calcium (8.4-10.2) mg/dL Delta Bilirubin (0.0-0.2) mg/dL Total Protein (6.3-8.2) g/dL Albumin (3.5-5.0) g/dL Assessment and Plan (1) Status post cholecystectomy Status: Acute Plan: Over last 12h COURTNEY output of 60cc. 130cc from past 24 hours. 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 Continue octreotide to decrease bilious output COURTNEY output decreased over 24h with NGT out, will leave out for now. Continue management with NPO/TPN. Continue to sit in chair and continue to ambulate Appreciate medicine changes on glucose control. PICC line in place Pt has been on rocephin/flagyl/diflucan; pharmacy has notified that there is a national shortage of IV Flagyl. At this point we may have to revert to Zosyn instead of Rocephin and Flagyl due to this national shortage Patient is continuing to improve, discussed case with patient's daughter, Hollie Possible upper GI in a.m.
--- NOTE | 2016-10-27 10:30 | P.PN ---
Subjective Principal diagnosis: s/p cholecystectomy Diabetes &Medical management POD#10 s/p Open cholecystectomy choledochogastric fistula. NPO, on TPN and IV a/b. Patient states he is feeling the same, positive flatus, no BM. Pain is well controlled, NGT out for 24 hours. Ambulates. Less cough, uses incentive spirometer. Objective - Vital Signs Vital signs: Vital Signs Temp 98.1 F 10/27/16 07:00 Pulse 58 L 10/27/16 07:00 Resp 16 10/27/16 07:00 BP 143/69 10/27/16 07:00 Pulse Ox 94 L 10/27/16 07:00 Intake & Output 10/26/16 10/27/16 10/27/16 18:59 06:59 18:59 Intake Total 1011 3240 Output Total 510 85 235 Balance 501 3155 -235 Weight 80.2 kg Intake: Intake, IV Titration 1011 1640 Amount Amino Acid 5%-D15w+Lytes* 1000 E* 1,000 ml @ 100 mls/hr IV .BY DURATION [facility] Rx#: [id number] Lactated Ringers 1,000 ml 640 @ 40 mls/hr IV .Q24H [facility] Rx#:[id number] Mvi, Adult No.4 with Vit 1011 K 10 ml Trace (Conc-1Ml/ Dose) 1 ml In Amino Acid 5%-D15w+Lytes*E* 1,000 ml @ 100 mls/hr IV .BY DURATION [facility] Rx#: [id number] TPN/PPN 1600 Fluconazole in NaCl,Iso- 800 Osm 400 mg In Saline 1 200ml.bag @ 100 mls/hr IVPB DAILY [facility] Rx#: [id number] TPN 800 Output: Drainage 60 85 15 Right Abdomen 60 85 15 Urine 450 220 Other: Voiding Method Urinal # Bowel Movements 0 - Constitutional General appearance: Present: no acute distress - EENT Eyes: Present: anicteric sclerae, EOMI, normal appearance ENT: Present: hard of hearing - Neck Neck: Present: normal ROM. Absent: lymphadenopathy, thyromegaly - Respiratory Respiratory: bilateral: CTA - Cardiovascular Rhythm: regular Heart sounds: normal: S1, S2 Abnormal Heart Sounds: Absent: systolic murmur, diastolic murmur, rub - Gastrointestinal General gastrointestinal: Present: normal bowel sounds, soft. Absent: hepatomegaly, organomegaly - Integumentary Integumentary: Present: normal. Absent: rash, ulcer - Psychiatric Psychiatric: Present: A&O x's 3, appropriate affect, intact judgment & insight - Labs CBC & Chem 7: 10/27/16 07:01 10/27/16 07:01 Labs: Abnormal Lab Results - Last 24 Hours (Table) 10/26/16 10/26/16 10/26/16 Range/Units 13:11 18:17 23:27 RBC (4.30-5.90) m/uL Hgb (13.0-17.5) gm/dL Hct (39.0-53.0) % RDW (11.5-15.5) % Sodium (137-145) mmol/L Creatinine (0.66-1.25) mg/dL Glucose (74-99) mg/dL POC Glucose (mg/dL) 293 H 371 H 186 H (75-99) mg/dL Calcium (8.4-10.2) mg/dL Delta Bilirubin (0.0-0.2) mg/dL Total Protein (6.3-8.2) g/dL Albumin (3.5-5.0) g/dL 10/27/16 10/27/16 10/27/16 Range/Units 05:15 07:01 07:01 RBC 2.98 L (4.30-5.90) m/uL Hgb 9.2 L (13.0-17.5) gm/dL Hct 29.4 L (39.0-53.0) % RDW 17.0 H (11.5-15.5) % Sodium 132 L (137-145) mmol/L Creatinine 0.60 L (0.66-1.25) mg/dL Glucose 201 H (74-99) mg/dL POC Glucose (mg/dL) 415 H (75-99) mg/dL Calcium 7.7 L (8.4-10.2) mg/dL Delta Bilirubin 0.3 H (0.0-0.2) mg/dL Total Protein 4.9 L (6.3-8.2) g/dL Albumin 2.1 L (3.5-5.0) g/dL 10/27/16 Range/Units 08:48 RBC (4.30-5.90) m/uL Hgb (13.0-17.5) gm/dL Hct (39.0-53.0) % RDW (11.5-15.5) % Sodium (137-145) mmol/L Creatinine (0.66-1.25) mg/dL Glucose (74-99) mg/dL POC Glucose (mg/dL) 210 H (75-99) mg/dL Calcium (8.4-10.2) mg/dL Delta Bilirubin (0.0-0.2) mg/dL Total Protein (6.3-8.2) g/dL Albumin (3.5-5.0) g/dL - Imaging and Cardiology Chest x-ray: report reviewed Assessment and Plan (1) Bile leak Status: Acute (2) Diabetes mellitus Status: Acute (3) Hypertension Status: Acute (4) Status post cholecystectomy Status: Acute (5) Acute cholecystitis Status: Acute (6) CAD (coronary artery disease) Status: Chronic Plan: Assessment and plan: 1.cholelithiasis/chronic cholecystitis, s/p open cholecystectomy. POD#10. NPO, c/w TPN, IV a/b. COURTNEY output 130 cc in 24 hours, on octreotide per surgery to decrease the output. Encourage ambulation. Agree with switching a/b to Zosyn. 2. DM2-continue current insulin dose and monitor, had reading of >400 this am due to changes in TPN, now is better controlled. 3. PCM-on TPN. 4.. HTN-controlled. 6. DVT prophylaxis-per primary.
[2016-10-27 12:03] LABS: Glucose,Whole Blood 237 mg/dL (75-99)
[2016-10-27] MEDS: MAGNESIUM SULFATE-D5W PMX 1 GM in DEXTROSE/WATER 1 100ML.BAG IVPB SCH ×2 (12:24→14:40)
--- NOTE | 2016-10-27 14:19 | P.PN ---
Subjective Principal diagnosis: Acute symptomatic cholelithiasis This is an 86-year-old male patient who presented to the emergency department approximately one week ago complaining of abdominal pain and nausea. The patient's pain was mostly in the right upper quadrant. On examination the patient was quite benign and she end up tolerating clear liquids well without any change in his bowel habits. Further investigation within ultrasound of the abdomen showed gallstones and mild gallbladder wall thickening without any pericholecystic fluid or evidence of inflammation. As such the patient was seen by general surgery and he was thought to have symptomatic cholelithiasis. The patient was started on medical treatment with antibiotics and the patient was discharged home, and the patient was brought back today for a cholecystectomy which turned out to be an open cholecystectomy. Postop, the patient was moved to the intensive care unit for further monitoring. He is awake. He is alert. He has a COURTNEY drain in the right upper quadrant. A Levy catheter is to be inserted. Hemodynamically stable. The patient was seen again today 10/18/2016 in follow-up in the intensive care unit. He is awake and alert in no acute distress. He is status post laparoscopic cholecystectomy converted to open cholecystectomy, extensive lysis of adhesions, repair of gastrotomy with a modified Fareed patch. This is postoperative day #1. He is currently sitting up in the chair at the bedside. He denies any worsening shortness of breath, cough or congestion. His chest x- ray does show bilateral lower lobe subsegmental atelectasis with tiny effusions. There is also some subcutaneous emphysema on the left with no sizable pneumothorax. He is maintaining good O2 saturations in the mid 90s on 3 L/m per nasal cannula. He is afebrile. Hemodynamically stable. His abdominal dressing is dry and intact. The COURTNEY drain remains in place and there is some bile colored fluid noted in it. On 10/19/2016 the patient is being seen in follow-up. The patient is post open cholecystectomy, lysis of adhesions, repair of a gastric wall with a modified Fareed patch. The patient is postop day #2. The COURTNEY drain is putting out bilious material and this has been confirmed on several occasions. Based on this a biliary leak is suspected. Despite this, the liver function tests remains within normal limits. The patient is not acting toxic. No nausea no vomiting. NG tube is in place and output is minimal. No flatus or bowel movements yet. No abdominal pain or distention. No tenderness. The patient had some limited change in mental status yesterday however this morning it is much more alert and awake. The patient is also receiving Dilaudid for pain control. The patient is on combination of Rocephin and Flagyl. The patient is hemodynamically stable. The patient experienced some lower urine output earlier which improved with fluids and the patient was given a total of 2 L of IV fluid boluses yesterday. He is on a lactated Ringer solution. On 10/20/2016 the patient is being seen in follow-up. The patient has post open cholecystectomy and the patient is postop day #3. There is an obvious biliary leak as the patient has produced around 480 mL of drainage since yesterday from the COURTNEY drain. The HIDA scan was completed and there is evidence of tracer uptake within the COURTNEY drain consistent with a biliary leak. Gen. surgery and gastroesophageal are both aware. ERCP will be indicated later stage once the patient is further recovered and the Fareed patch that was placed on the stomach is well-healed. The patient has an NG tube in place. Output is minimal. Liver function tests are not elevated. A triple lumen catheter was inserted and the patient was started on a TPN for nutritional support. Electrodes are all stable. Function is stable. The patient is afebrile. The patient is covered with broad-spectrum antibiotics with a combination of Rocephin, metronidazole and Diflucan. No bowel activity yet. Urine output is adequate for now. The patient is also on IV fluids with lactated Ringer at the rate of 75 mL an hour. On 10/21/2016 the patient is postop day #4. She is on TPN for nutritional support. His COURTNEY drain is still draining bilious material in the order of 400 mL and this is considered to be consistent with biliary leak. No abdominal distention. No abdominal pain. No flatus. NG tube is in place. Resting comfortably in the chair. No nausea. No change in mental status to no fever or chills. He is on IV fluids lactated Ringer at the rate of 40 mL an hour. Patient is seen again today 10/22/2016 in follow-up on the regular surgical floor. This is postoperative day #5. He is currently resting fairly comfortably in bed. He denies any worsening shortness of breath. He does have a productive cough of pale yellow sputum. Today's chest x-ray reveals a small right pleural effusion. He is working well with the incentive spirometer. Nasogastric tube remains in place. He remains on TPN for nutritional support. Abdominal dressing is dry and intact. The COURTNEY drain continues to drain a significant amount of biliary substance. He was greater than 400 mL's out in the past 24 hours. An upper GI series this morning revealed extravasation of contrast at the level of the duodenal bulb or distal antrum of the stomach adjacent to the COURTNEY drain. No plans for ERCP at this time. He remains on ceftriaxone along with fluconazole and metronidazole per surgical services. The patient was seen again today 10/23/2016 in follow-up on the surgical floor. He is currently sitting up in a chair at the bedside. He is awake and alert in no acute distress. He denies any worsening shortness of breath, cough or congestion. He is maintaining O2 saturations in the 90s on room air. Afebrile. No leukocytosis. Hemoglobin 8.3. He's been hemodynamically stable. He was found to have a gastric leak. The bilious drainage is approximately 135 mL. He's been initiated on octreotide. He denies any worsening abdominal discomfort. His abdomen remains soft. He is passing flatus. He is being nourished with TPN/lipids. He remains nothing by mouth with NG tube in place. The patient is seen again today 10/24/2016 in follow-up on the surgical floor, postoperative day #7. He is currently sitting up in a chair at the bedside. He is awake and alert in no acute distress. He states his pain is well controlled. He denies any worsening shortness of breath, cough or congestion. He is currently maintaining good O2 saturations in the high 90s on 3 L/m per nasal cannula. His nasogastric tube remains in place, clamped. COURTNEY drain in place. He has not had a bowel movement thus far. He remains nothing by mouth. He is being nourished via TPN/lipids. No leukocytosis. Hemoglobin 9.0. Electrolytes and renal profile within normal limits. The patient is seen again today 10/25/2016 in follow-up on the surgical floor. This is postoperative day #8. He is currently sitting up in a chair at the bedside. He is awake and alert in no acute distress. He denies any worsening shortness of breath, cough or congestion. He is maintaining good O2 saturations in the mid 90s on room air. Afebrile. He's been hemodynamically stable. Hemoglobin stable at 8.8. He continues to have drainage from the COURTNEY currently at about 110 MLS. Nasogastric tube remains in place. He is being nourished with TPN. Is to receive a PICC line today. He is seen again today 10/26/2016 in follow-up on the surgical floor. This is postoperative day #9. He is currently sitting up in his chair at the bedside. He is awake and alert in no acute distress. He denies any worsening shortness of breath. He has a loose nonproductive cough. No chills or night sweats. His chest x-rays continues to show some small bilateral effusions left greater than right. There is some basilar atelectasis as well. Borderline cardiomegaly. He is maintaining O2 saturations in the upper 90s on 3 L/m per nasal cannula. He remains afebrile. White count 11.3. Hemoglobin 8.6. Unfortunately the patient inadvertently pulled out his nasogastric tube. Surgical services are aware. The plan is to leave it out and see how he does. He is passing flatus. No BM. COURTNEY drain continues with bilious fluid. He remains on octreotide. Patient was reevaluated today on 10/27/2016, he is postoperative day #10, doing well, relatively asymptomatic, and his last chest x-ray from yesterday was reassuring. Patient has no active pulmonary symptoms whatsoever. He is scheduled to have upper GI study tomorrow. Labs were reviewed, hemoglobin is 9.2 WBC count 10.3. Basic metabolic profile is relatively normal. Objective - Vital Signs Vital signs: Vital Signs Temp 98.1 F 10/27/16 07:00 Pulse 58 L 10/27/16 08:00 Resp 16 10/27/16 08:00 BP 143/69 10/27/16 07:00 Pulse Ox 94 L 10/27/16 07:00 Intake & Output 10/26/16 10/27/16 10/27/16 18:59 06:59 18:59 Intake Total 1011 3240 Output Total 510 85 250 Balance 501 3155 -250 Weight 80.2 kg 80.2 kg Intake: Intake, IV Titration 1011 1640 Amount Amino Acid 5%-D15w+Lytes* 1000 E* 1,000 ml @ 100 mls/hr IV .BY DURATION GHAZALA Rx#: [id number] Lactated Ringers 1,000 ml 640 @ 40 mls/hr IV .Q24H GHAZALA Rx#:[id number] Mvi, Adult No.4 with Vit 1011 K 10 ml Trace (Conc-1Ml/ Dose) 1 ml In Amino Acid 5%-D15w+Lytes*E* 1,000 ml @ 100 mls/hr IV .BY DURATION GHAZALA Rx#: [id number] TPN/PPN 1600 Fluconazole in NaCl,Iso- 800 Osm 400 mg In Saline 1 200ml.bag @ 100 mls/hr IVPB DAILY GHAZALA Rx#: [id number] TPN 800 Output: Drainage 60 85 30 Right Abdomen 60 85 30 Urine 450 220 Other: Voiding Method Urinal Urinal # Bowel Movements 0 - Exam Head exam was generally normal. Nasogastric was removed. There was no scleral icterus or corneal arcus. Mucous membranes were moist. Neck was supple and without jugular venous distension, thyromegaly, or carotid bruits. Carotids were easily palpable bilaterally. There was no adenopathy. Lung sounds are diminished otherwise clear. No wheezes or rales were noted. Cardiac exam revealed the PMI to be normally situated and sized. The rhythm was regular and no extrasystoles were noted during several minutes of auscultation. The first and second heart sounds were normal and physiologic splitting of the second heart sound was noted. There were no murmurs, rubs, clicks, or gallops. Abdomen is soft. No direct tenderness no rebound tenderness. No guarding. Bowel sounds are hypoactive. Incision clean dry well approximated. COURTNEY drain is in place. Bilious output has been about 160 mL from the COURTNEY drain the past 24 hours. Bowel sounds are hypoactive. Examination of the extremities revealed easily palpable radial, femoral and pedal pulses. There was no cyanosis, clubbing or edema. Neurologically the patient is or AO3 and there is no focal neurological deficit. - Labs CBC & Chem 7: 10/27/16 07:01 10/27/16 07:01 Labs: Abnormal Lab Results - Last 24 Hours (Table) 10/26/16 10/26/16 10/27/16 Range/Units 18:17 23:27 05:15 RBC (4.30-5.90) m/uL Hgb (13.0-17.5) gm/dL Hct (39.0-53.0) % RDW (11.5-15.5) % Sodium (137-145) mmol/L Creatinine (0.66-1.25) mg/dL Glucose (74-99) mg/dL POC Glucose (mg/dL) 371 H 186 H 415 H (75-99) mg/dL Calcium (8.4-10.2) mg/dL Delta Bilirubin (0.0-0.2) mg/dL Total Protein (6.3-8.2) g/dL Albumin (3.5-5.0) g/dL 10/27/16 10/27/16 10/27/16 Range/Units 07:01 07:01 08:48 RBC 2.98 L (4.30-5.90) m/uL Hgb 9.2 L (13.0-17.5) gm/dL Hct 29.4 L (39.0-53.0) % RDW 17.0 H (11.5-15.5) % Sodium 132 L (137-145) mmol/L Creatinine 0.60 L (0.66-1.25) mg/dL Glucose 201 H (74-99) mg/dL POC Glucose (mg/dL) 210 H (75-99) mg/dL Calcium 7.7 L (8.4-10.2) mg/dL Delta Bilirubin 0.3 H (0.0-0.2) mg/dL Total Protein 4.9 L (6.3-8.2) g/dL Albumin 2.1 L (3.5-5.0) g/dL 10/27/16 Range/Units 12:02 RBC (4.30-5.90) m/uL Hgb (13.0-17.5) gm/dL Hct (39.0-53.0) % RDW (11.5-15.5) % Sodium (137-145) mmol/L Creatinine (0.66-1.25) mg/dL Glucose (74-99) mg/dL POC Glucose (mg/dL) 237 H (75-99) mg/dL Calcium (8.4-10.2) mg/dL Delta Bilirubin (0.0-0.2) mg/dL Total Protein (6.3-8.2) g/dL Albumin (3.5-5.0) g/dL Assessment and Plan Plan: 1 symptomatic cholelithiasis, status post laparoscopic cholecystectomy converted to open cholecystectomy, extensive lysis of adhesions, repair of gastrectomy with a modified Fareed patch. This is postoperative day #10 There is continued billous drainage from the COURTNEY drain. Upper GI series does reveal extravasation of contrast to what appears to be the level of the duodenal bulb or distal antrum of the stomach adjacent to the COURTNEY drain. Octreotide remains on board to decreased biliary drainage. Nasogastric tube was removed. Patient is scheduled to have upper GI evaluation tomorrow. This is basically to determine if he has ongoing leak, and the site of leakage if any. 2 postoperative atelectasis as an expected outcome of surgery with some left chest subcutaneous emphysema of unclear etiology. 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 Time with Patient: Less than 30
[2016-10-27] MEDS: HYDROmorphone 1 MG/ML 1 ML SYRINGE IVP PRN (15:38)
[2016-10-27 17:26] LABS: Glucose,Whole Blood 295 mg/dL (75-99)
[2016-10-27] MEDS: INSULIN GLARGINE 100 UNIT/ML 10 ML VIAL SQ SCH (20:15)
[2016-10-27 23:41] LABS: Glucose,Whole Blood 240 mg/dL (75-99)
[2016-10-28] MEDS ORDERED: POTASSIUM PHOSPHATE IV ONE (02:00)
[2016-10-28] MEDS ORDERED: [UNRECOGNIZED DRUG - OTHER] IV ONE (02:00)
[2016-10-28] MEDS ORDERED: PARENTERAL ELECTROLYTES IV ONE (02:00)
[2016-10-28] MEDS ORDERED: 1: AMINO ACID 5%-D15W+LYTES*E* 1,000 ML 2: MVI, ADULT NO.4 WITH VIT K 10 ML, TRACE (CON IV SCH ×6 (03:30→12:00)
[2016-10-28] MEDS: INSULIN LISPRO (humaLOG) 300 UNIT/3 ML VIAL SQ SCH ×4 (05:29→23:39)
[2016-10-28 05:40] LABS: Glucose,Whole Blood 246 mg/dL (75-99)
[2016-10-28 06:39] LABS: Anisocytosis Slight; Basophils # (A) 0.1 k/uL (0-0.2); Basophils % (A) 0 %; CHCM 31.9; Eosinophils # (A) 0.2 k/uL (0-0.7); Eosinophils % (A) 2 %; HDW 2.87; HGB 9.5 gm/dL (13.0-17.5); Hypochromasia Slight; Luc # (Auto) 0.22; Luc % (Auto) 2; Lymphocytes # (A) 1.8 k/uL (1.0-4.8); Lymphocytes % (A) 16 %; MCH 32.2 pg (25.0-35.0); MCHC 32.8 g/dL (31.0-37.0); MCV 98.1 fL (80.0-100.0); Macrocytosis Slight; Mean Platelet Volume 8.1; Monocytes # (A) 0.5 k/uL (0-1.0); Monocytes % (A) 4 %; Neutrophils # (A) 8.6 k/uL (1.3-7.7); Neutrophils % (A) 76 %; RBC 2.96 m/uL (4.30-5.90); RDW 16.5 % (11.5-15.5); WBC 11.4 k/uL (3.8-10.6)
[2016-10-28 06:47] LABS: ALT 25 U/L (21-72); AST 18 U/L (17-59); Alkaline Phosphatase 51 U/L (38-126); Anion Gap 1 mmol/L; Bilirubin, Delta 0.2 mg/dL (0.0-0.2); Blood Urea Nitrogen 16 mg/dL (9-20); Calcium 7.5 mg/dL (8.4-10.2); Carbon Dioxide 29 mmol/L (22-30); Chloride 97 mmol/L (98-107); Glucose 251 mg/dL (74-99); Magnesium 1.9 mg/dL (1.6-2.3); Non-African American GFR(MDRD) >60 (>60 ml/min/1.73 sqM); Phosphorous 3.2 mg/dL (2.5-4.5); Potassium 4.3 mmol/L (3.5-5.1); Sodium 127 mmol/L (137-145); Total Bilirubin 0.2 mg/dL (0.2-1.3); Total Protein 4.7 g/dL (6.3-8.2)
[2016-10-28] MEDS: PANTOPRAZOLE 40 MG/10 ML VIAL IV SCH (08:22)
[2016-10-28] MEDS: HEPARIN SODIUM,PORCINE 5,000 UNIT/ML 1 ML VIAL SQ SCH ×3 (08:22→23:40)
[2016-10-28] MEDS: NITROGLYCERIN OINT 1 INCH/GM PACKET TOPICAL SCH ×3 (08:22→23:40)
--- NOTE | 2016-10-28 08:28 | P.PN ---
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 States he is doing well this morning. He has been out of bed into his chair. He states he is having flatus. He denies any nausea and vomiting. COURTNEY drain output has been decreasing and has been approximately 60 mL over last 12 hours. Objective - Vital Signs Vital signs: Vital Signs Temp 98.2 F 10/28/16 07:11 Pulse 61 10/28/16 07:11 Resp 18 10/28/16 07:11 BP 165/78 10/28/16 07:11 Pulse Ox 90 L 10/28/16 07:11 Intake & Output 10/27/16 10/28/16 10/28/16 18:59 06:59 18:59 Intake Total 1120 Output Total 280 525 Balance -280 595 Weight 80.2 kg Intake: Intake, IV Titration 320 Amount Lactated Ringers 1,000 ml 320 @ 40 mls/hr IV .Q24H GHAZALA Rx#:[id number] TPN/PPN 800 TPN 800 Output: Drainage 60 50 Right Abdomen 60 50 Urine 220 475 Other: Voiding Method Urinal # Voids 3 3 # Bowel Movements 0 - Constitutional General appearance: Present: cooperative, no acute distress - EENT Eyes: Present: EOMI, PERRLA ENT: Present: hearing grossly normal - Neck Neck: Present: normal ROM - Respiratory Details: No difficulty with respiration - Cardiovascular Rhythm: regular Heart sounds: normal: S1, S2 - Gastrointestinal Gastrointestinal Comment(s): Soft, nontender, nondistended, no rebound, no guarding, COURTNEY drain in place, incision sites clean dry and intact - Integumentary Integumentary: Present: normal turgor - Musculoskeletal Musculoskeletal: Present: generalized weakness - Psychiatric Psychiatric: Present: A&O x's 3, appropriate affect - Labs CBC & Chem 7: 10/28/16 06:09 10/28/16 06:09 Labs: Abnormal Lab Results - Last 24 Hours (Table) 10/27/16 10/27/16 10/27/16 Range/Units 08:48 12:02 17:16 WBC (3.8-10.6) k/uL RBC (4.30-5.90) m/uL Hgb (13.0-17.5) gm/dL Hct (39.0-53.0) % RDW (11.5-15.5) % Neutrophils # (1.3-7.7) k/uL Sodium (137-145) mmol/L Chloride (98-107) mmol/L Creatinine (0.66-1.25) mg/dL Glucose (74-99) mg/dL POC Glucose (mg/dL) 210 H 237 H 295 H (75-99) mg/dL Calcium (8.4-10.2) mg/dL Total Protein (6.3-8.2) g/dL Albumin (3.5-5.0) g/dL 10/27/16 10/28/16 10/28/16 Range/Units 23:38 05:30 06:09 WBC 11.4 H (3.8-10.6) k/uL RBC 2.96 L (4.30-5.90) m/uL Hgb 9.5 L (13.0-17.5) gm/dL Hct 29.0 L (39.0-53.0) % RDW 16.5 H (11.5-15.5) % Neutrophils # 8.6 H (1.3-7.7) k/uL Sodium (137-145) mmol/L Chloride (98-107) mmol/L Creatinine (0.66-1.25) mg/dL Glucose (74-99) mg/dL POC Glucose (mg/dL) 240 H 246 H (75-99) mg/dL Calcium (8.4-10.2) mg/dL Total Protein (6.3-8.2) g/dL Albumin (3.5-5.0) g/dL 10/28/16 Range/Units 06:09 WBC (3.8-10.6) k/uL RBC (4.30-5.90) m/uL Hgb (13.0-17.5) gm/dL Hct (39.0-53.0) % RDW (11.5-15.5) % Neutrophils # (1.3-7.7) k/uL Sodium 127 L (137-145) mmol/L Chloride 97 L (98-107) mmol/L Creatinine 0.60 L (0.66-1.25) mg/dL Glucose 251 H (74-99) mg/dL POC Glucose (mg/dL) (75-99) mg/dL Calcium 7.5 L (8.4-10.2) mg/dL Total Protein 4.7 L (6.3-8.2) g/dL Albumin 2.0 L (3.5-5.0) g/dL Assessment and Plan (1) Status post cholecystectomy Status: Acute Plan: Over last 12h COURTNEY output of 60cc. 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 Continue octreotide to decrease bilious output Continue management with NPO/TPN. Continue to sit in chair and continue to ambulate Appreciate medicine changes on glucose control. PICC line in place Pt has been on rocephin/flagyl/diflucan; pharmacy has notified that there is a national shortage of IV Flagyl. At this point we may have to revert to Zosyn instead of Rocephin and Flagyl due to this national shortage. Still on rocephin/ flagyl/diflucan for now. Patient is continuing to improve, discussed case with patient's daughter, Hollie Upper GI ordered to evaluate leak TPN adjustments to be made for electrolyte abnormalities
--- NOTE | 2016-10-28 09:13 | P.PN ---
Subjective Principal diagnosis: Cholecystitis Patient's 6-year-old male past medical history of diabetes mellitus type 2, hypertension, coronary artery disease status post stenting in the followed for diabetic management. He has had a prolonged hospital course after a lap madisyn was converted to an open Rambo for chronic cholecystitis. This was complicated by cholecystogastric fistula. He has been on antibiotics, TPN, and had an NG tube during this hospitalization. Postoperative day 11. Patient seen and examined at bedside. He states that his mouth is dry. He is having some abdominal discomfort which is unchanged. He is passing a lot of gas. Denies any nausea. Denies any chest pain or shortness of breath Objective - Vital Signs Vital signs: Vital Signs Temp 98.2 F 10/28/16 07:11 Pulse 61 10/28/16 07:11 Resp 18 10/28/16 07:11 BP 165/78 10/28/16 07:11 Pulse Ox 90 L 10/28/16 07:11 Intake & Output 10/27/16 10/28/16 10/28/16 18:59 06:59 18:59 Intake Total 1120 Output Total 280 525 Balance -280 595 Weight 80.2 kg Intake: Intake, IV Titration 320 Amount Lactated Ringers 1,000 ml 320 @ 40 mls/hr IV .Q24H GHAZALA Rx#:[id number] TPN/PPN 800 TPN 800 Output: Drainage 60 50 Right Abdomen 60 50 Urine 220 475 Other: Voiding Method Urinal # Voids 3 3 # Bowel Movements 0 - Exam General: non toxic, no distress, appears at stated age, chronically ill- appearing Derm: no rashes, no lesions Head: atraumatic, normocephalic, symmetric Eyes: EOMI, no lid lag, anicteric sclera ENT: no post nasal drip, no thrush Mouth: no lip lesion, mucus membranes moist Cardiovascular: S1S2 reg, no murmur, positive posterior tibial pulse bilateral, Lungs: CTA bilateral, no rhonchi, no rales , no accessory muscle use Abdominal: soft, tender to palpation diffusely, no guarding, no appreciable organomegaly, COURTNEY drain in place Ext: no gross muscle atrophy, no edema, no contractures Neuro: CN II-XI grossly intact, no focal neuro deficits Psych: Alert, oriented, appropriate affect - Labs CBC & Chem 7: 10/28/16 06:09 10/28/16 06:09 Labs: Abnormal Lab Results - Last 24 Hours (Table) 10/27/16 10/27/16 10/27/16 Range/Units 08:48 12:02 17:16 WBC (3.8-10.6) k/uL RBC (4.30-5.90) m/uL Hgb (13.0-17.5) gm/dL Hct (39.0-53.0) % RDW (11.5-15.5) % Neutrophils # (1.3-7.7) k/uL Sodium (137-145) mmol/L Chloride (98-107) mmol/L Creatinine (0.66-1.25) mg/dL Glucose (74-99) mg/dL POC Glucose (mg/dL) 210 H 237 H 295 H (75-99) mg/dL Calcium (8.4-10.2) mg/dL Total Protein (6.3-8.2) g/dL Albumin (3.5-5.0) g/dL 10/27/16 10/28/16 10/28/16 Range/Units 23:38 05:30 06:09 WBC 11.4 H (3.8-10.6) k/uL RBC 2.96 L (4.30-5.90) m/uL Hgb 9.5 L (13.0-17.5) gm/dL Hct 29.0 L (39.0-53.0) % RDW 16.5 H (11.5-15.5) % Neutrophils # 8.6 H (1.3-7.7) k/uL Sodium (137-145) mmol/L Chloride (98-107) mmol/L Creatinine (0.66-1.25) mg/dL Glucose (74-99) mg/dL POC Glucose (mg/dL) 240 H 246 H (75-99) mg/dL Calcium (8.4-10.2) mg/dL Total Protein (6.3-8.2) g/dL Albumin (3.5-5.0) g/dL 10/28/16 Range/Units 06:09 WBC (3.8-10.6) k/uL RBC (4.30-5.90) m/uL Hgb (13.0-17.5) gm/dL Hct (39.0-53.0) % RDW (11.5-15.5) % Neutrophils # (1.3-7.7) k/uL Sodium 127 L (137-145) mmol/L Chloride 97 L (98-107) mmol/L Creatinine 0.60 L (0.66-1.25) mg/dL Glucose 251 H (74-99) mg/dL POC Glucose (mg/dL) (75-99) mg/dL Calcium 7.5 L (8.4-10.2) mg/dL Total Protein 4.7 L (6.3-8.2) g/dL Albumin 2.0 L (3.5-5.0) g/dL Assessment and Plan Plan: # Acute on Chronic Cholecystitis - On Flagyl, rocephin, and fluconzaloe per surgery - On TPN, NPO - Probable upper GI today - Continue with IS and up to chair #Possible biliary leak -Management per primary team -Continue with octreotide # DM 2 - Blood sugars the 200s on TPN, under adequate control -Continue with sliding scale insulin and Lantus 14 units at night -Was on metformin and Novolin and then at home. -Blood sugars chronically well-controlled with A1c of 7.1 # HTN - mildly elevated -Continue with Catapres patch, and when necessary hydralazine. If continued to be elevated a could consider increasing Catapres patch 0.2 however will likely have withdrawal effects once Catapres patch can be weaned off and he is tolerating orals will attempt to minimize Catapres. -On Cozaar and Lasix at home # Moderate protein calorie malnutrition - Continue with TPN - Add oral supplements once able to tolerate a diet. # Hyponatremia -Likely TPN induced -Discussed with clinical pharmacist, will increase sodium in the TPN -Check lytes at 1600 Chronic: Hx of prior DVT Peripheral neuropathy Prostate cancer peripheral neuropathy arthritis DVT prophylaxis: SCDs per surgery Discussed with: Patient Anticipated discharge: Undetermined Anticipated [facility] place[facility] A total of 45 minutes was spent on the care of this complex patient more than 50 % of the time was spent in counseling and care coordination.
[2016-10-28] MEDS: LACTATED RINGERS 1,000 ML IV SCH ×2 (10:07→17:02)
--- NOTE | 2016-10-28 10:13 | FL ---
EXAMINATION TYPE: FL UGI DATE OF EXAM: 10/28/2016 COMPARISON: Prior exam 10/22/2016 HISTORY: Gastric leak TECHNIQUE: A single contrast UGI study is performed. FINDINGS: Dipping Machine Operator image of the abdomen shows indwelling drain in the right upper quadrant as on previo us exam. Surgical page are noted. Retained contrast present within the colon. There is a levoscoli osis. Right-sided PICC line noted incidentally. Limited exam was performed. Patient was given 50 cc Omni 350 to drink. 58 seconds fluoroscopy time. Attention to the level of the stomach. There are overlying artifacts. No evident abnormality within the esophagus. Contrast courses to the level of the right upper quadran t at the level of the previously identified leak along the Kevin-Chávez drain. Contrast is again not ed to course along the drain but does course into the proximal small bowel. IMPRESSION: Small amount of contrast courses along the indwelling drain.
[2016-10-28] MEDS: metroNIDAZOLE-NS PMX 500 MG in SALINE 1 100ML.BAG IVPB SCH ×3 (10:35→23:40)
[2016-10-28] MEDS: OCTREOTIDE 100 MCG/ML INJ IVP SCH ×3 (10:36→23:40)
[2016-10-28] MEDS ORDERED: [UNRECOGNIZED DRUG - REMARK] IV SCH ×4 (11:00)
--- NOTE | 2016-10-28 11:28 | P.PN ---
Subjective Progress note dated 10/28/2016 This is a 86-year-old male status post laparoscopic cholecystectomy converted to open cholecystectomy with extensive lysis of adhesions and repair of gastrectomy with modified Fareed patch. He's postop day #11. He has been having continuous bilious drainage from his COURTNEY drain. The patient seemed be doing relatively well today. Denies any pain. Apparently scheduled for a upper GI study. Denies any difficulty breathing. No coughing. No wheezing. 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 Objective - Vital Signs Vital signs: Vital Signs Temp 98.2 F 10/28/16 07:11 Pulse 61 10/28/16 07:11 Resp 18 10/28/16 07:11 BP 165/78 10/28/16 07:11 Pulse Ox 90 L 10/28/16 07:11 Intake & Output 10/27/16 10/28/16 10/28/16 18:59 06:59 18:59 Intake Total 1120 Output Total 280 525 20 Balance -280 595 -20 Weight 80.2 kg 83.1 kg Intake: Intake, IV Titration 320 Amount Lactated Ringers 1,000 ml 320 @ 40 mls/hr IV .Q24H [facility] Rx#:[id number] TPN/PPN 800 TPN 800 Output: Drainage 60 50 20 Right Abdomen 60 50 20 Urine 220 475 Other: Voiding Method Urinal # Voids 3 3 # Bowel Movements 0 - Exam No Acute Distress, Oriented 3. HEENT Examination Is Grossly Unremarkable. Mucous Membranes Are Moist. No Oral Lesions. We'll Range Of Motion. No Adenopathy or Thyromegaly. Cardiovascular Examination Reveals a Regular Rhythm Rate. S1-S2 Normal. No S3- S4 or Murmur. Lungs Reveal Mostly Clear Breath Sounds. A Few Scattered Rhonchi. No Wheezes or Crackles. He Does Not Really Take Deep Breaths. Abdomen Soft Bowel Sounds Are Alexander. Extremities Are Intact. No Cyanosis Clubbing or Edema. Skin without Rash. Neurologic Examination Nonfocal. - Labs CBC & Chem 7: 10/28/16 06:09 10/28/16 06:09 Labs: Abnormal Lab Results - Last 24 Hours (Table) 10/27/16 10/27/16 10/27/16 Range/Units 12:02 17:16 23:38 WBC (3.8-10.6) k/uL RBC (4.30-5.90) m/uL Hgb (13.0-17.5) gm/dL Hct (39.0-53.0) % RDW (11.5-15.5) % Neutrophils # (1.3-7.7) k/uL Sodium (137-145) mmol/L Chloride (98-107) mmol/L Creatinine (0.66-1.25) mg/dL Glucose (74-99) mg/dL POC Glucose (mg/dL) 237 H 295 H 240 H (75-99) mg/dL Calcium (8.4-10.2) mg/dL Total Protein (6.3-8.2) g/dL Albumin (3.5-5.0) g/dL 10/28/16 10/28/16 10/28/16 Range/Units 05:30 06:09 06:09 WBC 11.4 H (3.8-10.6) k/uL RBC 2.96 L (4.30-5.90) m/uL Hgb 9.5 L (13.0-17.5) gm/dL Hct 29.0 L (39.0-53.0) % RDW 16.5 H (11.5-15.5) % Neutrophils # 8.6 H (1.3-7.7) k/uL Sodium 127 L (137-145) mmol/L Chloride 97 L (98-107) mmol/L Creatinine 0.60 L (0.66-1.25) mg/dL Glucose 251 H (74-99) mg/dL POC Glucose (mg/dL) 246 H (75-99) mg/dL Calcium 7.5 L (8.4-10.2) mg/dL Total Protein 4.7 L (6.3-8.2) g/dL Albumin 2.0 L (3.5-5.0) g/dL Assessment and Plan (1) Bile leak Status: Acute (2) DVT prophylaxis Status: Acute (3) Diabetes mellitus Status: Acute (4) Hypertension Status: Acute (5) Status post cholecystectomy Status: Acute (6) Acute cholecystitis Status: Acute (7) CAD (coronary artery disease) Status: Chronic Plan: Plan dated 10/28/2016 The patient continues to show improvement. The patient has no active pulmonary issues at this time. Nonetheless, we recommend deep breathing coughing clearing of secretions and hourly use of the incentive spirometer. We'll continue to follow closely. No additional recommendations are made. Time with Patient: Less than 30
[2016-10-28 11:39] LABS: Glucose,Whole Blood 276 mg/dL (75-99)
[2016-10-28] MEDS: FLUCONAZOLE IN NACL,ISO-OSM 400 MG in SALINE 1 200ML.BAG IVPB SCH (12:05)
[2016-10-28] MEDS: FAT EMULSION 20% 250 ML IV SCH (12:06)
[2016-10-28] MEDS: HYDROmorphone 1 MG/ML 1 ML SYRINGE IVP PRN (13:18)
[2016-10-28 16:09] LABS: Anion Gap 5 mmol/L; Blood Urea Nitrogen 17 mg/dL (9-20); Calcium 7.6 mg/dL (8.4-10.2); Carbon Dioxide 27 mmol/L (22-30); Chloride 97 mmol/L (98-107); Glucose 263 mg/dL (74-99); Non-African American GFR(MDRD) >60 (>60 ml/min/1.73 sqM); Potassium 4.4 mmol/L (3.5-5.1); Sodium 129 mmol/L (137-145)
[2016-10-28] MEDS ORDERED: THIAMINE 100 MG/ML 2 ML VIAL IM STA (16:14)
[2016-10-28] MEDS ORDERED: LORazepam 2 MG/ML SYRINGE IV PRN ×3 (16:14)
[2016-10-28] MEDS ORDERED: THIAMINE 100 MG TAB PO SCH (17:00)
[2016-10-28 17:37] LABS: Glucose,Whole Blood 291 mg/dL (75-99)
[2016-10-28] MEDS: INSULIN GLARGINE 100 UNIT/ML 10 ML VIAL SQ SCH (20:13)
[2016-10-28 23:38] LABS: Glucose,Whole Blood 284 mg/dL (75-99)
[2016-10-29] MEDS: INSULIN LISPRO (humaLOG) 300 UNIT/3 ML VIAL SQ SCH ×3 (06:00→18:01)
[2016-10-29 06:02] LABS: Glucose,Whole Blood 281 mg/dL (75-99)
--- NOTE | 2016-10-29 06:43 | P.CONS ---
History of Present Illness - Chief Complaint Medical debility - History of Present Illness I had the op to see patient for inpatient rehab consultation with regard to medical debility. He was admitted to [facility] October 17 with abdominal pain of one-week duration. Admitted for elective laparoscopic cholecystectomy converted open cholecystectomy due to adhesions. Complicated course of bile leak. Seen by surgeon Dr. Saez as well as pulmonary and cardiology. Chest x- rays followed for possible small pleural effusions, mild cardiomegaly and possible right lower lobe infiltrate. PT reports minimal assistance functional ability and gait 50 feet with roller walker, fatigues. OT reports minimal assistance for upper dressing mod assist for lower dressing, bathing, functional mobility. Previous functional history as elicited from patient: 86-year-old right-handed white male who is and doesn't first-floor apartment currently alone. in [place]. Patient retired. Doesn't smoke or drink. Daughter does the cooking. Patient dependent with own laundry, driving, gait with standard cane or roller walker. Doesn't standing shower. Doesn't have regular physician locally. Family history of diabetes in both parents. Review of Systems Review of systems: ENT: Denies sneezes or discharge. Eyes: Denies discharge or photophobia. Cardiac: Denies chest pain or palpitation. Pulmonary: Denies cough or shortness of breath. Gastrointestinal: Abdominal discomfort. Genitourinary: Denies discharge or frequency. Musculoskeletal: Denies muscle or bone aches. Neurologic: Mild generalized weakness. Endocrine: Denies shakes or sweats. Oncology: Denies cancers. Dermatologic: Denies rash, itching, pruritus. ALLERGY/immunology: Denies sneezes, rashes. Past Medical History Past Medical History: Coronary Artery Disease (CAD), Cancer, Diabetes Mellitus, Deep Vein Thrombosis (DVT), Hearing Disorder / Deafness, Hypertension, Osteoarthritis (OA), Prostate Disorder Additional Past Medical History / Comment(s): Colon cancer 1997 post colectomy, prostate cancer treated by radiation therapy and local seed implants, brain tumor with previous WREATH MACHINE TENDER surgery in 1996, peripheral neuropathy involving the lower extremities, cholelithiasis/symptomatic, coronary artery disease, diabetes mellitus, impaired hearing, osteoarthritis, hypertension, previous history of DVT currently on no anticoagulants. History of Any Multi-Drug Resistant Organisms: None Reported Past Surgical History: Bowel Resection, Heart Catheterization With Stent, Prostate Surgery Additional Past Surgical History / Comment(s): Cardiac catheterization with insertion of coronary stents 15 years ago , bowel resection for colon cancer, resection of brain tumor in 1996, insertion of prostate radiation seed for brachytherapy Past Anesthesia/Blood Transfusion Reactions: No Reported Reaction Date of Last Stent Placement:: 1997 Smoking Status: Never smoker - Past Family History Father History Unknown: Yes Medications and Allergies Home Medications Medication Instructions Recorded Confirmed Type Acetaminophen/Diphenhydramine 1 tab PO HS 10/07/16 10/17/16 History [Tylenol PM 500-25mg] Furosemide [Lasix] 40 mg PO DAILY 10/07/16 10/17/16 History Gabapentin 600 mg PO TID 10/07/16 10/17/16 History Insulin NPH Human Isophane 20 unit SQ BID 10/07/16 10/17/16 History [NovoLIN N] LORazepam [Ativan] 1 mg PO HS 10/07/16 10/17/16 History Losartan [Cozaar] 50 mg PO DAILY 10/07/16 10/17/16 History Lovastatin [Mevacor] 40 mg PO DAILY 10/07/16 10/17/16 History Potassium Chloride [Klor-Con 10] 10 meq PO BID 10/07/16 10/17/16 History metFORMIN HCL [Glucophage] 500 mg PO BID 10/07/16 10/17/16 History Amoxic-Pot Clav 875-125Mg 1 tab PO Q12HR #14 tablet 10/09/16 10/17/16 Rx [Augmentin 875-125] Aspirin [Children's Aspirin] 81 mg PO DAILY #30 tab.chew 10/09/16 10/17/16 Rx Clopidogrel Bisulfate [Plavix] 75 mg PO DAILY 10/15/16 10/17/16 History Allergies Allergy/AdvReac Type Severity Reaction Status Date / Time No Known Allergies Allergy Verified 10/17/16 06:50 Physical Exam Vitals: Vital Signs Temp Pulse Resp BP BP Pulse Ox 10/29/16 00:33 97.0 F L 65 16 163/73 92 L 10/28/16 20:14 97.0 F L 65 16 163/73 92 L 10/28/16 15:15 97.4 F L 60 16 127/70 96 10/28/16 07:11 98.2 F 61 18 165/78 90 L Intake and Output 10/28/16 10/28/16 10/29/16 14:59 22:59 06:59 Intake Total 1150 650 900 Output Total 70 285 Balance 1080 365 900 Intake: IV 1150 100 Fluconazole in NaCl,Iso- 200 Osm 400 mg In Saline 1 200ml.bag @ 100 mls/hr IVPB DAILY [facility] Rx#: [id number] TPN 800 cefTRIAXone 1,000 mg In 50 Sodium Chloride 0.9% 50 ml @ 100 mls/hr IVPB Q24HR [facility] Rx#:[id number] metroNIDAZOLE-NS PMX 500 100 100 mg In Saline 1 100ml.bag @ 100 mls/hr IVPB Q8HR [facility] Rx#:[id number] Intake, IV Titration 650 800 Amount Amino Acid 5%-D15w+Lytes* 300 E* 1,000 ml @ 100 mls/hr IV .BY DURATION [facility] Rx#: [id number] Calcium Gluconate 1,000 100 mg Sodium Chloride 4Meq/ ml Vial 52 meq Magnesium Sulfate 8 meq Potassium Phosphate 15 mmol In Amino Acid 5%-D15w 1,000 ml @ 100 mls/hr IV .BY DURATION [facility] Rx#: [id number] Fat Emulsion 20% 250 ml @ 250 20.833 mls/hr IV MoWeFr [facility] Rx#:[id number] Mvi, Adult No.4 with Vit 800 K 10 ml Trace (Conc-1Ml/ Dose) 1 ml In Amino Acid 5%-D15w+Lytes*E* 1,000 ml @ 100 mls/hr IV .BY DURATION [facility] Rx#: [id number] Output: Drainage 70 60 Right Abdomen 70 60 Urine 225 Other: Voiding Method Urinal # Voids 3 3 # Bowel Movements 3 Weight 83.1 kg 89 kg Patient Weight 10/29/16 06:59 Weight 89 kg Skin: Atrophic, intact. General: Medium build and comfortable appearance. Head: Normocephalic, atraumatic. Eyes: Symmetric. Pupils equal round. Ears: Symmetric. Hearing within normal limits. Mouth: Clear. Neck: Supple. Carotid without bruit. Cardiac: Regular rate and rhythm. Lungs: Clear anteriorly and posteriorly. Abdomen: Soft active nontender. Did not examine abdominal wound. Extremities: Normal tone. Neurological: Mental status: Alert, cooperative, pleasant. Cranial nerves: Symmetric facial tone and trapezius. Motor: Actively elevate all limbs off of bed. Sensation: Intact throughout. DTRs: Symmetric and equal throughout. Mobility: Did not attempt to sit or stand and this early a.m. Going for PICC line. Results CBC & Chem 7: 10/28/16 06:09 10/28/16 15:39 Labs: Abnormal Lab Results - Last 24 Hours (Table) 10/28/16 10/28/16 10/28/16 Range/Units 06:09 06:09 11:33 WBC 11.4 H (3.8-10.6) k/uL RBC 2.96 L (4.30-5.90) m/uL Hgb 9.5 L (13.0-17.5) gm/dL Hct 29.0 L (39.0-53.0) % RDW 16.5 H (11.5-15.5) % Neutrophils # 8.6 H (1.3-7.7) k/uL Sodium 127 L (137-145) mmol/L Chloride 97 L (98-107) mmol/L Creatinine 0.60 L (0.66-1.25) mg/dL Glucose 251 H (74-99) mg/dL POC Glucose (mg/dL) 276 H (75-99) mg/dL Calcium 7.5 L (8.4-10.2) mg/dL Total Protein 4.7 L (6.3-8.2) g/dL Albumin 2.0 L (3.5-5.0) g/dL 10/28/16 10/28/16 10/28/16 Range/Units 15:39 17:26 23:35 WBC (3.8-10.6) k/uL RBC (4.30-5.90) m/uL Hgb (13.0-17.5) gm/dL Hct (39.0-53.0) % RDW (11.5-15.5) % Neutrophils # (1.3-7.7) k/uL Sodium 129 L (137-145) mmol/L Chloride 97 L (98-107) mmol/L Creatinine 0.59 L (0.66-1.25) mg/dL Glucose 263 H (74-99) mg/dL POC Glucose (mg/dL) 291 H 284 H (75-99) mg/dL Calcium 7.6 L (8.4-10.2) mg/dL Total Protein (6.3-8.2) g/dL Albumin (3.5-5.0) g/dL 10/29/16 Range/Units 05:59 WBC (3.8-10.6) k/uL RBC (4.30-5.90) m/uL Hgb (13.0-17.5) gm/dL Hct (39.0-53.0) % RDW (11.5-15.5) % Neutrophils # (1.3-7.7) k/uL Sodium (137-145) mmol/L Chloride (98-107) mmol/L Creatinine (0.66-1.25) mg/dL Glucose (74-99) mg/dL POC Glucose (mg/dL) 281 H (75-99) mg/dL Calcium (8.4-10.2) mg/dL Total Protein (6.3-8.2) g/dL Albumin (3.5-5.0) g/dL Chest x-ray: report reviewed (Follow for small pleural effusions. Borderline cardiomegaly. Possible developing right lower lobe infiltrate.) Assessment and Plan (1) Acute cholecystitis Status: Acute Plan: Impression: 1. Medical debility. 2. Acute cholecystitis status post cholecystectomy. 3. Complication by a leak. 4. Diabetes. 5. Hypertension. 6. Osteoarthritis. 7. Hard of hearing. 8. Coronary artery disease. Comments and plan: At this time PT and OT are ongoing. Safety concerns noted as demonstrate ability tolerate and benefit from therapies. Appears to have support system in place locally with daughter. Note in [place].
[2016-10-29] MEDS ORDERED: INSULIN GLARGINE 100 UNIT/ML 10 ML VIAL SQ ONE (08:15)
[2016-10-29] MEDS: FLUCONAZOLE IN NACL,ISO-OSM 400 MG in SALINE 1 200ML.BAG IVPB SCH (08:54)
[2016-10-29] MEDS: HEPARIN SODIUM,PORCINE 5,000 UNIT/ML 1 ML VIAL SQ SCH ×2 (08:55→17:24)
[2016-10-29 09:21] LABS: Anion Gap 6 mmol/L; Anisocytosis Slight; Basophils % (A) 0 %; Blood Urea Nitrogen 12 mg/dL (9-20); CH 30.5; CHCM 27.6; Calcium 7.4 mg/dL (8.4-10.2); Carbon Dioxide 22 mmol/L (22-30); Chloride 94 mmol/L (98-107); Eosinophils # (A) 0.2 k/uL (0-0.7); Eosinophils % (A) 2 %; HCT 31.7 % (39.0-53.0); HDW 2.87; HGB 8.9 gm/dL (13.0-17.5); Hypochromasia Marked; Luc # (Auto) 0.32; Luc % (Auto) 3; Lymphocytes # (A) 1.3 k/uL (1.0-4.8); Lymphocytes % (A) 13 %; MCH 31.6 pg (25.0-35.0); MCHC 28.2 g/dL (31.0-37.0); Macrocytosis Marked; Magnesium 2.6 mg/dL (1.6-2.3); Mean Platelet Volume 8.7; Monocytes # (A) 0.5 k/uL (0-1.0); Monocytes % (A) 5 %; Neutrophils # (A) 7.6 k/uL (1.3-7.7); Neutrophils % (A) 77 %; Non-African American GFR(MDRD) >60 (>60 ml/min/1.73 sqM); Phosphorous 7.5 mg/dL (2.5-4.5); Potassium 5.6 mmol/L (3.5-5.1); RBC 2.83 m/uL (4.30-5.90); Sodium 122 mmol/L (137-145); WBC 9.9 k/uL (3.8-10.6); WBC (Perox) 11.15
[2016-10-29 09:23] LABS: MCV 111.9 fL (80.0-100.0)
[2016-10-29 09:51] LABS: Manual Review Performed; Polychromasia Present
--- NOTE | 2016-10-29 10:03 | P.PN ---
Subjective Principal diagnosis: Cholecystitis Patient's 6-year-old male past medical history of diabetes mellitus type 2, hypertension, coronary artery disease status post stenting in the followed for diabetic management. He has had a prolonged hospital course after a lap madisyn was converted to an open Rambo for chronic cholecystitis. This was complicated by cholecystogastric fistula. He has been on antibiotics, TPN, and had an NG tube during this hospitalization. Postoperative day 12. Patient seen and examined at bedside. Abdominal pain slightly lower than yesterday. Had a bowel movement with oral contrast. Denies any nausea or vomiting. Anxious to get up and start moving again. Objective - Vital Signs Vital signs: Vital Signs Temp 97.0 F L 10/29/16 00:33 Pulse 65 10/29/16 00:33 Resp 16 10/29/16 00:33 BP 163/73 10/29/16 00:33 Pulse Ox 92 L 10/29/16 08:58 Intake & Output 10/28/16 10/29/16 10/29/16 18:59 06:59 18:59 Intake Total 1150 2591 Output Total 325 30 Balance 825 2561 Weight 83.1 kg 89 kg Intake: IV 1150 100 Fluconazole in NaCl,Iso- 200 Osm 400 mg In Saline 1 200ml.bag @ 100 mls/hr IVPB DAILY [facility] Rx#: [id number] TPN 800 cefTRIAXone 1,000 mg In 50 Sodium Chloride 0.9% 50 ml @ 100 mls/hr IVPB Q24HR [facility] Rx#:[id number] metroNIDAZOLE-NS PMX 500 100 100 mg In Saline 1 100ml.bag @ 100 mls/hr IVPB Q8HR [facility] Rx#:[id number] Intake, IV Titration 2491 Amount Amino Acid 5%-D15w+Lytes* 300 E* 1,000 ml @ 100 mls/hr IV .BY DURATION [facility] Rx#: [id number] Calcium Gluconate 1,000 100 mg Sodium Chloride 4Meq/ ml Vial 52 meq Magnesium Sulfate 8 meq Potassium Phosphate 15 mmol In Amino Acid 5%-D15w 1,000 ml @ 100 mls/hr IV .BY DURATION [facility] Rx#: [id number] Fat Emulsion 20% 250 ml @ 250 20.833 mls/hr IV MoWeFr [facility] Rx#:[id number] Mvi, Adult No.4 with Vit 1041 K 10 ml Trace (Conc-1Ml/ Dose) 1 ml Calcium Gluconate 1,000 mg Sodium Chloride 4Meq/ml Vial 52 meq Magnesium Sulfate 8 meq Potassium Phosphate 15 mmol In Amino Acid 5%- D15w 1,000 ml @ 100 mls/ hr IV .BY DURATION [facility] Rx #:[id number] Mvi, Adult No.4 with Vit 800 K 10 ml Trace (Conc-1Ml/ Dose) 1 ml In Amino Acid 5%-D15w+Lytes*E* 1,000 ml @ 100 mls/hr IV .BY DURATION [facility] Rx#: [id number] Output: Drainage 100 30 Right Abdomen 100 30 Urine 225 Other: Voiding Method Urinal # Voids 3 # Bowel Movements 3 - Exam General: non toxic, no distress, appears at stated age, chronically ill- appearing Derm: no rashes, no lesions Head: atraumatic, normocephalic, symmetric Eyes: EOMI, no lid lag, anicteric sclera ENT: no post nasal drip, no thrush Mouth: no lip lesion, mucus membranes moist Cardiovascular: S1S2 reg, no murmur, positive posterior tibial pulse bilateral, Lungs: CTA bilateral, no rhonchi, no rales , no accessory muscle use Abdominal: soft, tender to palpation diffusely, no guarding, no appreciable organomegaly, COURTNEY drain in place Ext: no gross muscle atrophy, no edema, no contractures Neuro: CN II-XI grossly intact, no focal neuro deficits Psych: Alert, oriented, appropriate affect - Labs CBC & Chem 7: 10/29/16 14:45 10/29/16 14:45 Labs: Abnormal Lab Results - Last 24 Hours (Table) 10/28/16 10/28/16 10/28/16 Range/Units 11:33 15:39 17:26 RBC (4.30-5.90) m/uL Hgb (13.0-17.5) gm/dL Hct (39.0-53.0) % MCV (80.0-100.0) fL MCHC (31.0-37.0) g/dL RDW (11.5-15.5) % Sodium 129 L (137-145) mmol/L Chloride 97 L (98-107) mmol/L Creatinine 0.59 L (0.66-1.25) mg/dL Glucose 263 H (74-99) mg/dL POC Glucose (mg/dL) 276 H 291 H (75-99) mg/dL Calcium 7.6 L (8.4-10.2) mg/dL 10/28/16 10/29/16 10/29/16 Range/Units 23:35 05:59 08:45 RBC 2.83 L (4.30-5.90) m/uL Hgb 8.9 L (13.0-17.5) gm/dL Hct 31.7 L (39.0-53.0) % MCV 111.9 H D (80.0-100.0) fL MCHC 28.2 L (31.0-37.0) g/dL RDW 17.0 H (11.5-15.5) % Sodium (137-145) mmol/L Chloride (98-107) mmol/L Creatinine (0.66-1.25) mg/dL Glucose (74-99) mg/dL POC Glucose (mg/dL) 284 H 281 H (75-99) mg/dL Calcium (8.4-10.2) mg/dL Assessment and Plan Plan: # Acute on Chronic Cholecystitis - On Flagyl, rocephin, and fluconzaloe per surgery - On TPN, NPO - Continue with IS and up to chair #Possible biliary leak - Still appears persistent on Upper GI -Management per primary team -Continue with octreotide # DM 2 - Blood sugars the 200s on TPN, under adequate control -increase sliding scale insulin and Lantus 16 units at night -Was on metformin and Novolin at home. -Blood sugars chronically well-controlled with A1c of 7.1 # HTN - mildly elevated -Continue with Catapres patch, and when necessary hydralazine. If continued to be elevated a could consider increasing Catapres patch 0.2 however will likely have withdrawal effects once Catapres patch can be weaned off and he is tolerating orals will attempt to minimize Catapres. -On Cozaar and Lasix at home # Moderate protein calorie malnutrition - Continue with TPN - Add oral supplements once able to tolerate a diet. # Hyponatremia, improving -Likely TPN induced -Follow Lytes in AM Chronic: Hx of prior DVT Peripheral neuropathy Prostate cancer peripheral neuropathy arthritis DVT prophylaxis: SCDs per surgery Discussed with: Patient Anticipated discharge: Undetermined Anticipated discharge place: senior care facility A total of 35 minutes was spent on the care of this complex patient more than 50 % of the time was spent in counseling and care coordination.
--- NOTE | 2016-10-29 10:46 | P.PN ---
Subjective Progress note dated 10/28/2016 This is a 86-year-old male status post laparoscopic cholecystectomy converted to open cholecystectomy with extensive lysis of adhesions and repair of gastrectomy with modified Fareed patch. He's postop day #11. He has been having continuous bilious drainage from his COURTNEY drain. The patient seemed be doing relatively well today. Denies any pain. Apparently scheduled for a upper GI study. Denies any difficulty breathing. No coughing. No wheezing. 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 Progress note dated 10/29/2016 This is an 86-year-old male status post laparoscopic cholecystectomy converted to open cholecystectomy with extensive lysis of adhesions and repair gastrectomy with modified Fareed patch. Postop day #12. He's has a continuous belligerent leak. He did have an upper GI study yesterday. He seemed to do relatively well otherwise. Seems a bit weak. May benefit from rehab posthospitalization. Has a history of multiple medical problems including prostate cancer ICT BUSINESS DEVELOPMENT MANAGER tumor, status post brain tumor resection peripheral neuropathy diabetes CAD with previous stenting hypertension DVT and DJD. The patient in good spirits. States he's not having much in the way of pain. No respiratory issues. No coughing or wheezing. Not producing any phlegm. No fever no chills. No nausea vomiting or diarrhea. Objective - Vital Signs Vital signs: Vital Signs Temp 97.0 F L 10/29/16 00:33 Pulse 65 10/29/16 00:33 Resp 16 10/29/16 00:33 BP 163/73 10/29/16 00:33 Pulse Ox 92 L 10/29/16 08:58 Intake & Output 10/28/16 10/29/16 10/29/16 18:59 06:59 18:59 Intake Total 1150 2591 Output Total 325 30 Balance 825 2561 Weight 83.1 kg 89 kg Intake: IV 1150 100 Fluconazole in NaCl,Iso- 200 Osm 400 mg In Saline 1 200ml.bag @ 100 mls/hr IVPB DAILY [facility] Rx#: [id number] TPN 800 cefTRIAXone 1,000 mg In 50 Sodium Chloride 0.9% 50 ml @ 100 mls/hr IVPB Q24HR [facility] Rx#:[id number] metroNIDAZOLE-NS PMX 500 100 100 mg In Saline 1 100ml.bag @ 100 mls/hr IVPB Q8HR [facility] Rx#:[id number] Intake, IV Titration 2491 Amount Amino Acid 5%-D15w+Lytes* 300 E* 1,000 ml @ 100 mls/hr IV .BY DURATION [facility] Rx#: [id number] Calcium Gluconate 1,000 100 mg Sodium Chloride 4Meq/ ml Vial 52 meq Magnesium Sulfate 8 meq Potassium Phosphate 15 mmol In Amino Acid 5%-D15w 1,000 ml @ 100 mls/hr IV .BY DURATION [facility] Rx#: [id number] Fat Emulsion 20% 250 ml @ 250 20.833 mls/hr IV MoWeFr [facility] Rx#:[id number] Mvi, Adult No.4 with Vit 1041 K 10 ml Trace (Conc-1Ml/ Dose) 1 ml Calcium Gluconate 1,000 mg Sodium Chloride 4Meq/ml Vial 52 meq Magnesium Sulfate 8 meq Potassium Phosphate 15 mmol In Amino Acid 5%- D15w 1,000 ml @ 100 mls/ hr IV .BY DURATION [facility] Rx #:[id number] Mvi, Adult No.4 with Vit 800 K 10 ml Trace (Conc-1Ml/ Dose) 1 ml In Amino Acid 5%-D15w+Lytes*E* 1,000 ml @ 100 mls/hr IV .BY DURATION [facility] Rx#: [id number] Output: Drainage 100 30 Right Abdomen 100 30 Urine 225 Other: Voiding Method Urinal # Voids 3 # Bowel Movements 3 - Exam No Acute Distress, Oriented 3. HEENT Examination Is Grossly Unremarkable. Mucous Membranes Are Moist. No Oral Lesions. We'll Range Of Motion. No Adenopathy or Thyromegaly. Cardiovascular Examination Reveals a Regular Rhythm Rate. S1-S2 Normal. No S3- S4 or Murmur. Lungs Reveal Mostly Clear Breath Sounds. A Few Scattered Rhonchi. No Wheezes or Crackles. He Does Not Really Take Deep Breaths. Abdomen Soft Bowel Sounds Are Coal. Extremities Are Intact. No Cyanosis Clubbing or Edema. Skin without Rash. Neurologic Examination Nonfocal. - Labs CBC & Chem 7: 10/29/16 08:45 10/29/16 08:45 Labs: Abnormal Lab Results - Last 24 Hours (Table) 10/28/16 10/28/1617 Range/Units 11:33 15:39 17:26 RBC (4.30-5.90) m/uL Hgb (13.0-17.5) gm/dL Hct (39.0-53.0) % MCV (80.0-100.0) fL MCHC (31.0-37.0) g/dL RDW (11.5-15.5) % Sodium 129 L (137-145) mmol/L Potassium (3.5-5.1) mmol/L Chloride 97 L (98-107) mmol/L Creatinine 0.59 L (0.66-1.25) mg/dL Glucose 263 H (74-99) mg/dL POC Glucose (mg/dL) 276 H 291 H (75-99) mg/dL Calcium 7.6 L (8.4-10.2) mg/dL Phosphorus (2.5-4.5) mg/dL Magnesium (1.6-2.3) mg/dL 10/28/16 10/29/16 10/29/16 Range/Units 23:35 05:59 08:45 RBC (4.30-5.90) m/uL Hgb (13.0-17.5) gm/dL Hct (39.0-53.0) % MCV (80.0-100.0) fL MCHC (31.0-37.0) g/dL RDW (11.5-15.5) % Sodium 122 L (137-145) mmol/L Potassium 5.6 H (3.5-5.1) mmol/L Chloride 94 L (98-107) mmol/L Creatinine (0.66-1.25) mg/dL Glucose (74-99) mg/dL POC Glucose (mg/dL) 284 H 281 H (75-99) mg/dL Calcium 7.4 L (8.4-10.2) mg/dL Phosphorus 7.5 H (2.5-4.5) mg/dL Magnesium 2.6 H (1.6-2.3) mg/dL 10/29/16 Range/Units 08:45 RBC 2.83 L (4.30-5.90) m/uL Hgb 8.9 L (13.0-17.5) gm/dL Hct 31.7 L (39.0-53.0) % MCV 111.9 H D (80.0-100.0) fL MCHC 28.2 L (31.0-37.0) g/dL RDW 17.0 H (11.5-15.5) % Sodium (137-145) mmol/L Potassium (3.5-5.1) mmol/L Chloride (98-107) mmol/L Creatinine (0.66-1.25) mg/dL Glucose (74-99) mg/dL POC Glucose (mg/dL) (75-99) mg/dL Calcium (8.4-10.2) mg/dL Phosphorus (2.5-4.5) mg/dL Magnesium (1.6-2.3) mg/dL Assessment and Plan (1) Bile leak Status: Acute (2) DVT prophylaxis Status: Acute (3) Diabetes mellitus Status: Acute (4) Hypertension Status: Acute (5) Status post cholecystectomy Status: Acute (6) Acute cholecystitis Status: Acute (7) CAD (coronary artery disease) Status: Chronic Plan: Plan dated 10/28/2016 The patient continues to show improvement. The patient has no active pulmonary issues at this time. Nonetheless, we recommend deep breathing coughing clearing of secretions and hourly use of the incentive spirometer. We'll continue to follow closely. No additional recommendations are made. Plan dated 10/29/2016 The patient continues to show slow improvement. Still with a bile leak. The patient does not have any respiratory issues. No cough no phlegm production. No fever no chills. No nausea vomiting or diarrhea. We'll continue to follow. Again recommend deep breathing coughing clearing his secretions as well as hourly use of the incentive spirometer. Time with Patient: Less than 30
[2016-10-29] MEDS: metroNIDAZOLE-NS PMX 500 MG in SALINE 1 100ML.BAG IVPB SCH ×2 (11:25→17:57)
[2016-10-29 12:59] LABS: Anion Gap 5 mmol/L; Blood Urea Nitrogen 15 mg/dL (9-20); Calcium 7.6 mg/dL (8.4-10.2); Carbon Dioxide 24 mmol/L (22-30); Chloride 102 mmol/L (98-107); Glucose 264 mg/dL (74-99); Magnesium 1.8 mg/dL (1.6-2.3); Non-African American GFR(MDRD) >60 (>60 ml/min/1.73 sqM); Phosphorous 3.2 mg/dL (2.5-4.5); Sodium 131 mmol/L (137-145)
[2016-10-29] MEDS: NITROGLYCERIN OINT 1 INCH/GM PACKET TOPICAL SCH ×2 (13:09→17:24)
[2016-10-29] MEDS: OCTREOTIDE 100 MCG/ML INJ IVP SCH ×2 (13:09→17:24)
[2016-10-29] MEDS: PANTOPRAZOLE 40 MG/10 ML VIAL IV SCH (13:12)
[2016-10-29] MEDS: HYDROmorphone 1 MG/ML 1 ML SYRINGE IVP PRN ×2 (13:27→21:25)
--- NOTE | 2016-10-29 14:11 | CDI ---
[place] [place] [address] [facility] [place] [address] Documentation Clarification Form Date: 10/29/2016 1:49:00 PM From: Khadijah Newell Admit Date: 10/17/2016 11:30:00 AM Patient Name: Zain Lou Visit Number: [id number] Dr. 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 Mild Protein Malnutrition Mild Protein-Calorie Malnutrition Moderate Protein Malnutrition Moderate Protein-Calorie Malnutrition Severe Protein Malnutrition Severe Protein-Calorie Malnutrition Malnutrition following GI surgery Other condition, please specify Unable to determine Please document in your progress notes and discharge summary in order to capture severity of illness and risk of mortality. Include clinical findings that support your diagnosis. Moderate Protein Calorie Malnutrition FYI: Press F11 to launch patient chart. MTDDeedee
[2016-10-29 15:02] LABS: HCT 30.9 % (39.0-53.0); HGB 9.8 gm/dL (13.0-17.5); WBC 11.8 k/uL (3.8-10.6); WBC (Perox) 12.04
[2016-10-29 15:03] LABS: Anisocytosis Slight; CH 30.8; CHCM 31.1; HDW 2.93; MCH 31.7 pg (25.0-35.0); MCHC 31.8 g/dL (31.0-37.0); Mean Platelet Volume 8.2; RDW 16.7 % (11.5-15.5)
[2016-10-29 15:04] LABS: Hypochromasia Moderate; Macrocytosis Slight
[2016-10-29 15:05] LABS: Basophils # (A) 0.1 k/uL (0-0.2); Basophils % (A) 0 %; Eosinophils # (A) 0.2 k/uL (0-0.7); Eosinophils % (A) 2 %; Luc # (Auto) 0.24; Luc % (Auto) 2; Lymphocytes # (A) 1.8 k/uL (1.0-4.8); Lymphocytes % (A) 15 %; Monocytes # (A) 0.5 k/uL (0-1.0); Monocytes % (A) 5 %; Neutrophils % (A) 76 %
[2016-10-29 15:07] LABS: Ionized Calcium 4.7 mg/dL (4.5-5.3)
[2016-10-29 15:25] LABS: Anion Gap 4 mmol/L; Blood Urea Nitrogen 16 mg/dL (9-20); Carbon Dioxide 28 mmol/L (22-30); Chloride 100 mmol/L (98-107); Glucose 296 mg/dL (74-99); Non-African American GFR(MDRD) >60 (>60 ml/min/1.73 sqM); Potassium 4.3 mmol/L (3.5-5.1); Sodium 132 mmol/L (137-145)
[2016-10-29 15:26] LABS: Calcium 7.6 mg/dL (8.4-10.2)
[2016-10-29 15:55] LABS: Glucose,Whole Blood 257 mg/dL (75-99)
[2016-10-29] MEDS: MAGNESIUM SULFATE-D5W PMX 1 GM in DEXTROSE/WATER 1 100ML.BAG IVPB SCH ×2 (16:36→17:59)
--- NOTE | 2016-10-29 16:46 | P.PN ---
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 He states he is doing very well today. He is up in the chair and has ambulated already today. He denies any nausea or vomiting. He admits to one bowel movement. He states he is passing gas. He has no additional complaints at this time. Objective - Vital Signs Vital signs: Vital Signs Temp 97.0 F L 10/29/16 07:00 Pulse 67 10/29/16 07:00 Resp 16 10/29/16 07:00 BP 168/78 10/29/16 07:00 Pulse Ox 92 L 10/29/16 08:58 Intake & Output 10/28/16 10/29/16 10/29/16 18:59 06:59 18:59 Intake Total 1150 2591 1150 Output Total 325 30 690 Balance 825 2561 460 Weight 83.1 kg 89 kg Intake: IV 0595 111 5297 Fluconazole in NaCl,Iso- 200 200 Osm 400 mg In Saline 1 200ml.bag @ 100 mls/hr IVPB DAILY [facility] Rx#: [id number] TPN 800 800 cefTRIAXone 1,000 mg In 50 50 Sodium Chloride 0.9% 50 ml @ 100 mls/hr IVPB Q24HR [facility] Rx#:[id number] metroNIDAZOLE-NS PMX 500 100 100 100 mg In Saline 1 100ml.bag @ 100 mls/hr IVPB Q8HR [facility] Rx#:[id number] Intake, IV Titration 2491 Amount Amino Acid 5%-D15w+Lytes* 300 E* 1,000 ml @ 100 mls/hr IV .BY DURATION [facility] Rx#: [id number] Calcium Gluconate 1,000 100 mg Sodium Chloride 4Meq/ ml Vial 52 meq Magnesium Sulfate 8 meq Potassium Phosphate 15 mmol In Amino Acid 5%-D15w 1,000 ml @ 100 mls/hr IV .BY DURATION [facility] Rx#: [id number] Fat Emulsion 20% 250 ml @ 250 20.833 mls/hr IV MoWeFr [facility] Rx#:[id number] Mvi, Adult No.4 with Vit 1041 K 10 ml Trace (Conc-1Ml/ Dose) 1 ml Calcium Gluconate 1,000 mg Sodium Chloride 4Meq/ml Vial 52 meq Magnesium Sulfate 8 meq Potassium Phosphate 15 mmol In Amino Acid 5%- D15w 1,000 ml @ 100 mls/ hr IV .BY DURATION [facility] Rx #:[id number] Mvi, Adult No.4 with Vit 800 K 10 ml Trace (Conc-1Ml/ Dose) 1 ml In Amino Acid 5%-D15w+Lytes*E* 1,000 ml @ 100 mls/hr IV .BY DURATION [facility] Rx#: [id number] Output: Drainage 100 30 90 Right Abdomen 100 30 90 Urine 225 600 Other: Voiding Method Urinal Urinal # Voids 3 # Bowel Movements 3 - Constitutional General appearance: Present: cooperative, no acute distress - EENT Eyes: Present: EOMI, PERRLA ENT: Present: hearing grossly normal - Neck Neck: Present: normal ROM - Respiratory Details: No difficulty with respiration - Cardiovascular Rhythm: regular Heart sounds: normal: S1, S2 - Gastrointestinal General gastrointestinal: Present: normal bowel sounds - Integumentary Integumentary: Present: normal turgor - Musculoskeletal Musculoskeletal: Present: generalized weakness - Psychiatric Psychiatric: Present: A&O x's 3, appropriate affect - Labs CBC & Chem 7: 10/29/16 14:45 10/29/16 14:45 Labs: Abnormal Lab Results - Last 24 Hours (Table) 10/28/16 10/28/16 10/29/16 Range/Units 17:26 23:35 05:59 WBC (3.8-10.6) k/uL RBC (4.30-5.90) m/uL Hgb (13.0-17.5) gm/dL Hct (39.0-53.0) % MCV (80.0-100.0) fL MCHC (31.0-37.0) g/dL RDW (11.5-15.5) % Neutrophils # (1.3-7.7) k/uL Sodium (137-145) mmol/L Potassium (3.5-5.1) mmol/L Chloride (98-107) mmol/L Creatinine (0.66-1.25) mg/dL Glucose (74-99) mg/dL POC Glucose (mg/dL) 291 H 284 H 281 H (75-99) mg/dL Calcium (8.4-10.2) mg/dL Phosphorus (2.5-4.5) mg/dL Magnesium (1.6-2.3) mg/dL 10/29/16 10/29/16 10/29/16 Range/Units 08:45 08:45 10:30 WBC (3.8-10.6) k/uL RBC 2.83 L (4.30-5.90) m/uL Hgb 8.9 L (13.0-17.5) gm/dL Hct 31.7 L (39.0-53.0) % MCV 111.9 H D (80.0-100.0) fL MCHC 28.2 L (31.0-37.0) g/dL RDW 17.0 H (11.5-15.5) % Neutrophils # (1.3-7.7) k/uL Sodium 122 L 131 L (137-145) mmol/L Potassium 5.6 H (3.5-5.1) mmol/L Chloride 94 L (98-107) mmol/L Creatinine 0.50 L (0.66-1.25) mg/dL Glucose 264 H (74-99) mg/dL POC Glucose (mg/dL) (75-99) mg/dL Calcium 7.4 L 7.6 L (8.4-10.2) mg/dL Phosphorus 7.5 H (2.5-4.5) mg/dL Magnesium 2.6 H (1.6-2.3) mg/dL 10/29/16 10/29/16 10/29/16 Range/Units 13:16 14:45 14:45 WBC 11.8 H (3.8-10.6) k/uL RBC 3.10 L (4.30-5.90) m/uL Hgb 9.8 L (13.0-17.5) gm/dL Hct 30.9 L (39.0-53.0) % MCV (80.0-100.0) fL MCHC (31.0-37.0) g/dL RDW 16.7 H (11.5-15.5) % Neutrophils # 9.0 H (1.3-7.7) k/uL Sodium 132 L (137-145) mmol/L Potassium (3.5-5.1) mmol/L Chloride (98-107) mmol/L Creatinine 0.60 L (0.66-1.25) mg/dL Glucose 296 H (74-99) mg/dL POC Glucose (mg/dL) 257 H (75-99) mg/dL Calcium 7.6 L (8.4-10.2) mg/dL Phosphorus (2.5-4.5) mg/dL Magnesium (1.6-2.3) mg/dL Assessment and Plan (1) Status post cholecystectomy Status: Acute (2) Diabetes mellitus Status: Chronic (3) CAD (coronary artery disease) Status: Chronic Plan: COURTNEY output of approximately 60 mL every 12 hours over the past few shifts. Still bilious. Continue octreotide to decrease bilious output Continue management with NPO/TPN. Continue to sit in chair and continue to ambulate Appreciate medicine changes on glucose control. PICC line in place Pt has been on rocephin/flagyl/diflucan; pharmacy has notified that there is a national shortage of IV Flagyl. At this point we may have to revert to Zosyn instead of Rocephin and Flagyl due to this national shortage. Still on rocephin/ flagyl/diflucan for now. Patient is continuing to improve, discussed case with patient's daughter, Hollie. There is a possibility of transfer to an inpatient rehab facility in the near future. Upper GI evaluated from yesterday. Leaks still present however much less than previously. Family meeting was had with the patient and his children. The plan of care of allowing the gastric leak to heal with drainage was discussed. The family and patient are on board. TPN adjustments to be made for electrolyte abnormalities
[2016-10-29 17:34] LABS: Glucose,Whole Blood 338 mg/dL (75-99)
[2016-10-29] MEDS ORDERED: INSULIN GLARGINE 100 UNIT/ML 10 ML VIAL SQ SCH (21:00)
[2016-10-30 00:08] LABS: Glucose,Whole Blood 158 mg/dL (75-99)
[2016-10-30] MEDS: metroNIDAZOLE-NS PMX 500 MG in SALINE 1 100ML.BAG IVPB SCH ×2 (00:15→10:04)
[2016-10-30] MEDS: HEPARIN SODIUM,PORCINE 5,000 UNIT/ML 1 ML VIAL SQ SCH ×3 (00:16→16:12)
[2016-10-30] MEDS: NITROGLYCERIN OINT 1 INCH/GM PACKET TOPICAL SCH ×3 (00:17→16:07)
[2016-10-30] MEDS: INSULIN LISPRO (humaLOG) 300 UNIT/3 ML VIAL SQ SCH ×3 (00:17→13:23)
[2016-10-30] MEDS: LACTATED RINGERS 1,000 ML IV SCH (00:28)
[2016-10-30] MEDS: OCTREOTIDE 100 MCG/ML INJ IVP SCH ×3 (00:30→16:07)
[2016-10-30 03:00] VITALS: RESP 16
[2016-10-30 05:34] LABS: Glucose,Whole Blood 164 mg/dL (75-99)
[2016-10-30 07:46] LABS: Anisocytosis Slight; Basophils % (A) 0 %; CH 30.9; CHCM 31.3; Eosinophils # (A) 0.3 k/uL (0-0.7); Eosinophils % (A) 3 %; HCT 32.1 % (39.0-53.0); HDW 3.03; Hypochromasia Moderate; Luc # (Auto) 0.26; Luc % (Auto) 2; Lymphocytes # (A) 1.6 k/uL (1.0-4.8); Lymphocytes % (A) 13 %; MCH 30.9 pg (25.0-35.0); MCHC 31.1 g/dL (31.0-37.0); MCV 99.5 fL (80.0-100.0); Macrocytosis Slight; Mean Platelet Volume 7.8; Monocytes # (A) 0.6 k/uL (0-1.0); Monocytes % (A) 5 %; Neutrophils # (A) 9.2 k/uL (1.3-7.7); Neutrophils % (A) 77 %; RBC 3.22 m/uL (4.30-5.90); RDW 16.5 % (11.5-15.5); WBC 11.9 k/uL (3.8-10.6); WBC (Perox) 12.19
[2016-10-30 08:03] LABS: Anion Gap 8 mmol/L; Blood Urea Nitrogen 16 mg/dL (9-20); Calcium 7.8 mg/dL (8.4-10.2); Carbon Dioxide 27 mmol/L (22-30); Chloride 100 mmol/L (98-107); Glucose 194 mg/dL (74-99); Magnesium 2.1 mg/dL (1.6-2.3); Non-African American GFR(MDRD) >60 (>60 ml/min/1.73 sqM); Phosphorous 3.4 mg/dL (2.5-4.5); Potassium 3.9 mmol/L (3.5-5.1); Sodium 135 mmol/L (137-145)
[2016-10-30 08:04] LABS: MCV 99.7 fL (80.0-100.0)
[2016-10-30] MEDS: PANTOPRAZOLE 40 MG/10 ML VIAL IV SCH (08:18)
[2016-10-30 08:29] VITALS: TEMP 97.5
--- NOTE | 2016-10-30 08:51 | P.PN ---
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 No acute events overnight. He continues to have drainage from his COURTNEY drain. shift stacker stated approximately 90 mL from the drain still bilious. He denies any nausea and vomiting. He did have one bowel movement. He continues to pass flatus. Objective - Vital Signs Vital signs: Vital Signs Temp 97.5 F L 10/30/16 08:28 Pulse 65 10/30/16 08:28 Resp 16 10/30/16 08:28 BP 145/76 10/30/16 08:28 Pulse Ox 94 L 10/30/16 08:28 Intake & Output 10/29/16 10/30/16 10/30/16 18:59 06:59 18:59 Intake Total 2180 1041 Output Total 690 295 Balance 1490 746 Weight 82.9 kg Intake: IV 1150 Fluconazole in NaCl,Iso- 200 Osm 400 mg In Saline 1 200ml.bag @ 100 mls/hr IVPB DAILY [facility] Rx#: [id number] TPN 800 cefTRIAXone 1,000 mg In 50 Sodium Chloride 0.9% 50 ml @ 100 mls/hr IVPB Q24HR [facility] Rx#:[id number] metroNIDAZOLE-NS PMX 500 100 mg In Saline 1 100ml.bag @ 100 mls/hr IVPB Q8HR [facility] Rx#:[id number] Intake, IV Titration 1030 1041 Amount Calcium Gluconate 1,000 1030 mg Sodium Chloride 4Meq/ ml Vial 52 meq Magnesium Sulfate 8 meq Potassium Phosphate 15 mmol In Amino Acid 5%-D15w 1,000 ml @ 100 mls/hr IV .BY DURATION [facility] Rx#: [id number] Mvi, Adult No.4 with Vit 1041 K 10 ml Trace (Conc-1Ml/ Dose) 1 ml Calcium Gluconate 1,000 mg Sodium Chloride 4Meq/ml Vial 52 meq Magnesium Sulfate 8 meq Potassium Phosphate 15 mmol In Amino Acid 5%- D15w 1,000 ml @ 100 mls/ hr IV .BY DURATION [facility] Rx #:[id number] Output: Drainage 90 95 Right Abdomen 90 95 Urine 600 200 Other: Voiding Method Urinal - Constitutional General appearance: Present: cooperative, no acute distress - EENT Eyes: Present: EOMI, PERRLA ENT: Present: hearing grossly normal - Neck Neck: Present: normal ROM - Respiratory Details: No difficulty with respiration - Cardiovascular Rhythm: regular Heart sounds: normal: S1, S2 - Gastrointestinal Gastrointestinal Comment(s): Soft, nontender, no rebound, no guarding, COURTNEY drain still in place with bilious drainage, incision sites clean dry and intact. General gastrointestinal: Present: normal bowel sounds - Integumentary Integumentary: Present: normal turgor - Musculoskeletal Musculoskeletal: Present: generalized weakness - Psychiatric Psychiatric: Present: A&O x's 3, appropriate affect - Labs CBC & Chem 7: 10/30/16 07:10 10/30/16 07:10 Labs: Abnormal Lab Results - Last 24 Hours (Table) 10/29/16 10/29/16 10/29/16 Range/Units 08:45 08:45 10:30 WBC (3.8-10.6) k/uL RBC 2.83 L (4.30-5.90) m/uL Hgb 8.9 L (13.0-17.5) gm/dL Hct 31.7 L (39.0-53.0) % MCV 111.9 H D (80.0-100.0) fL MCHC 28.2 L (31.0-37.0) g/dL RDW 17.0 H (11.5-15.5) % Neutrophils # (1.3-7.7) k/uL Sodium 122 L 131 L (137-145) mmol/L Potassium 5.6 H (3.5-5.1) mmol/L Chloride 94 L (98-107) mmol/L Creatinine 0.50 L (0.66-1.25) mg/dL Glucose 264 H (74-99) mg/dL POC Glucose (mg/dL) (75-99) mg/dL Calcium 7.4 L 7.6 L (8.4-10.2) mg/dL Phosphorus 7.5 H (2.5-4.5) mg/dL Magnesium 2.6 H (1.6-2.3) mg/dL 10/29/16 10/29/16 10/29/16 Range/Units 13:16 14:45 14:45 WBC 11.8 H (3.8-10.6) k/uL RBC 3.10 L (4.30-5.90) m/uL Hgb 9.8 L (13.0-17.5) gm/dL Hct 30.9 L (39.0-53.0) % MCV (80.0-100.0) fL MCHC (31.0-37.0) g/dL RDW 16.7 H (11.5-15.5) % Neutrophils # 9.0 H (1.3-7.7) k/uL Sodium 132 L (137-145) mmol/L Potassium (3.5-5.1) mmol/L Chloride (98-107) mmol/L Creatinine 0.60 L (0.66-1.25) mg/dL Glucose 296 H (74-99) mg/dL POC Glucose (mg/dL) 257 H (75-99) mg/dL Calcium 7.6 L (8.4-10.2) mg/dL Phosphorus (2.5-4.5) mg/dL Magnesium (1.6-2.3) mg/dL 10/29/16 10/30/16 10/30/16 Range/Units 17:30 00:06 05:32 WBC (3.8-10.6) k/uL RBC (4.30-5.90) m/uL Hgb (13.0-17.5) gm/dL Hct (39.0-53.0) % MCV (80.0-100.0) fL MCHC (31.0-37.0) g/dL RDW (11.5-15.5) % Neutrophils # (1.3-7.7) k/uL Sodium (137-145) mmol/L Potassium (3.5-5.1) mmol/L Chloride (98-107) mmol/L Creatinine (0.66-1.25) mg/dL Glucose (74-99) mg/dL POC Glucose (mg/dL) 338 H 158 H 164 H (75-99) mg/dL Calcium (8.4-10.2) mg/dL Phosphorus (2.5-4.5) mg/dL Magnesium (1.6-2.3) mg/dL 10/30/16 10/30/16 Range/Units 07:10 07:10 WBC 11.9 H (3.8-10.6) k/uL RBC 3.22 L (4.30-5.90) m/uL Hgb 10.0 L (13.0-17.5) gm/dL Hct 32.1 L (39.0-53.0) % MCV (80.0-100.0) fL MCHC (31.0-37.0) g/dL RDW 16.5 H (11.5-15.5) % Neutrophils # 9.2 H (1.3-7.7) k/uL Sodium 135 L (137-145) mmol/L Potassium (3.5-5.1) mmol/L Chloride (98-107) mmol/L Creatinine (0.66-1.25) mg/dL Glucose 194 H (74-99) mg/dL POC Glucose (mg/dL) (75-99) mg/dL Calcium 7.8 L (8.4-10.2) mg/dL Phosphorus (2.5-4.5) mg/dL Magnesium (1.6-2.3) mg/dL Assessment and Plan (1) Status post cholecystectomy Status: Acute (2) Diabetes mellitus Status: Chronic (3) CAD (coronary artery disease) Status: Chronic Plan: COURTNEY output of approximately 90 mL last 12 hours. Still bilious. Continue octreotide to decrease bilious output Continue management with NPO/TPN. Continue to sit in chair and continue to ambulate. Appreciate medicine changes on glucose control - levels are improving. PICC line in place Pt has been on rocephin/flagyl/diflucan; pharmacy has notified that there is a national shortage of IV Flagyl. At this point we may have to revert to Zosyn instead of Rocephin and Flagyl due to this national shortage. Still on rocephin/ flagyl/diflucan for now. Slight increase in WBCs today, we'll continue these antibiotics. I has discussed the patient's case with his daughter and family in great depth. He is eligible for inpatient rehabilitation. This was explained to the patient and the patient's family however the patient is hesitant beginning inpatient rehab. My recommendation is to begin inpatient rehabilitation while he continues to heal from his leak. I have explained the importance of continued activity and therapeutic exercises to keep and regain strength during this time of healing. TPN adjustments to be made for electrolyte abnormalities
[2016-10-30] MEDS: FLUCONAZOLE IN NACL,ISO-OSM 400 MG in SALINE 1 200ML.BAG IVPB SCH (08:54)
[2016-10-30 10:22] LABS: Glucose,Whole Blood 218 mg/dL (75-99)
[2016-10-30] MEDS: HYDROmorphone 1 MG/ML 1 ML SYRINGE IVP PRN (11:30)
--- NOTE | 2016-10-30 11:37 | P.PN ---
Subjective Principal diagnosis: Cholecystitis Patient's an 86-year-old male past medical history of diabetes mellitus type 2, hypertension, coronary artery disease status post stenting in the followed for diabetic management. He has had a prolonged hospital course after a lap maidsyn was converted to an open Rambo for chronic cholecystitis. This was complicated by cholecystogastric fistula. He has been on antibiotics, TPN, and had an NG tube during this hospitalization. Postoperative day 13. Patient seen and examined at bedside. Still not feeling well and not able to walk. He denies chest pain, SOB, nausea, and vomiting. He has no other complaints. Discussed at length the possibility of Inpatient rehab he does not wwant to leave the hospital as he is still not feeling well. He wants to table he discussion for later. Objective - Vital Signs Vital signs: Vital Signs Temp 97.5 F L 10/30/16 08:28 Pulse 65 10/30/16 08:28 Resp 16 10/30/16 08:28 BP 145/76 10/30/16 08:28 Pulse Ox 94 L 10/30/16 08:28 Intake & Output 10/29/16 10/30/16 10/30/16 18:59 06:59 18:59 Intake Total 2180 1041 Output Total 690 295 Balance 1490 746 Weight 82.9 kg Intake: IV 1150 Fluconazole in NaCl,Iso- 200 Osm 400 mg In Saline 1 200ml.bag @ 100 mls/hr IVPB DAILY [facility] Rx#: [id number] TPN 800 cefTRIAXone 1,000 mg In 50 Sodium Chloride 0.9% 50 ml @ 100 mls/hr IVPB Q24HR [facility] Rx#:[id number] metroNIDAZOLE-NS PMX 500 100 mg In Saline 1 100ml.bag @ 100 mls/hr IVPB Q8HR [facility] Rx#:[id number] Intake, IV Titration 1030 1041 Amount Calcium Gluconate 1,000 1030 mg Sodium Chloride 4Meq/ ml Vial 52 meq Magnesium Sulfate 8 meq Potassium Phosphate 15 mmol In Amino Acid 5%-D15w 1,000 ml @ 100 mls/hr IV .BY DURATION [facility] Rx#: [id number] Mvi, Adult No.4 with Vit 1041 K 10 ml Trace (Conc-1Ml/ Dose) 1 ml Calcium Gluconate 1,000 mg Sodium Chloride 4Meq/ml Vial 52 meq Magnesium Sulfate 8 meq Potassium Phosphate 15 mmol In Amino Acid 5%- D15w 1,000 ml @ 100 mls/ hr IV .BY DURATION [facility] Rx #:[id number] Output: Drainage 90 95 Right Abdomen 90 95 Urine 600 200 Other: Voiding Method Urinal - Exam General: non toxic, no distress, appears at stated age, chronically ill- appearing Derm: no rashes, no lesions Head: atraumatic, normocephalic, symmetric Eyes: EOMI, no lid lag, anicteric sclera ENT: no post nasal drip, no thrush Mouth: no lip lesion, mucus membranes moist Cardiovascular: S1S2 reg, no murmur, positive posterior tibial pulse bilateral, Lungs: CTA bilateral, no rhonchi, no rales , no accessory muscle use Abdominal: soft, tender to palpation diffusely, no guarding, no appreciable organomegaly, COURTNEY drain in place Ext: no gross muscle atrophy, no edema, no contractures Neuro: CN II-XI grossly intact, no focal neuro deficits Psych: Alert, oriented, appropriate affect - Labs CBC & Chem 7: 10/30/16 07:10 10/30/16 07:10 Labs: Abnormal Lab Results - Last 24 Hours (Table) 10/29/16 10/29/16 10/29/16 Range/Units 10:30 13:16 14:45 WBC 11.8 H (3.8-10.6) k/uL RBC 3.10 L (4.30-5.90) m/uL Hgb 9.8 L (13.0-17.5) gm/dL Hct 30.9 L (39.0-53.0) % RDW 16.7 H (11.5-15.5) % Neutrophils # 9.0 H (1.3-7.7) k/uL Sodium 131 L (137-145) mmol/L Creatinine 0.50 L (0.66-1.25) mg/dL Glucose 264 H (74-99) mg/dL POC Glucose (mg/dL) 257 H (75-99) mg/dL Calcium 7.6 L (8.4-10.2) mg/dL 10/29/16 10/29/16 10/30/16 Range/Units 14:45 17:30 00:06 WBC (3.8-10.6) k/uL RBC (4.30-5.90) m/uL Hgb (13.0-17.5) gm/dL Hct (39.0-53.0) % RDW (11.5-15.5) % Neutrophils # (1.3-7.7) k/uL Sodium 132 L (137-145) mmol/L Creatinine 0.60 L (0.66-1.25) mg/dL Glucose 296 H (74-99) mg/dL POC Glucose (mg/dL) 338 H 158 H (75-99) mg/dL Calcium 7.6 L (8.4-10.2) mg/dL 10/30/16 10/30/16 10/30/16 Range/Units 05:32 07:10 07:10 WBC 11.9 H (3.8-10.6) k/uL RBC 3.22 L (4.30-5.90) m/uL Hgb 10.0 L (13.0-17.5) gm/dL Hct 32.1 L (39.0-53.0) % RDW 16.5 H (11.5-15.5) % Neutrophils # 9.2 H (1.3-7.7) k/uL Sodium 135 L (137-145) mmol/L Creatinine (0.66-1.25) mg/dL Glucose 194 H (74-99) mg/dL POC Glucose (mg/dL) 164 H (75-99) mg/dL Calcium 7.8 L (8.4-10.2) mg/dL 10/30/16 Range/Units 10:19 WBC (3.8-10.6) k/uL RBC (4.30-5.90) m/uL Hgb (13.0-17.5) gm/dL Hct (39.0-53.0) % RDW (11.5-15.5) % Neutrophils # (1.3-7.7) k/uL Sodium (137-145) mmol/L Creatinine (0.66-1.25) mg/dL Glucose (74-99) mg/dL POC Glucose (mg/dL) 218 H (75-99) mg/dL Calcium (8.4-10.2) mg/dL Assessment and Plan Plan: # Acute on Chronic Cholecystitis - On Flagyl, rocephin, and fluconzaloe per surgery - On TPN, NPO - Continue with IS and up to chair #Possible biliary leak - Still appears persistent but less on Upper GI -Management per primary team -Continue with octreotide # DM 2 - Blood sugars now well controlled -continue with sliding scale insulin and Lantus 16 units at night -Was on metformin and Novolin at home. -Blood sugars chronically well-controlled with A1c of 7.1 # HTN - mildly elevated continue to watch -Continue with Catapres patch, and when necessary hydralazine. If continued to be elevated a could consider increasing Catapres patch 0.2 however will likely have withdrawal effects once Catapres patch can be weaned off and he is tolerating orals will attempt to minimize Catapres. -On Cozaar and Lasix at home # Moderate protein calorie malnutrition - Continue with TPN - Add oral supplements once able to tolerate a diet. # Hyponatremia, improving/resolved -Likely TPN induced -Follow [facility] Chronic: Hx of prior DVT Peripheral neuropathy Prostate cancer peripheral neuropathy arthritis Medically stable for transfer to Inpatient rehab with TPN and ABX. DVT prophylaxis: SCDs per surgery Discussed with: Patient, surgery, case management. Anticipated discharge: Undetermined Anticipated discharge place: [facility] facility A total of 35 minutes was spent on the care of this complex patient more than 50 % of the time was spent in counseling and care coordination.
--- NOTE | 2016-10-30 11:45 | P.PN ---
Subjective This is an 86-year-old male patient who presented to the emergency department approximately one week ago complaining of abdominal pain and nausea. The patient's pain was mostly in the right upper quadrant. On examination the patient was quite benign and she end up tolerating clear liquids well without any change in his bowel habits. Further investigation within ultrasound of the abdomen showed gallstones and mild gallbladder wall thickening without any pericholecystic fluid or evidence of inflammation. As such the patient was seen by general surgery and he was thought to have symptomatic cholelithiasis. The patient was started on medical treatment with antibiotics and the patient was discharged home, and the patient was brought back today for a cholecystectomy which turned out to be an open cholecystectomy. Postop, the patient was moved to the intensive care unit for further monitoring. He is awake. He is alert. He has a COURTNEY drain in the right upper quadrant. A Levy catheter is to be inserted. Hemodynamically stable. The patient was seen again today 10/18/2016 in follow-up in the intensive care unit. He is awake and alert in no acute distress. He is status post laparoscopic cholecystectomy converted to open cholecystectomy, extensive lysis of adhesions, repair of gastrotomy with a modified Fareed patch. This is postoperative day #1. He is currently sitting up in the chair at the bedside. He denies any worsening shortness of breath, cough or congestion. His chest x- ray does show bilateral lower lobe subsegmental atelectasis with tiny effusions. There is also some subcutaneous emphysema on the left with no sizable pneumothorax. He is maintaining good O2 saturations in the mid 90s on 3 L/m per nasal cannula. He is afebrile. Hemodynamically stable. His abdominal dressing is dry and intact. The COURTNEY drain remains in place and there is some bile colored fluid noted in it. On 10/19/2016 the patient is being seen in follow-up. The patient is post open cholecystectomy, lysis of adhesions, repair of a gastric wall with a modified Fareed patch. The patient is postop day #2. The COURTNEY drain is putting out bilious material and this has been confirmed on several occasions. Based on this a biliary leak is suspected. Despite this, the liver function tests remains within normal limits. The patient is not acting toxic. No nausea no vomiting. NG tube is in place and output is minimal. No flatus or bowel movements yet. No abdominal pain or distention. No tenderness. The patient had some limited change in mental status yesterday however this morning it is much more alert and awake. The patient is also receiving Dilaudid for pain control. The patient is on combination of Rocephin and Flagyl. The patient is hemodynamically stable. The patient experienced some lower urine output earlier which improved with fluids and the patient was given a total of 2 L of IV fluid boluses yesterday. He is on a lactated Ringer solution. On 10/20/2016 the patient is being seen in follow-up. The patient has post open cholecystectomy and the patient is postop day #3. There is an obvious biliary leak as the patient has produced around 480 mL of drainage since yesterday from the COURTNEY drain. The HIDA scan was completed and there is evidence of tracer uptake within the COURTNEY drain consistent with a biliary leak. Gen. surgery and gastroesophageal are both aware. ERCP will be indicated later stage once the patient is further recovered and the Fareed patch that was placed on the stomach is well-healed. The patient has an NG tube in place. Output is minimal. Liver function tests are not elevated. A triple lumen catheter was inserted and the patient was started on a TPN for nutritional support. Electrodes are all stable. Function is stable. The patient is afebrile. The patient is covered with broad-spectrum antibiotics with a combination of Rocephin, metronidazole and Diflucan. No bowel activity yet. Urine output is adequate for now. The patient is also on IV fluids with lactated Ringer at the rate of 75 mL an hour. On 10/21/2016 the patient is postop day #4. She is on TPN for nutritional support. His COURTNEY drain is still draining bilious material in the order of 400 mL and this is considered to be consistent with biliary leak. No abdominal distention. No abdominal pain. No flatus. NG tube is in place. Resting comfortably in the chair. No nausea. No change in mental status to no fever or chills. He is on IV fluids lactated Ringer at the rate of 40 mL an hour. Patient is seen again today 10/22/2016 in follow-up on the regular surgical floor. This is postoperative day #5. He is currently resting fairly comfortably in bed. He denies any worsening shortness of breath. He does have a productive cough of pale yellow sputum. Today's chest x-ray reveals a small right pleural effusion. He is working well with the incentive spirometer. Nasogastric tube remains in place. He remains on TPN for nutritional support. Abdominal dressing is dry and intact. The COURTNEY drain continues to drain a significant amount of biliary substance. He was greater than 400 mL's out in the past 24 hours. An upper GI series this morning revealed extravasation of contrast at the level of the duodenal bulb or distal antrum of the stomach adjacent to the COURTNEY drain. No plans for ERCP at this time. He remains on ceftriaxone along with fluconazole and metronidazole per surgical services. The patient was seen again today 10/23/2016 in follow-up on the surgical floor. He is currently sitting up in a chair at the bedside. He is awake and alert in no acute distress. He denies any worsening shortness of breath, cough or congestion. He is maintaining O2 saturations in the 90s on room air. Afebrile. No leukocytosis. Hemoglobin 8.3. He's been hemodynamically stable. He was found to have a gastric leak. The bilious drainage is approximately 135 mL. He's been initiated on octreotide. He denies any worsening abdominal discomfort. His abdomen remains soft. He is passing flatus. He is being nourished with TPN/lipids. He remains nothing by mouth with NG tube in place. The patient is seen again today 10/24/2016 in follow-up on the surgical floor, postoperative day #7. He is currently sitting up in a chair at the bedside. He is awake and alert in no acute distress. He states his pain is well controlled. He denies any worsening shortness of breath, cough or congestion. He is currently maintaining good O2 saturations in the high 90s on 3 L/m per nasal cannula. His nasogastric tube remains in place, clamped. COURTNEY drain in place. He has not had a bowel movement thus far. He remains nothing by mouth. He is being nourished via TPN/lipids. No leukocytosis. Hemoglobin 9.0. Electrolytes and renal profile within normal limits. The patient is seen again today 10/25/2016 in follow-up on the surgical floor. This is postoperative day #8. He is currently sitting up in a chair at the bedside. He is awake and alert in no acute distress. He denies any worsening shortness of breath, cough or congestion. He is maintaining good O2 saturations in the mid 90s on room air. Afebrile. He's been hemodynamically stable. Hemoglobin stable at 8.8. He continues to have drainage from the COURTNEY currently at about 110 MLS. Nasogastric tube remains in place. He is being nourished with TPN. Is to receive a PICC line today. He is seen again today 10/26/2016 in follow-up on the surgical floor. This is postoperative day #9. He is currently sitting up in his chair at the bedside. He is awake and alert in no acute distress. He denies any worsening shortness of breath. He has a loose nonproductive cough. No chills or night sweats. His chest x-rays continues to show some small bilateral effusions left greater than right. There is some basilar atelectasis as well. Borderline cardiomegaly. He is maintaining O2 saturations in the upper 90s on 3 L/m per nasal cannula. He remains afebrile. White count 11.3. Hemoglobin 8.6. Unfortunately the patient inadvertently pulled out his nasogastric tube. Surgical services are aware. The plan is to leave it out and see how he does. He is passing flatus. No BM. COURTNEY drain continues with bilious fluid. He remains on octreotide. The patient is seen again today 10/30/2016 in follow-up on the surgical floor. He is currently sitting up in a chair at the bedside. He is awake and alert in no acute distress. He denies any worsening shortness of breath, cough or congestion. Maintaining good O2 saturations in the 90s on room air. His been hemodynamically stable. The plan is for transfer to [facility] inpatient rehabilitation. The COURTNEY drain does continue to have 40-50 MLS secondary to the gastric leak. Objective - Vital Signs Vital signs: Vital Signs Temp 97.5 F L 10/30/16 08:28 Pulse 65 10/30/16 08:28 Resp 16 10/30/16 08:28 BP 145/76 10/30/16 08:28 Pulse Ox 94 L 10/30/16 08:28 Intake & Output 10/29/16 10/30/16 10/30/16 18:59 06:59 18:59 Intake Total 2180 1041 Output Total 690 295 Balance 1490 746 Weight 82.9 kg Intake: IV 1150 Fluconazole in NaCl,Iso- 200 Osm 400 mg In Saline 1 200ml.bag @ 100 mls/hr IVPB DAILY [facility] Rx#: [id number] TPN 800 cefTRIAXone 1,000 mg In 50 Sodium Chloride 0.9% 50 ml @ 100 mls/hr IVPB Q24HR [facility] Rx#:[id number] metroNIDAZOLE-NS PMX 500 100 mg In Saline 1 100ml.bag @ 100 mls/hr IVPB Q8HR [facility] Rx#:[id number] Intake, IV Titration 1030 1041 Amount Calcium Gluconate 1,000 1030 mg Sodium Chloride 4Meq/ ml Vial 52 meq Magnesium Sulfate 8 meq Potassium Phosphate 15 mmol In Amino Acid 5%-D15w 1,000 ml @ 100 mls/hr IV .BY DURATION [facility] Rx#: [id number] Mvi, Adult No.4 with Vit 1041 K 10 ml Trace (Conc-1Ml/ Dose) 1 ml Calcium Gluconate 1,000 mg Sodium Chloride 4Meq/ml Vial 52 meq Magnesium Sulfate 8 meq Potassium Phosphate 15 mmol In Amino Acid 5%- D15w 1,000 ml @ 100 mls/ hr IV .BY DURATION [facility] Rx #:[id number] Output: Drainage 90 95 Right Abdomen 90 95 Urine 600 200 Other: Voiding Method Urinal - Exam Head exam was generally normal. There was no scleral icterus or corneal arcus. Mucous membranes were moist. Neck was supple and without jugular venous distension, thyromegaly, or carotid bruits. Carotids were easily palpable bilaterally. There was no adenopathy. Lung sounds are diminished otherwise clear. No wheezes or rales were noted. Cardiac exam revealed the PMI to be normally situated and sized. The rhythm was regular and no extrasystoles were noted during several minutes of auscultation. The first and second heart sounds were normal and physiologic splitting of the second heart sound was noted. There were no murmurs, rubs, clicks, or gallops. Abdomen is soft. No direct tenderness no rebound tenderness. No guarding. Bowel sounds are hypoactive. Incision clean dry well approximated. COURTNEY drain is in place. Bilious output has been about 160 mL from the COURTNEY drain the past 24 hours. Bowel sounds are hypoactive. Examination of the extremities revealed easily palpable radial, femoral and pedal pulses. There was no cyanosis, clubbing or edema. Neurologically the patient is or AO3 and there is no focal neurological deficit. - Labs CBC & Chem 7: 10/30/16 07:10 10/30/16 07:10 Labs: Abnormal Lab Results - Last 24 Hours (Table) 10/29/16 10/29/16 10/29/16 Range/Units 10:30 13:16 14:45 WBC 11.8 H (3.8-10.6) k/uL RBC 3.10 L (4.30-5.90) m/uL Hgb 9.8 L (13.0-17.5) gm/dL Hct 30.9 L (39.0-53.0) % RDW 16.7 H (11.5-15.5) % Neutrophils # 9.0 H (1.3-7.7) k/uL Sodium 131 L (137-145) mmol/L Creatinine 0.50 L (0.66-1.25) mg/dL Glucose 264 H (74-99) mg/dL POC Glucose (mg/dL) 257 H (75-99) mg/dL Calcium 7.6 L (8.4-10.2) mg/dL 10/29/16 10/29/16 10/30/16 Range/Units 14:45 17:30 00:06 WBC (3.8-10.6) k/uL RBC (4.30-5.90) m/uL Hgb (13.0-17.5) gm/dL Hct (39.0-53.0) % RDW (11.5-15.5) % Neutrophils # (1.3-7.7) k/uL Sodium 132 L (137-145) mmol/L Creatinine 0.60 L (0.66-1.25) mg/dL Glucose 296 H (74-99) mg/dL POC Glucose (mg/dL) 338 H 158 H (75-99) mg/dL Calcium 7.6 L (8.4-10.2) mg/dL 10/30/16 10/30/16 10/30/16 Range/Units 05:32 07:10 07:10 WBC 11.9 H (3.8-10.6) k/uL RBC 3.22 L (4.30-5.90) m/uL Hgb 10.0 L (13.0-17.5) gm/dL Hct 32.1 L (39.0-53.0) % RDW 16.5 H (11.5-15.5) % Neutrophils # 9.2 H (1.3-7.7) k/uL Sodium 135 L (137-145) mmol/L Creatinine (0.66-1.25) mg/dL Glucose 194 H (74-99) mg/dL POC Glucose (mg/dL) 164 H (75-99) mg/dL Calcium 7.8 L (8.4-10.2) mg/dL 10/30/16 Range/Units 10:19 WBC (3.8-10.6) k/uL RBC (4.30-5.90) m/uL Hgb (13.0-17.5) gm/dL Hct (39.0-53.0) % RDW (11.5-15.5) % Neutrophils # (1.3-7.7) k/uL Sodium (137-145) mmol/L Creatinine (0.66-1.25) mg/dL Glucose (74-99) mg/dL POC Glucose (mg/dL) 218 H (75-99) mg/dL Calcium (8.4-10.2) mg/dL Assessment and Plan Plan: Assessment 1 symptomatic cholelithiasis, status post laparoscopic cholecystectomy converted to open cholecystectomy, extensive lysis of adhesions, repair of gastrectomy with a modified Fareed patch. There is continued billous drainage from the COURTNEY drain. Upper GI series does reveal extravasation of contrast to what appears to be the level of the duodenal bulb or distal antrum of the stomach adjacent to the COURTNEY drain. 2 postoperative atelectasis as an expected outcome of surgery with some left chest subcutaneous emphysema of unclear etiology. 3 prostate cancer was treated by brachytherapy 4 [employer] tumor status post brain tumor resection 1996 5 peripheral neuropathy mostly extremities 6 diabetes mellitus 7 coronary artery disease previous coronary intervention and stenting 8 impaired hearing 9 hypertension 10 previous history of DVT currently on no anticoagulants 11 degenerative arthritis Plan The patient was seen and evaluated by Dr. Wilcox. The patient remains stable from the pulmonary standpoint. We've again encouraged the increased use of the incentive spirometer and cough and deep breathing exercises. Dr. Wilcox did have extended conversation with the surgeon Dr. Saez along with the patient and his daughter. The plan is for transfer to [facility] for inpatient rehabilitation. Following that Dr. Wilcox will become his primary care physician. We'll continue to follow him there as well.
[2016-10-30] MEDS: FAT EMULSION 20% 250 ML IV SCH (13:18)
--- NOTE | 2016-10-30 15:39 | P.DS ---
Providers Date of admission: 10/17/16 11:30 Expected date of discharge: 10/30/16 Attending physician: Miguel Saez DO Consults: 10/17/16 13:34 Consult Physician Routine Consulting Provider: Ramiro Dickens Consult Reason/Comments: Med Mgmt Do you want consulting provider notified?: Yes Consult Physician Stat Consulting Provider: Tonya Romero Consult Reason/Comments: ICU Care post-op Do you want consulting provider notified?: Yes 10/17/16 14:15 Consult Physician Routine Consulting Provider: Rubina Teran Consult Reason/Comments: medical Management (Dr. Dickens does not make hospital rounds) Do you want consulting provider notified?: Already Contacted 10/28/16 18:39 Consult Physician Routine Consulting Provider: Elroy Sullivan Consult Reason/Comments: rehab placement Do you want consulting provider notified?: Yes, Notify in am Primary care physician: Stated None - Discharge Diagnosis(es) (1) Status post cholecystectomy Current Visit: Yes Status: Acute Priority: High (2) Diabetes mellitus Current Visit: Yes Status: Chronic Priority: High (3) CAD (coronary artery disease) Current Visit: No Status: Chronic Priority: Medium (4) Hyponatremia Current Visit: Yes Status: Acute (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 The procedure was then converted to open and the gallbladder was removed and the gastrotomy was repaired using a Fareed patch repair. On postoperative day #2 the patient did have bile retrieved from the COURTNEY drain that was placed. Workup was performed to diagnose where the leak was arising from. Upper GI noted a large gastric leak. The patient was maintained on an NG tube nothing by mouth and TPN for approximately 1 week after that and the drainage from the drain continued to decrease. The patient began to improve in strength, ambulated and was up in his chair. His NGT fell out approx POD #9 and he refused replacement due to discomfort. A second UGI was performed on 10/28/16 and this illustrated a leak that was smaller than previously. The plan at that point was to continue NPO and TPN and allow natural healing of this leak. During this time he developed critical illness myopathy and requires inpatient rehabilitation. This will allow for medical care for his gastric leak along with rehabilitation to recover strength. Pertinent Studies: Upper GI 2 was performed during this admission that revealed a gastric leak that has improved. Procedures: Laparoscopic cholecystectomy converted to open cholecystectomy with repair of gastrotomy with Fareed patch. Patient Condition at Discharge: Good Plan - Discharge Summary New Discharge Prescriptions: New cefTRIAXone [Rocephin] 1,000 mg IVPB Q24HR vial cloNIDine 0.1 MG/24HR PATCH [Catapres-TTS] 1 patch TRANSDERM Q7D patch Fluconazole in NaCl,Iso-Osm [Diflucan-Ns 400 mg/200 ml] 400 mg IVPB DAILY bag Heparin Sodium,Porcine [Heparin Sodium] 5,000 unit SQ Q8HR vial Insulin Glargine [Lantus] 16 unit SQ HS vial INSULIN LISPRO (humaLOG) [humaLOG (formulary)] 0 unit SQ Q6H vial Discontinued metFORMIN HCL [Glucophage] 500 mg PO BID Losartan [Cozaar] 50 mg PO DAILY Acetaminophen/Diphenhydramine [Tylenol PM 500-25mg] 1 tab PO HS Potassium Chloride [Klor-Con 10] 10 meq PO BID Lovastatin [Mevacor] 40 mg PO DAILY Furosemide [Lasix] 40 mg PO DAILY LORazepam [Ativan] 1 mg PO HS Insulin NPH Human Isophane [NovoLIN N] 20 unit SQ BID Gabapentin 600 mg PO TID Aspirin [Children's Aspirin] 81 mg PO DAILY #30 tab.chew Amoxic-Pot Clav 875-125Mg [Augmentin 875-125] 1 tab PO Q12HR #14 tablet Clopidogrel Bisulfate [Plavix] 75 mg PO DAILY Discharge Medication List Fluconazole in NaCl,Iso-Osm [Diflucan-Ns 400 mg/200 ml] 400 mg IVPB DAILY bag 10/30/16 [Rx] Heparin Sodium,Porcine [Heparin Sodium] 5,000 unit SQ Q8HR vial 10/30/16 [Rx] INSULIN LISPRO (humaLOG) [humaLOG (formulary)] 0 unit SQ Q6H vial 10/30/16 [Rx] Insulin Glargine [Lantus] 16 unit SQ HS vial 10/30/16 [Rx] cefTRIAXone [Rocephin] 1,000 mg IVPB Q24HR vial 10/30/16 [Rx] cloNIDine 0.1 MG/24HR PATCH [Catapres-TTS] 1 patch TRANSDERM Q7D patch [Rx] Activity/Diet/Wound Care/Special Instructions: Strict NPO Discharge Disposition: DC/TRNS INTERMEDIATE CARE FAC
[2016-10-30 15:47] VITALS: BP 148/75; PULSE 70
== END 2016-10-30 18:00 | DRG 415 ==
LOC: OR 06:36 → 6ICU 11:30 → 3SUR 10-20 11:03
PROVIDERS: ADMIT Surgery; ATTEND Surgery
PROC: 0FT40ZZ Resection of Gallbladder, Open Approach (ICD-10-PCS; principal; 2016-10-19)
PROC: 0FJ44ZZ Inspection of Gallbladder, Percutaneous Endoscopic Approach (ICD-10-PCS; 2016-10-19)
PROC: 0FN40ZZ Release Gallbladder, Open Approach (ICD-10-PCS; 2016-10-19)
PROC: 0DQ60ZZ Repair Stomach, Open Approach (ICD-10-PCS; 2016-10-19)
PROC: 3E0436Z Introduction of Nutritional Substance into Central Vein, Percutaneous Approach (ICD-10-PCS; 2016-10-19)
PROC: 05HM33Z Insertion of Infusion Device into Right Internal Jugular Vein, Percutaneous Approach (ICD-10-PCS; 2016-10-19)
PROC: 02HV33Z Insertion of Infusion Device into Superior Vena Cava, Percutaneous Approach (ICD-10-PCS; 2016-10-25)
DX: K80.12 Calculus of gallbladder with acute and chronic cholecystitis without obstruction (principal); G72.81 Critical illness myopathy; E44.0 Moderate protein-calorie malnutrition; K82.3 Fistula of gallbladder; I67.81 Acute cerebrovascular insufficiency; T79.7XXA Traumatic subcutaneous emphysema, initial encounter; E87.1 Hypo-osmolality and hyponatremia; J95.89 Other postprocedural complications and disorders of respiratory system, not elsewhere classified; E11.42 Type 2 diabetes mellitus with diabetic polyneuropathy; I10 Essential (primary) hypertension; K66.0 Peritoneal adhesions (postprocedural) (postinfection); E78.00 Pure hypercholesterolemia, unspecified; D72.829 Elevated white blood cell count, unspecified; I25.10 Atherosclerotic heart disease of native coronary artery without angina pectoris; E11.65 Type 2 diabetes mellitus with hyperglycemia; R41.82 Altered mental status, unspecified; R82.4 Acetonuria; M19.90 Unspecified osteoarthritis, unspecified site; H91.90 Unspecified hearing loss, unspecified ear; Z83.3 Family history of diabetes mellitus; Z53.31 Laparoscopic surgical procedure converted to open procedure; Z71.3 Dietary counseling and surveillance; Z86.69 Personal history of other diseases of the nervous system and sense organs; Z95.5 Presence of coronary angioplasty implant and graft; Z87.19 Personal history of other diseases of the digestive system; Z90.49 Acquired absence of other specified parts of digestive tract; Z79.2 Long term (current) use of antibiotics; Z86.718 Personal history of other venous thrombosis and embolism; Z85.46 Personal history of malignant neoplasm of prostate; Z79.82 Long term (current) use of aspirin; Z85.038 Personal history of other malignant neoplasm of large intestine; Z79.4 Long term (current) use of insulin; Z79.899 Other long term (current) drug therapy; Z79.02 Long term (current) use of antithrombotics/antiplatelets; Z68.26 Body mass index [BMI] 26.0-26.9, adult; Z92.3 Personal history of irradiation; Z91.19 Patient's noncompliance with other medical treatment and regimen
CPT/HCPCS: 36569; 71010; 74240; 76937; 77001; 78226; 80048; 80053; 80076; 81001; 82009; 82248; 82330; 83605; 83735; 83880; 84100; 84132; 84478; 85025; 85027; 87086; 88304; 93306; 94760

== ENCOUNTER 2017-06-26 11:11 | Emergency (ER) | payer MEDICARE ==
[2017-06-26 11:18] VITALS: PULSE 57
[2017-06-26 12:03] LABS: Appearance,Urine Clear (Clear); Bilirubin,Urine Negative (Negative); Blood,Urine Negative (Negative); Color,Urine Yellow; Glucose,Urine (UA) Negative (Negative); Ketones,Urine Negative (Negative); Leukocyte Esterase,Urine Negative (Negative); Nitrite,Urine Negative (Negative); PH, Urine 6.5 (5.0-8.0); Protein,Urine Negative (Negative); Specific Gravity,Urine 1.009 (1.001-1.035); Urobilinogen,Urine <2.0 mg/dL (<2.0)
--- NOTE | 2017-06-26 12:18 | ED ---
General Adult HPI - General Chief complaint: Fall Stated complaint: fall, back pain Time Seen by Provider: 06/26/17 11:30 Source: patient, RN notes reviewed Mode of arrival: ambulatory Limitations: no limitations - History of Present Illness Initial comments: 86-year-old male presents for left flank pain. Patient was using the toilet earlier, slipped and fell striking his left flank and lower lateral chest wall. This injury occurred approximately 3 hours prior to arrival. Patient states he [place] the driving range and felt significant pain in this location. Denies any lower extremity symptoms. No numbness or weakness. No sensory changes. No hematuria or dysuria. No bowel or bladder incontinence. Patient' s pain is localized to the left flank and left lateral lower chest wall. No difficulty breathing. No central chest pain. No head or neck injury. Patient is currently on aspirin and Plavix for history of CAD status post stenting. - Related Data Home Medications Medication Instructions Recorded Confirmed Clopidogrel Bisulfate [Plavix] 75 mg PO HS 06/26/17 06/26/17 Insulin NPH Human Isophane 20 unit SQ BID 06/26/17 06/26/17 [NovoLIN N] LORazepam [Ativan] 1 mg PO TID 06/26/17 06/26/17 Losartan Potassium [Cozaar] 50 mg PO DAILY 06/26/17 06/26/17 Lovastatin [Mevacor] 40 mg PO DAILY 06/26/17 06/26/17 Melatonin 3 mg PO HS 06/26/17 06/26/17 Oxybutynin Xl [Ditropan Xl] 5 mg PO DAILY 06/26/17 06/26/17 metFORMIN HCL [Glucophage] 500 mg PO BID 06/26/17 06/26/17 Previous Rx's Medication Instructions Recorded HYDROcodone/APAP 5-325MG [Tok 1 tab PO Q6HR PRN #12 tab 06/26/17 5-325] Allergies Allergy/AdvReac Type Severity Reaction Status Date / Time No Known Allergies Allergy Verified 06/26/17 12:05 Review of Systems ROS Statement: Those systems with pertinent positive or pertinent negative responses have been documented in the HPI. ROS Other: All systems not noted in ROS Statement are negative. 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 History of Any Multi-Drug Resistant Organisms: None Reported Past Surgical History: Bowel Resection, Heart Catheterization With Stent, Prostate Surgery Additional Past Surgical History / Comment(s): Cardiac catheterization with insertion of coronary stents 15 years ago , bowel resection for colon cancer, resection of brain tumor in 1996, insertion of prostate radiation seed for brachytherapy Past Anesthesia/Blood Transfusion Reactions: No Reported Reaction Date of Last Stent Placement:: 1997 Past Psychological History: No Psychological Hx Reported Smoking Status: Never smoker Past Alcohol Use History: None Reported Past Drug Use History: None Reported - Past Family History Father History Unknown: Yes General Exam Limitations: no limitations General appearance: alert, in no apparent distress Head exam: Present: atraumatic, normocephalic Eye exam: Present: normal appearance, PERRL ENT exam: Present: normal exam Neck exam: Present: normal inspection. Absent: tenderness, meningismus Respiratory exam: Present: normal lung sounds bilaterally, chest wall tenderness (Left lateral chest wall tenderness and ecchymosis). Absent: respiratory distress Cardiovascular Exam: Present: regular rate, normal rhythm GI/Abdominal exam: Present: soft. Absent: distended, tenderness Extremities exam: Present: normal inspection, full ROM, normal capillary refill. Absent: pedal edema, joint swelling, calf tenderness Back exam: Present: full ROM, CVA tenderness (L) Neurological exam: Present: alert, oriented X3, CN II-XII intact. Absent: motor sensory deficit Psychiatric exam: Present: normal affect, normal mood Skin exam: Present: warm, dry, other (Ecchymosis, left flank.). Absent: cyanosis, diaphoretic Course Vital Signs 06/26/17 06/26/17 11:16 14:06 Temperature 98.1 F 97.3 F L Pulse Rate 57 L 57 L Respiratory 20 18 Rate Blood Pressure 132/69 142/66 O2 Sat by Pulse 98 98 Oximetry Medical Decision Making - Medical Decision Making 86-year-old male presents status post fall with contusion to the left flank. Urinalysis is negative for hematuria. Chest x-ray with dedicated left ribs is negative for fracture. Lumbar spine is negative for any acute bony abnormality. Patient given Motrin, on reevaluation he is feeling better. He was eager for discharge. He will follow-up with his primary care physician. - Lab Data Lab Results 06/26/17 Range/Units 11:50 Urine Color Yellow Urine Appearance Clear (Clear) Urine pH 6.5 (5.0-8.0) Ur Specific [place] 1.009 (1.001-1.035) Urine Protein Negative (Negative) Urine Glucose (UA) Negative (Negative) Urine Ketones Negative (Negative) Urine Blood Negative (Negative) Urine Nitrite Negative (Negative) Urine Bilirubin Negative (Negative) Urine Urobilinogen <2.0 (<2.0) mg/dL Ur Leukocyte Esterase Negative (Negative) Disposition Clinical Impression: Fall, Chest wall contusion Disposition: HOME SELF-CARE Condition: Good Instructions: Contusion in Adults (ED), Rib Contusion (ED) Prescriptions: HYDROcodone/APAP 5-325MG [Tok 5-325] 1 tab PO Q6HR PRN #12 tab PRN Reason: Pain Is patient prescribed a controlled substance at d/c from ED?: Yes If prescribed controlled substance>3 days was MAPS reviewed?: Yes When asked, does pt state using other controlled substances?: No Referrals: Adolph Zendejas MD [Primary Care Provider] - 1-2 days Time of Disposition: 14:28
[2017-06-26] MEDS ORDERED: IBUPROFEN 400 MG TAB PO STA (12:19)
--- NOTE | 2017-06-26 12:24 | XR ---
EXAMINATION TYPE: XR lumbar spine 2 or 3V DATE OF EXAM: 06/26/2017 COMPARISON: NONE HISTORY: Pain from fall TECHNIQUE: Three-view lumbar spine FINDINGS: There 5 lumbar-type vertebral bodies. Pedicles are intact. Scoliosis present with convexity to the left centered at L2. Degenerative disc changes are present. Spondylosis is present. IMPRESSION: 1. No suspicious acute changes
--- NOTE | 2017-06-26 12:26 | XR ---
EXAMINATION TYPE: XR ribs LT w pa chest xray DATE OF EXAM: 06/26/2017 COMPARISON: NONE HISTORY: Pain TECHNIQUE: PA view the chest and 4 views of the left ribs are obtained FINDINGS: Atherosclerotic change of the aorta. No pleural effusion or pneumothorax. Arthropathy of th e AC joints. Osseous structures intact. IMPRESSION: No acute displaced rib fracture.
[2017-06-26 14:07] VITALS: BP 142/66; RESP 18; TEMP 97.3
== END 2017-06-26 14:46 | disposition home or self-care (01) ==
LOC: EC 11:11
DX: S20.212A Contusion of left front wall of thorax, initial encounter (principal); S30.1XXA Contusion of abdominal wall, initial encounter; I25.10 Atherosclerotic heart disease of native coronary artery without angina pectoris; I10 Essential (primary) hypertension; E11.42 Type 2 diabetes mellitus with diabetic polyneuropathy; H91.90 Unspecified hearing loss, unspecified ear; M19.90 Unspecified osteoarthritis, unspecified site; Z79.02 Long term (current) use of antithrombotics/antiplatelets; Z79.4 Long term (current) use of insulin; Z79.82 Long term (current) use of aspirin; Z79.899 Other long term (current) drug therapy; Z85.46 Personal history of malignant neoplasm of prostate; Z85.038 Personal history of other malignant neoplasm of large intestine; Z86.718 Personal history of other venous thrombosis and embolism; Z92.3 Personal history of irradiation; Z90.49 Acquired absence of other specified parts of digestive tract; Z95.5 Presence of coronary angioplasty implant and graft; Z98.890 Other specified postprocedural states; W18.2XXA Fall in (into) shower or empty bathtub, initial encounter
CPT/HCPCS: 72100; 81003; 99283

== ENCOUNTER → 2017-08-05 | Outpatient (CLI) | payer MEDICARE ==
--- NOTE | 2017-08-05 15:54 | US ---
EXAMINATION TYPE: US carotid duplex BILAT DATE OF EXAM: 08/05/2017 COMPARISON: NONE CLINICAL HISTORY: I25.10 Coranary artery disease. EXAM MEASUREMENTS: RIGHT: Peak Systolic Velocity (PSV) cm/sec ----- Right CCA: 113.5 ----- Right ICA: 87.9 ----- Right ECA: 121.8 ICA/CCA ratio: 0.8 RIGHT: End Diastole cm/sec ----- Right CCA: 26.7 ----- Right ICA: 21.3 ----- Right ECA: 14.4 LEFT: Peak Systolic Velocity (PSV) cm/sec ----- Left CCA: 92.6 ----- Left ICA: 73.1 ----- Left ECA: 80.6 ICA/CCA ratio: 0.8 LEFT: End Diastole cm/sec ----- Left CCA: 20.8 ----- Left ICA: 22.8 ----- Left ECA: 6.5 VERTEBRALS (direction of flow): Right Vertebral: Antegrade Left Vertebral: Antegrade Rhythm: Normal No significant velocity elevations seen in bilateral ICA's. IMPRESSION: 1. Intimal thickening and focal areas of atherosclerotic changes but no evidence of significant hemod ynamic stenosis. Criteria for Assigning % of Stenosis / Diameter reduction (Estimation based on the indirect measurements of the internal carotid artery velocities (ICA PSV). 1. Normal (no stenosis)=ICA PSV < 125 cm/s: ratio < 2.0: ICA EDV<40 cm/s. 2. Less than 50% stenosis=ICA PSV < 125 cm/s: ratio < 2.0: ICA EDV<40 cm/s. 3. 50 to 69% stenosis=ICA PSV of 125 to 230 cm/s: ration 2.0 ? 4.0: ICA EDV 40-100 cm/s. 4. Greater than 70% stenosis to near occlusion= ICA PSV > 230 cm/s: ratio > 4.0: ICA EDV > 100 cm/s. 5. Near occlusion= ICA PSV velocities may be low or undetectable: variable ratio and ICA EDV. 6. Total occlusion=unable to detect flow.
--- NOTE | 2017-08-06 11:59 | ECHOF ---
Referral Reason:I25.10 Coranary artery disease MEASUREMENTS -------- HEIGHT: 175.3 cm WEIGHT: 77.1 kg BP: RVIDd: 2.9 cm (< 3.3) IVSd: 0.8 cm (0.6 - 1.1) LVIDd: 5.1 cm (3.9 - 5.3) LVPWd: 0.8 cm (0.6 - 1.1) IVSs: 1.3 cm LVIDs: 3.6 cm LVPWs: 1.3 cm LAESV Index (A-L): 45.26 ml/m Ao Diam: 3.2 cm (2.0 - 3.7) AV Cusp: 1.9 cm (1.5 - 2.6) LA Diam: 3.0 cm (2.7 - 3.8) EPSS: 0.8 cm MV E Franky: 0.82 m/s MV DecT: 218 ms MV A Franky: 1.01 m/s MV E/A Ratio: 0.81 RAP: 5.00 mmHg RVSP: 31.67 mmHg MV EF SLOPE: 35.46 mm/s (70 - 150) MV EXCURSION: 1.12 cm (> 18.000) FINDINGS -------- Resting bradycardia (HR<60bpm). This was a technically adequate study. The left ventricular size is normal. Left ventricular wall thickness is normal. Overall left vent ricular systolic function is normal with, an EF between 55 - 60 %. The right ventricle is normal in size and function. LA is severely dilated >40 ml/m2 RA appears enlarged. Aortic valve is trileaflet and is mildly thickened. There is no evidence of aortic regurgitation. There is no evidence of aortic stenosis. The mitral valve leaflets are mildly thickened. There is trace to mild mitral regurgitation. Trace tricuspid regurgitation present. Right ventricular systolic pressure is normal at < 35 mmHg. There is no evidence of pulmonary hypertension. There is no pulmonic regurgitation present. CONCLUSIONS -------- 1. Resting bradycardia (HR<60bpm). 2. This was a technically adequate study. 3. The left ventricular size is normal. 4. Left ventricular wall thickness is normal. 5. Overall left ventricular systolic function is normal with, an EF between 55 - 60 %. 6. LA is severely dilated >40 ml/m2 7. RA appears enlarged. 8. Aortic valve is trileaflet and is mildly thickened. 9. The mitral valve leaflets are mildly thickened. 10. There is trace to mild mitral regurgitation. 11. Trace tricuspid regurgitation present. 12. Right ventricular systolic pressure is normal at < 35 mmHg. 13. There is no evidence of pulmonary hypertension. 14. There is no pulmonic regurgitation present. [employer]: Shiv Morel RDCS
== END | disposition home or self-care (01) ==
LOC: RADECHMAIN 14:11
PROVIDERS: ATTEND Family Medicine
DX: I05.9 Rheumatic mitral valve disease, unspecified (principal); I35.8 Other nonrheumatic aortic valve disorders; I25.10 Atherosclerotic heart disease of native coronary artery without angina pectoris
CPT/HCPCS: 93306; 93880

== ENCOUNTER → 2017-12-02 | Outpatient (CLI) | payer MEDICARE ==
--- NOTE | 2017-12-02 14:43 | US ---
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 GLAND SIZE: Right Lobe: 4.5 x 1.5 x 2.1 cm Overall Parenchyma: homogenous Left Lobe: 3.9 x 1.7 x 1.6 cm Overall Parenchyma: homogeneous Isthmus Thickness: 0.4 cm NODULES RIGHT: # of nodules measured on right: 0 LEFT: # of nodules measured on left: 0 ISTHMUS: # of nodules measured in the isthmus: 0 Bilateral neck scanned: at patient's upper right neck palpable a lymph node, appearing as hypoechoic and oval mass, is seen = 0.5 x 0.4 x 0.2cm. IMPRESSION: Hypoechoic area at the region of palpable abnormality is seen adjacent to the right lobe of the thyro id appearing to represent a nonenlarged lymph node. Thyroid gland is unremarkable without focal nodul e.
== END | disposition home or self-care (01) ==
LOC: RADUSWWP 13:29
PROVIDERS: ATTEND Family Medicine
DX: E04.1 Nontoxic single thyroid nodule (principal)
CPT/HCPCS: 76536

== ENCOUNTER → 2018-03-27 | Outpatient (CLI) | payer MEDICARE ==
[2018-03-27 13:51] LABS: Blood Urea Nitrogen 21 mg/dL (9-20)
--- NOTE | 2018-03-27 14:52 | CT ---
EXAMINATION TYPE: CT soft tissue neck w con DATE OF EXAM: 03/27/2018 HISTORY: Lump to right side upper neck area per patient. Right submandibular enlargement per order COMPARISON: CT cervical spine December 15, 2016. CT DLP: 647 mGycm. Automated Exposure Control for Dose Reduction was Utilized. TECHNIQUE: CT scan of the neck is performed with IV Contrast, patient injected with 100 mL of Isovue 300, axial images are obtained, coronal and sagittal reformatted images are reviewed. FINDINGS: Airway: Dependent atelectasis right upper lobe is present. Parotid/submandibular glands: There is asymmetric increased size of right submandibular gland versus opposite left side without suspicious solid or cystic mass or surrounding fat stranding to suggest ac [place] inflammation. This likely was present only partially imaged on 2017 CT. Parotid glands are symmetric and felt within normal limits. Carotid/Vascular Structures: Mild calcified plaque right carotid bulb extends into proximal internal carotid artery. Moderate calcified plaque left carotid bulb is present. Osseous Structures: There is grade 1 retrolisthesis of C4 on C5 and C5 on C6. There is fairly advance d disc space narrowing C4-C5 and C5-C6 levels with moderate to advanced spurring and diffuse endplate sclerosis. There is dextroconvex scoliosis centered in the upper to midthoracic spine. There are mul tilevel uncovertebral facet degenerative changes bilaterally. Other: No suspicious greater than 1 cm neck adenopathy is seen. IMPRESSION: Asymmetric right submandibular enlargement without suspicious mass or CT evidence for acu te inflammation.
== END ==
LOC: RADCTMAIN 13:05
PROVIDERS: ATTEND Otolaryngology
DX: R59.0 Localized enlarged lymph nodes (principal)
CPT/HCPCS: 82565; 84520; 70491; 36415; Q9967

== ENCOUNTER → 2018-06-09 | Outpatient (CLI) | payer MEDICARE ==
[2018-06-09 10:47] LABS: Anion Gap 9.2 mmol/L (4.00-12.00); Carbon Dioxide 27.8 mmol/L (21.6-31.8); LDL Cholesterol,Calculated 81.6 mg/dL (0.0-131.0); Potassium 4.2 mmol/L (3.5-5.5); VLDL Calculation 19.4 mg/dL (5.00-40.00)
[2018-06-09 13:29] LABS: Hemoglobin A1C 7.2 % (4.0-6.0)
== END | disposition home or self-care (01) ==
LOC: LABWHC1 07:27
PROVIDERS: ATTEND Internal Medicine Cardiovascular Disease
DX: E78.2 Mixed hyperlipidemia (principal); I10 Essential (primary) hypertension; Z79.899 Other long term (current) drug therapy
CPT/HCPCS: 36415; 80051; 80061; 82565; 83036; 84443; 84450; 84460; 84520

== ENCOUNTER 2018-10-15 09:05 | Emergency (ER) | payer MEDICARE ==
[2018-10-15] MEDS ORDERED: LIDOCAINE 5% PATCH TOPICAL STA (09:45)
--- NOTE | 2018-10-15 09:47 | ED ---
General Adult HPI - General Chief complaint: Extremity Problem,Nontraumatic Stated complaint: RT knee pain Time Seen by Provider: 10/15/18 09:25 Source: patient Mode of arrival: ambulatory Limitations: no limitations - History of Present Illness Initial comments: Dictation was produced using [employer] dictation software. please excuse any grammatical, word or spelling errors. Chief Complaint: 88-year-old male presents with 3 hours of right medial knee pain. History of Present Illness: Patient is a 88-year-old male who has past medical history of arthritis both knees. Patient states that for him he had a sharp right medial knee pain. States that he felt a lump and it was severely painful. Over the next couple hours his pain resolved and patient is currently asymptomatic. Patient never had any symptoms like this before. Patient currently feels at baseline now. He has no knee pain this moment. An injury to the leg. The ROS documented in this emergency department record has been reviewed and confirmed by me. Those systems with pertinent positive or negative responses have been documented in the HPI. All other systems are other negative and/or noncontributory. PHYSICAL EXAM: General Impression: Alert and oriented x3, not in acute distress HEENT: Normocephalic atraumatic, extra-ocular movements intact, pupils equal and reactive to light bilaterally, mucous membranes moist. Cardiovascular: Heart regular rate and rhythm, S1&S2 audible, no murmurs, rubs or gallops Chest: Lungs clear to auscultation bilaterally, no rhonchi, no wheeze, no rales Abdomen: Bowel sounds present, abdomen soft, non-tender, non-distended, no organomegaly Musculoskeletal: Pulses present and equal in all extremities, no peripheral edema, hypertrophic right knee joint Motor: no focal deficits noted Neurological: CN II-XII grossly intact, no focal motor or sensory deficits noted Skin: Intact with no visualized rashes Psych: Normal affect and mood ED course: 88-year-old male presents with episode of right medial knee pain. Vital signs upon arrival are within acceptable limits. Patient is well- appearing at this time. Knees ranged with no complications. Patient's site of pain is likely over one of the medial knee tendons. X-ray was obtained. Patient given lidocaine patch. Patient told. This time. Patient told to follow-up with primary care physician upon discharge. At time of discharge patient continues to be asymptomatic. - Related Data Home Medications Medication Instructions Recorded Confirmed Clopidogrel Bisulfate [Plavix] 75 mg PO DAILY 06/26/17 10/15/18 Insulin NPH Human Isophane See Protocol SQ AC-TID 06/26/17 10/15/18 [NovoLIN N] LORazepam [Ativan] 1 mg PO TID 06/26/17 10/15/18 Losartan Potassium [Cozaar] 50 mg PO DAILY 06/26/17 10/15/18 Lovastatin [Mevacor] 40 mg PO DAILY 06/26/17 10/15/18 metFORMIN HCL [Glucophage] 500 mg PO BID 06/26/17 10/15/18 Furosemide [Lasix] 40 mg PO DAILY 08/10/18 10/15/18 Gabapentin 600 mg PO TID 08/10/18 10/15/18 Potassium Chloride [Klor-Con 10] 10 meq PO BID 08/10/18 10/15/18 Montelukast [Singulair] 10 mg PO DAILY 10/15/18 10/15/18 Allergies Allergy/AdvReac Type Severity Reaction Status Date / Time No Known Allergies Allergy Verified 10/15/18 09:14 Review of Systems ROS Statement: Those systems with pertinent positive or pertinent negative responses have been documented in the HPI. ROS Other: All systems not noted in ROS Statement are negative. 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 History of Any Multi-Drug Resistant Organisms: None Reported Past Surgical History: Bowel Resection, Heart Catheterization With Stent, Prostate Surgery Additional Past Surgical History / Comment(s): Cardiac catheterization with insertion of coronary stents 15 years ago , bowel resection for colon cancer, resection of brain tumor in 1996, insertion of prostate radiation seed for brachytherapy Past Anesthesia/Blood Transfusion Reactions: No Reported Reaction Date of Last Stent Placement:: 1997 Past Psychological History: No Psychological Hx Reported Smoking Status: Never smoker Past Alcohol Use History: None Reported Past Drug Use History: None Reported - Past Family History Father History Unknown: Yes General Exam Limitations: no limitations Course Vital Signs 10/15/18 09:13 Temperature 97.5 F L Pulse Rate 88 Respiratory 18 Rate Blood Pressure 165/67 O2 Sat by Pulse 97 Oximetry Disposition Clinical Impression: Knee pain Disposition: HOME SELF-CARE Condition: Good Instructions (If sedation given, give patient instructions): Knee Pain (ED) Is patient prescribed a controlled substance at d/c from ED?: No Referrals: Adolph Zendejas MD [Primary Care Provider] - 1-2 days Time of Disposition: 11:36
--- NOTE | 2018-10-15 10:33 | XR ---
EXAMINATION TYPE: XR knee complete RT DATE OF EXAM: 10/15/2018 CLINICAL HISTORY: Pain. TECHNIQUE: Three views of the right knee are obtained. COMPARISON: None. FINDINGS: There is no acute fracture/dislocation evident in the right knee. [id number] tricomp artment joint space loss without significant spurring. Posterior vascular calcification is present. IMPRESSION: As above.
[2018-10-15 12:07] VITALS: BP 134/98; PULSE 52; RESP 16; TEMP 97.6
== END 2018-10-15 11:55 | disposition home or self-care (01) ==
LOC: EC 09:05
DX: M25.561 Pain in right knee (principal); M17.0 Bilateral primary osteoarthritis of knee; I25.10 Atherosclerotic heart disease of native coronary artery without angina pectoris; I10 Essential (primary) hypertension; E11.40 Type 2 diabetes mellitus with diabetic neuropathy, unspecified; H91.90 Unspecified hearing loss, unspecified ear; Z79.02 Long term (current) use of antithrombotics/antiplatelets; Z79.4 Long term (current) use of insulin; Z79.899 Other long term (current) drug therapy; Z85.038 Personal history of other malignant neoplasm of large intestine; Z85.46 Personal history of malignant neoplasm of prostate; Z92.3 Personal history of irradiation; Z95.5 Presence of coronary angioplasty implant and graft; Z86.718 Personal history of other venous thrombosis and embolism; Z98.890 Other specified postprocedural states
CPT/HCPCS: 99283

== ENCOUNTER 2019-01-17 10:38 | Emergency (ER) | payer MEDICARE ==
[2019-01-17 10:52] VITALS: RESP 18
[2019-01-17] MEDS ORDERED: KETOROLAC 30 MG/ML 1 ML VIAL IM STA (11:14)
--- NOTE | 2019-01-17 11:18 | ED ---
General Adult HPI <Brayan Holloway - Last Filed: 01/17/19 12:14> - General Source: patient, RN notes reviewed Mode of arrival: ambulatory Limitations: no limitations <Tray Gabriel - Last Filed: 01/17/19 12:16> - General Chief complaint: Back Pain/Injury Stated complaint: LOWER BACK/BUTTOCKS PAIN FROM FALL X 1 WEEK Time Seen by Provider: 01/17/19 10:53 - History of Present Illness Initial comments: 88-year-old male with a complicated past medical history presents to the emergency room for a chief complaint of back pain. Patient states that about one week ago he was bending down to pick something up when he accidentally tumbled backwards and hit his back on the floor. He did not hit his head. This fall was purely mechanical. Patient states that since that time he has had left-sided low back pain radiating into his left leg. States he is able to ambulate but this does sometimes worsen the pain. States the pain is sharp and shooting down his left leg. Denies weakness of the left leg. Denies bladder or bowel changes. Denies any numbness of the groin or buttock. Denies fevers or c hills.Patient has no other complaints at this time including shortness of breath, chest pain, abdominal pain, nausea or vomiting, headache, or visual changes. (Tray Gabriel) - Related Data Home Medications Medication Instructions Recorded Confirmed Clopidogrel Bisulfate [Plavix] 75 mg PO DAILY 06/26/17 10/15/18 Insulin NPH Human Isophane See Protocol SQ AC-TID 06/26/17 10/15/18 [NovoLIN N] LORazepam [Ativan] 1 mg PO TID 06/26/17 10/15/18 Losartan Potassium [Cozaar] 50 mg PO DAILY 06/26/17 10/15/18 Lovastatin [Mevacor] 40 mg PO DAILY 06/26/17 10/15/18 metFORMIN HCL [Glucophage] 500 mg PO BID 06/26/17 10/15/18 Furosemide [Lasix] 40 mg PO DAILY 08/10/18 10/15/18 Gabapentin 600 mg PO TID 08/10/18 10/15/18 Potassium Chloride [Klor-Con 10] 10 meq PO BID 08/10/18 10/15/18 Montelukast [Singulair] 10 mg PO DAILY 10/15/18 10/15/18 Allergies Allergy/AdvReac Type Severity Reaction Status Date / Time No Known Allergies Allergy Verified 01/17/19 10:51 Review of Systems ROS Other: All systems not noted in ROS Statement are negative. <Brayan Holloway - Last Filed: 01/17/19 12:14> ROS Other: All systems not noted in ROS Statement are negative. <Tray Gabriel - Last Filed: 01/17/19 12:16> ROS Statement: Those systems with pertinent positive or pertinent negative responses have been documented in the HPI. Past Medical History Past Medical History: Coronary Artery Disease (CAD), Cancer, Diabetes Mellitus, Deep Vein Thrombosis (DVT), Hearing Disorder / Deafness, Hypertension, Osteoarthritis (OA), Prostate Disorder Additional Past Medical History / Comment(s): Colon cancer 1997 post colectomy, prostate cancer treated by radiation therapy and local seed implants, brain tumor with previous TILE PICKER surgery in 1996, peripheral neuropathy involving the lower extremities, cholelithiasis/symptomatic, coronary artery disease, diabetes mellitus, impaired hearing, osteoarthritis, hypertension, previous history of DVT currently on no anticoagulants. History of Any Multi-Drug Resistant Organisms: None Reported Past Surgical History: Bowel Resection, Heart Catheterization With Stent, Prostate Surgery Additional Past Surgical History / Comment(s): Cardiac catheterization with insertion of coronary stents 15 years ago , bowel resection for colon cancer, resection of brain tumor in 1996, insertion of prostate radiation seed for brachytherapy Past Anesthesia/Blood Transfusion Reactions: No Reported Reaction Date of Last Stent Placement:: 1997 Past Psychological History: No Psychological Hx Reported Smoking Status: Never smoker Past Alcohol Use History: None Reported Past Drug Use History: None Reported - Past Family History Father History Unknown: Yes <Tray Gabriel - Last Filed: 01/17/19 12:16> General Exam Limitations: no limitations General appearance: alert, in no apparent distress Head exam: Present: atraumatic, normocephalic, normal inspection Eye exam: Present: normal appearance, PERRL, EOMI. Absent: scleral icterus, conjunctival injection, periorbital swelling ENT exam: Present: normal exam, mucous membranes moist Neck exam: Present: normal inspection, full ROM. Absent: tenderness, meningismus, lymphadenopathy Respiratory exam: Present: normal lung sounds bilaterally. Absent: respiratory distress, wheezes, rales, rhonchi, stridor Cardiovascular Exam: Present: regular rate, normal rhythm, normal heart sounds. Absent: bradycardia, tachycardia, irregular rhythm GI/Abdominal exam: Present: soft, normal bowel sounds. Absent: distended, tenderness, guarding, rebound, rigid Extremities exam: Present: normal capillary refill (Capillary refill less than 2 seconds, DP pulses 2+ in lower ext bilaterally. Patient has 5 out of 5 strength in lower extremities bilaterally.) Back exam: Present: paraspinal tenderness (Patient has left-sided lumbar paraspinal tenderness). Absent: CVA tenderness (R), CVA tenderness (L), vertebral tenderness <Tray Gabriel - Last Filed: 01/17/19 12:16> Course <Brayan Holloway - Last Filed: 01/17/19 12:14> Vital Signs 01/17/19 10:48 Temperature 98.0 F Pulse Rate 66 Respiratory 18 Rate Blood Pressure 131/59 O2 Sat by Pulse 99 Oximetry - Reevaluation(s) Reevaluation #1: 01/17/19 12:14 PA supervision: I proceeded a [id number] evaluation the patient he did present with complaints of left low back pain he points to the side joint area is tender to palpation does radiate down his buttock into his leg he demonstrates no neurovascular compromise. X-rays do show evidence of degenerative changes but no acute evidence of fracture. At rest patient is pain-free at this time. We did discuss options he will follow-up with Dr. Obando. I do agree with the assessment and plan. Due to the patient's history diabetes service will be prescribed at this time. (Brayan Holloway) Medical Decision Making <Tray Gabriel - Last Filed: 01/17/19 12:16> - Medical Decision Making Neurovascular status intact in lower extremities. No red flag symptoms. Patient is ambulatory. X-ray of the lumbar spine shows no acute fracture or dislocation. There are severe degenerative disc space narrowing and spondyl olisthesis with facet joint arthropathy. X-ray of the pelvis shows no acute fracture or dislocation. Reports and images were reviewed by myself and Dr. Holloway. The Dr. Holloway also evaluated the patient. Patient is likely extrinsic sciatic nerve pain. Patient is much improved from Toradol. We did recommend patient follow-up with Dr. Pasia given degenerative changes of his spine as well as the sciatic pain. Patient is in agreement with this. He will return if he has any worsening symptoms. (Tray Gabriel) Disposition <Brayan Holloway - Last Filed: 01/17/19 12:14> Is patient prescribed a controlled substance at d/c from ED?: No Time of Disposition: 12:16 <Tray Gabriel - Last Filed: 01/17/19 12:16> Clinical Impression: Mechanical back pain, Sciatic leg pain Disposition: HOME SELF-CARE Condition: Good Instructions (If sedation given, give patient instructions): Acute Low Back Pain (ED) Additional Instructions: Please take Motrin or Tylenol for pain. Please follow-up with Dr. Obando in 1-2 days. If you have any worsening symptoms such as inability to urinate, numbness of the groin or buttock, or weakness of the lower extremities return to the emergency department. Referrals: Adolph Zendejas MD [Primary Care Provider] - 1-2 days Whit Obando DO [Doctor of Osteopathic Medicine] - 1-2 days
--- NOTE | 2019-01-17 11:51 | XR ---
EXAMINATION TYPE: XR lumbar spine 2 or 3V DATE OF EXAM: 01/17/2019 CLINICAL HISTORY: pain TECHNIQUE: Three views of the lumbar spine are submitted. COMPARISON: None. FINDINGS: There are 5 lumbar type vertebral bodies identified. The lumbar spine shows satisfactory alignment w ithout evidence of acute fracture or dislocation. Vertebral body heights are within normal limits. Severe degenerative disc space narrowing and spondylosis and facet joint arthropathy. The overlying soft tissue appears unremarkable. IMPRESSION: No acute fracture or dislocation is seen in the lumbar spine. ICD 10 NO FRACTURE, INITIAL EVALUATION
--- NOTE | 2019-01-17 11:53 | XR ---
EXAMINATION TYPE: XR pelvis AP view DATE OF EXAM: 01/17/2019 CLINICAL HISTORY: pain TECHNIQUE: Single view the pelvis is submitted. FINDINGS: No evidence for fracture, dislocation or bony lesion. Joint spaces are mildly narrowed bi laterally.. SI joints appear symmetric. IMPRESSION: 1. No acute fracture or dislocation seen. ICD 10 NO FRACTURE, INITIAL EVALUATION
[2019-01-17 12:32] VITALS: BP 135/71; PULSE 55; TEMP 97.2
== END 2019-01-17 12:25 | disposition home or self-care (01) ==
LOC: EC 10:38
DX: M54.42 Lumbago with sciatica, left side (principal); M48.061 Spinal stenosis, lumbar region without neurogenic claudication; M43.16 Spondylolisthesis, lumbar region; M46.96 Unspecified inflammatory spondylopathy, lumbar region; I25.10 Atherosclerotic heart disease of native coronary artery without angina pectoris; E11.42 Type 2 diabetes mellitus with diabetic polyneuropathy; I10 Essential (primary) hypertension; Z79.02 Long term (current) use of antithrombotics/antiplatelets; Z79.4 Long term (current) use of insulin; Z79.899 Other long term (current) drug therapy; Z95.5 Presence of coronary angioplasty implant and graft; Z86.718 Personal history of other venous thrombosis and embolism; Z85.46 Personal history of malignant neoplasm of prostate
CPT/HCPCS: 72100; 72170; 99283; 96372; J1885

== ENCOUNTER 2019-02-27 21:52 | Emergency (ER) | payer MEDICARE ==
[2019-02-27 22:02] VITALS: BP 175/79; PULSE 60; RESP 16; TEMP 97.5
[2019-02-27] MEDS ORDERED: SODIUM CHLORIDE 0.9% 500 ML 500 ML IV STA (22:32)
[2019-02-27 22:59] LABS: Basophils # (A) 0.1 k/uL (0-0.2); Basophils % (A) 1 %; Eosinophils # (A) 0.4 k/uL (0-0.7); Eosinophils % (A) 4 %; HCT 37.9 % (39.0-53.0); HGB 12.4 gm/dL (13.0-17.5); Lymphocytes # (A) 2.6 k/uL (1.0-4.8); Lymphocytes % (A) 33 %; MCHC 32.7 g/dL (31.0-37.0); MCV 95.1 fL (80.0-100.0); Mean Platelet Volume 7.1; Monocytes # (A) 0.6 k/uL (0-1.0); Monocytes % (A) 8 %; Neutrophils # (A) 4.2 k/uL (1.3-7.7); Neutrophils % (A) 51 %; Platelet Count 260 k/uL (150-450); RBC 3.99 m/uL (4.30-5.90); RDW 12.8 % (11.5-15.5); WBC 8.1 k/uL (3.8-10.6)
[2019-02-27 23:08] LABS: ALT 16 U/L (4-49); AST 30 U/L (17-59); African American GFR (CKD) >90 (>60 ml/min/1.73 sqM); Albumin 4.4 g/dL (3.5-5.0); Alkaline Phosphatase 62 U/L (38-126); Anion Gap 11 mmol/L; Blood Urea Nitrogen 22 mg/dL (9-20); Calcium 9.8 mg/dL (8.4-10.2); Carbon Dioxide 23 mmol/L (22-30); Chloride 105 mmol/L (98-107); Glucose 170 mg/dL (74-99); Non-African American GFR(CKD) 79 (>60 ml/min/1.73 sqM); Potassium 4.6 mmol/L (3.5-5.1); Sodium 139 mmol/L (137-145); Total Bilirubin 0.4 mg/dL (0.2-1.3); Total Protein 7.5 g/dL (6.3-8.2)
--- NOTE | 2019-02-27 23:31 | CT ---
EXAMINATION TYPE: CT soft tissue neck w con DATE OF EXAM: 02/27/2019 COMPARISON: HISTORY: r/o abcess CT DLP: 281.1 mGycm Automated exposure control for dose reduction was used. CONTRAST: Performed with IV Contrast, patient injected with 100 mL of Isovue 300. Multiple axial sections were obtained from the level of the aortic arch to the top of the frontal sin uses with intravenous contrast. There is normal branching pattern of the great vessels on the aortic arch. Thoracic aorta is atheroma tous. Thyroid gland is symmetric. Submandibular salivary glands are symmetric. Parotid glands are henri rly symmetric. Epiglottis is normal. There is no evidence of pharyngeal mass. Trachea appears normal. There is multilevel spondylotic changes in the cervical spine. There is subcutaneous edema over the posterior neck in the midline and on the right side. There are posterior subcutaneous enlarged lymph nodes that measure up to 9 mm. I see no definite abscess. There is also skin thickening over the righ t posterior neck. There are spondylotic changes in the cervical spine. There is straightening of the vertebra. There is disc space narrowing from C3 to C7. IMPRESSION: Subcutaneous edema and adenopathy over the posterior neck in the midline and right side. There is ski n thickening consistent with cellulitis. No discrete abscess seen. Multilevel spondylotic changes.
[2019-02-27] MEDS ORDERED: CEPHALEXIN 500MG STARTER PACK 4 CAP BTL PO STA (23:50)
[2019-02-27] MEDS ORDERED: SULFAMETH-TMP DS STARTER PACK 2 TAB BTL PO STA (23:50)
[2019-02-27] MEDS ORDERED: DIPH,PERTUS(ACELL)TETVAC-LF 0.5 ML VIAL IM ONE (23:55)
[2019-02-28] MEDS ORDERED: SULFAMETHOX-TMP 800-160MG 1 EACH TAB PO STA
--- NOTE | 2019-02-28 00:01 | ED ---
General Adult HPI - General Chief complaint: Skin/Abscess/Foreign Body Stated complaint: Lump on neck Time Seen by Provider: 02/27/19 22:09 Source: patient, RN notes reviewed, old records reviewed Mode of arrival: ambulatory Limitations: no limitations - History of Present Illness Initial comments: 88-year-old male patient with past history significant for type 2 diabetes, coronary artery disease with stent placement presents to ED for chief complaint of swelling in right posterior neck region for the last 4 days. Patient reports that he was walking and scraped the side of his neck by a tree branch. Patient reports that the next day he began to have swelling, erythema in this region. Denies any systemic complaints of infection. Denies any fevers chills nausea vomiting. Reports that he has some pain in the area of cellulitis, however denies any other pain. Denies any other complaints. Systemic: Pt denies fatigue, fever/chills, rash. Pt denies weakness, night sweats, weight loss. Neuro: Pt denies headache, visual disturbances, syncope or pre-syncope. HEENT: Pt denies ocular discharge or irritation, otalgia, rhinorrhea, pharyngitis or notable lymphadenopathy. Cardiopulmonary: Pt denies chest pain, SOB, heart palpitations, dyspnea on exertion. Abdominal/GI: Pt denies abdominal pain, n/v/d. : Pt denies dysuria, burning w/ urination, frequency/urgency. Denies new onset urinary or bowel incontinence. MSK: Pt denies myalgia, loss of strength or function in extremities. Neuro: Pt denies new onset weakness, paresthesias. - Related Data Home Medications Medication Instructions Recorded Confirmed Clopidogrel Bisulfate [Plavix] 75 mg PO DAILY 06/26/17 10/15/18 Insulin NPH Human Isophane See Protocol SQ AC-TID 06/26/17 10/15/18 [NovoLIN N] LORazepam [Ativan] 1 mg PO TID 06/26/17 10/15/18 Losartan Potassium [Cozaar] 50 mg PO DAILY 06/26/17 10/15/18 Lovastatin [Mevacor] 40 mg PO DAILY 06/26/17 10/15/18 metFORMIN HCL [Glucophage] 500 mg PO BID 06/26/17 10/15/18 Furosemide [Lasix] 40 mg PO DAILY 08/10/18 10/15/18 Gabapentin 600 mg PO TID 08/10/18 10/15/18 Potassium Chloride [Klor-Con 10] 10 meq PO BID 08/10/18 10/15/18 Montelukast [Singulair] 10 mg PO DAILY 10/15/18 10/15/18 Previous Rx's Medication Instructions Recorded Cephalexin [Keflex] 500 mg PO Q6HR 10 Days #40 cap 02/27/19 Sulfamethox-Tmp 800-160Mg [Bactrim 1 tab PO Q12HR 10 Days #20 tab 02/27/19 DS 800-160 mg] Allergies Allergy/AdvReac Type Severity Reaction Status Date / Time No Known Allergies Allergy Verified 02/27/19 21:59 Review of Systems ROS Statement: Those systems with pertinent positive or pertinent negative responses have been documented in the HPI. ROS Other: All systems not noted in ROS Statement are negative. 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 History of Any Multi-Drug Resistant Organisms: None Reported Past Surgical History: Bowel Resection, Heart Catheterization With Stent, Prostate Surgery Additional Past Surgical History / Comment(s): Cardiac catheterization with ins ertion of coronary stents 15 years ago , bowel resection for colon cancer, resection of brain tumor in 1996, insertion of prostate radiation seed for brachytherapy Past Anesthesia/Blood Transfusion Reactions: No Reported Reaction Date of Last Stent Placement:: 1997 Past Psychological History: No Psychological Hx Reported Smoking Status: Never smoker Past Alcohol Use History: None Reported Past Drug Use History: None Reported - Past Family History Father History Unknown: Yes General Exam - General Exam Comments Initial Comments: Constitutional: NAD, AOX3, Pt has pleasant affect. HEENT: NC/AT, trachea midline, neck supple, no lymphadenopathy. Posterior pharynx non erythematous, without exudates. External ears appear normal, without discharge. Mucous membranes moist. Eyes PERRLA, EOM intact. There is no scleral icterus. No pallor noted. Cardiopulmonary: RRR, no murmurs, rubs or gallops, no JVD noted. Lungs CTAB in anterior and posterior petyt. No peripheral edema. Abdominal exam: Abdomen soft and non-distended. Abdomen non-tender to palpation in all 4 quadrants. Bowel sounds active in LLQ. No hepatosplenomegaly. No ecchymosis Neuro: CN II-XII grossly intact. No nuchal rigidity. No raccon eyes, no arreguin sign, no hemotympanum. No cervical spinal tenderness. MSK: 4x4 cm cellulitic region in the right posterior neck region. No fluctuance noted. No posterior calf tenderness bilaterally, homans sign negative bilaterally. Posterior tibialis and radial pulse +2 bilaterally. Sensation intact in upper and lower extremities. Full active ROM in upper and lower extremities, 5/5 stregnth. Limitations: no limitations Course Vital Signs 02/27/19 21:57 Temperature 97.5 F L Pulse Rate 60 Respiratory 16 Rate Blood Pressure 175/79 O2 Sat by Pulse 96 Oximetry Medical Decision Making - Medical Decision Making 88-year-old male patient presents to the chief complaint of redness swelling and right posterior neck region. Denies any systemic signs of infection. Patient vital signs stable, afebrile. Physical exam displayed: 4x4 cm cellulitic region in the right posterior neck region. No fluctuance noted. Laboratory investigation revealed mild hyperglycemia of 170. Otherwise noncompressive. CT soft tissue neck was obtained with contrast. This displayed subcu denies edema with adenopathy of the posterior neck in the midline and right side. Skin thickening consistent cellulitis. No abscess seen. Patient initiated on Rocephin emergency department. Will be discharged with Keflex and Bactrim. Patient with close outpatient follow-up with primary care provider in strict return precautions were discussed. Case discussed and pt seen by Dr. Pepe. - Lab Data Result diagrams: 02/27/19 22:40 02/27/19 22:40 Lab Results 02/27/19 02/27/19 02/27/19 Range/Units 22:40 22:40 22:40 WBC 8.1 (3.8-10.6) k/uL RBC 3.99 L (4.30-5.90) m/uL Hgb 12.4 L (13.0-17.5) gm/dL Hct 37.9 L (39.0-53.0) % MCV 95.1 (80.0-100.0) fL MCH 31.0 (25.0-35.0) pg MCHC 32.7 (31.0-37.0) g/dL RDW 12.8 (11.5-15.5) % Plt Count 260 (150-450) k/uL Neutrophils % 51 % Lymphocytes % 33 % Monocytes % 8 % Eosinophils % 4 % Basophils % 1 % Neutrophils # 4.2 (1.3-7.7) k/uL Lymphocytes # 2.6 (1.0-4.8) k/uL Monocytes # 0.6 (0-1.0) k/uL Eosinophils # 0.4 (0-0.7) k/uL Basophils # 0.1 (0-0.2) k/uL Sodium 139 (137-145) mmol/L Potassium 4.6 (3.5-5.1) mmol/L Chloride 105 (98-107) mmol/L Carbon Dioxide 23 (22-30) mmol/L Anion Gap 11 mmol/L BUN 22 H (9-20) mg/dL Creatinine 0.86 (0.66-1.25) mg/dL Est GFR (CKD-EPI)AfAm >90 (>60 ml/min/1.73 sqM) Est GFR (CKD-EPI)NonAf 79 (>60 ml/min/1.73 sqM) Glucose 170 H (74-99) mg/dL Plasma Lactic Acid Hussain 1.9 (0.7-2.0) mmol/L Calcium 9.8 (8.4-10.2) mg/dL Total Bilirubin 0.4 (0.2-1.3) mg/dL AST 30 (17-59) U/L ALT 16 (4-49) U/L Alkaline Phosphatase 62 (38-126) U/L Total Protein 7.5 (6.3-8.2) g/dL Albumin 4.4 (3.5-5.0) g/dL Disposition Clinical Impression: Cellulitis Disposition: HOME SELF-CARE Condition: Serious Instructions (If sedation given, give patient instructions): Cellulitis (ED) Additional Instructions: Take medications as directed. Follow-up with primary care provider tomorrow. Return immediately to the ER if condition worsens in any way. Prescriptions: Sulfamethox-Tmp 800-160Mg [Bactrim DS 800-160 mg] 1 tab PO Q12HR 10 Days #20 tab Cephalexin [Keflex] 500 mg PO Q6HR 10 Days #40 cap Is patient prescribed a controlled substance at d/c from ED?: No Referrals: Adolph Zendejas MD [Primary Care Provider] - 1-2 days
== END 2019-02-28 00:55 | disposition home or self-care (01) ==
LOC: EC 21:52
DX: L03.221 Cellulitis of neck (principal); E11.65 Type 2 diabetes mellitus with hyperglycemia; I25.10 Atherosclerotic heart disease of native coronary artery without angina pectoris; E11.40 Type 2 diabetes mellitus with diabetic neuropathy, unspecified; I10 Essential (primary) hypertension; Z85.038 Personal history of other malignant neoplasm of large intestine; Z85.46 Personal history of malignant neoplasm of prostate; Z86.718 Personal history of other venous thrombosis and embolism; Z79.02 Long term (current) use of antithrombotics/antiplatelets; Z79.4 Long term (current) use of insulin; Z79.899 Other long term (current) drug therapy; Z95.5 Presence of coronary angioplasty implant and graft; Z23 Encounter for immunization
CPT/HCPCS: 99284; 96365; 90471; 36415; 80053; 83605; 85025; 70491; 90715; J0696; Q9967

== ENCOUNTER 2019-04-07 09:30 | Emergency (ER) | payer MEDICARE ==
[2019-04-07 09:38] VITALS: RESP 18; TEMP 97.8
[2019-04-07] MEDS ORDERED: KETOROLAC 30 MG/ML 1 ML VIAL IM STA (09:59)
--- NOTE | 2019-04-07 10:18 | ED ---
General Adult HPI - General Chief complaint: Back Pain/Injury Stated complaint: rt sided back/leg pain Time Seen by Provider: 04/07/19 09:38 Source: patient, RN notes reviewed Mode of arrival: ambulatory Limitations: physical limitation - History of Present Illness Initial comments: 88-year-old male presents to the emergency department for a chief complaint of right-sided back pain. Patient states that this started about 3 days ago. Patient has a history of back pain that is normally on the left side of the back. Patient states that the pain was tolerable but this morning worsened somewhat. He states it radiates down his right leg. States it worsens when he lifts his right leg. Patient states that right now the pain is actually much improved compared to this morning. He denies any weakness of the lower extremities. Denies any difficulty ambulating. Denies any associated abdominal pain or upper back pain. Denies nausea vomiting diarrhea. Patient denies any bladder or bowel changes or numbness or tingling in the saddle region. Patient states that he has had similar problems on the left side of his back and told he has severe arthritis. 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 He is also seeing his primary care provider tomorrow. Patient states that we gave him a medication last time that really helped with his pain. Patient has no other complaints at this time including shortness of breath, chest pain, abdominal pain, nausea or vomiting, headache, or visual changes. - Related Data Home Medications Medication Instructions Recorded Confirmed Clopidogrel Bisulfate [Plavix] 75 mg PO DAILY 06/26/17 10/15/18 Insulin NPH Human Isophane See Protocol SQ AC-TID 06/26/17 10/15/18 [NovoLIN N] LORazepam [Ativan] 1 mg PO TID 06/26/17 10/15/18 Losartan Potassium [Cozaar] 50 mg PO DAILY 06/26/17 10/15/18 Lovastatin [Mevacor] 40 mg PO DAILY 06/26/17 10/15/18 metFORMIN HCL [Glucophage] 500 mg PO BID 06/26/17 10/15/18 Furosemide [Lasix] 40 mg PO DAILY 08/10/18 10/15/18 Gabapentin 600 mg PO TID 08/10/18 10/15/18 Potassium Chloride [Klor-Con 10] 10 meq PO BID 08/10/18 10/15/18 Montelukast [Singulair] 10 mg PO DAILY 10/15/18 10/15/18 Previous Rx's Medication Instructions Recorded Cephalexin [Keflex] 500 mg PO Q6HR 10 Days #40 cap 02/27/19 Sulfamethox-Tmp 800-160Mg [Bactrim 1 tab PO Q12HR 10 Days #20 tab 02/27/19 DS 800-160 mg] Allergies Allergy/AdvReac Type Severity Reaction Status Date / Time No Known Allergies Allergy Verified 04/07/19 09:38 Review of Systems ROS Statement: Those systems with pertinent positive or pertinent negative responses have been documented in the HPI. ROS Other: All systems not noted in ROS Statement are negative. Past Medical History Past Medical History: Coronary Artery Disease (CAD), Cancer, Diabetes Mellitus, Deep Vein Thrombosis (DVT), Hearing Disorder / Deafness, Hypertension, Osteoarthritis (OA), Prostate Disorder Additional Past Medical History / Comment(s): Colon cancer 1997 post colectomy, prostate cancer treated by radiation therapy and local seed implants, brain tumor with previous CAR BLOCKER surgery in 1996, peripheral neuropathy involving the lower extremities, cholelithiasis/symptomatic, coronary artery disease, diabetes mellitus, impaired hearing, osteoarthritis, hypertension, previous history of DVT currently on no anticoagulants. History of Any Multi-Drug Resistant Organisms: None Reported Past Surgical History: Bowel Resection, Heart Catheterization With Stent, Prostate Surgery Additional Past Surgical History / Comment(s): Cardiac catheterization with insertion of coronary stents 15 years ago , bowel resection for colon cancer, resection of brain tumor in 1996, insertion of prostate radiation seed for brachytherapy Past Anesthesia/Blood Transfusion Reactions: No Reported Reaction Date of Last Stent Placement:: 1997 Past Psychological History: No Psychological Hx Reported Smoking Status: Never smoker Past Alcohol Use History: None Reported Past Drug Use History: None Reported - Past Family History Father History Unknown: Yes General Exam Limitations: physical limitation General appearance: alert, in no apparent distress Head exam: Present: atraumatic, normocephalic, normal inspection Eye exam: Present: normal appearance, PERRL, EOMI. Absent: scleral icterus, conjunctival injection, periorbital swelling ENT exam: Present: normal exam, mucous membranes moist Neck exam: Present: normal inspection, full ROM. Absent: tenderness, meningismus, lymphadenopathy Respiratory exam: Present: normal lung sounds bilaterally. Absent: respiratory distress, wheezes, rales, rhonchi, stridor Cardiovascular Exam: Present: regular rate, normal rhythm, normal heart sounds. Absent: systolic murmur, diastolic murmur, rubs, gallop, clicks GI/Abdominal exam: Present: soft, normal bowel sounds. Absent: distended, tenderness, guarding, rebound, rigid Extremities exam: Present: normal capillary refill (Capillary refill less than 2 seconds in lower extremity as bilaterally, DP pulse is 2+ bilaterally.), other (Sensation intact in the bilateral lower extremities. Strength is 5 out of 5 in bilateral lower extremities. Patient is ambulatory throughout the exam room without any difficulty.). Absent: calf tenderness (No tenderness of the bilateral calves. No edema or erythema.) Back exam: Present: other (Patient is able to flex the lumbar spine 60. This does elicit minor pain.). Absent: CVA tenderness (R), CVA tenderness (L), vertebral tenderness (No lumbar spine tenderness) Course Vital Signs 04/07/19 09:36 Temperature 97.8 F Pulse Rate 51 L Respiratory 18 Rate Blood Pressure 171/66 O2 Sat by Pulse 96 Oximetry Medical Decision Making - Medical Decision Making Patient was seen and evaluated upon arrival. Patient is complaining of right low back pain radiating to the right leg. Positive straight leg raise test. However patient is ambulatory in the emergency department without difficulty or assistance. No neurologic deficits in the legs bilaterally. Strength is 5 out of 5. Neurovascular status intact with bilateral DP pulses 2+. No red flag symptoms. Patient has had similar problems in the past and is currently in the process of seeing Dr. David as he was supposed to have injections for this but has not been able to get clearance from his primary care. Patient is seeing his new primary care provider tomorrow. She was initially given Toradol which did help somewhat with this pain but patient states pain is not completely gone. I had a discussion with patient that we will likely not be able to get his pain to his 0 but do hope to improve on his pain. He was given IM morphine and will be sent home with Tylenol 3. Daughter is calling Dr. David to ensure an appointment. They will return if they've any worsening symptoms which I did discuss thoroughly. On reevaluation of the patient after morphine he is completely dressed ready to go. States he is feeling much better. He will follow-up with his doctor tomorrow at his scheduled appointment. He has a ride home. He is aware not to drive and his daughter will drive him home. He will not drive while taking Tylenol I discussed this case with attending Dr. Jc who agrees with this assessment and treatment plan. Disposition Clinical Impression: Mechanical back pain Disposition: HOME SELF-CARE Condition: Good Instructions (If sedation given, give patient instructions): Acute Low Back Pain (ED) Additional Instructions: Please take Tylenol 3 as needed for pain. Do not drive or operate machinery while taking this. As discussed, it can increase risk of falls so be careful while taking this. Follow-up with your doctor at your scheduled appointment tomorrow. Follow-up with Dr. David as well. Return to the emergency department if you develop any worsening symptoms. Is patient prescribed a controlled substance at d/c from ED?: No Referrals: Lazaro Avalos MD [Primary Care Provider] - 1-2 days Time of Disposition: 11:56
[2019-04-07] MEDS ORDERED: MORPHINE SULFATE 4 MG/ML SYRINGE IM STA (10:58)
[2019-04-07] MEDS ORDERED: ACET/COD 300 MG/30 MG STARTER PACK 6 TAB BTL PO STA (10:58)
[2019-04-07 12:00] VITALS: BP 168/70; PULSE 58
== END 2019-04-07 11:59 | disposition home or self-care (01) ==
LOC: EC 09:30
DX: M54.5 Low back pain (principal); M79.604 Pain in right leg; M19.90 Unspecified osteoarthritis, unspecified site; I25.10 Atherosclerotic heart disease of native coronary artery without angina pectoris; E11.42 Type 2 diabetes mellitus with diabetic polyneuropathy; H91.90 Unspecified hearing loss, unspecified ear; I10 Essential (primary) hypertension; Z79.02 Long term (current) use of antithrombotics/antiplatelets; Z79.4 Long term (current) use of insulin; Z79.899 Other long term (current) drug therapy; Z85.46 Personal history of malignant neoplasm of prostate; Z85.038 Personal history of other malignant neoplasm of large intestine; Z86.718 Personal history of other venous thrombosis and embolism; Z92.3 Personal history of irradiation; Z86.011 Personal history of benign neoplasm of the brain; Z90.49 Acquired absence of other specified parts of digestive tract; Z98.890 Other specified postprocedural states
CPT/HCPCS: 99283; 96372 ×2; J2270; J1885

== ENCOUNTER 2019-05-19 06:58 | Day surgery (SDC) | payer MEDICARE ==
[2019-05-17 11:39] VITALS: BMI 22.9
[~2019-05-19 06:58] MED LIST changes: -DEXAMETHASONE SOD PHOSPHATE 10 MG/ML 1 ML VIAL IV ONE; +LACTATED RINGERS 1,000 ML IV SCH; -LIDOCAINE 1% 20 ML VIAL (10MG/ML) FOR IV START INTRADERMA PRN; -MIDAZOLAM 2 MG/2 ML VIAL IV PRN; -ONDANSETRON 4 MG/2 ML VIAL IVP ONE; -Pre Op ABX Message 1 EACH MISC MISCELLANE ONE; -SCOPOLAMINE 1.5MG/72HR PATCH TRANSDERM ONE
[2019-05-19] MEDS ORDERED: LIDOCAINE 1% (10MG/ML) FOR IV START INTRADERMA ONE (07:25)
[2019-05-19 07:39] LABS: Glucose,Whole Blood 80 mg/dL (75-99)
[2019-05-19] MEDS ORDERED: PROPOFOL 10 MG/ML 20 ML VIAL IV ONE (08:04)
--- NOTE | 2019-05-19 08:31 | P.PCN ---
Date of Procedure: 05/19/19 Procedure(s) Performed: Brief history: Patient is a pleasant 88-year-old white male scheduled for an elective upper endoscopy as well as colonoscopy as a part of evaluation of abdominal pain and chronic diarrhea and weight loss for the last few months duration. In having bowel movements anywhere from 7-8 a day which are loose to watery in consistency. He lost 15 pounds since onset of the symptoms. Procedure performed: Esophagogastroduodenoscopy with biopsy Colonoscopy with biopsy Preoperative diagnosis: Anesthesia: [facility] [place] Procedure: After informed consent was obtained from the patient was brought into the endoscopy unit and IV sedation was administered by anesthesia under continuous monitoring. Initially upper endoscopy was done. The Olympus GF 160 video endoscope was inserted inserted into the mouth and esophagus intubated without any difficulty and was gradually advanced into the stomach and duodenum and carefully examined. The bulb and second part of the duodenum appeared normal. Biopsies were done from the duodenum to rule out celiac disease. The scope was then withdrawn into the stomach adequately insufflated with air and upon careful examination the antrum had mild gastritis and biopsies were done from this area. The body, cardia and fundus appeared normal. The scope was then withdrawn into the esophagus. The GE junction was located at 40 cm to the incisors. It appeared regular with no erythema erosions or ulcerations. Rest of the esophagus appeared normal. Patient tolerated the procedure well. At this time the patient continued to remain sedation. Initial digital rectal examination was normal. Olympus CF 160 video colonoscope was then inserted into the rectum and gradually advanced to the patient there was ileocolic anastomosis identified that appeared normal. Mucosa of the anastomosis and the distal ileum appeared normal. Mucosa of the, ascending colon, transverse colon, descending colon, sigmoid colon and rectum appeared normal. Random biopsies were done from ascending and descending colon to rule out microscopic/collagenous colitis. Scattered sigmoid diverticulosis. Retroflexion was performed in the rectum and no lesions were noted. Patient tolerated the procedure well. Impression: 1. Upper endoscopy revealed mild antral gastritis but no evidence of esophagitis or peptic ulcer disease 2. Colonoscopy was essentially within normal limits with no evidence of colitis or colorectal neoplasia. Scattered sigmoid diverticulosis seen. Recommendations: Findings of this examination were discussed with the patient as well as his family. He was advised to follow with the biopsy results. She'll be seen in office in a week.
[2019-05-19 08:52] VITALS: BP 141/68; PULSE 60; RESP 20
== END 2019-05-19 09:00 | disposition home or self-care (01) ==
LOC: ORWHC2ENDO 06:58
PROVIDERS: ATTEND Internal Medicine Gastroenterology
DX: K52.839 Microscopic colitis, unspecified (principal); K29.50 Unspecified chronic gastritis without bleeding; K57.30 Diverticulosis of large intestine without perforation or abscess without bleeding; I10 Essential (primary) hypertension; E78.5 Hyperlipidemia, unspecified; I25.10 Atherosclerotic heart disease of native coronary artery without angina pectoris; Z95.5 Presence of coronary angioplasty implant and graft; E11.9 Type 2 diabetes mellitus without complications; F41.9 Anxiety disorder, unspecified; Z79.4 Long term (current) use of insulin; Z79.02 Long term (current) use of antithrombotics/antiplatelets; Z79.899 Other long term (current) drug therapy
CPT/HCPCS: 88305; 88313; 45380; 43239; J2704

== ENCOUNTER 2019-09-12 16:00 | Emergency (ER) | payer MEDICARE ==
[2019-09-12 16:07] VITALS: BP 180/74; PULSE 56; RESP 18; TEMP 97.9
[2019-09-12] MEDS ORDERED: DIPH,PERTUS(ACELL)TETVAC-LF 0.5 ML VIAL IM ONE (16:28)
--- NOTE | 2019-09-12 16:32 | ED ---
General Adult HPI - General Chief complaint: Fall Stated complaint: fall, rt arm injury Time Seen by Provider: 09/12/19 16:08 Source: patient, RN notes reviewed Mode of arrival: ambulatory Limitations: no limitations - History of Present Illness Initial comments: Patient is a pleasant 89-year-old male presenting to the emergency department with right arm injury. Patient states after he got out of bed he became lightheaded and did fall down. Patient states this is a regular thing for him and he has chronic balance problems. Patient did sustain skin tears to his right arm. No bony injury. Significant discomfort. Patient has noticed some bruising. Patient is unclear last tetanus immunization. No head injury or loss of consciousness. No other area of concern or pain. - Related Data Home Medications Medication Instructions Recorded Confirmed Clopidogrel Bisulfate [Plavix] 75 mg PO DAILY 06/26/17 05/17/19 Insulin NPH Human Isophane See Protocol SQ AC-TID 06/26/17 05/17/19 [NovoLIN N] LORazepam [Ativan] 1 mg PO TID PRN 06/26/17 05/17/19 Losartan Potassium [Cozaar] 50 mg PO DAILY 06/26/17 05/17/19 Lovastatin [Mevacor] 40 mg PO DAILY 06/26/17 05/17/19 metFORMIN HCL [Glucophage] 500 mg PO BID 06/26/17 05/17/19 Furosemide [Lasix] 40 mg PO DAILY 08/10/18 05/17/19 Gabapentin 600 mg PO TID 08/10/18 05/17/19 Potassium Chloride [Klor-Con 10] 10 meq PO BID 08/10/18 05/17/19 Montelukast [Singulair] 10 mg PO DAILY 10/15/18 05/17/19 Allergies Allergy/AdvReac Type Severity Reaction Status Date / Time No Known Allergies Allergy Verified 09/12/19 16:07 Review of Systems ROS Statement: Those systems with pertinent positive or pertinent negative responses have been documented in the HPI. ROS Other: All systems not noted in ROS Statement are negative. Constitutional: Denies: fever Eyes: Denies: eye pain ENT: Denies: ear pain Respiratory: Denies: cough Cardiovascular: Denies: chest pain Endocrine: Denies: fatigue Gastrointestinal: Denies: abdominal pain Genitourinary: Denies: dysuria Musculoskeletal: Denies: back pain Skin: Reports: as per HPI Past Medical History Past Medical History: Coronary Artery Disease (CAD), Cancer, Diabetes Mellitus, Deep Vein Thrombosis (DVT), Hearing Disorder / Deafness, Hypertension, Osteoarthritis (OA), Prostate Disorder Additional Past Medical History / Comment(s): Colon cancer 1997 post colectomy, prostate cancer treated by radiation therapy and local seed implants, 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 History of Any Multi-Drug Resistant Organisms: None Reported Past Surgical History: Bowel Resection, Heart Catheterization With Stent, Prostate Surgery Additional Past Surgical History / Comment(s): Cardiac catheterization with insertion of coronary stents x2 , bowel resection for colon cancer, resection of brain tumor in 1996, insertion of prostate radiation seed for brachytherapy Past Anesthesia/Blood Transfusion Reactions: No Reported Reaction Date of Last Stent Placement:: 2011 Past Psychological History: Anxiety Past Alcohol Use History: None Reported Past Drug Use History: None Reported - Past Family History Father History Unknown: Yes General Exam Limitations: no limitations General appearance: alert, in no apparent distress Head exam: Present: atraumatic, normocephalic Eye exam: Present: normal appearance, PERRL ENT exam: Present: normal oropharynx Neck exam: Present: normal inspection. Absent: tenderness Respiratory exam: Present: normal lung sounds bilaterally Cardiovascular Exam: Present: regular rate, normal rhythm Expanded Peripheral pulses: 2+: Radial (R) GI/Abdominal exam: Present: soft. Absent: tenderness Extremities exam: Present: other (Right arm with several skin tears. No bony tenderness. No weakness.) Back exam: Absent: vertebral tenderness Neurological exam: Present: alert. Absent: motor sensory deficit Psychiatric exam: Present: normal affect, normal mood Skin exam: Present: other (Skin tears right midarm) Course Vital Signs 09/12/19 16:02 Temperature 97.9 F Pulse Rate 56 L Respiratory 18 Rate Blood Pressure 180/74 O2 Sat by Pulse 96 Oximetry Procedures - Procedures Initial comment: Patient has skin tear right arm below the elbow approximately 6 x 8 cm. There is nonviable tissue that was debrided, approximately 4 cm. Area was cleansed. There is also skin tears above the right elbow was also cleansed and Steri- Strips placed. Area was approximately 2 x 3 cm. Total time involved 8 minutes. Consent was given. Disposition Clinical Impression: Fall, Skin tear Disposition: HOME SELF-CARE Condition: Stable Instructions (If sedation given, give patient instructions): Fall Prevention for Older Adults (ED), Skin Tear (ED) Additional Instructions: Twice daily wash areas thoroughly with soap and water, apply antibiotic ointment and keep bandaged. Please have primary care physician review wound within the next couple of days. Return for uncontrolled bleeding, fever, redness or pain, swelling, worsening symptoms or other concerns. Is patient prescribed a controlled substance at d/c from ED?: No Referrals: Lazaro Avalos MD [Primary Care Provider] - 1-2 days Time of Disposition: 16:32
== END 2019-09-12 16:50 | disposition home or self-care (01) ==
LOC: EC 16:00
DX: S41.111A Laceration without foreign body of right upper arm, initial encounter (principal); S51.011A Laceration without foreign body of right elbow, initial encounter; F41.9 Anxiety disorder, unspecified; I25.10 Atherosclerotic heart disease of native coronary artery without angina pectoris; E11.9 Type 2 diabetes mellitus without complications; I10 Essential (primary) hypertension; M19.90 Unspecified osteoarthritis, unspecified site; Z79.4 Long term (current) use of insulin; Z79.02 Long term (current) use of antithrombotics/antiplatelets; Z79.899 Other long term (current) drug therapy; Z95.5 Presence of coronary angioplasty implant and graft; Z90.49 Acquired absence of other specified parts of digestive tract; Z86.718 Personal history of other venous thrombosis and embolism; Z85.46 Personal history of malignant neoplasm of prostate; Z85.038 Personal history of other malignant neoplasm of large intestine; Z92.3 Personal history of irradiation; W18.39XA Other fall on same level, initial encounter; Y93.89 Activity, other specified; Y92.003 Bedroom of unspecified non-institutional (private) residence as the place of occurrence of the external cause
CPT/HCPCS: 90471; 90715; 99283

== ENCOUNTER 2021-02-04 15:29 | Emergency (ER) | payer MEDICARE ==
[2021-02-04 16:11] VITALS: RESP 18; TEMP 98.2
[2021-02-04] MEDS ORDERED: MORPHINE SULFATE 4 MG/ML SYRINGE IVP STA (16:45)
[2021-02-04] MEDS ORDERED: Kcentra PER PHARMACY 1 EACH MISC MISCELLANE PRN (16:59)
--- NOTE | 2021-02-04 17:17 | ED ---
Fall HPI - General Chief Complaint: Fall Stated Complaint: Fall/Head injury Time Seen by Provider: 02/04/21 16:10 Source: patient Mode of arrival: ambulatory - History of Present Illness Initial Comments: 89-year-old gentleman on Coumadin for DVT presents to the emergency department after he sustained a fall. He was stepping out of his car in the parking lot of his apartment complex. He slipped on the ice and fell for hitting his left frontal region on the cement. He denies losing consciousness. He is on blood thinners and therefore EMS was called for transfer to our facility. He denies any headaches or visual changes. No neck pain. Patient not currently in a c-collar upon my evaluation. He denies any nausea or vomiting. No chest pain or shortness of breath. Denies any pain, numbness or tingling in his extremities. He states that he normally does not get his INR checked therefore cannot tell me if he is usually therapeutic. Patient denies any dizziness or difficulties with ambulation. No other alleviating, precipitating or modify factors - Related Data Home Medications Medication Instructions Recorded Confirmed Clopidogrel Bisulfate [Plavix] 75 mg PO DAILY 06/26/17 05/17/19 Insulin NPH Human Isophane See Protocol SQ AC-TID 06/26/17 05/17/19 [NovoLIN N] LORazepam [Ativan] 1 mg PO TID PRN 06/26/17 05/17/19 Losartan Potassium [Cozaar] 50 mg PO DAILY 06/26/17 05/17/19 Lovastatin [Mevacor] 40 mg PO DAILY 06/26/17 05/17/19 metFORMIN HCL [Glucophage] 500 mg PO BID 06/26/17 05/17/19 Furosemide [Lasix] 40 mg PO DAILY 08/10/18 05/17/19 Gabapentin 600 mg PO TID 08/10/18 05/17/19 Potassium Chloride [Klor-Con 10] 10 meq PO BID 08/10/18 05/17/19 Montelukast [Singulair] 10 mg PO DAILY 10/15/18 05/17/19 Allergies Allergy/AdvReac Type Severity Reaction Status Date / Time No Known Allergies Allergy Verified 02/04/21 16:11 Review of Systems ROS Statement: Those systems with pertinent positive or pertinent negative responses have been documented in the HPI. ROS Other: All systems not noted in ROS Statement are negative. 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 History of Any Multi-Drug Resistant Organisms: None Reported Past Surgical History: Bowel Resection, Heart Catheterization With Stent, Prostate Surgery Additional Past Surgical History / Comment(s): Cardiac catheterization with insertion of coronary stents x2 , bowel resection for colon cancer, resection of brain tumor in 1996, insertion of prostate radiation seed for brachytherapy Past Anesthesia/Blood Transfusion Reactions: No Reported Reaction Date of Last Stent Placement:: 2011 Past Psychological History: Anxiety Smoking Status: Never smoker Past Alcohol Use History: None Reported Past Drug Use History: None Reported - Past Family History Father History Unknown: Yes General Exam Limitations: no limitations General appearance: alert, in no apparent distress Head exam: Present: normocephalic, other (Hematoma left frontal scalp measuring 4 x 4 cm. There is an overlying abrasion with some active bleeding) Eye exam: Present: normal appearance, PERRL, EOMI. Absent: scleral icterus, conjunctival injection, periorbital swelling ENT exam: Present: normal exam, mucous membranes moist Neck exam: Present: normal inspection. Absent: tenderness, meningismus, lymphadenopathy Respiratory exam: Present: normal lung sounds bilaterally. Absent: respiratory distress, wheezes, rales, rhonchi, stridor Cardiovascular Exam: Present: regular rate, normal rhythm, normal heart sounds. Absent: systolic murmur, diastolic murmur, rubs, gallop, clicks GI/Abdominal exam: Present: soft, normal bowel sounds. Absent: distended, tenderness, guarding, rebound, rigid Extremities exam: Present: normal inspection, full ROM, normal capillary refill. Absent: tenderness, pedal edema, joint swelling, calf tenderness Back exam: Present: normal inspection Neurological exam: Present: alert, oriented X3, CN II-XII intact Psychiatric exam: Present: normal affect, normal mood Skin exam: Present: warm, dry, intact, normal color. Absent: rash Course Vital Signs 02/04/21 02/04/21 16:06 18:25 Temperature 98.2 F Pulse Rate 78 62 Respiratory 18 18 Rate Blood Pressure 124/83 136/85 O2 Sat by Pulse 95 93 L Oximetry - Reevaluation(s) Reevaluation #1: 02/04/21 17:06 Calling [facility] for transfer Reevaluation #2: Spoke with Dr. Brizuela regarding read 02/04/21 17:17 Reevaluation #3: Dr. Sung accepts transfer 02/04/21 17:25 Medical Decision Making - Medical Decision Making Upon arrival patient is placed in room 9. A thorough history and physical exam was performed. Patient is neurologically intact. He is sent over for a CT of his brain and cervical spine because of his reported fall on Coumadin. 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 No evidence of cervical spine fracture. These results are discussed with the patient. He has had left temporal posterior craniotomy for mastoiditis in 1996. Procedure was performed at [facility]. I did recommend transfer to nearest facility with neurosurgical capabilities for which the patient did agree to transfer. I called and spoke with Dr. Sung at [facility] who accepted transfer the patient. He will be sent. He 1 down to [facility]. Laboratory studies are pending at this time. He is given 5 mg of vitamin K IV and Kcentra as he reports he is complaint with his coumadin. Patient transferred in stable condition - Lab Data Result diagrams: 02/04/21 16:55 Lab Results 02/04/21 02/04/21 02/04/21 Range/Units 16:55 16:55 17:32 WBC 6.7 (3.8-10.6) k/uL RBC 3.65 L (4.30-5.90) m/uL Hgb 11.8 L (13.0-17.5) gm/dL Hct 34.6 L (39.0-53.0) % MCV 94.7 (80.0-100.0) fL MCH 32.3 (25.0-35.0) pg MCHC 34.1 (31.0-37.0) g/dL RDW 12.4 (11.5-15.5) % Plt Count 268 (150-450) k/uL MPV 7.1 Neutrophils % 52 % Lymphocytes % 27 % Monocytes % 8 % Eosinophils % 8 % Basophils % 1 % Neutrophils # 3.5 (1.3-7.7) k/uL Lymphocytes # 1.8 (1.0-4.8) k/uL Monocytes # 0.5 (0-1.0) k/uL Eosinophils # 0.6 (0-0.7) k/uL Basophils # 0.1 (0-0.2) k/uL PT 10.1 (9.0-12.0) sec INR 0.9 (<1.2) APTT 22.6 (22.0-30.0) sec Coronavirus (PCR) Not Detected (Not Detectd) Critical Care Time Critical Care Time: Yes Critical Care Time: 50 minutes Disposition Clinical Impression: Fall, Concussion, Subdural bleeding, Anticoagulated on Coumadin Disposition: TRANSFER TO SHORT TERM HOSP Condition: Serious Is patient prescribed a controlled substance at d/c from ED?: No Referrals: Lazaro Avalos MD [Primary Care Provider] - 1-2 days - Out of Hospital Transfer - Req. Specs Out of Hospital Transfer - Requested Specifics: Other [facility] ([facility]
--- NOTE | 2021-02-04 17:19 | CT ---
EXAMINATION TYPE: CT brain cspine wo con DATE OF EXAM: 02/04/2021 COMPARISON: 12/15/2016 HISTORY: Fall, head trauma. Previous hx tumor removal CT DLP: 1453.7 mGycm Automated exposure control for dose reduction was used. There is widening of the subdural space with mixed attenuation on the left side that measures up to 1 .7 cm in thickness related to acute and chronic subdural hemorrhage. There is left temporal posterior craniotomy defect noted. There is some mild mass effect upon the temporal horn of the left lateral v entricle. There is no significant midline shift. There is cerebral cortical atrophy. The cervical vertebra show mild straightening. There is degenerative disc space narrowing from C3 to C7 with spurring of the endplates. Facet joints are intact. There is no evidence of cervical spine fr acture. Skull base is intact. There is left frontal lateral subcutaneous hematoma that measures up to 12 mm in thickness. 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 There is left frontal tempo ral scalp hematoma. No cerebral parenchymal hemorrhage. No evidence of subarachnoid hemorrhage. Spondylotic changes in the cervical spine. No fracture. This exam was discussed with the emergency room staff at 5:15 PM.
[2021-02-04] MEDS ORDERED: PHYTONADIONE 5 MG in SODIUM CHLORIDE 0.9% 50 ML IVPB ONE (17:20)
[2021-02-04] MEDS ORDERED: TOPICAL SKIN ADHESIVE 1 EACH AMP TOPICAL ONE (17:24)
[2021-02-04] MEDS ORDERED: EMPTY BAG 1 BAG with HUMAN PROTHROMBIN COMPLX 1,629 UNIT IV ONE (17:25)
[2021-02-04] MEDS ORDERED: HUMAN PROTHROMBIN COMPLX 500 UNIT/16 ML VIAL IV ONE (17:30)
[2021-02-04 17:33] LABS: INR 0.9 (<1.2); Partial Thromboplastin Time 22.6 sec (22.0-30.0); Prothrombin Time 10.1 sec (9.0-12.0)
[2021-02-04 17:35] LABS: Basophils # (A) 0.1 k/uL (0-0.2); Basophils % (A) 1 %; Eosinophils # (A) 0.6 k/uL (0-0.7); Eosinophils % (A) 8 %; HCT 34.6 % (39.0-53.0); HGB 11.8 gm/dL (13.0-17.5); Lymphocytes # (A) 1.8 k/uL (1.0-4.8); Lymphocytes % (A) 27 %; MCH 32.3 pg (25.0-35.0); MCHC 34.1 g/dL (31.0-37.0); MCV 94.7 fL (80.0-100.0); Mean Platelet Volume 7.1; Monocytes # (A) 0.5 k/uL (0-1.0); Monocytes % (A) 8 %; Neutrophils # (A) 3.5 k/uL (1.3-7.7); Neutrophils % (A) 52 %; Platelet Count 268 k/uL (150-450); RBC 3.65 m/uL (4.30-5.90); RDW 12.4 % (11.5-15.5); WBC 6.7 k/uL (3.8-10.6)
[2021-02-04 17:58] VITALS: BP 136/85; PULSE 62
[2021-02-04] MEDS ORDERED: ONDANSETRON 4 MG/2 ML VIAL IVP STA (17:58)
[2021-02-04] MEDS ORDERED: niCARdipine 20 MG in SODIUM CHLORIDE 0.9% 192 ML IV ONE (18:30)
== END 2021-02-04 18:26 | disposition short-term general hospital (02) ==
LOC: EC 15:29
DX: S06.0X0A Concussion without loss of consciousness, initial encounter (principal); S06.5X0A Traumatic subdural hemorrhage without loss of consciousness, initial encounter; R40.2412 Glasgow coma scale score 13-15, at arrival to emergency department; I10 Essential (primary) hypertension; E11.42 Type 2 diabetes mellitus with diabetic polyneuropathy; I25.10 Atherosclerotic heart disease of native coronary artery without angina pectoris; M19.90 Unspecified osteoarthritis, unspecified site; Z79.4 Long term (current) use of insulin; Z79.899 Other long term (current) drug therapy; Z86.718 Personal history of other venous thrombosis and embolism; Z79.02 Long term (current) use of antithrombotics/antiplatelets; Z79.84 Long term (current) use of oral hypoglycemic drugs; W00.0XXA Fall on same level due to ice and snow, initial encounter; Y92.481 Parking lot as the place of occurrence of the external cause
CPT/HCPCS: 36415; 85025; 85610; 85730; 87635; 72125; 70450; 99291; 96365; 96375; J2270; J3430; J2405; J7168